=== PATIENT | male | born 1975 | race Caucasian/White ===

== ENCOUNTER 2021-12-31 04:54 | Emergency (ER) | payer OTHER ==
[2021-12-31] MEDS ORDERED: LORazepam 2 MG/ML INJ IV STA (05:41)
[2021-12-31] MEDS ORDERED: SODIUM CHLORIDE 0.9% 1,000 ML IV ONE (05:41)
[2021-12-31] MEDS ORDERED: LORazepam 2 MG/ML INJ IV PRN ×3 (06:09)
[2021-12-31] MEDS ORDERED: THIAMINE 100 MG/ML 2 ML VIAL IM STA (06:09)
--- NOTE | 2021-12-31 06:18 | ED ---
Alcohol HPI - General Chief Complaint: Alcohol Stated Complaint: ETOH Time Seen by Provider: 12/31/21 05:59 Source: patient, EMS, RN notes reviewed Mode of arrival: EMS Limitations: altered mental status (alcohol intoxication) - History of Present Illness Initial Comments: This is a 46-year-old male who presents to the emergency department for alcohol intoxication. Patient is clearly intoxicated on initial examination and difficult to obtain history from. States that his last drink was just prior to arrival. He had 10 24 oz beers tonight. States that he was released from shelter in June, and prior to his release he had been sober for 6 years. Despite being released in June, he did not have any alcohol until last night. States that he was around other people who were drinking alcohol and decided he would have some too, and ended up getting carried away. Currently states that he feels shaky and overall very ill. MD Complaint: alcohol intoxication Last Drink: just [employer] Recent Trauma: No Chronic Alcohol Use: Yes - Related Data Home Medications Medication Instructions Recorded Confirmed Dilantin 11/01/15 11/01/15 Phenobarbital 11/01/15 11/01/15 Previous Rx's Medication Instructions Recorded Ondansetron Odt [Zofran Odt] 4 mg PO Q8HR PRN #20 tab 12/31/21 Allergies Allergy/AdvReac Type Severity Reaction Status Date / Time No Known Allergies Allergy Verified 12/31/21 04:59 Review of Systems ROS Statement: Those systems with pertinent positive or pertinent negative responses have been documented in the HPI. ROS Other: All systems not noted in ROS Statement are negative. Respiratory: Denies: cough, dyspnea Cardiovascular: Denies: chest pain Gastrointestinal: Reports: nausea. Denies: vomiting Skin: Denies: rash Neurological: Reports: headache Psychiatric: Denies: anxiety, depression Past Medical History Past Medical History: Seizure Disorder History of Any Multi-Drug Resistant Organisms: None Reported Additional Past Surgical History / Comment(s): MOUTH SURGERY Past Psychological History: Anxiety, Depression Past Alcohol Use History: Heavy Past Drug Use History: None Reported General Exam Limitations: altered mental status (alcohol intoxication) General appearance: alert, appears intoxicated Head exam: Present: atraumatic, normocephalic, normal inspection Respiratory exam: Present: normal lung sounds bilaterally. Absent: respiratory distress, wheezes, rales, rhonchi, stridor Cardiovascular Exam: Present: normal rhythm, tachycardia, normal heart sounds. Absent: systolic murmur, diastolic murmur, rubs, gallop, clicks Neurological exam: Present: alert Skin exam: Present: warm, dry, intact, normal color. Absent: rash Course Vital Signs 12/31/21 12/31/21 12/31/21 04:56 06:36 08:33 Temperature 98.3 F Pulse Rate 111 H 92 85 Respiratory 19 18 16 Rate Blood Pressure 153/94 114/78 113/77 O2 Sat by Pulse 95 93 L 98 Oximetry 12/31/21 12/31/21 12/31/21 09:20 11:05 12:05 Temperature 98 F 98.1 F 98 F Pulse Rate 88 90 60 Respiratory 16 16 16 Rate Blood Pressure 111/78 115/84 117/80 O2 Sat by Pulse 97 96 98 Oximetry 12/31/21 12/31/21 13:44 15:00 Temperature 98.8 F 98.6 F Pulse Rate 90 92 Respiratory 16 16 Rate Blood Pressure 140/86 140/60 O2 Sat by Pulse 96 96 Oximetry Medical Decision Making - Medical Decision Making This is a 46-year-old male who presents to the emergency department for alcohol intoxication. He was started on IV fluids and given a dose of Ativan and thiamine. Lab work obtained and CIWA protocol initiated. Lab work reveals hypocalcemia. Patient given 1 g of calcium gluconate. His alcohol level was 181, which does not meet criteria for admission. The patient will be sober in 6 hours (at 13:00). After a few hours, the patient states that he continues to feel shaky and ill. He was subsequently given a banana bag. Patient reevaluated and found to be doing much better. He denies any suicidal or homicidal ideations or the need to speak with a mental health provider. Patient states that he simply relapsed after 6 years, which she knows was a mistake, and he plans to avoid doing this again in the future, or to at least significantly reduce his alcohol intake. Prescription for Zofran provided in the event he continues to experience any nausea or vomiting. Instructed him to remain well hydrated. Return precautions reviewed in depth, the patient is instructed to return to the emergency department with any new, worsening, or concerning symptoms. Patient verbalized understanding. This case was discussed in detail with the attending ED physician. Presentation, findings, and treatment plan discussed in detail as well. - Lab Data Result diagrams: 12/31/21 08:00 12/31/21 06:40 Lab Results 12/31/21 12/31/21 Range/Units 06:40 08:00 WBC 4.5 (3.8-10.6) k/uL RBC 4.87 (4.30-5.90) m/uL Hgb 13.5 (13.0-17.5) gm/dL Hct 41.3 (39.0-53.0) % MCV 84.8 (80.0-100.0) fL MCH 27.7 (25.0-35.0) pg MCHC 32.7 (31.0-37.0) g/dL RDW 14.3 (11.5-15.5) % Plt Count 127 L (150-450) k/uL MPV 7.0 Neutrophils % 70 % Lymphocytes % 18 % Monocytes % 8 % Eosinophils % 3 % Basophils % 0 % Neutrophils # 3.1 (1.3-7.7) k/uL Lymphocytes # 0.8 L (1.0-4.8) k/uL Monocytes # 0.4 (0-1.0) k/uL Eosinophils # 0.1 (0-0.7) k/uL Basophils # 0.0 (0-0.2) k/uL Sodium 142 (137-145) mmol/L Potassium 4.2 (3.5-5.1) mmol/L Chloride 107 (98-107) mmol/L Carbon Dioxide 21 L (22-30) mmol/L Anion Gap 14 mmol/L BUN 12 (9-20) mg/dL Creatinine 0.85 (0.66-1.25) mg/dL Est GFR (CKD-EPI)AfAm >90 (>60 ml/min/1.73 sqM) Est GFR (CKD-EPI)NonAf >90 (>60 ml/min/1.73 sqM) Glucose 110 H (74-99) mg/dL Calcium 7.3 L (8.4-10.2) mg/dL Magnesium 1.9 (1.6-2.3) mg/dL Total Bilirubin 0.6 (0.2-1.3) mg/dL AST 71 H (17-59) U/L ALT 43 (4-49) U/L Alkaline Phosphatase 98 (38-126) U/L Total Protein 7.2 (6.3-8.2) g/dL Albumin 4.0 (3.5-5.0) g/dL Amylase 47 (30-110) U/L Lipase 132 (23-300) U/L Serum Alcohol 181 mg/dL Disposition Clinical Impression: Alcoholic intoxication Disposition: HOME SELF-CARE Instructions (If sedation given, give patient instructions): Alcohol Intoxication (ED) Additional Instructions: Return to the emergency department with any new, worsening, or concerning sym ptoms. Try to decrease your alcohol intake. Make sure that you remain well- hydrated. Take the Zofran up to every 8 hours as needed for nausea and vomiting. Prescriptions: Ondansetron Odt [Zofran Odt] 4 mg PO Q8HR PRN #20 tab PRN Reason: Nausea And Vomiting Is patient prescribed a controlled substance at d/c from ED?: No Referrals: None,Stated [Primary Care Provider] - 1-2 days
[2021-12-31 07:09] LABS: ALT 43 U/L (4-49); AST 71 U/L (17-59); African American GFR (CKD) >90 (>60 ml/min/1.73 sqM); Alkaline Phosphatase 98 U/L (38-126); Amylase 47 U/L (30-110); Anion Gap 14 mmol/L; Blood Urea Nitrogen 12 mg/dL (9-20); Calcium 7.3 mg/dL (8.4-10.2); Carbon Dioxide 21 mmol/L (22-30); Chloride 107 mmol/L (98-107); Glucose 110 mg/dL (74-99); Lipase 132 U/L (23-300); Magnesium 1.9 mg/dL (1.6-2.3); Non-African American GFR(CKD) >90 (>60 ml/min/1.73 sqM); Potassium 4.2 mmol/L (3.5-5.1); Sodium 142 mmol/L (137-145); Total Bilirubin 0.6 mg/dL (0.2-1.3); Total Protein 7.2 g/dL (6.3-8.2)
[2021-12-31 07:13] LABS: Alcohol 181 mg/dL
[2021-12-31 08:28] LABS: Basophils % (A) 0 %; Eosinophils # (A) 0.1 k/uL (0-0.7); Eosinophils % (A) 3 %; HCT 41.3 % (39.0-53.0); HGB 13.5 gm/dL (13.0-17.5); Lymphocytes # (A) 0.8 k/uL (1.0-4.8); Lymphocytes % (A) 18 %; MCH 27.7 pg (25.0-35.0); MCHC 32.7 g/dL (31.0-37.0); MCV 84.8 fL (80.0-100.0); Monocytes # (A) 0.4 k/uL (0-1.0); Monocytes % (A) 8 %; Neutrophils # (A) 3.1 k/uL (1.3-7.7); Neutrophils % (A) 70 %; Platelet Count 127 k/uL (150-450); RBC 4.87 m/uL (4.30-5.90); RDW 14.3 % (11.5-15.5); WBC 4.5 k/uL (3.8-10.6)
[2021-12-31 08:34] VITALS: RESP 16
[2021-12-31] MEDS ORDERED: CALCIUM GLUCONATE IN NACL 1 GM in SALINE 1 100ML.BAG IVPB ONE (09:15)
[2021-12-31] MEDS ORDERED: SODIUM CHLORIDE 0.9% 1,000 ML with MVI, ADULT NO.4 WITH VIT K 10 ML, THIAMINE 100 MG, F... IV ONE ×4 (11:45)
[2021-12-31 15:02] VITALS: BP 140/60; PULSE 92; TEMP 98.6
[2021-12-31] MEDS ORDERED: THIAMINE 100 MG TAB PO SCH (17:30)
== END 2021-12-31 16:13 | disposition home or self-care (01) ==
LOC: EC 04:54
DX: F10.129 Alcohol abuse with intoxication, unspecified (principal); Y90.6 Blood alcohol level of 120-199 mg/100 ml; Z86.69 Personal history of other diseases of the nervous system and sense organs
CPT/HCPCS: 36415; 80053; 82150; 83690; 83735; 85025; 99284; 96365; 96366; 96367; 96375; 96361; 96372; G0480; J2060; J3411; J0610; 80320

== ENCOUNTER 2022-01-05 19:52 | Emergency (ER) | payer OTHER ==
[2022-01-05 20:13] VITALS: RESP 18; TEMP 98.3
[2022-01-06] MEDS ORDERED: SODIUM CHLORIDE 0.9% 1,000 ML IV STA (01:21)
[2022-01-06] MEDS ORDERED: LACOSAMIDE IV 200 MG in SODIUM CHLORIDE 0.9% 50 ML IVPB ONE (02:00)
[2022-01-06] MEDS ORDERED: levETIRAcetam IV 1,000 MG in SALINE 1 100ML.BAG IVPB ONE (02:00)
[2022-01-06 03:15] LABS: Basophils % (A) 0 %; Eosinophils # (A) 0.3 k/uL (0-0.7); Eosinophils % (A) 4 %; HCT 44.4 % (39.0-53.0); HGB 14.4 gm/dL (13.0-17.5); Lymphocytes # (A) 1.6 k/uL (1.0-4.8); Lymphocytes % (A) 23 %; MCH 28.5 pg (25.0-35.0); MCHC 32.4 g/dL (31.0-37.0); Mean Platelet Volume 7.8; Monocytes # (A) 0.3 k/uL (0-1.0); Monocytes % (A) 4 %; Neutrophils # (A) 4.7 k/uL (1.3-7.7); Neutrophils % (A) 67 %; Platelet Count 103 k/uL (150-450); RBC 5.04 m/uL (4.30-5.90); RDW 14.9 % (11.5-15.5)
[2022-01-06 03:42] LABS: ALT 60 U/L (4-49); AST 42 U/L (17-59); African American GFR (CKD) >90 (>60 ml/min/1.73 sqM); Alkaline Phosphatase 92 U/L (38-126); Anion Gap 12 mmol/L; Blood Urea Nitrogen 13 mg/dL (9-20); Calcium 8.7 mg/dL (8.4-10.2); Carbon Dioxide 22 mmol/L (22-30); Chloride 106 mmol/L (98-107); Glucose 93 mg/dL (74-99); Magnesium 2.1 mg/dL (1.6-2.3); Non-African American GFR(CKD) >90 (>60 ml/min/1.73 sqM); Potassium 3.8 mmol/L (3.5-5.1); Sodium 140 mmol/L (137-145); Total Bilirubin 0.4 mg/dL (0.2-1.3); Total Protein 7.1 g/dL (6.3-8.2)
[2022-01-06] MEDS ORDERED: LACOSAMIDE 50 MG TABLET PO STA (03:50)
--- NOTE | 2022-01-06 03:57 | ED ---
General Adult HPI - General Chief complaint: Seizure Stated complaint: Chest Pain Time Seen by Provider: 01/06/22 01:21 Source: patient, RN notes reviewed, old records reviewed Mode of arrival: EMS - History of Present Illness Initial comments: Patient is a 46-year-old male with past medical history remarkable for seizure disorder who presents emergency Department complaining of pretty seizures. Has had multiple breakthrough seizures this week. Is because he has been noncom pliant with medications due to running out of his prescription and having insurance issues filling his Vimpat. Had a seizure earlier today. He is seeking a dose of Vimpat. States his increased anxiety regarding the seizures. Denies any chest pain, shortness of breath, headache, fevers, chills, cough. Denies any abdominal pain, nausea, vomiting. No other acute complaint at this time. Presents for further evaluation. Triage note states chest pain, however he denies any chest pain to me. - Related Data Home Medications Medication Instructions Recorded Confirmed Dilantin 11/01/15 11/01/15 Phenobarbital 11/01/15 11/01/15 Previous Rx's Medication Instructions Recorded Ondansetron Odt [Zofran Odt] 4 mg PO Q8HR PRN #20 tab 12/31/21 Allergies Allergy/AdvReac Type Severity Reaction Status Date / Time No Known Allergies Allergy Verified 01/05/22 20:13 Review of Systems ROS Statement: Those systems with pertinent positive or pertinent negative responses have been documented in the HPI. Review of Systems: CONST: Denies fever EYES: Denies blurry vision ENT: Denies nasal congestion C/V: Denies Chest pain RESP: Denies shortness of breath GI: Denies abdominal pain : Denies dysuria SKIN: Denies rash. MSK: Denies joint pain. NEURO: Denies headache ROS Other: All systems not noted in ROS Statement are negative. Past Medical History Past Medical History: Seizure Disorder History of Any Multi-Drug Resistant Organisms: None Reported Additional Past Surgical History / Comment(s): MOUTH SURGERY Past Psychological History: Anxiety, Depression Past Alcohol Use History: Heavy Past Drug Use History: None Reported General Exam - General Exam Comments Initial Comments: General: Appears in no acute distress. HEAD: Normal with no signs of head trauma. EYES: PERRLA, EOMI, conjunctiva normal, no discharge. Pupils 3 mm equal bilaterally. ENT: Hearing grossly intact, normal oropharynx. RESPIRATORY: Clear breath sounds bilaterally. No wheezes, rales, or rhonchi. C/V: Regular rate and rhythm. S1 and S2 auscultated, no edema, peripheral pulses 2+ and intact throughout ABD: Abd is soft, nontender, nondistended EXT: Normal range of motion, no obvious deformity SKIN: No rashes or lesions observed on exposed skin. NEURO: Alert and oriented x 4. Cranial nerves II-XII intact. No focal sensory or strength deficits. She is a 15. NIH of 0. Course Vital Signs 01/05/22 20:09 Temperature 98.3 F Pulse Rate 103 H Respiratory 18 Rate Blood Pressure 133/92 O2 Sat by Pulse 100 Oximetry Medical Decision Making - Medical Decision Making Based on the patient's presentation and physical exam, he presents over concern for being out of his seizure medication, having multiple breakthrough seizures this week. Vital signs are within normal limits. No seizures while he is here. I evaluated the patient after multiple hours in the waiting room when he was finally placed in a room. I did discuss with him I can provide him with a dose of the pad as well as his Keppra for this evening and he was in agreement this plan. His medication issue seems to the insurance related, as he has a prescription waiting for him. I did recommend he rechecked his neurologist to see if they can help. He was also in agreement this plan. We will obtain basic labs, and then he will likely be discharged home. He was in agreement this plan. EKG shows no signs of acute ischemia. Laboratory studies were within normal limits. I discussed results with him. I believe is safe for discharge. He was in agreement this plan.Discuss with him that he cannot operate a motor vehicle as he had recent seizures 6 months. Needs to follow up with neurology. I instructed the patient to follow up with their PCP in the next 1-3 days. I explained that the patient should return to the emergency department if they experience any worsening symptoms. Strict return precautions were discussed with the patient. The patient expressed understanding of these instructions. I answered all questions that the patient had. The patient was discharged home in good condition with their prescriptions and follow up information. - Lab Data Result diagrams: 01/06/22 02:01 01/06/22 02:01 Lab Results 01/06/22 01/06/22 Range/Units 02:01 02:01 WBC 7.0 (3.8-10.6) k/uL RBC 5.04 (4.30-5.90) m/uL Hgb 14.4 (13.0-17.5) gm/dL Hct 44.4 (39.0-53.0) % MCV 88.0 (80.0-100.0) fL MCH 28.5 (25.0-35.0) pg MCHC 32.4 (31.0-37.0) g/dL RDW 14.9 (11.5-15.5) % Plt Count 103 L (150-450) k/uL MPV 7.8 Neutrophils % 67 % Lymphocytes % 23 % Monocytes % 4 % Eosinophils % 4 % Basophils % 0 % Neutrophils # 4.7 (1.3-7.7) k/uL Lymphocytes # 1.6 (1.0-4.8) k/uL Monocytes # 0.3 (0-1.0) k/uL Eosinophils # 0.3 (0-0.7) k/uL Basophils # 0.0 (0-0.2) k/uL Sodium 140 (137-145) mmol/L Potassium 3.8 (3.5-5.1) mmol/L Chloride 106 (98-107) mmol/L Carbon Dioxide 22 (22-30) mmol/L Anion Gap 12 mmol/L BUN 13 (9-20) mg/dL Creatinine 0.95 (0.66-1.25) mg/dL Est GFR (CKD-EPI)AfAm >90 (>60 ml/min/1.73 sqM) Est GFR (CKD-EPI)NonAf >90 (>60 ml/min/1.73 sqM) Glucose 93 (74-99) mg/dL Calcium 8.7 (8.4-10.2) mg/dL Magnesium 2.1 (1.6-2.3) mg/dL Total Bilirubin 0.4 (0.2-1.3) mg/dL AST 42 (17-59) U/L ALT 60 H (4-49) U/L Alkaline Phosphatase 92 (38-126) U/L Total Protein 7.1 (6.3-8.2) g/dL Albumin 4.0 (3.5-5.0) g/dL - EKG Data -: EKG Interpreted by Mo EKG Comments: 12-lead Electrocardiogram Interpretation Note EKG was reviewed and interpreted by myself. 12-lead ECG performed at 0246 is interpreted by me as revealing normal sinus rhythm at a rate of 68 beats per minute. Greene is normal. MO interval 150 ms, QRS duration is 102 ms, QTc is 404 ms.. There were no ST or T wave abnormalities to suggest myocardial ischemia or injury. R wave progression across the precordium was satisfactory. By my interpretation this EKG is non-diagnostic for acute ischemia. Disposition Clinical Impression: Breakthrough seizure, Noncompliance with medication regimen Disposition: HOME SELF-CARE Condition: Good Instructions (If sedation given, give patient instructions): Seizure/Epilepsy Discharge Instructions & Follow-Up Is patient prescribed a controlled substance at d/c from ED?: No Referrals: None,Stated [Primary Care Provider] - 1-2 days Time of Disposition: 03:50
[2022-01-06 05:11] VITALS: PULSE 60
[2022-01-06 05:18] VITALS: BP 122/82
== END 2022-01-06 05:26 | disposition home or self-care (01) ==
LOC: EC 19:52
DX: G40.909 Epilepsy, unspecified, not intractable, without status epilepticus (principal); Z91.14 Patient's other noncompliance with medication regimen
CPT/HCPCS: 36415; 93005; 80053; 83735; 85025; 99285; 96365; 96375; 96361; C9254; J1953

== ENCOUNTER → 2022-01-12 | Outpatient (CLI) | payer OTHER ==
--- NOTE | 2022-01-12 21:52 | MR ---
EXAMINATION TYPE: MR brain wo con DATE OF EXAM: 01/12/2022 COMPARISON: CT brain report November 01, 2015 HISTORY: Dizziness TECHNIQUE: Multiplanar, multisequence imaging of the brain and brainstem is performed without IV cont rast. FINDINGS: Diffusion weighted images demonstrate no evidence of a recent infarct or other diffusion abnormality. There is no extraaxial fluid collection or significant white matter signal abnormality. The ventricu lar system and cisternal spaces are normal in size and appearance. The brain volume is age appropria te. T2 coronal weighted images show hippocampal gyri to appear symmetric and felt within normal limit s. Midline structures demonstrate normal morphology. The craniocervical junction appears within normal limits. Normal vascular flow voids are present. The visualized sinuses are clear and the globes are i ntact. No suspicious fluid signal in the bilateral mastoid air cells. IMPRESSION: No suspicious findings seen to account for patient's symptoms of dizziness. Unremarkable study.
== END | disposition home or self-care (01) ==
LOC: RADMRIMAIN 06:42
PROVIDERS: ATTEND Nurse Practitioner Acute Care
DX: R41.3 Other amnesia (principal); R59.9 Enlarged lymph nodes, unspecified; R56.9 Unspecified convulsions
CPT/HCPCS: 70551

== ENCOUNTER 2022-02-02 11:01 | Emergency (ER) | payer OTHER ==
--- NOTE | 2022-02-02 11:19 | XR ---
EXAMINATION TYPE: XR pelvis AP view DATE OF EXAM: 02/02/2022 CLINICAL HISTORY: Pain after significant fall injury. TECHNIQUE: A single AP view of the pelvis is obtained. COMPARISON: None. FINDINGS: There is no acute fracture/dislocation evident in the pelvis. The hip and sacroiliac join ts appear symmetric and unremarkable. Pubic symphysis is intact. The overlying soft tissue appears u nremarkable. IMPRESSION: There is no acute fracture or dislocation in the pelvis.
--- NOTE | 2022-02-02 11:20 | XR ---
EXAMINATION TYPE: XR chest 1V portable DATE OF EXAM: 02/02/2022 COMPARISON: NONE HISTORY: Pain after fall injury. TECHNIQUE: Single portable frontal view of the chest is obtained. FINDINGS: There is left basilar opacity favoring atelectasis. Right lung is clear. No pleural effus ion or pneumothorax seen bilaterally. The cardiac silhouette size is within normal limits. The osse ous structures are intact. Left-sided neck stimulator noted. IMPRESSION: Patchy left basilar atelectasis.
[2022-02-02 11:38] LABS: INR 1.2 (<1.2); Partial Thromboplastin Time 22.3 sec (22.0-30.0); Prothrombin Time 12.8 sec (9.0-12.0)
[2022-02-02 11:41] LABS: Basophils % (A) 1 %; Eosinophils # (A) 0.4 k/uL (0-0.7); Eosinophils % (A) 5 %; HCT 44.8 % (39.0-53.0); HGB 14.9 gm/dL (13.0-17.5); Lymphocytes # (A) 1.4 k/uL (1.0-4.8); Lymphocytes % (A) 18 %; MCH 28.1 pg (25.0-35.0); MCHC 33.3 g/dL (31.0-37.0); MCV 84.3 fL (80.0-100.0); Mean Platelet Volume 7.8; Monocytes # (A) 0.4 k/uL (0-1.0); Monocytes % (A) 5 %; Neutrophils # (A) 5.5 k/uL (1.3-7.7); Neutrophils % (A) 69 %; RBC 5.32 m/uL (4.30-5.90); RDW 14.1 % (11.5-15.5); WBC 7.9 k/uL (3.8-10.6)
[2022-02-02 11:42] LABS: ALT 58 U/L (4-49); AST 111 U/L (17-59); African American GFR (CKD) >90 (>60 ml/min/1.73 sqM); Albumin 4.2 g/dL (3.5-5.0); Alcohol <10 mg/dL; Alkaline Phosphatase 102 U/L (38-126); Anion Gap 10 mmol/L; Blood Urea Nitrogen 15 mg/dL (9-20); Calcium 8.4 mg/dL (8.4-10.2); Carbon Dioxide 24 mmol/L (22-30); Chloride 108 mmol/L (98-107); Glucose 120 mg/dL (74-99); Non-African American GFR(CKD) 79 (>60 ml/min/1.73 sqM); Sodium 142 mmol/L (137-145); Total Bilirubin 0.6 mg/dL (0.2-1.3); Total Protein 7.3 g/dL (6.3-8.2)
[2022-02-02 11:47] LABS: Platelet Count 180 k/uL (150-450)
--- NOTE | 2022-02-02 11:53 | CT ---
EXAMINATION TYPE: CT ChestAbdPelvis w con DATE OF EXAM: 02/02/2022 COMPARISON: None HISTORY: Fall from 20ft with pain. CT DLP: 3554.6 combined mGycm. Automated Exposure Control for Dose Reduction was Utilized. CONTRAST: CT scan of the thorax, abdomen and pelvis is performed with IV Contrast, patient injected with 100ml mL of Isovue 300. FINDINGS: LUNGS: Dependent atelectasis bilaterally. No suspicious focal consolidation. No pleural effusion or p neumothorax seen bilaterally. Low lung volumes noted. MEDIASTINUM: There are no greater than 1 cm hilar or mediastinal lymph nodes. No pericardial effusi on is seen. Heterogeneous enlarged left thyroid with hypodense nodules warrants nonemergent ultrasou nd follow-up to further evaluate and characterize. OTHER: Left anterior superior stimulator device extends into the left neck terminating just caudal to the carotid bulb. Small degree of bilateral subareolar gynecomastia is present. LIVER/GB: No significant abnormality is appreciated. PANCREAS: No significant abnormality is seen. SPLEEN: No significant abnormality is seen. ADRENALS: No significant abnormality is seen. KIDNEYS: There is 2.1 cm simple appearing thin-walled cyst laterally in the right kidney mid to lower pole level axial image 44 delayed images incidentally noted. BOWEL: No significant abnormality is seen. GENITAL ORGANS: No gross abnormality seen. LYMPH NODES: No greater than 1cm abdominal or pelvic lymph nodes are appreciated. OSSEOUS STRUCTURES: Bridging rib lateral left seventh and eighth rib level sagittal image 128 noted. Old healed fracture deformity of the posterior left ninth rib axial image 51. No acute displaced frac ture is seen. OTHER: Tiny fat-containing umbilical hernia. IMPRESSION: No acute posttraumatic finding in particular no acute displaced osseous fracture, abnorma l fluid collection, or evidence of solid organ injury in the thorax, abdomen, or pelvis.
--- NOTE | 2022-02-02 11:58 | CT ---
EXAMINATION TYPE: CT brain cspine wo con DATE OF EXAM: 02/02/2022 COMPARISON: Prior trauma CT November 01, 2015 HISTORY: fall from 20ft with headache and neck pain. CT DLP: 3554.3 combined mGycm. Automated Exposure Control for Dose Reduction was Utilized. TECHNIQUE: CT scan of the head and cervical spine are performed without contrast. FINDINGS: There is no acute intracranial hemorrhage, mass effect, or midline shift identified. The ventricles and sulci are within normal limits in size. Ocampo-white matter differentiation is maintain ed. The globes are intact and the visualized sinuses are clear. Small size right frontal parietal acu te scalp hematoma axial image 42. The calvarium is intact. Cervical spine is visualized in its entirety from C1 through top of T1 level and redemonstrates grade 1 retrolisthesis C4 on C5 without evidence of acute fracture or dislocation. Coronal images show sli ght scoliotic curvature similar to prior. Prevertebral soft tissue remains within normal limits. Th e C1-C2 articulation remains within normal limits on coronal images. Vertebral body heights and disc space heights are maintained. Posterior spur disc complex at C4-C5 level is redemonstrated mildly ef face the anterior thecal sac on sagittal and axial images. Left-sided neck stimulator device is new f rom prior exam IMPRESSION: 1. There is no acute fracture or dislocation evident in the cervical spine. 2. No acute intracranial hemorrhage or midline shift is seen. Small sized right frontoparietal acute scalp hematoma noted.
[2022-02-02] MEDS ORDERED: KETOROLAC 15 MG/ML 1 ML VIAL IVP STA (12:19)
[2022-02-02] MEDS ORDERED: SODIUM CHLORIDE 0.9% 500 ML 500 ML IV ONE (12:19)
--- NOTE | 2022-02-02 12:31 | ED ---
General Adult HPI - General Chief complaint: Trauma Stated complaint: Fall Time Seen by Provider: 02/02/22 11:02 Source: patient, EMS, RN notes reviewed, old records reviewed Mode of arrival: EMS Limitations: no limitations - History of Present Illness Initial comments: 47-year-old male with known seizure disorder, recent vagal nerve stimulator presents with suspected fall from roof. Patient had been attempting to adjust cable television wires and was believed to fall greater than 20 feet. This was the initial history and did result in an activated priority 2 trauma. The patient was later able to recall the events and believes he had a ground-level fall that he was off the ladder and not on the roof at the time of injury. He had complained of right parietal headache and loss of consciousness. Patient himself believes that he had a seizure while on the ground resulting in his fall. - Related Data Home Medications Medication Instructions Recorded Confirmed Dilantin 11/01/15 11/01/15 Phenobarbital 11/01/15 11/01/15 Previous Rx's Medication Instructions Recorded Ondansetron Odt [Zofran Odt] 4 mg PO Q8HR PRN #20 tab 12/31/21 Allergies Allergy/AdvReac Type Severity Reaction Status Date / Time No Known Allergies Allergy Verified 01/05/22 20:13 Review of Systems ROS Statement: Those systems with pertinent positive or pertinent negative responses have been documented in the HPI. ROS Other: All systems not noted in ROS Statement are negative. Past Medical History Past Medical History: Seizure Disorder History of Any Multi-Drug Resistant Organisms: None Reported Additional Past Surgical History / Comment(s): MOUTH SURGERY Past Psychological History: Anxiety, Depression Smoking Status: Current every day smoker Past Alcohol Use History: Heavy Past Drug Use History: None Reported General Exam Limitations: no limitations General appearance: alert, in no apparent distress Head exam: Present: other (Right parietal hematoma with overlying abrasion, no laceration) Eye exam: Present: normal appearance, PERRL ENT exam: Present: normal exam Neck exam: Present: normal inspection, other (No c-collar). Absent: tenderness, meningismus Respiratory exam: Present: normal lung sounds bilaterally. Absent: respiratory distress Cardiovascular Exam: Present: regular rate, normal rhythm GI/Abdominal exam: Present: soft. Absent: distended, tenderness, guarding, rebound Extremities exam: Present: normal inspection, normal capillary refill Back exam: Present: normal inspection, full ROM. Absent: tenderness, vertebral tenderness Neurological exam: Present: alert, oriented X3, CN II-XII intact. Absent: motor sensory deficit Psychiatric exam: Present: normal affect, normal mood Skin exam: Present: warm, dry Course Vital Signs 02/02/22 02/02/22 11:37 12:04 Temperature 98.0 F Pulse Rate 91 92 Respiratory 20 15 Rate Blood Pressure 124/88 137/84 O2 Sat by Pulse 96 98 Oximetry - Reevaluation(s) Reevaluation #1: 02/02/[address] Hurtado in the department to evaluate patient EKG Findings - EKG Comments: EKG Findings:: EKG: Sinus rhythm rate of 87, NM 159, QRS duration 105, QTC [address] segment elevation. Medical Decision Making - Medical Decision Making 47-year-old male with fall either from roof or ground level. That injury pattern is more consistent with a ground-level fall and the patient does not recall being on the roof when he fell he remembers walking down the ladder. Uncertain whether it was from an elevation or ground level. Workup is performed and the patient is evaluated as a priority 2 trauma patient. He has a CT brain and C-spine which shows a right parietal extracranial hematoma. No intracranial hemorrhage. Normal chest x-ray, normal pelvis x-ray, negative chest abdomen pelvis CT. Laboratory testing is essentially unremarkable. Patient is able to tolerate emergency department able to drink fluids. Stable for discharge. - Lab Data Result diagrams: 02/02/22 11:10 02/02/22 11:16 Lab Results 02/02/22 02/02/22 02/02/22 Range/Units 11:05 11:10 11:10 WBC 7.9 (3.8-10.6) k/uL RBC 5.32 (4.30-5.90) m/uL Hgb 14.9 (13.0-17.5) gm/dL Hct 44.8 (39.0-53.0) % MCV 84.3 (80.0-100.0) fL MCH 28.1 (25.0-35.0) pg MCHC 33.3 (31.0-37.0) g/dL RDW 14.1 (11.5-15.5) % Plt Count 180 D (150-450) k/uL MPV 7.8 Neutrophils % 69 % Lymphocytes % 18 % Monocytes % 5 % Eosinophils % 5 % Basophils % 1 % Neutrophils # 5.5 (1.3-7.7) k/uL Lymphocytes # 1.4 (1.0-4.8) k/uL Monocytes # 0.4 (0-1.0) k/uL Eosinophils # 0.4 (0-0.7) k/uL Basophils # 0.0 (0-0.2) k/uL PT 12.8 H (9.0-12.0) sec INR 1.2 H (<1.2) APTT 22.3 (22.0-30.0) sec Sodium (137-145) mmol/L Potassium (3.5-5.1) mmol/L Chloride (98-107) mmol/L Carbon Dioxide (22-30) mmol/L Anion Gap mmol/L BUN (9-20) mg/dL Creatinine (0.66-1.25) mg/dL Est GFR (CKD-EPI)AfAm (>60 ml/min/1.73 sqM) Est GFR (CKD-EPI)NonAf (>60 ml/min/1.73 sqM) Glucose (74-99) mg/dL Calcium (8.4-10.2) mg/dL Total Bilirubin (0.2-1.3) mg/dL AST (17-59) U/L ALT (4-49) U/L Alkaline Phosphatase (38-126) U/L Troponin I (0.000-0.034) ng/mL Total Protein (6.3-8.2) g/dL Albumin (3.5-5.0) g/dL Serum Alcohol mg/dL Blood Type Blood Type Confirm O Negative Blood Type Recheck Bld Type Recheck Status Antibody Screen Spec Expiration Date 02/02/22 02/02/22 02/02/22 Range/Units 11:10 11:16 11:16 WBC (3.8-10.6) k/uL RBC (4.30-5.90) m/uL Hgb (13.0-17.5) gm/dL Hct (39.0-53.0) % MCV (80.0-100.0) fL MCH (25.0-35.0) pg MCHC (31.0-37.0) g/dL RDW (11.5-15.5) % Plt Count (150-450) k/uL MPV Neutrophils % % Lymphocytes % % Monocytes % % Eosinophils % % Basophils % % Neutrophils # (1.3-7.7) k/uL Lymphocytes # (1.0-4.8) k/uL Monocytes # (0-1.0) k/uL Eosinophils # (0-0.7) k/uL Basophils # (0-0.2) k/uL PT (9.0-12.0) sec INR (<1.2) APTT (22.0-30.0) sec Sodium 142 (137-145) mmol/L Potassium 4.0 (3.5-5.1) mmol/L Chloride 108 H (98-107) mmol/L Carbon Dioxide 24 (22-30) mmol/L Anion Gap 10 mmol/L BUN 15 (9-20) mg/dL Creatinine 1.12 (0.66-1.25) mg/dL Est GFR (CKD-EPI)AfAm >90 (>60 ml/min/1.73 sqM) Est GFR (CKD-EPI)NonAf 79 (>60 ml/min/1.73 sqM) Glucose 120 H (74-99) mg/dL Calcium 8.4 (8.4-10.2) mg/dL Total Bilirubin 0.6 (0.2-1.3) mg/dL AST 111 H (17-59) U/L ALT 58 H (4-49) U/L Alkaline Phosphatase 102 (38-126) U/L Troponin I <0.012 (0.000-0.034) ng/mL Total Protein 7.3 (6.3-8.2) g/dL Albumin 4.2 (3.5-5.0) g/dL Serum Alcohol <10 mg/dL Blood Type O Negative Blood Type Confirm Blood Type Recheck No Previous Record Bld Type Recheck Status CABO Indicated Antibody Screen NEGATIVE Spec Expiration Date 02/05/20222309 Disposition Clinical Impression: Concussion Disposition: HOME SELF-CARE Condition: Fair Instructions (If sedation given, give patient instructions): Concussion (ED) Is patient prescribed a controlled substance at d/c from ED?: No Referrals: None,Stated [Primary Care Provider] - 1-2 days Santy Narayanan MD [STAFF PHYSICIAN] - 1-2 days Time of Disposition: 13:03
[2022-02-02 13:16] LABS: Appearance,Urine Clear (Clear); Bilirubin,Urine Negative (Negative); Blood,Urine Small (Negative); Color,Urine Yellow; Glucose,Urine (UA) Negative (Negative); Hyaline Casts,Urine 1 /lpf (0-2); Ketones,Urine Negative (Negative); Leukocyte Esterase,Urine Negative (Negative); Mucus,Urine Occasional /hpf; Nitrite,Urine Negative (Negative); PH, Urine 5.5 (5.0-8.0); Protein,Urine 1+ (Negative); RBC,Urine 5 /hpf (0-5); Squamous Epithelial Cell,Urine <1 /hpf (0-4); Urobilinogen,Urine <2.0 mg/dL (<2.0); WBC,Urine 2 /hpf (0-5)
[2022-02-02 13:21] LABS: Specific Gravity,Urine >1.050 (1.001-1.035)
[2022-02-02 13:40] LABS: Amphetamine Screen,Urine Not Detected (NotDetected); Barbiturate Screen,Urine Not Detected (NotDetected); Benzodiazepines Screen,Urine Not Detected (NotDetected); Cocaine Screen,Urine Not Detected (NotDetected); Methadone Screen, Urine Not Detected (NotDetected); Opiate Screen,Urine Not Detected (NotDetected); Oxycodone Screen, Urine Not Detected (NotDetected); Phencyclidine Screen,Urine Not Detected (NotDetected); Tricyclic Antidepressant,Urine Not Detected (NotDetected); Urn Cannabinoid Scrn Not Detected (NotDetected)
[2022-02-02 13:53] VITALS: BP 128/91; PULSE 93; RESP 16; TEMP 98.2
--- NOTE | 2022-02-02 16:52 | P.GSCN ---
History of Present Illness Consult date: 02/02/22 History of present illness: TRAUMA ACTIVATION: Level II status post 20 foot fall from roof HISTORY OF PRESENT ILLNESS: The patient is a 47-year-old gentleman who presents as a level II trauma after falling off of her at least 20 feet. Patient had fallen onto his back. He had loss of consciousness. At the time of assessment, patient is alert. No reports of abdominal pain. He has pre-existing history of seizure disorder. PAST MEDICAL HISTORY: See list PAST SURGICAL HISTORY: See list MEDICATIONS See list ALLERGIES: See list SOCIAL HISTORY: See list FAMILY HISTORY: History of cardiac disease. REVIEW OF ORGAN SYSTEMS: CONSTITUTIONAL: Denies any fever or chills. HEENT: Denies any trouble with vision, hearing or nosebleeds. No difficulty swallowing. LYMPHATIC: The patient denies any lumps and bumps around the neck. ENDOCRINE: Denies any thyroid disorders. Denies any blood sugar glucose intolerance. RESPIRATORY: Has tobacco abuse disorder. CARDIOVASCULAR: No prior cardiac catheterization. GASTROINTESTINAL: H No bright red blood per rectum. GENITOURINARY: Denies any blood in urine or increased urinary frequency. MUSCULOSKELETAL: Has back pain, stiffness, joint arthritis. NEUROLOGIC: Has seizure disorder. PSYCHIATRIC: Has generalized anxiety and depression. HEMATOLOGIC: Denies any abnormal bleeding or bruising. BREASTS: Denies any breast lumps, pain or nipple discharge. PHYSICAL EXAM: VITAL SIGNS: Stable GCS 15. GENERAL: Well-developed male in minimal distress. HEENT: No sclerae icterus. Extraocular movements grossly intact. Moist buccal mucosa. Head is atraumatic. NECK: Cervical spine midline. Cervical collar present. CHEST: No obvious deformity. Nonlabored respirations. CARDIOVASCULAR: Distal pulses 2+. Regular rate ABDOMEN: Nontender. No peritonitis. MUSCULOSKELETAL: No clubbing, cyanosis, or edema. NEURO: No focal or lateralizing signs. Cranial nerves II to XII intact. SKIN: Perfused. Good skin turgor. LABS: Reviewed. Urine drug screen urine alcohol negative. WBC normal. LFTs el evated. STUDIES: Preliminary CT head and C-spine negative for acute cervical fracture or acute intracranial bleed. This is my independent interpretation. Preliminary CT chest abdomen and pelvis without pneumothorax. No solid organ injuries to liver or spleen identified. No free fluid. This is my independent interpretation. ASSESSMENT: 1. Level II trauma activation, status post fall 20 feet 2. Seizure disorder PLAN: 1. Pending completion of final reads of CT. No need for chest tube placement. 2. EKG for crush injury to chest recommended. 3. Patient seen and evaluated presented as level II trauma status post fall 20 feet. Patient awake and alert obtaining computed tomography scan at the time assessment. CT reviewed demonstrating no acute intra-abdominal injuries. CT head unremarkable for acute bleed. Pending clinical course, possible discharge from the ER. CRITICAL CARE TIME: 33 minutes Past Medical History Past Medical History: Seizure Disorder History of Any Multi-Drug Resistant Organisms: None Reported Additional Past Surgical History / Comment(s): MOUTH SURGERY Past Psychological History: Anxiety, Depression Smoking Status: Current every day smoker Past Alcohol Use History: Heavy Past Drug Use History: None Reported Medications and Allergies Home Medications Medication Instructions Recorded Confirmed Type Dilantin 11/01/15 11/01/15 History Phenobarbital 11/01/15 11/01/15 History Ondansetron Odt [Zofran Odt] 4 mg PO Q8HR PRN #20 tab 12/31/21 Rx Allergies Allergy/AdvReac Type Severity Reaction Status Date / Time No Known Allergies Allergy Verified 01/05/22 20:13 Surgical - Exam Vital Signs Temp Pulse Resp BP Pulse Ox 98.0 F 91 20 124/88 96 02/02/22 11:37 02/02/22 11:37 02/02/22 11:37 02/02/22 11:37 02/02/22 11:37 Results - Labs 02/02/22 11:10 02/02/22 11:16 Abnormal Lab Results - Last 24 Hours (Table) 02/02/22 02/02/22 02/02/22 Range/Units 11:10 11:16 12:37 PT 12.8 H (9.0-12.0) sec INR 1.2 H (<1.2) Chloride 108 H (98-107) mmol/L Glucose 120 H (74-99) mg/dL AST 111 H (17-59) U/L ALT 58 H (4-49) U/L Ur Specific Marshall >1.050 H (1.001-1.035) Urine Protein 1+ H (Negative) Urine Blood Small H (Negative) Urine Mucus Occasional H (None) /hpf Diabetes panel 02/02/22 Range/Units 11:16 Sodium 142 (137-145) mmol/L Potassium 4.0 (3.5-5.1) mmol/L Chloride 108 H (98-107) mmol/L Carbon Dioxide 24 (22-30) mmol/L BUN 15 (9-20) mg/dL Creatinine 1.12 (0.66-1.25) mg/dL Glucose 120 H (74-99) mg/dL Calcium 8.4 (8.4-10.2) mg/dL AST 111 H (17-59) U/L ALT 58 H (4-49) U/L Alkaline Phosphatase 102 (38-126) U/L Total Protein 7.3 (6.3-8.2) g/dL Albumin 4.2 (3.5-5.0) g/dL Calcium panel 02/02/22 Range/Units 11:16 Calcium 8.4 (8.4-10.2) mg/dL Albumin 4.2 (3.5-5.0) g/dL Pituitary panel 02/02/22 Range/Units 11:16 Sodium 142 (137-145) mmol/L Potassium 4.0 (3.5-5.1) mmol/L Chloride 108 H (98-107) mmol/L Carbon Dioxide 24 (22-30) mmol/L BUN 15 (9-20) mg/dL Creatinine 1.12 (0.66-1.25) mg/dL Glucose 120 H (74-99) mg/dL Calcium 8.4 (8.4-10.2) mg/dL Adrenal panel 02/02/22 Range/Units 11:16 Sodium 142 (137-145) mmol/L Potassium 4.0 (3.5-5.1) mmol/L Chloride 108 H (98-107) mmol/L Carbon Dioxide 24 (22-30) mmol/L BUN 15 (9-20) mg/dL Creatinine 1.12 (0.66-1.25) mg/dL Glucose 120 H (74-99) mg/dL Calcium 8.4 (8.4-10.2) mg/dL Total Bilirubin 0.6 (0.2-1.3) mg/dL AST 111 H (17-59) U/L ALT 58 H (4-49) U/L Alkaline Phosphatase 102 (38-126) U/L Total Protein 7.3 (6.3-8.2) g/dL Albumin 4.2 (3.5-5.0) g/dL
== END 2022-02-02 13:47 | disposition home or self-care (01) ==
LOC: EC 11:01
DX: S06.0X9A Concussion with loss of consciousness of unspecified duration, initial encounter (principal); F41.9 Anxiety disorder, unspecified; F32.A Depression, unspecified; F17.200 Nicotine dependence, unspecified, uncomplicated; W13.2XXA Fall from, out of or through roof, initial encounter
CPT/HCPCS: 36415; 93005; 86900; 86901; 80053; 84484; 85025; 85610; 85730; 86850; 81001; 80306; 72170; 71045; 72125; 70450; 71260; 74177; 99285; 96374; 96361; G0480; J1885; Q9967; 80320

== ENCOUNTER 2022-10-01 22:18 | Emergency (ER) | payer OTHER ==
[2022-10-01 23:11] VITALS: TEMP 97.5
--- NOTE | 2022-10-02 00:30 | ED ---
General Adult HPI - General Chief complaint: Psychiatric Symptoms Stated complaint: Mental Health Petition Time Seen by Provider: 10/01/22 23:16 Source: patient, police Mode of arrival: ambulatory Limitations: no limitations - History of Present Illness Initial comments: This is a 47-year-old male who was brought in by police for suicidal ideation and intoxication. It was reported the patient had a significant amount of alcohol tonight and was having suicidal thoughts therefore he called police and stated that he would "kill himself unless they picked him up." The patient was petitioned by police on arrival and the patient was intoxicated and stated that he was suicidal after the day and it. The patient did report she was given alcohol today and stated that he has never been suicidal like this before. The patient denied any homicidal ideation as well as any auditory visual hallucinations. The patient was resting in bed without any further acute distress. - Related Data Home Medications Medication Instructions Recorded Confirmed Dilantin 11/01/15 11/01/15 Phenobarbital 11/01/15 11/01/15 Previous Rx's Medication Instructions Recorded Ondansetron Odt [Zofran Odt] 4 mg PO Q8HR PRN #20 tab 12/31/21 Allergies Allergy/AdvReac Type Severity Reaction Status Date / Time No Known Allergies Allergy Verified 10/01/22 23:11 Review of Systems ROS Statement: Those systems with pertinent positive or pertinent negative responses have been documented in the HPI. ROS Other: All systems not noted in ROS Statement are negative. Past Medical History Past Medical History: Seizure Disorder History of Any Multi-Drug Resistant Organisms: None Reported Additional Past Surgical History / Comment(s): MOUTH SURGERY Past Psychological History: Anxiety, Depression Smoking Status: Current every day smoker Past Alcohol Use History: Heavy Past Drug Use History: None Reported General Exam Limitations: no limitations General appearance: alert, appears intoxicated Head exam: Present: atraumatic, normocephalic, normal inspection Eye exam: Present: normal appearance, PERRL Pupils: Present: normal accommodation ENT exam: Present: normal exam, normal oropharynx, mucous membranes moist Neck exam: Present: normal inspection, full ROM Respiratory exam: Present: normal lung sounds bilaterally Cardiovascular Exam: Present: regular rate, normal rhythm, normal heart sounds GI/Abdominal exam: Present: soft, normal bowel sounds Extremities exam: Present: normal inspection, full ROM Back exam: Present: normal inspection, full ROM Neurological exam: Present: alert, oriented X3, CN II-XII intact Psychiatric exam: Present: suicidal ideation Skin exam: Present: warm, dry Course Vital Signs 10/01/22 10/02/22 23:07 06:06 Temperature 97.5 F L Pulse Rate 91 81 Respiratory 20 16 Rate Blood Pressure 108/68 127/94 O2 Sat by Pulse 99 Oximetry Medical Decision Making - Medical Decision Making Was pt. sent in by a medical professional or institution (, [facility], RECREATIONAL VEHICLE REPAIRER, urgent care, hospital, or [place] [facility] facility...) When possible be specific @ -No Did you speak to anyone other than the patient for history (EMS, parent, family, police, friend...)? What history was obtained from this source @ -Yes, police who confirmed that the patient was suicidal and intoxicated. Did you review nursing and triage notes (agree or disagree)? Why? @ -I reviewed and agree with nursing and triage notes Were old charts reviewed (outside hosp., previous admission, EMS record, old EKG, old radiological studies, urgent care reports/EKG's, [place] [facility] facility records)? Report findings @ -No old charts were reviewed Differential Diagnosis (chest pain, altered mental status, abdominal pain women, abdominal pain men, vaginal bleeding, weakness, fever, dyspnea, syncope, headache, dizziness, GI bleed, back pain, seizure, CVA, palpatations, mental health)? @ -Acute alcohol intoxication, suicidal ideation, depression EKG interpreted by me (3pts min.). @ -None X-rays interpreted by me (1pt min.). @ -None done CT interpreted by me (1pt min.). @ -None done U/S interpreted by me (1pt. min.). @ -None done What testing was considered but not performed or refused? (CT, X-rays, U/S, labs)? Why? @ -None What meds were considered but not given or refused? Why? @ -None Did you discuss the management of the patient with other professionals (professionals i.e. [facility] Nicholson, RECREATIONAL VEHICLE REPAIRER, lab, RT, psych nurse, clinical social worker, firer locomotive crane, teacher, contract officer, disability case manager)? Give summary @ -No Was smoking cessation discussed for >3mins.? @ -Yes Was critical care preformed (if so, how long)? @ -No Were there social determinants of health that impacted care today? How? (Homelessness, low income, unemployed, alcoholism, drug addiction, transportation, low edu. Level, literacy, decrease access to med. care, snf, rehab)? @ -No Was there de-escalation of care discussed even if they declined (Discuss DNR or withdrawal of care, Hospice)? DNR status @ -No What co-morbidities impacted this encounter? (DM, HTN, Smoking, COPD, CAD, Cancer, CVA, ARF, Chemo, Hep., AIDS, mental health diagnosis, sleep apnea, morbid obesity)? @ -Chronic alcoholism Was patient admitted / discharged? Hospital course, mention meds given and route, prescriptions, significant lab abnormalities, going to OR and other pertinent info. @ -The patient was seen and evaluated in the emergency department. On physical exam, the patient was intoxicated however had normal vital signs. The patient was petitioned by police secondary to the patient's suicidal ideation without a plan. The patient's BAT was 163 and therefore did require sobriety for EPS evaluation. The patient was monitored observed in the emergency department and was clinically sober. The patient was sober and was evaluated by EPS in the emergency department after approximate 6 hours observation. The patient a longer stated that he was suicidal and EPS cleared the patient with a safety plan established. The patient was agreeable to this safety plan and all his questions were answered reportedly. The patient was not clean any further acute distress and was discharged home in stable condition. Undiagnosed new problem with uncertain prognosis? @ -No Drug Therapy requiring intensive monitoring for toxicity (Heparin, Nitro, Insulin, Cardizem)? @ -No Were any procedures done? @ -No Diagnosis/symptom? @ -Alcohol intoxication, suicidal ideation Acute, or Chronic, or Acute on Chronic? @ -Acute Uncomplicated (without systemic symptoms) or Complicated (systemic symptoms)? @ -Complicated Side effects of treatment? @ -No Exacerbation, Progression, or Severe Exacerbation? @ -No Poses a threat to life or bodily function? How? (Chest pain, [place], [place], pneumonia, PE, COPD, DKA, ARF, appy, cholecystitis, CVA, Diverticulitis, Homicidal, Suicidal, threat to staff... and all critical care pts) @ -Yes, suicidal ideation can lead to suicide attempt and possible . Disposition Clinical Impression: Suicidal ideation, Alcohol intoxication Disposition: HOME SELF-CARE Condition: Stable Instructions (If sedation given, give patient instructions): Abuse of Alcohol (DC), Suicide Prevention (ED) Is patient prescribed a controlled substance at d/c from ED?: No Referrals: None,Stated [Primary Care Provider] - 1-2 days Time of Disposition: 06:00
[2022-10-02 06:06] VITALS: BP 127/94; PULSE 81; RESP 16
== END 2022-10-02 06:20 | disposition home or self-care (01) ==
LOC: EC 22:18
DX: F10.129 Alcohol abuse with intoxication, unspecified (principal); R45.851 Suicidal ideations; G40.909 Epilepsy, unspecified, not intractable, without status epilepticus; F17.200 Nicotine dependence, unspecified, uncomplicated; Z79.899 Other long term (current) drug therapy
CPT/HCPCS: 82075; 99284

== ENCOUNTER 2022-10-25 11:34 | Emergency (ER) | payer OTHER, MEDICARE ==
[2022-10-25 11:39] VITALS: BP 147/92; PULSE 64; RESP 18; TEMP 98
[2022-10-25] MEDS ORDERED: SODIUM CHLORIDE 0.9% 2,000 ML IV STA (11:59)
[2022-10-25] MEDS ORDERED: PANTOPRAZOLE 40 MG/10 ML VIAL IVP STA (11:59)
--- NOTE | 2022-10-25 12:06 | ED ---
Abdominal Pain HPI - General Chief Complaint: Abdominal Pain Stated Complaint: Stomach Pain Time Seen by Provider: 10/25/22 11:42 Source: patient, RN notes reviewed Mode of arrival: ambulatory Limitations: no limitations - History of Present Illness Initial Comments: Patient is a 47-year-old male presented to the ER today with a chief complaint is abdominal pain. Patient states the pain started this morning stating his stomach feels bloated. He admits to drinking 12 beers for the past week. His last drink was about 2 hours ago. He endorses associated constipation and diarrhea with 1 episode of bright red blood. Patient admits to taking pantopraz ole but has not taken it in awhile. Admits to esophageal surgery with removal of part of his esophagus. Denies any nausea, vomiting, chest pain, shortness of breath, peripheral edema. Patient states he does not want any help with his alcohol consumption at this time. No other complaints. - Related Data Home Medications Medication Instructions Recorded Confirmed Dilantin 11/01/15 11/01/15 Phenobarbital 11/01/15 11/01/15 Previous Rx's Medication Instructions Recorded Ondansetron Odt [Zofran Odt] 4 mg PO Q8HR PRN #20 tab 12/31/21 Allergies Allergy/AdvReac Type Severity Reaction Status Date / Time No Known Allergies Allergy Verified 10/25/22 11:39 Review of Systems ROS Statement: Those systems with pertinent positive or pertinent negative responses have been documented in the HPI. ROS Other: All systems not noted in ROS Statement are negative. Past Medical History Past Medical History: Seizure Disorder History of Any Multi-Drug Resistant Organisms: None Reported Additional Past Surgical History / Comment(s): MOUTH SURGERY Past Psychological History: Anxiety, Depression Smoking Status: Current every day smoker Past Alcohol Use History: Heavy Past Drug Use History: None Reported General Exam Limitations: no limitations General appearance: alert, in no apparent distress Head exam: Present: atraumatic, normocephalic, normal inspection Eye exam: Present: normal appearance, PERRL, EOMI. Absent: scleral icterus, conjunctival injection, periorbital swelling ENT exam: Present: normal exam, normal oropharynx, mucous membranes moist Neck exam: Present: normal inspection. Absent: tenderness, meningismus, lymphadenopathy Respiratory exam: Present: normal lung sounds bilaterally. Absent: respiratory distress, wheezes, rales, rhonchi, stridor Cardiovascular Exam: Present: regular rate, normal rhythm, normal heart sounds. Absent: systolic murmur, diastolic murmur, rubs, gallop, clicks GI/Abdominal exam: Present: soft, tenderness (generalized tenderness to palpi tation), normal bowel sounds. Absent: distended, guarding, rebound, rigid Extremities exam: Present: normal inspection, full ROM, normal capillary refill. Absent: tenderness, pedal edema, joint swelling, calf tenderness Back exam: Absent: CVA tenderness (R), CVA tenderness (L) Skin exam: Present: warm, dry, intact, normal color. Absent: rash Course Vital Signs 10/25/22 11:35 Temperature 98 F Pulse Rate 64 Respiratory 18 Rate Blood Pressure 147/92 O2 Sat by Pulse 100 Oximetry Medical Decision Making - Medical Decision Making Was pt. sent in by a medical professional or institution (, PA, FINE ARTS INSTRUCTOR, urgent care, hospital, or [facility]...) When possible be specific @ -No Did you speak to anyone other than the patient for history (EMS, parent, family, police, friend...)? What history was obtained from this source @ -No Did you review nursing and triage notes (agree or disagree)? Why? @ -I reviewed and agree with nursing and triage notes Were old charts reviewed (outside hosp., previous admission, EMS record, old EKG, old radiological studies, urgent care reports/EKG's, [facility] records)? Report findings @ -No old charts were reviewed Differential Diagnosis (chest pain, altered mental status, abdominal pain women, abdominal pain men, vaginal bleeding, weakness, fever, dyspnea, syncope, headache, dizziness, GI bleed, back pain, seizure, CVA, palpatations, mental health, musculoskeletal)? @ -Differential Abdominal Pain Men: Appendicitis, cholecystitis, diverticulosis, ischemic bowel, pancreatitis, h epatitis, UTI, gastroenteritis, AAA, incarcerated hernia, bowel obstruction, constipation, inflammatory bowel, hepatitis, peptic ulcer disease, splenic infarction, perforated viscus, testicular torsion, this is not meant to be an all-inclusive list EKG interpreted by me (3pts min.). @ -None X-rays interpreted by me (1pt min.). @ -None done CT interpreted by me (1pt min.). @ -None done U/S interpreted by me (1pt. min.). @ -None done What testing was considered but not performed or refused? (CT, X-rays, U/S, labs)? Why? @ -None What meds were considered but not given or refused? Why? @ -None Did you discuss the management of the patient with other professionals (professionals i.e. , PA, FINE ARTS INSTRUCTOR, lab, RT, psych nurse, manager social work, wire weaving loom setter, teacher, protocol officer, foster care case manager)? Give summary @ -No Was smoking cessation discussed for >3mins.? @ -No Was critical care preformed (if so, how long)? @ -No Were there social determinants of health that impacted care today? How? (Homelessness, low income, unemployed, alcoholism, drug addiction, transportation, low edu. Level, literacy, decrease access to med. care, snf, rehab)? @ -No Was there de-escalation of care discussed even if they declined (Discuss DNR or withdrawal of care, Hospice)? DNR status @ -No What co-morbidities impacted this encounter? (DM, HTN, Smoking, COPD, CAD, Cancer, CVA, ARF, Chemo, Hep., AIDS, mental health diagnosis, sleep apnea, morbid obesity)? @ -Alcohol abuse, esophageal surgery Was patient admitted / discharged? Hospital course, mention meds given and route, prescriptions, significant lab abnormalities, going to OR and other perti nent info. @ -Discharge patient states he feels improved after Protonix and IV fluids. Laboratory studies revealed no significant findings. Patient may have GERD type symptoms as she's been increasing his alcohol use. Patient will be discharged in stable condition with close follow-up. Undiagnosed new problem with uncertain prognosis? @ -No Drug Therapy requiring intensive monitoring for toxicity (Heparin, Nitro, Ins ulin, Cardizem)? @ -No Were any procedures done? @ -No Diagnosis/symptom? @ -Abdominal pain Acute, or Chronic, or Acute on Chronic? @ -Acute Uncomplicated (without systemic symptoms) or Complicated (systemic symptoms)? @ -Uncomplicated Side effects of treatment? @ -No Exacerbation, Progression, or Severe Exacerbation? @ -No Poses a threat to life or bodily function? How? (Chest pain, [place], [place], pneumonia, PE, COPD, DKA, ARF, appy, cholecystitis, CVA, Diverticulitis, Homicidal, Suicidal, threat to staff... and all critical care pts) @ -No - Lab Data Result diagrams: 10/25/22 12:39 10/25/22 12:39 Lab Results 10/25/22 10/25/22 Range/Units 12:39 12:39 WBC 6.1 (3.8-10.6) k/uL RBC 5.29 (4.30-5.90) m/uL Hgb 16.0 (13.0-17.5) gm/dL Hct 47.5 (39.0-53.0) % MCV 89.8 (80.0-100.0) fL MCH 30.2 (25.0-35.0) pg MCHC 33.6 (31.0-37.0) g/dL RDW 14.3 (11.5-15.5) % Plt Count 132 L (150-450) k/uL MPV 7.3 Neutrophils % 77 % Lymphocytes % 14 % Monocytes % 5 % Eosinophils % 3 % Basophils % 0 % Neutrophils # 4.7 (1.3-7.7) k/uL Lymphocytes # 0.9 L (1.0-4.8) k/uL Monocytes # 0.3 (0-1.0) k/uL Eosinophils # 0.2 (0-0.7) k/uL Basophils # 0.0 (0-0.2) k/uL Sodium 140 (137-145) mmol/L Potassium 4.7 (3.5-5.1) mmol/L Chloride 106 (98-107) mmol/L Carbon Dioxide 24 (22-30) mmol/L Anion Gap 10 mmol/L BUN 9 (9-20) mg/dL Creatinine 0.80 (0.66-1.25) mg/dL Est GFR (CKD-EPI)AfAm >90 (>60 ml/min/1.73 sqM) Est GFR (CKD-EPI)NonAf >90 (>60 ml/min/1.73 sqM) Glucose 125 H (74-99) mg/dL Calcium 8.6 (8.4-10.2) mg/dL Total Bilirubin 0.9 (0.2-1.3) mg/dL AST 65 H (17-59) U/L ALT 70 H (4-49) U/L Alkaline Phosphatase 83 (38-126) U/L Total Protein 8.0 (6.3-8.2) g/dL Albumin 4.4 (3.5-5.0) g/dL Amylase 55 (30-110) U/L Lipase 82 (23-300) U/L Serum Alcohol 18 mg/dL Disposition Clinical Impression: Abdominal pain, Alcohol use Disposition: HOME SELF-CARE Condition: Stable Instructions (If sedation given, give patient instructions): Abdominal Pain (ED) Additional Instructions: Please return to the Emergency Department if symptoms worsen or any other concerns. Is patient prescribed a controlled substance at d/c from ED?: No Referrals: None,Stated [REFERRING] - 1-2 days Time of Disposition: 14:06
[2022-10-25 12:51] LABS: Basophils % (A) 0 %; Eosinophils # (A) 0.2 k/uL (0-0.7); Eosinophils % (A) 3 %; HCT 47.5 % (39.0-53.0); Lymphocytes # (A) 0.9 k/uL (1.0-4.8); Lymphocytes % (A) 14 %; MCH 30.2 pg (25.0-35.0); MCHC 33.6 g/dL (31.0-37.0); MCV 89.8 fL (80.0-100.0); Mean Platelet Volume 7.3; Monocytes # (A) 0.3 k/uL (0-1.0); Monocytes % (A) 5 %; Neutrophils # (A) 4.7 k/uL (1.3-7.7); Neutrophils % (A) 77 %; Platelet Count 132 k/uL (150-450); RBC 5.29 m/uL (4.30-5.90); RDW 14.3 % (11.5-15.5); WBC 6.1 k/uL (3.8-10.6)
[2022-10-25 13:32] LABS: ALT 70 U/L (4-49); AST 65 U/L (17-59); African American GFR (CKD) >90 (>60 ml/min/1.73 sqM); Albumin 4.4 g/dL (3.5-5.0); Alcohol 18 mg/dL; Alkaline Phosphatase 83 U/L (38-126); Amylase 55 U/L (30-110); Anion Gap 10 mmol/L; Blood Urea Nitrogen 9 mg/dL (9-20); Calcium 8.6 mg/dL (8.4-10.2); Carbon Dioxide 24 mmol/L (22-30); Chloride 106 mmol/L (98-107); Glucose 125 mg/dL (74-99); Lipase 82 U/L (23-300); Non-African American GFR(CKD) >90 (>60 ml/min/1.73 sqM); Potassium 4.7 mmol/L (3.5-5.1); Sodium 140 mmol/L (137-145); Total Bilirubin 0.9 mg/dL (0.2-1.3)
== END 2022-10-25 14:49 | disposition home or self-care (01) ==
LOC: EC 11:34
DX: R10.9 Unspecified abdominal pain (principal); F10.10 Alcohol abuse, uncomplicated; F17.200 Nicotine dependence, unspecified, uncomplicated; Z86.59 Personal history of other mental and behavioral disorders
CPT/HCPCS: 36415; 80053; 82150; 83690; 85025; 80320; 99284; 96374; 96361 ×2; C9113

== ENCOUNTER 2022-11-12 09:47 | Emergency (ER) | payer MEDICARE ==
[2022-11-12 09:57] VITALS: RESP 18
[2022-11-12] MEDS ORDERED: KETOROLAC 15 MG/ML 1 ML VIAL IM STA (10:45)
--- NOTE | 2022-11-12 11:03 | ED ---
General Adult HPI - General Chief complaint: Extremity Injury, Lower Stated complaint: rt ankle injury Time Seen by Provider: 11/12/22 10:06 Source: patient Mode of arrival: ambulatory Limitations: no limitations - History of Present Illness Initial comments: 47-year-old male presenting to the ED with a chief complaint of right ankle pain. Patient states 2 days ago was walking around and accidentally twisted his right ankle. Patient states that he inverted his right ankle. Since then pain and swelling of the right ankle. Patient states that he has been able to ambulate however limited secondary to pain. No other complaints. - Related Data Home Medications Medication Instructions Recorded Confirmed Dilantin 11/01/15 11/01/15 Phenobarbital 11/01/15 11/01/15 Previous Rx's Medication Instructions Recorded Ondansetron Odt [Zofran Odt] 4 mg PO Q8HR PRN #20 tab 12/31/21 Allergies Allergy/AdvReac Type Severity Reaction Status Date / Time No Known Allergies Allergy Verified 11/12/22 09:56 Review of Systems ROS Statement: Those systems with pertinent positive or pertinent negative responses have been documented in the HPI. ROS Other: All systems not noted in ROS Statement are negative. Past Medical History Past Medical History: Seizure Disorder History of Any Multi-Drug Resistant Organisms: None Reported Additional Past Surgical History / Comment(s): MOUTH SURGERY Past Psychological History: Anxiety, Depression Smoking Status: Current every day smoker Past Alcohol Use History: Heavy Past Drug Use History: None Reported General Exam Limitations: no limitations General appearance: alert, in no apparent distress Neck exam: Present: normal inspection Respiratory exam: Present: normal lung sounds bilaterally Cardiovascular Exam: Present: regular rate, normal rhythm Extremities exam: Present: other (Strength and sensation of the right lower extremity intact however range of motion of the right ankle limited secondary to pain. No bony tenderness to palpation of the lateral or medial malleolus. No bony tenderness to palpation at the navicular or base of the fifth metatarsal.) Neurological exam: Present: alert, oriented X3 Psychiatric exam: Present: normal affect, normal mood Skin exam: Present: warm, dry Course Vital Signs 11/12/22 09:54 Temperature 98 F Pulse Rate 98 Respiratory 18 Rate Blood Pressure 133/95 O2 Sat by Pulse 99 Oximetry Procedures - Orthopedic Splinting/Casting Injury #1 Side: right Lower Extremity Injury Location: ankle Lower Extremity Immobilizer: posterior splint Other Orthopedic Equipment: crutches Additional Comments: Neurovascularly intact after application of splint with good strength and sensation Medical Decision Making - Medical Decision Making Was pt. sent in by a medical professional or institution (MISTY Nicholson, REJOINER, urgent care, hospital, or snf...) When possible be specific @ -No Did you speak to anyone other than the patient for history (EMS, parent, family, police, friend...)? What history was obtained from this source @ -No Did you review nursing and triage notes (agree or disagree)? Why? @ -I reviewed and agree with nursing and triage notes Were old charts reviewed (outside hosp., previous admission, EMS record, old EKG, old radiological studies, urgent care reports/EKG's, snf records)? Report findings @ -No old charts were reviewed Differential Diagnosis (chest pain, altered mental status, abdominal pain women, abdominal pain men, vaginal bleeding, weakness, fever, dyspnea, syncope, headache, dizziness, GI bleed, back pain, seizure, CVA, palpatations, mental health, musculoskeletal)? @ -Acute fracture, acute ligamentous injury. This is not meant to be an all- inclusive list EKG interpreted by me (3pts min.). @ -None X-rays interpreted by me (1pt min.). @ -CT shows no evidence of acute fracture however questionable fracture of the distal tibia appears old CT interpreted by me (1pt min.). @ -None done U/S interpreted by me (1pt. min.). @ -None done What testing was considered but not performed or refused? (CT, X-rays, U/S, labs)? Why? @ -None What meds were considered but not given or refused? Why? @ -None Did you discuss the management of the patient with other professionals (professionals i.e. MISTY Nicholson, REJOINER, lab, RT, psych nurse, social worker aide, air conditioner installer helper, teacher, legal officer, dependency case manager)? Give summary @ -No Was smoking cessation discussed for >3mins.? @ -No Was critical care preformed (if so, how long)? @ -No Were there social determinants of health that impacted care today? How? (Homelessness, low income, unemployed, alcoholism, drug addiction, transportation, low edu. Level, literacy, decrease access to med. care, halfway, rehab)? @ -No Was there de-escalation of care discussed even if they declined (Discuss DNR or withdrawal of care, Hospice)? DNR status @ -No What co-morbidities impacted this encounter? (DM, HTN, Smoking, COPD, CAD, Cancer, CVA, ARF, Chemo, Hep., AIDS, mental health diagnosis, sleep apnea, morbid obesity)? @ -None Was patient admitted / discharged? Hospital course, mention meds given and route, prescriptions, significant lab abnormalities, going to OR and other pertinent info. @ -Discharged. X-ray as above. Patient did not have significant pain on palpation of the lateral malleolus. Patient reports most pain at the foot and mid ankle. Posterior splint applied. Patient will follow-up with orthopedics. Discharged in stable condition. Discussed return precautions patient verbalized urine. Undiagnosed new problem with uncertain prognosis? @ -No Drug Therapy requiring intensive monitoring for toxicity (Heparin, Nitro, Insulin, Cardizem)? @ -No Were any procedures done? @ -Yes, splint application - half posterior splint Diagnosis/symptom? @ -Right ankle sprain Acute, or Chronic, or Acute on Chronic? @ -Acute Uncomplicated (without systemic symptoms) or Complicated (systemic symptoms)? @ -Uncomplicated Side effects of treatment? @ -No Exacerbation, Progression, or Severe Exacerbation? @ -No Poses a threat to life or bodily function? How? (Chest pain, [place], [place], pneumonia, PE, COPD, DKA, ARF, appy, cholecystitis, CVA, Diverticulitis, Homicidal, Suicidal, threat to staff... and all critical care pts) @ -No Disposition Clinical Impression: Right ankle sprain Disposition: HOME SELF-CARE Condition: Good Instructions (If sedation given, give patient instructions): Ankle Sprain (ED) Is patient prescribed a controlled substance at d/c from ED?: No Referrals: Meagan Alejo MD [Primary Care Provider] - 1-2 days Myron Wheeler DO [Doctor of Osteopathic Medicine] - 1-2 days Time of Disposition: 12:28
--- NOTE | 2022-11-12 11:26 | XR ---
EXAMINATION TYPE: XR ankle complete RT DATE OF EXAM: 11/12/2022 COMPARISON: NONE HISTORY: Pain FINDINGS: Three views of the ankle demonstrate the ankle mortise to be intact and symmetric. The joint spaces are preserved. The osseous structures are intact. Soft tissue edema laterally with 2 well-corticate d densities adjacent to the lateral malleolus. IMPRESSION: 1. No definite acute fracture or dislocation, if symptoms persist follow-up study in 7 to 10 days wou ld be suggested. Soft tissue swelling laterally.
[2022-11-12] MEDS ORDERED: ACETAMINOPHEN TAB 500 MG TAB PO STA (11:47)
[2022-11-12 12:54] VITALS: BP 137/98; PULSE 84; TEMP 5
== END 2022-11-12 12:53 | disposition home or self-care (01) ==
LOC: EC 09:47
DX: S93.401A Sprain of unspecified ligament of right ankle, initial encounter (principal); F41.9 Anxiety disorder, unspecified; F32.A Depression, unspecified; F17.200 Nicotine dependence, unspecified, uncomplicated; Z79.899 Other long term (current) drug therapy; X50.1XXA Overexertion from prolonged static or awkward postures, initial encounter; Y93.01 Activity, walking, marching and hiking
CPT/HCPCS: 73610; 99284; 96372; 29515; J1885

== ENCOUNTER 2022-11-17 08:43 | Emergency (ER) | payer MEDICARE ==
[2022-11-17 08:49] VITALS: RESP 18
[2022-11-17] MEDS ORDERED: SODIUM CHLORIDE 0.9% 1,000 ML IV STA (09:00)
--- NOTE | 2022-11-17 09:03 | ED ---
General Adult HPI - General Chief complaint: Urogenital Stated complaint: Withdrawal Time Seen by Provider: 11/17/22 08:54 Source: EMS Mode of arrival: EMS Limitations: no limitations - History of Present Illness Initial comments: Dictation was produced using [employer] dictation software. please excuse any grammatical, word or spelling errors. Chief Complaint: 47-year-old male presents emergency Department with urinary retention History of Present Illness: Patient's 47-year-old male presents emergency Department with urinary retention. Patient states he urinated approximately an hour and a half ago. Patient states that he hasn't been able to urinate since then. States that he has the urge but is unable to go. He thinks it's mental. His reports pain in his penis. Denies any chance of sexually transmitted disease. Denies any testicular pain. Denies any history of prostate issues. The ROS documented in this emergency department record has been reviewed and confirmed by me. Those systems with pertinent positive or negative responses have been documented in the HPI. All other systems are other negative and/or noncontributory. - Related Data Home Medications Medication Instructions Recorded Confirmed Dilantin 11/01/15 11/01/15 Phenobarbital 11/01/15 11/01/15 Previous Rx's Medication Instructions Recorded Ondansetron Odt [Zofran Odt] 4 mg PO Q8HR PRN #20 tab 12/31/21 Allergies Allergy/AdvReac Type Severity Reaction Status Date / Time No Known Allergies Allergy Verified 11/12/22 09:56 Review of Systems ROS Statement: Those systems with pertinent positive or pertinent negative responses have been documented in the HPI. ROS Other: All systems not noted in ROS Statement are negative. Past Medical History Past Medical History: Seizure Disorder History of Any Multi-Drug Resistant Organisms: None Reported Additional Past Surgical History / Comment(s): MOUTH SURGERY Past Psychological History: Anxiety, Depression Smoking Status: Current every day smoker Past Alcohol Use History: Heavy Past Drug Use History: None Reported General Exam - General Exam Comments Initial Comments: PHYSICAL EXAM: General Impression: Alert and oriented x3, not in acute distress HEENT: Normocephalic atraumatic, extra-ocular movements intact, pupils equal and reactive to light bilaterally, mucous membranes moist. Cardiovascular: Heart regular rate and rhythm Chest: Able to complete full sentences, no retractions, no tachypnea Abdomen: abdomen soft, non-tender, non-distended, no organomegaly Musculoskeletal: Pulses present and equal in all extremities, no peripheral edema Motor: no focal deficits noted Neurological: CN II-XII grossly intact, no focal motor or sensory deficits noted Skin: Intact with no visualized rashes Psych: Normal affect and mood : No testicular tenderness, no penile abnormalities Limitations: no limitations Course Vital Signs 11/17/22 08:47 Temperature 98.9 F Pulse Rate 118 H Respiratory 18 Rate Blood Pressure 155/101 O2 Sat by Pulse 95 Oximetry Medical Decision Making - Medical Decision Making Was pt. sent in by a medical professional or institution (, MISTY, GENERATOR MECHANIC, urgent care, hospital, or care home...) When possible be specific @ -No Did you speak to anyone other than the patient for history (EMS, parent, family, police, friend...)? What history was obtained from this source @ -No Did you review nursing and triage notes (agree or disagree)? Why? @ -I reviewed and agree with nursing and triage notes Were old charts reviewed (outside hosp., previous admission, EMS record, old EKG, old radiological studies, urgent care reports/EKG's, care home records)? Report findings @ -No old charts were reviewed Differential Diagnosis (chest pain, altered mental status, abdominal pain women, abdominal pain men, vaginal bleeding, musculoskeletal, weakness, fever, dyspnea, syncope, headache, dizziness, GI bleed, back pain, seizure, CVA, palpatations, mental health)? @ -not applicable EKG interpreted by me (3pts min.). @ -None done X-rays interpreted by me (1pt min.). @ -None done CT interpreted by me (1pt min.). @ -None done U/S interpreted by me (1pt. min.). @ -None done What testing was considered but not performed or refused? (CT, X-rays, U/S, labs)? Why? @ -None What meds were considered but not given or refused? Why? @ -None Did you discuss the management of the patient with other professionals (professionals i.e. MISTY Nicholson, GENERATOR MECHANIC, lab, RT, psych nurse, sr. social media & mobile manager, technical assoc, teacher, agricultural technical officer, case management social worker)? Give summary @ -No Was smoking cessation discussed for >3mins.? @ -No Was critical care preformed (if so, how long)? @ -No Were there social determinants of health that impacted care today? How? (Homelessness, low income, unemployed, alcoholism, drug addiction, transportation, low edu. Level, literacy, decrease access to med. care, custodial, rehab)? @ -No Was there de-escalation of care discussed even if they declined (Discuss DNR or withdrawal of care, Hospice)? DNR status @ -No What co-morbidities impacted this encounter? (DM, HTN, Smoking, COPD, CAD, Cancer, CVA, ARF, Chemo, Hep., AIDS, mental health diagnosis, sleep apnea, morbid obesity)? @ -None Was patient admitted / discharged? Hospital course, mention meds given and route, prescriptions, significant lab abnormalities, going to OR and other pertinent info. @ -47-year-old male presents to emergency department with urinary retention. Laboratory evaluation obtained. No signs of renal failure. Urinalysis is unremarkable. Patient given IV fluids. His postvoid residual is greater than 150. Manuel catheter placed patient given outpatient follow-up to urology. Undiagnosed new problem with uncertain prognosis? @ -No Drug Therapy requiring intensive monitoring for toxicity (Heparin, Nitro, Insulin, Cardizem)? @ -No Were any procedures done? @ -No Diagnosis/symptom? Acute, or Chronic, or Acute on Chronic? Uncomplicated (without systemic symptoms) or Complicated (systemic symptoms)? @ -1. Urinary retention Side effects of treatment? @ -No Exacerbation, Progression, or Severe Exacerbation? @ -No Poses a threat to life or bodily function? How? (Chest pain, [place], [place], pneumonia, PE, COPD, DKA, ARF, appy, cholecystitis, CVA, Diverticulitis, Homicidal, Suicidal, threat to staff... and all critical care pts) @ -yes - Lab Data Result diagrams: 11/17/22 09:10 Lab Results 11/17/22 11/17/22 Range/Units 09:10 09:10 Sodium 141 (137-145) mmol/L Potassium 4.5 (3.5-5.1) mmol/L Chloride 106 (98-107) mmol/L Carbon Dioxide 21 L (22-30) mmol/L Anion Gap 14 mmol/L BUN 11 (9-20) mg/dL Creatinine 1.00 (0.66-1.25) mg/dL Est GFR (CKD-EPI)AfAm >90 (>60 ml/min/1.73 sqM) Est GFR (CKD-EPI)NonAf 90 (>60 ml/min/1.73 sqM) Glucose 105 H (74-99) mg/dL Calcium 8.0 L (8.4-10.2) mg/dL Urine Color Yellow Urine Appearance Clear (Clear) Urine pH 5.5 (5.0-8.0) Ur Specific [place] 1.015 (1.001-1.035) Urine Protein Trace H (Negative) Urine Glucose (UA) Negative (Negative) Urine Ketones 1+ H (Negative) Urine Blood Trace H (Negative) Urine Nitrite Negative (Negative) Urine Bilirubin Negative (Negative) Urine Urobilinogen <2.0 (<2.0) mg/dL Ur Leukocyte Esterase Negative (Negative) Urine RBC <1 (0-5) /hpf Urine WBC 1 (0-5) /hpf Ur Squamous Epith Cells <1 (0-4) /hpf Urine Mucus Rare H (None) /hpf Disposition Clinical Impression: Urinary retention Disposition: HOME SELF-CARE Condition: Good Instructions (If sedation given, give patient instructions): Urinary Retention in Men (ED) Is patient prescribed a controlled substance at d/c from ED?: No Referrals: Desmond Santana MD [STAFF PHYSICIAN] - 1-2 days Time of Disposition: 11:51
[2022-11-17 09:42] LABS: African American GFR (CKD) >90 (>60 ml/min/1.73 sqM); Anion Gap 14 mmol/L; Blood Urea Nitrogen 11 mg/dL (9-20); Carbon Dioxide 21 mmol/L (22-30); Chloride 106 mmol/L (98-107); Glucose 105 mg/dL (74-99); Non-African American GFR(CKD) 90 (>60 ml/min/1.73 sqM); Potassium 4.5 mmol/L (3.5-5.1); Sodium 141 mmol/L (137-145)
[2022-11-17 10:58] LABS: Appearance,Urine Clear (Clear); Bilirubin,Urine Negative (Negative); Blood,Urine Trace (Negative); Color,Urine Yellow; Glucose,Urine (UA) Negative (Negative); Ketones,Urine 1+ (Negative); Leukocyte Esterase,Urine Negative (Negative); Mucus,Urine Rare /hpf; Nitrite,Urine Negative (Negative); PH, Urine 5.5 (5.0-8.0); Protein,Urine Trace (Negative); RBC,Urine <1 /hpf (0-5); Specific Gravity,Urine 1.015 (1.001-1.035); Squamous Epithelial Cell,Urine <1 /hpf (0-4); Urobilinogen,Urine <2.0 mg/dL (<2.0); WBC,Urine 1 /hpf (0-5)
[2022-11-17 12:25] VITALS: BP 120/68; PULSE 72; TEMP 98.1
== END 2022-11-17 12:41 | disposition home or self-care (01) ==
LOC: EC 08:43
DX: R33.9 Retention of urine, unspecified (principal); F17.200 Nicotine dependence, unspecified, uncomplicated; Z86.59 Personal history of other mental and behavioral disorders
CPT/HCPCS: 36415; 51702; 51798; 80048; 81001; 96360; 96361; 99284

== ENCOUNTER 2022-11-17 16:58 | Emergency (ER) | payer MEDICARE ==
--- NOTE | 2022-11-17 20:15 | ED ---
Male Urogenital HPI - General Chief complaint: Urogenital Stated complaint: Came Back, still cant pee Time Seen by Provider: 11/17/22 18:21 Source: patient Mode of arrival: ambulatory Limitations: no limitations - History of Present Illness Initial comments: 47-year-old male presenting with chief complaint of Manuel catheter discomfort. Patient was seen here this morning for urinary retention, his post void residual was 150 mL and indwelling catheter was placed. Patient is complaining of burning at the insertion site. He states that he is still unable to urinate, however there is clear yellow urine in the bag. No fevers or chills. No nausea or vomiting. No abdominal pain. - Related Data Home Medications Medication Instructions Recorded Confirmed Dilantin 11/01/15 11/01/15 Phenobarbital 11/01/15 11/01/15 Previous Rx's Medication Instructions Recorded Ondansetron Odt [Zofran Odt] 4 mg PO Q8HR PRN #20 tab 12/31/21 Allergies Allergy/AdvReac Type Severity Reaction Status Date / Time No Known Allergies Allergy Verified 11/17/22 17:45 Review of Systems ROS Statement: Those systems with pertinent positive or pertinent negative responses have been documented in the HPI. ROS Other: All systems not noted in ROS Statement are negative. Past Medical History Past Medical History: Seizure Disorder History of Any Multi-Drug Resistant Organisms: None Reported Additional Past Surgical History / Comment(s): MOUTH SURGERY Past Psychological History: Anxiety, Depression Smoking Status: Current every day smoker Past Alcohol Use History: Heavy Past Drug Use History: None Reported General Exam Limitations: no limitations General appearance: alert, in no apparent distress Head exam: Present: atraumatic, normocephalic, normal inspection Eye exam: Present: normal appearance Neck exam: Present: normal inspection, full ROM Neurological exam: Present: alert, oriented X3, CN II-XII intact Psychiatric exam: Present: normal affect, normal mood Skin exam: Present: warm, dry, intact, normal color. Absent: rash Course Vital Signs 11/17/22 11/17/22 11/17/22 17:42 19:27 20:45 Temperature 98.1 F 98.3 F Pulse Rate 108 H 88 99 Respiratory 20 18 20 Rate Blood Pressure 149/87 135/78 151/81 O2 Sat by Pulse 99 99 99 Oximetry Medical Decision Making - Medical Decision Making Was pt. sent in by a medical professional or institution ([facility]STY Nicholson, [employer] [employer], urgent care, hospital, or fci...) When possible be specific @ -No Did you speak to anyone other than the patient for history (EMS, parent, family, police, friend...)? What history was obtained from this source @ -No Did you review nursing and triage notes (agree or disagree)? Why? @ -I reviewed and agree with nursing and triage notes Were old charts reviewed (outside hosp., previous admission, EMS record, old EKG, old radiological studies, urgent care reports/EKG's, fci records)? Report findings @ -Report from this morning's visit was reviewed Differential Diagnosis (chest pain, altered mental status, abdominal pain women, abdominal pain men, vaginal bleeding, weakness, fever, dyspnea, syncope, headache, dizziness, GI bleed, back pain, seizure, CVA, palpatations, mental health, musculoskeletal)? @ -not applicable EKG interpreted by me (3pts min.). @ -As above X-rays interpreted by me (1pt min.). @ -None done CT interpreted by me (1pt min.). @ -None done U/S interpreted by me (1pt. min.). @ -None done What testing was considered but not performed or refused? (CT, X-rays, U/S, labs)? Why? @ -None What meds were considered but not given or refused? Why? @ -None Did you discuss the management of the patient with other professionals (professionals i.e. MISTY Nicholson, [employer], lab, RT, psych nurse, forensic social worker, beef killer, teacher, tourist information officer, leather case finisher)? Give summary @ -No Was smoking cessation discussed for >3mins.? @ -No Was critical care preformed (if so, how long)? @ -No Were there social determinants of health that impacted care today? How? (Homelessness, low income, unemployed, alcoholism, drug addiction, transportation, low edu. Level, literacy, decrease access to med. care, long-term, rehab)? @ -No Was there de-escalation of care discussed even if they declined (Discuss DNR or withdrawal of care, Hospice)? DNR status @ -No What co-morbidities impacted this encounter? (DM, HTN, Smoking, COPD, CAD, Cancer, CVA, ARF, Chemo, Hep., AIDS, mental health diagnosis, sleep apnea, morbid obesity)? @ -None Was patient admitted / discharged? Hospital course, mention meds given and route, prescriptions, significant lab abnormalities, going to OR and other pertinent info. @ -47-year-old male presenting with chief complaint of burning sensation at the insertion site of his Manuel catheter which was inserted at this morning due to urinary retention. Patient is requesting that the catheter be removed. Catheter is removed, post void residual is 23 mL. urine was sent this morning. Patient is discharged home and instructed to follow-up with his PCP. Follow-up with PCP. Report back to ER with any new or worsening symptoms. Discussed return parameters and answered all questions. Patient conveyed verbal understanding and agreed to the plan. I discussed this case in detail with my attending Dr. Lopez Undiagnosed new problem with uncertain prognosis? @ -No Drug Therapy requiring intensive monitoring for toxicity (Heparin, Nitro, Insulin, Cardizem)? @ -No Were any procedures done? @ -No Diagnosis/symptom? @ -Manuel catheter removal Acute, or Chronic, or Acute on Chronic? @ -Acute Uncomplicated (without systemic symptoms) or Complicated (systemic symptoms)? @ -Uncomplicated Side effects of treatment? @ -No Exacerbation, Progression, or Severe Exacerbation? @ -No Poses a threat to life or bodily function? How? (Chest pain, [place], [place], pneumonia, PE, COPD, DKA, ARF, appy, cholecystitis, CVA, Diverticulitis, Homicidal, Suicidal, threat to staff... and all critical care pts) @ -No Disposition Clinical Impression: Encounter for Manuel catheter removal Disposition: HOME SELF-CARE Condition: Good Instructions (If sedation given, give patient instructions): Manuel Catheter Removal (DC) Additional Instructions: Follow-up with your PCP. Report back to ER with any new or worsening symptoms. Is patient prescribed a controlled substance at d/c from ED?: No Referrals: Meagan Alejo MD [Primary Care Provider] - 1-2 days Time of Disposition: 20:15
[2022-11-17 20:58] VITALS: BP 151/81; PULSE 99; RESP 20; TEMP 98.3
== END 2022-11-17 20:45 | disposition home or self-care (01) ==
LOC: EC 16:58
DX: Z46.6 Encounter for fitting and adjustment of urinary device (principal); G40.909 Epilepsy, unspecified, not intractable, without status epilepticus; F17.200 Nicotine dependence, unspecified, uncomplicated; Z79.899 Other long term (current) drug therapy
CPT/HCPCS: 99284

== ENCOUNTER 2022-12-05 08:47 | Observation (INO) | payer MEDICARE ==
[2022-12-05 08:51] VITALS: RESP 18
[2022-12-05] MEDS ORDERED: LORazepam 2 MG/ML INJ IV STA (09:23)
--- NOTE | 2022-12-05 09:28 | ED ---
General Adult HPI - General Chief complaint: Extremity Injury, Upper Stated complaint: ,fall Time Seen by Provider: 12/05/22 09:00 Source: patient, RN notes reviewed Mode of arrival: ambulatory Limitations: no limitations - History of Present Illness Initial comments: Patient is a pleasant 47 room male presenting to the emergency department with concerns for bilateral arm pain. Patient states he did have a seizure yesterday. Patient does have frequent seizures and believes he takes Keppra and Vimpat. Patient states it was not abnormal for him to have a seizure. Patient states this occurred yesterday. Patient unclear how long it lasted. Patient denies being in a fight. Patient states last tetanus immunization was less than 5 years. Patient complains of bilateral arm pain. Patient states discomfort is especially with light touch and feels like a burning sensation. Patient denies any weakness. No neck pain. - Related Data Home Medications Medication Instructions Recorded Confirmed Lacosamide [Vimpat] 200 mg PO BID 12/05/22 12/05/22 Pantoprazole [Protonix] 40 mg PO DAILY 12/05/22 12/05/22 levETIRAcetam [Keppra] 1,500 mg PO BID 12/05/22 12/05/22 Allergies Allergy/AdvReac Type Severity Reaction Status Date / Time No Known Allergies Allergy Verified 12/05/22 11:29 Review of Systems ROS Statement: Those systems with pertinent positive or pertinent negative responses have been documented in the HPI. ROS Other: All systems not noted in ROS Statement are negative. Constitutional: Denies: fever Eyes: Denies: eye pain ENT: Denies: ear pain Respiratory: Denies: cough Cardiovascular: Denies: chest pain Endocrine: Denies: fatigue Gastrointestinal: Denies: abdominal pain Genitourinary: Denies: dysuria Musculoskeletal: Reports: as per HPI Neurological: Reports: as per HPI. Denies: weakness Past Medical History Past Medical History: Seizure Disorder History of Any Multi-Drug Resistant Organisms: None Reported Additional Past Surgical History / Comment(s): MOUTH SURGERY Past Psychological History: Anxiety, Depression Smoking Status: Current every day smoker Past Alcohol Use History: Heavy Past Drug Use History: None Reported General Exam Limitations: no limitations General appearance: alert, in no apparent distress Head exam: Present: atraumatic Eye exam: Present: normal appearance, PERRL, EOMI ENT exam: Present: normal oropharynx, other (Nasal abrasions. Ecchymosis right eyelid) Neck exam: Present: normal inspection. Absent: tenderness Respiratory exam: Present: normal lung sounds bilaterally Cardiovascular Exam: Present: regular rate, normal rhythm GI/Abdominal exam: Present: soft. Absent: tenderness Extremities exam: Present: full ROM, tenderness (Tenderness to light touch bilateral entire arms) Back exam: Present: normal inspection. Absent: tenderness Neurological exam: Present: alert, oriented X3, CN II-XII intact. Absent: motor sensory deficit Expanded Neurological exam: Present: protecting the airway Speech: Present: fluid speech Motor strength exam: RUE: 5, LUE: 5, RLE: 5, LLE: 5 Eye Response: (4) open spontaneously Motor Response: (6) obeys commands Verbal Response: (5) oriented Psychiatric exam: Present: normal affect, normal mood Skin exam: Present: normal color Course Vital Signs 12/05/22 12/05/22 08:49 14:30 Temperature 98.0 F 97.6 F Pulse Rate 94 91 Respiratory 18 18 Rate Blood Pressure 145/93 140/100 O2 Sat by Pulse 97 97 Oximetry EKG Findings - EKG Results: EKG: interpreted by ERMD, sinus rhythm, normal axis, normal QRS, normal ST/T Medical Decision Making - Medical Decision Making Was pt. sent in by a medical professional or institution (MISTY Nicholson, [employer], urgent care, hospital, or fci...) When possible be specific @ -No Did you speak to anyone other than the patient for history (EMS, parent, family, police, friend...)? What history was obtained from this source @ -No Did you review nursing and triage notes (agree or disagree)? Why? @ -I reviewed and agree with nursing and triage notes Were old charts reviewed (outside hosp., previous admission, EMS record, old EKG, old radiological studies, urgent care reports/EKG's, fci records)? Report findings @ -No old charts were reviewed Differential Diagnosis (chest pain, altered mental status, abdominal pain women, abdominal pain men, vaginal bleeding, weakness, fever, dyspnea, syncope, headache, dizziness, GI bleed, back pain, seizure, CVA, palpatations, mental health, musculoskeletal)? @ -Differential Seizure: Recurrent seizure disorder, febrile seizure, alcohol withdrawal, stimulants, meningitis, encephalitis, intercranial hemorrhage, intracranial tumor, stroke, eclampsia, thyrotoxicosis, hypocalcemia, hyponatremia, hypernatremia, hypomagnesemia, psychogenic, this is not meant to be an all-inclusive list. EKG interpreted by me (3pts min.). @ -As above X-rays interpreted by me (1pt min.). @ -Chest x-ray does not reveal acute process. CT interpreted by me (1pt min.). @ -CT scan of the brain does not reveal large hemorrhage or mass U/S interpreted by me (1pt. min.). @ -None done What testing was considered but not performed or refused? (CT, X-rays, U/S, labs)? Why? @ -None What meds were considered but not given or refused? Why? @ -None Did you discuss the management of the patient with other professionals (professionals i.e. , PA, [employer], lab, RT, psych nurse, social worker delinquency prevention, professional organizer, teacher, truant officer, caseworker)? Give summary @ -Case was discussed with Dr. Monroy who does recommend CTA and observation. Case also discussed with [facility] hospitalist, who will admit. Was smoking cessation discussed for >3mins.? @ -No Was critical care preformed (if so, how long)? @ -No Were there social determinants of health that impacted care today? How? (Homelessness, low income, unemployed, alcoholism, drug addiction, t ransportation, low edu. Level, literacy, decrease access to med. care, long-term, rehab)? @ -No Was there de-escalation of care discussed even if they declined (Discuss DNR or withdrawal of care, Hospice)? DNR status @ -No What co-morbidities impacted this encounter? (DM, HTN, Smoking, COPD, CAD, Cancer, CVA, ARF, Chemo, Hep., AIDS, mental health diagnosis, sleep apnea, morbid obesity)? @ -None Was patient admitted / discharged? Hospital course, mention meds given and route, prescriptions, significant lab abnormalities, going to OR and other pertinent info. @ -Patient reevaluated. Patient symptoms have returned after medications. Patient will be admitted for neurology evaluation and observation Undiagnosed new problem with uncertain prognosis? @ -No Drug Therapy requiring intensive monitoring for toxicity (Heparin, Nitro, Insulin, Cardizem)? @ -No Were any procedures done? @ -No Diagnosis/symptom? @ -Seizure, extremity pain Acute, or Chronic, or Acute on Chronic? @ -Acute, acute Uncomplicated (without systemic symptoms) or Complicated (systemic symptoms)? @ -default Side effects of treatment? @ -No Exacerbation, Progression, or Severe Exacerbation? @ -No Poses a threat to life or bodily function? How? (Chest pain, [place], [place], pneumonia, PE, COPD, DKA, ARF, appy, cholecystitis, CVA, Diverticulitis, Homicidal, Suicidal, threat to staff... and all critical care pts) @ -No - Lab Data Result diagrams: 12/05/22 09:40 12/05/22 09:40 Lab Results 12/05/22 12/05/22 12/05/22 Range/Units 09:40 09:40 09:40 WBC 5.9 (3.8-10.6) k/uL RBC 5.27 (4.30-5.90) m/uL Hgb 16.0 (13.0-17.5) gm/dL Hct 48.5 (39.0-53.0) % MCV 92.0 (80.0-100.0) fL MCH 30.3 (25.0-35.0) pg MCHC 33.0 (31.0-37.0) g/dL RDW 14.4 (11.5-15.5) % Plt Count 129 L (150-450) k/uL MPV 7.7 Neutrophils % 71 % Lymphocytes % 17 % Monocytes % 7 % Eosinophils % 4 % Basophils % 0 % Neutrophils # 4.1 (1.3-7.7) k/uL Lymphocytes # 1.0 (1.0-4.8) k/uL Monocytes # 0.4 (0-1.0) k/uL Eosinophils # 0.2 (0-0.7) k/uL Basophils # 0.0 (0-0.2) k/uL Sodium 142 (137-145) mmol/L Potassium 4.8 (3.5-5.1) mmol/L Chloride 113 H (98-107) mmol/L Carbon Dioxide 18 L (22-30) mmol/L Anion Gap 11 mmol/L BUN 7 L (9-20) mg/dL Creatinine 0.87 (0.66-1.25) mg/dL Est GFR (CKD-EPI)AfAm >90 (>60 ml/min/1.73 sqM) Est GFR (CKD-EPI)NonAf >90 (>60 ml/min/1.73 sqM) Glucose 130 H (74-99) mg/dL Calcium 8.5 (8.4-10.2) mg/dL Magnesium 1.9 (1.6-2.3) mg/dL Total Bilirubin 0.8 (0.2-1.3) mg/dL AST 56 (17-59) U/L ALT 59 H (4-49) U/L Alkaline Phosphatase 126 (38-126) U/L Creatine Kinase 93 (55-170) U/L Total Protein 8.1 (6.3-8.2) g/dL Albumin 4.2 (3.5-5.0) g/dL Urine Color Yellow Urine Appearance Clear (Clear) Urine pH 5.0 (5.0-8.0) Ur Specific [place] 1.024 (1.001-1.035) Urine Protein Negative (Negative) Urine Glucose (UA) Negative (Negative) Urine Ketones Negative (Negative) Urine Blood Negative (Negative) Urine Nitrite Negative (Negative) Urine Bilirubin Negative (Negative) Urine Urobilinogen <2.0 (<2.0) mg/dL Ur Leukocyte Esterase Negative (Negative) Urine Opiates Screen Not Detected (NotDetected) Ur Oxycodone Screen Not Detected (NotDetected) Urine Methadone Screen Not Detected (NotDetected) Ur Propoxyphene Screen Not Detected (NotDetected) Ur Barbiturates Screen Not Detected (NotDetected) U Tricyclic Antidepress Not Detected (NotDetected) Ur Phencyclidine Scrn Not Detected (NotDetected) Ur Amphetamines Screen Not Detected (NotDetected) U Methamphetamines Scrn Not Detected (NotDetected) U Benzodiazepines Scrn Not Detected (NotDetected) Urine Cocaine Screen Detected H (NotDetected) U Marijuana (THC) Screen Not Detected (NotDetected) Serum Alcohol 25 mg/dL Disposition Clinical Impression: Seizure, Extremity pain Disposition: ADMITTED IP TO THIS HOSP Is patient prescribed a controlled substance at d/c from ED?: No Referrals: Meagan Alejo MD [Primary Care Provider] - 1-2 days Time of Disposition: 15:11
[2022-12-05 10:05] LABS: Basophils % (A) 0 %; Eosinophils # (A) 0.2 k/uL (0-0.7); Eosinophils % (A) 4 %; HCT 48.5 % (39.0-53.0); Lymphocytes % (A) 17 %; MCH 30.3 pg (25.0-35.0); Mean Platelet Volume 7.7; Monocytes # (A) 0.4 k/uL (0-1.0); Monocytes % (A) 7 %; Neutrophils # (A) 4.1 k/uL (1.3-7.7); Neutrophils % (A) 71 %; Platelet Count 129 k/uL (150-450); RBC 5.27 m/uL (4.30-5.90); RDW 14.4 % (11.5-15.5); WBC 5.9 k/uL (3.8-10.6)
--- NOTE | 2022-12-05 10:05 | XR ---
EXAMINATION TYPE: XR chest 2V DATE OF EXAM: 12/05/2022 10:01 AM COMPARISON: Chest radiographs from 02/02/2022 TECHNIQUE: XR chest 2V Frontal and lateral views of the chest. CLINICAL INDICATION:Male, 47 years old with history of seizure; FINDINGS: Lungs/Pleura: There is no evidence of pleural effusion, focal consolidation, or pneumothorax. Pulmonary vascularity: Unremarkable. Heart/mediastinum: Cardiomediastinal silhouette is unremarkable. Musculoskeletal: No acute osseous pathology. Other findings: Left-sided neck stimulator again noted. IMPRESSION: No acute cardiopulmonary disease/process.
[2022-12-05 10:19] LABS: ALT 59 U/L (4-49); African American GFR (CKD) >90 (>60 ml/min/1.73 sqM); Alcohol 25 mg/dL; Anion Gap 11 mmol/L; Blood Urea Nitrogen 7 mg/dL (9-20); Calcium 8.5 mg/dL (8.4-10.2); Carbon Dioxide 18 mmol/L (22-30); Chloride 113 mmol/L (98-107); Creatine Kinase 93 U/L (55-170); Glucose 130 mg/dL (74-99); Non-African American GFR(CKD) >90 (>60 ml/min/1.73 sqM); Sodium 142 mmol/L (137-145); Total Bilirubin 0.8 mg/dL (0.2-1.3)
[2022-12-05 10:22] LABS: AST 56 U/L (17-59); Albumin 4.2 g/dL (3.5-5.0); Alkaline Phosphatase 126 U/L (38-126); Magnesium 1.9 mg/dL (1.6-2.3); Potassium 4.8 mmol/L (3.5-5.1); Total Protein 8.1 g/dL (6.3-8.2)
--- NOTE | 2022-12-05 11:08 | CT ---
EXAMINATION TYPE: CT brain cspine wo con DATE OF EXAM: 12/05/2022 COMPARISON: 02/02/2022 HISTORY: Fall, seizure, upper extremity burning CT DLP: 1487.4 mGycm, Automated exposure control for dose reduction was used. CONTRAST: None CT of the brain is performed utilizing 3 mm thick sections through the posterior fossa and 3 mm thick sections through the remaining calvarium. Study is performed within 24 hours of arrival to the hospital. No abnormal hyperdensity is present to suggest an acute intracranial hemorrhage. No mass lesion is evident. No acute infarcts are evident. Ventricles and sulci are appropriate for the patient age. Paranasal sinuses and mastoid air cells within the [id number] are clear. IMPRESSIONS: 1. No acute intracranial process. Follow-up MRI can be performed as clinically indicated. CT cervical spine. COMPARISON: 02/02/2022 CT of the cervical spine is performed in the axial plane at 2 mm thick sections. Reconstructed image s in the coronal, and sagittal plane are reviewed on the computer. No acute fractures are evident. Minimal retrolisthesis of C4 posterior and C5 may be present. This is stable from comparison. Posteri or superior endplate spurring is noted at C5. Some mild anterior thecal sac compression may be presen t at this level No spinal canal stenosis is present. Posterior right C5-6 ligament calcification may be present. Disc heights are preserved. Vertebral body heights are preserved. No spinal canal stenosis is evident. No neural foraminal stenosis is evident. IMPRESSIONS: 1. No acute osseous abnormality cervical spine. 2. Minimal degenerative change C4-5.
[2022-12-05 11:16] LABS: Appearance,Urine Clear (Clear); Bilirubin,Urine Negative (Negative); Blood,Urine Negative (Negative); Color,Urine Yellow; Glucose,Urine (UA) Negative (Negative); Ketones,Urine Negative (Negative); Leukocyte Esterase,Urine Negative (Negative); Nitrite,Urine Negative (Negative); Protein,Urine Negative (Negative); Specific Gravity,Urine 1.024 (1.001-1.035); Urobilinogen,Urine <2.0 mg/dL (<2.0)
[2022-12-05 11:25] LABS: Amphetamine Screen,Urine Not Detected (NotDetected); Barbiturate Screen,Urine Not Detected (NotDetected); Benzodiazepines Screen,Urine Not Detected (NotDetected); Cocaine Screen,Urine Detected (NotDetected); Methadone Screen, Urine Not Detected (NotDetected); Opiate Screen,Urine Not Detected (NotDetected); Oxycodone Screen, Urine Not Detected (NotDetected); Phencyclidine Screen,Urine Not Detected (NotDetected); Tricyclic Antidepressant,Urine Not Detected (NotDetected); Urn Cannabinoid Scrn Not Detected (NotDetected)
[2022-12-05] MEDS ORDERED: HYDROmorphone 1 MG/ML 1 ML SYRINGE IVP STA (12:09)
[2022-12-05] MEDS ORDERED: FAMOTIDINE 20 MG/2 ML VIAL IV STA (14:28)
[2022-12-05] MEDS ORDERED: KETOROLAC 15 MG/ML 1 ML VIAL IVP PRN ×2 (14:28→14:55)
[2022-12-05 14:32] VITALS: TEMP 97.6
--- NOTE | 2022-12-05 14:53 | CT ---
EXAMINATION TYPE: CT angio head neck DATE OF EXAM: 12/05/2022 HISTORY: COMPARISON: None CT DLP: 647.3 mGycm. Automated Exposure Control for Dose Reduction was Utilized. TECHNIQUE: CTA scan of the neck is performed with IV Contrast, axial images are obtained, coronal an d sagittal reformatted images are reviewed. Three-D reconstructed images are created on an [employer] workstation and reviewed. Source images are reviewed. FINDINGS: Carotid/Vascular Structures: There is a two-vessel arch with common origin of the left common carotid artery right subclavian artery. Vertebral arteries are codominant. The common carotid arteries bifur cee normally into internal and external carotid arteries. Internal carotid arteries are patent to th e skull base. Vertebral arteries are patent to the skull base. Cervical of [place]: Vertebral basilar system appears normal. Posterior cerebral vasculature is unrema rkable. Internal carotid arteries bifurcate normally into A1 and M1 segments. A2 segments are normal. The anterior communicating artery is patent. Left Posterior communicating artery is not well visuali zed. Right posterior communicating artery is patent. Other: There is fullness and heterogeneity of the left thyroid lobe. Additional follow-up with ultras ound is recommended. IMPRESSION: 1. No flow-limiting stenosis bilateral carotid bifurcations. 2. Normal [place] of [place] NASCET criteria was used in interpretation of this exam?
--- NOTE | 2022-12-05 15:02 | P.HPIM ---
History of Present Illness 47-year-old male with history of epilepsy has 1 or 2 seizures every single month came in with the every 2 seizure lost consciousness for 15 minutes witnessed by coronary residents at the other facility is living at patient is on Keppra 1500 twice a day and Vimpat 200 twice a day. Patient's anion gap is 11 lactic acid is not available at this time patient has hyperchloremic metabolic acidosis. Patient has a fall injuring his nose and the injury to the bridge of the nose. Patient says he has tongue biting, unknown whether patient is postictal confusion denied any bowel or bowel or bladder incontinence. Patient denied any other weakness any other neurological symptoms at this time. REVIEW OF SYSTEMS: CONSTITUTIONAL: No fever, no malaise, no fatigue. HEENT: No recent visual problems or hearing problems. Denied any sore throat. CARDIOVASCULAR: No chest pain, orthopnea, PND, no palpitations, no syncope. PULMONARY: No shortness of breath, no cough, no hemoptysis. GASTROINTESTINAL: No diarrhea, no nausea, no vomiting, no abdominal pain. NEUROLOGICAL: No headaches, no weakness, no numbness. HEMATOLOGICAL: Denies any bleeding or petechiae. GENITOURINARY: Denies any burning micturition, frequency, or urgency. MUSCULOSKELETAL/RHEUMATOLOGICAL: Denies any joint pain, swelling, or any muscle pain. ENDOCRINE: Denies any polyuria or polydipsia. The rest of the 14-point review of systems is negative. PHYSICAL EXAMINATION: GENERAL: The patient is alert and oriented x3, not in any acute distress. Well d eveloped, well nourished. HEENT: Pupils are round and equally reacting to light. EOMI. No scleral icterus. No conjunctival pallor. Normocephalic, injury and laceration to the bridge of the nose. No pharyngeal erythema. No thyromegaly. CARDIOVASCULAR: S1 and S2 present. No murmurs, rubs, or gallops. PULMONARY: Chest is clear to auscultation, no wheezing or crackles. ABDOMEN: Soft, nontender, nondistended, normoactive bowel sounds. No palpable organomegaly. MUSCULOSKELETAL: No joint swelling or deformity. EXTREMITIES: No cyanosis, clubbing, or pedal edema. NEUROLOGICAL: Gross neurological examination did not reveal any focal deficits. SKIN: No rashes. Assessment and plan -Breakthrough seizures: Neurology will be consulted patient will be resumed on Vimpat and Keppra patient will be monitored overnight, further management as per recommendations from neurology -Non-anion gap metabolic acidosis secondary to hyperchloremia IV fluids were discontinued GI prophylaxis Pepcid we're using Toradol for pain for his injuries and pain in bilateral shoulders secondary to seizures Past Medical History Past Medical History: Seizure Disorder History of Any Multi-Drug Resistant Organisms: None Reported Additional Past Surgical History / Comment(s): MOUTH SURGERY Past Psychological History: Anxiety, Depression Smoking Status: Current every day smoker Past Alcohol Use History: Heavy Past Drug Use History: None Reported Medications and Allergies Home Medications Medication Instructions Recorded Confirmed Type Lacosamide [Vimpat] 200 mg PO BID 12/05/22 12/05/22 History Pantoprazole [Protonix] 40 mg PO DAILY 12/05/22 12/05/22 History levETIRAcetam [Keppra] 1,500 mg PO BID 12/05/22 12/05/22 History Allergies Allergy/AdvReac Type Severity Reaction Status Date / Time No Known Allergies Allergy Verified 12/05/22 11:29 Physical Exam Vitals: Vital Signs Temp Pulse Resp BP Pulse Ox 12/05/22 14:30 97.6 F 91 18 140/100 97 12/05/22 08:49 98.0 F 94 18 145/93 97 Intake and Output 12/05/22 12/05/22 12/05/22 06:59 14:59 22:59 Other: Weight 90.718 kg Results CBC & Chem 7: 12/05/22 09:40 12/05/22 09:40 Labs: Abnormal Lab Results - Last 24 Hours (Table) 12/05/22 12/05/22 12/05/22 Range/Units 09:40 09:40 09:40 Plt Count 129 L (150-450) k/uL Chloride 113 H (98-107) mmol/L Carbon Dioxide 18 L (22-30) mmol/L BUN 7 L (9-20) mg/dL Glucose 130 H (74-99) mg/dL ALT 59 H (4-49) U/L Urine Cocaine Screen Detected H (NotDetected)
[2022-12-05] MEDS ORDERED: NALOXONE 0.4 MG/ML 1 ML VIAL IV PRN (15:11)
[2022-12-05] MEDS ORDERED: ACETAMINOPHEN TAB 325 MG TAB PO PRN (15:11)
[2022-12-05 16:10] VITALS: BP 154/97; PULSE 67
[2022-12-05] MEDS ORDERED: LACOSAMIDE 50 MG TABLET PO SCH (21:00)
[2022-12-05] MEDS ORDERED: FAMOTIDINE 20 MG TAB PO SCH (21:00)
[2022-12-06] MEDS ORDERED: PANTOPRAZOLE 40 MG TABLET PO SCH (07:30)
--- NOTE | 2022-12-06 15:40 | P.DS ---
Providers Date of admission: 12/05/22 15:12 Expected date of discharge: 12/05/22 Attending physician: Daniel Rainey Consults: 12/05/22 13:18 Consult Physician Routine Consulting Provider: Job Goodman Consult Reason/Comments: pain, seizure Do you want consulting provider notified?: Yes [facility] Course: Final diagnosis -Breakthrough seizures: Possibly Secondary to noncompliance with medications -Non-anion gap metabolic acidosis secondary to hyperchloremia -GI prophylaxis -DVT prophylaxis -Full code Discharge disposition Patient left AGAINST MEDICAL ADVICE. Risks versus benefits were explained and patient signed AMA paperwork. Patient was encouraged to follow-up with primary care provider on discharge. Total time taken is greater than 35 minutes. Hospital course This is a 47-year-old male who was recently admitted with past medical history of epilepsy and came in having breakthrough seizures that were witnessed. Patient undergoing neurological evaluation and per nursing staff reported he had to go and requesting to leave. Workup was not complete and patient was persistent on leaving and left AGAINST MEDICAL ADVICE. Risks versus benefits were explained and patient signed the AMA paperwork. PHYSICAL EXAMINATION: GENERAL: The patient is alert and oriented x3, not in any acute distress. Well developed, well nourished. HEENT: Pupils are round and equally reacting to light. EOMI. No scleral icterus. No conjunctival pallor. Normocephalic, injury and laceration to the bridge of the nose. No pharyngeal erythema. No thyromegaly. CARDIOVASCULAR: S1 and S2 present. No murmurs, rubs, or gallops. PULMONARY: Chest is clear to auscultation, no wheezing or crackles. ABDOMEN: Soft, nontender, nondistended, normoactive bowel sounds. No palpable organomegaly. MUSCULOSKELETAL: No joint swelling or deformity. EXTREMITIES: No cyanosis, clubbing, or pedal edema. NEUROLOGICAL: Gross neurological examination did not reveal any focal deficits. SKIN: No rashes. Please refer to medication reconciliation sheet for a list of medications. The impression and plan of care has been dictated by Marzena Zuñiga, Nurse Practitioner as directed. Dr. Redd MD I have performed a history and examination and MDM of this patient, discussed the same with the dictator, and agree with the dictator's assessment and plan as written ,documented as a scribe. Based on total visit time, I have performed more than 50% of the visit. Patient Condition at Discharge: Undetermined Plan - Discharge Summary New Discharge Prescriptions: No Action Pantoprazole [Protonix] 40 mg PO DAILY levETIRAcetam [Keppra] 1,500 mg PO BID Lacosamide [Vimpat] 200 mg PO BID Discharge Medication List Lacosamide [Vimpat] 200 mg PO BID 12/05/22 [History] Pantoprazole [Protonix] 40 mg PO DAILY 12/05/22 [History] levETIRAcetam [Keppra] 1,500 mg PO BID 12/05/22 [History] Follow up Appointment(s)/Referral(s): Meagan Alejo MD [Primary Care Provider] - 1-2 days Discharge Disposition: LEFT AGAINST MEDICAL ADVICE
== END 2022-12-05 16:26 | disposition left against medical advice (07) ==
LOC: EC 08:47 → 6NMEDSUR 15:12
PROVIDERS: ADMIT Internal Medicine; ATTEND Internal Medicine
DX: G40.909 Epilepsy, unspecified, not intractable, without status epilepticus (principal); F32.A Depression, unspecified; F41.9 Anxiety disorder, unspecified; E87.20 Acidosis, unspecified; E87.8 Other disorders of electrolyte and fluid balance, not elsewhere classified; F17.200 Nicotine dependence, unspecified, uncomplicated; Z53.29 Procedure and treatment not carried out because of patient's decision for other reasons; Z79.899 Other long term (current) drug therapy
CPT/HCPCS: 96374; 96375; 99285; 36415; 93005; 80053; 80177; 82550; 83735; 85025; 81003; 80306; 71046; 72125; 70496; 70450; 70498; G0378; G0480; J2060; J1170; J1885; Q9967; 80320

== ENCOUNTER 2022-12-10 06:42 | Emergency (ER) | payer MEDICARE ==
[2022-12-10 06:57] VITALS: RESP 18; TEMP 98.4
--- NOTE | 2022-12-10 07:59 | ED ---
General Adult HPI - General Chief complaint: Extremity Problem,Nontraumatic Stated complaint: Pain all over Time Seen by Provider: 12/10/22 07:07 Source: patient Mode of arrival: ambulatory Limitations: no limitations - History of Present Illness Initial comments: Dictation was produced using [employer] dictation software. please excuse any grammatical, word or spelling errors. Chief Complaint: 47-year-old male with past medical history of seizures presents to the ER for extremity pain History of Present Illness: Patient is a 47-year-old male presents to the emergency department for bilateral upper extremity pain and numbness. Patient was seen here in emergency department 5 days ago for similar issue. States at that time his issue resolved. Since yesterday is symptoms have returned. States that he has pain and numbness to the skin over the bilateral hands and bilateral proximal forearms. Denies any trauma. She denies any recent seizure. No fever or constitutional symptoms. Patient does not have any other neurologic complaints to the legs. He reports having pain when trying to make a fist both hands The ROS documented in this emergency department record has been reviewed and confirmed by me. Those systems with pertinent positive or negative responses have been documented in the HPI. All other systems are other negative and/or noncontributory. - Related Data Home Medications Medication Instructions Recorded Confirmed Lacosamide [Vimpat] 200 mg PO BID 12/05/22 12/05/22 Pantoprazole [Protonix] 40 mg PO DAILY 12/05/22 12/05/22 levETIRAcetam [Keppra] 1,500 mg PO BID 12/05/22 12/05/22 Allergies Allergy/AdvReac Type Severity Reaction Status Date / Time No Known Allergies Allergy Verified 12/05/22 11:29 Review of Systems ROS Statement: Those systems with pertinent positive or pertinent negative responses have been documented in the HPI. ROS Other: All systems not noted in ROS Statement are negative. Past Medical History Past Medical History: Seizure Disorder History of Any Multi-Drug Resistant Organisms: None Reported Additional Past Surgical History / Comment(s): MOUTH SURGERY Past Psychological History: Anxiety, Depression Smoking Status: Current every day smoker Past Alcohol Use History: Heavy Past Drug Use History: None Reported General Exam - General Exam Comments Initial Comments: PHYSICAL EXAM: General Impression: Alert and oriented x3, not in acute distress HEENT: Normocephalic atraumatic, extra-ocular movements intact, pupils equal and reactive to light bilaterally, mucous membranes moist. Cardiovascular: Heart regular rate and rhythm Chest: Able to complete full sentences, no retractions, no tachypnea Abdomen: abdomen soft, non-tender, non-distended, no organomegaly Musculoskeletal: Pulses present and equal in all extremities, no peripheral facundo ma Motor: no focal deficits noted Neurological: CN II-XII grossly intact, no focal motor or sensory deficits noted Skin: Intact with no visualized rashes Psych: Normal affect and mood Limitations: no limitations Course Vital Signs 12/10/22 06:54 Temperature 98.4 F Pulse Rate 76 Respiratory 18 Rate Blood Pressure 160/112 O2 Sat by Pulse 100 Oximetry EKG Findings - EKG Comments: EKG Findings:: My EKG interpretation: Ventricular rate 75, sinus rhythm,. Interval 132, QRS 102, QTc 412. No MI prolongation, no QTC prolongation, no ST or T-wave changes noted. Overall, this EKG is unremarkable Medical Decision Making - Medical Decision Making Was pt. sent in by a medical professional or institution (, PA, FLAP MAKER, urgent care, hospital, or custodial...) When possible be specific @ -No Did you speak to anyone other than the patient for history (EMS, parent, family, police, friend...)? What history was obtained from this source @ -No Did you review nursing and triage notes (agree or disagree)? Why? @ -I reviewed and agree with nursing and triage notes Were old charts reviewed (outside hosp., previous admission, EMS record, old EKG, old radiological studies, urgent care reports/EKG's, custodial records)? Report findings @ -No old charts were reviewed Differential Diagnosis (chest pain, altered mental status, abdominal pain women, abdominal pain men, vaginal bleeding, musculoskeletal, weakness, fever, dyspnea, syncope, headache, dizziness, GI bleed, back pain, seizure, CVA, palpatations, mental health)? @ -not applicable EKG interpreted by me (3pts min.). @ -None done X-rays interpreted by me (1pt min.). @ -None done CT interpreted by me (1pt min.). @ -None done U/S interpreted by me (1pt. min.). @ -None done What testing was considered but not performed or refused? (CT, X-rays, U/S, labs)? Why? @ -None What meds were considered but not given or refused? Why? @ -None Did you discuss the management of the patient with other professionals (professionals i.e. , PA, FLAP MAKER, lab, RT, psych nurse, director of social work, actuarial manager, te acher, mounted police officer, binder caser)? Give summary @ -No Was smoking cessation discussed for >3mins.? @ -No Was critical care preformed (if so, how long)? @ -No Were there social determinants of health that impacted care today? How? (Homelessness, low income, unemployed, alcoholism, drug addiction, transportation, low edu. Level, literacy, decrease access to med. care, alf, rehab)? @ -No Was there de-escalation of care discussed even if they declined (Discuss DNR or withdrawal of care, Hospice)? DNR status @ -No What co-morbidities impacted this encounter? (DM, HTN, Smoking, COPD, CAD, Cancer, CVA, ARF, Chemo, Hep., AIDS, mental health diagnosis, sleep apnea, morbid obesity)? @ -None Was patient admitted / discharged? Hospital course, mention meds given and rou te, prescriptions, significant lab abnormalities, going to OR and other pertinent info. @ -47-year-old male presents emergency Department with episode of vague bilateral upper extremity symptoms. States that he has pain and paresthesias to the bilateral forearms. Patient denies any recent trauma prior to the onset of symptoms. Imaging from previous visit was reviewed. Labs obtained. CBC metabolic panel is unremarkable. Disposition options were discussed. Agree with discharge. He is told to follow-up with his neurologist. He is told that his symptoms are likely secondary to neuropathy. He would benefit from evaluation by neurologist. Told that he may or may not benefit from an MRI. Patient agreeable with plan. Patient discharged. Undiagnosed new problem with uncertain prognosis? @ -No Drug Therapy requiring intensive monitoring for toxicity (Heparin, Nitro, Insulin, Cardizem)? @ -No Were any procedures done? @ -No Diagnosis/symptom? Acute, or Chronic, or Acute on Chronic? Uncomplicated (without systemic symptoms) or Complicated (systemic symptoms)? @ -1. Neuropathy Side effects of treatment? @ -No Exacerbation, Progression, or Severe Exacerbation? @ -No Poses a threat to life or bodily function? How? (Chest pain, [place], [place], pneumonia, PE, COPD, DKA, ARF, appy, cholecystitis, CVA, Diverticulitis, Homicidal, Suicidal, threat to staff... and all critical care pts) @ -No - Lab Data Result diagrams: 12/10/22 08:25 12/10/22 08:25 Lab Results 12/10/22 12/10/22 Range/Units 08:25 08:25 WBC 5.9 (3.8-10.6) k/uL RBC 5.21 (4.30-5.90) m/uL Hgb 15.5 (13.0-17.5) gm/dL Hct 46.9 (39.0-53.0) % MCV 90.0 (80.0-100.0) fL MCH 29.8 (25.0-35.0) pg MCHC 33.1 (31.0-37.0) g/dL RDW 14.2 (11.5-15.5) % Plt Count 117 L (150-450) k/uL MPV 7.4 Neutrophils % 70 % Lymphocytes % 18 % Monocytes % 6 % Eosinophils % 4 % Basophils % 1 % Neutrophils # 4.1 (1.3-7.7) k/uL Lymphocytes # 1.0 (1.0-4.8) k/uL Monocytes # 0.4 (0-1.0) k/uL Eosinophils # 0.2 (0-0.7) k/uL Basophils # 0.0 (0-0.2) k/uL Sodium 137 (137-145) mmol/L Potassium 3.9 (3.5-5.1) mmol/L Chloride 105 (98-107) mmol/L Carbon Dioxide 26 (22-30) mmol/L Anion Gap 6 mmol/L BUN 10 (9-20) mg/dL Creatinine 0.78 (0.66-1.25) mg/dL Est GFR (CKD-EPI)AfAm >90 (>60 ml/min/1.73 sqM) Est GFR (CKD-EPI)NonAf >90 (>60 ml/min/1.73 sqM) Glucose 102 H (74-99) mg/dL Calcium 8.6 (8.4-10.2) mg/dL Magnesium 2.1 (1.6-2.3) mg/dL Total Bilirubin 0.9 (0.2-1.3) mg/dL AST 44 (17-59) U/L ALT 56 H (4-49) U/L Alkaline Phosphatase 90 (38-126) U/L Total Protein 7.3 (6.3-8.2) g/dL Albumin 3.9 (3.5-5.0) g/dL Disposition Clinical Impression: Neuropathy Disposition: HOME SELF-CARE Condition: Good Instructions (If sedation given, give patient instructions): Peripheral Neuropathy (ED) Is patient prescribed a controlled substance at d/c from ED?: No Referrals: Meagan Alejo MD [Primary Care Provider] - 1-2 days Time of Disposition: 08:57
[2022-12-10 08:31] LABS: Basophils % (A) 1 %; Eosinophils # (A) 0.2 k/uL (0-0.7); Eosinophils % (A) 4 %; HCT 46.9 % (39.0-53.0); HGB 15.5 gm/dL (13.0-17.5); Lymphocytes % (A) 18 %; MCH 29.8 pg (25.0-35.0); MCHC 33.1 g/dL (31.0-37.0); Mean Platelet Volume 7.4; Monocytes # (A) 0.4 k/uL (0-1.0); Monocytes % (A) 6 %; Neutrophils # (A) 4.1 k/uL (1.3-7.7); Neutrophils % (A) 70 %; Platelet Count 117 k/uL (150-450); RBC 5.21 m/uL (4.30-5.90); RDW 14.2 % (11.5-15.5); WBC 5.9 k/uL (3.8-10.6)
[2022-12-10 08:41] LABS: ALT 56 U/L (4-49); AST 44 U/L (17-59); African American GFR (CKD) >90 (>60 ml/min/1.73 sqM); Albumin 3.9 g/dL (3.5-5.0); Alkaline Phosphatase 90 U/L (38-126); Anion Gap 6 mmol/L; Blood Urea Nitrogen 10 mg/dL (9-20); Calcium 8.6 mg/dL (8.4-10.2); Carbon Dioxide 26 mmol/L (22-30); Chloride 105 mmol/L (98-107); Glucose 102 mg/dL (74-99); Magnesium 2.1 mg/dL (1.6-2.3); Non-African American GFR(CKD) >90 (>60 ml/min/1.73 sqM); Potassium 3.9 mmol/L (3.5-5.1); Sodium 137 mmol/L (137-145); Total Bilirubin 0.9 mg/dL (0.2-1.3); Total Protein 7.3 g/dL (6.3-8.2)
[2022-12-10] MEDS ORDERED: MORPHINE SULFATE 4 MG/ML SYRINGE IM STA (08:56)
[2022-12-10 09:16] VITALS: BP 160/94; PULSE 60
== END 2022-12-10 09:17 | disposition home or self-care (01) ==
LOC: EC 06:42
DX: G62.9 Polyneuropathy, unspecified (principal); G40.909 Epilepsy, unspecified, not intractable, without status epilepticus; F17.200 Nicotine dependence, unspecified, uncomplicated; Z79.899 Other long term (current) drug therapy
CPT/HCPCS: 36415; 93005; 80053; 83735; 85025; 99283; 96372; J2270

== ENCOUNTER 2023-01-06 02:25 | Emergency (ER) | payer MEDICARE ==
[2023-01-06 02:34] VITALS: TEMP 97.9
[2023-01-06] MEDS ORDERED: Acetaminophen-Codeine 300-30mg TAB PO STA (02:54)
[2023-01-06] MEDS ORDERED: IBUPROFEN 800 MG TAB PO STA (02:54)
--- NOTE | 2023-01-06 03:15 | ED ---
Extremity Problem HPI - General Chief complaint: Fall Stated complaint: Left leg and ankle swelling Time Seen by Provider: 01/06/23 02:27 Source: EMS, RN notes reviewed, old records reviewed Mode of arrival: EMS Limitations: no limitations, altered mental status (Intoxication) - History of Present Illness Initial comments: This is a 47-year-old male to the emergency department for evaluation today. Patient presents today for evaluation of severe left ankle pain. Patient is having persistent ankle pain here in the ER. Patient states that he does have history of somatic injury and no significant known traumatic injury currently to that left ankle. No travel history no sick contacts no other complaints. MD Complaint: extremity pain, extremity swelling, joint swelling, joint pain, other (Left ankle pain and swelling significant) -: days(s) Location: left, lower extremity -: Yes myalgia, Yes arthralgia Radiation: proximal Severity scale (1-10): 10 Quality: aching Consistency: constant Improves with: nothing Worsens with: nothing Associated Symptoms: denies other symptoms, myalgias, arthralgias - Related Data Home Medications Medication Instructions Recorded Confirmed Lacosamide [Vimpat] 200 mg PO BID 12/05/22 12/10/22 Pantoprazole [Protonix] 40 mg PO DAILY 12/05/22 12/10/22 levETIRAcetam [Keppra] 1,500 mg PO BID 12/05/22 12/10/22 Allergies Allergy/AdvReac Type Severity Reaction Status Date / Time No Known Allergies Allergy Verified 12/10/22 09:03 Review of Systems ROS Statement: Those systems with pertinent positive or pertinent negative responses have been documented in the HPI. ROS Other: All systems not noted in ROS Statement are negative. Past Medical History Past Medical History: Seizure Disorder History of Any Multi-Drug Resistant Organisms: None Reported Additional Past Surgical History / Comment(s): MOUTH SURGERY Past Psychological History: Anxiety, Depression Smoking Status: Current every day smoker Past Alcohol Use History: Heavy Past Drug Use History: None Reported General Exam Limitations: no limitations General appearance: alert, in no apparent distress Head exam: Present: atraumatic, normocephalic, normal inspection Eye exam: Present: normal appearance, PERRL, EOMI. Absent: scleral icterus, conjunctival injection, periorbital swelling ENT exam: Present: normal exam, mucous membranes moist Neck exam: Present: normal inspection. Absent: tenderness, meningismus, lymphadenopathy Respiratory exam: Present: normal lung sounds bilaterally. Absent: respiratory distress, wheezes, rales, rhonchi, stridor Cardiovascular Exam: Present: regular rate, normal rhythm, normal heart sounds. Absent: systolic murmur, diastolic murmur, rubs, gallop, clicks GI/Abdominal exam: Present: soft, normal bowel sounds. Absent: distended, tenderness, guarding, rebound, rigid Extremities exam: Present: normal inspection, tenderness, normal capillary refill, pedal edema, calf tenderness. Absent: full ROM, joint swelling Back exam: Present: normal inspection Neurological exam: Present: alert, oriented X3, CN II-XII intact Psychiatric exam: Present: normal affect, normal mood Skin exam: Present: warm, dry, intact, normal color. Absent: rash Course Vital Signs 01/06/23 01/06/23 02:27 05:49 Temperature 97.9 F Pulse Rate 82 74 Respiratory 18 16 Rate Blood Pressure 111/75 101/61 O2 Sat by Pulse 98 96 Oximetry - Reevaluation(s) Reevaluation #1: 01/06/23 03:25 Record is reviewed Reevaluation #2: 01/06/23 04:27 Patient symptoms are improved here in the area is able to ambulate Reevaluation #3: 01/06/23 04:27 Patient informed results questions answered Reevaluation #4: 01/06/23 03:25 Was pt. sent in by a medical professional or institution (, PA, PRODUCTION MAINTENANCE TECHNICIAN, urgent care, hospital, or longterm...) When possible be specific @ -no Did you speak to anyone other than the patient for history (EMS, parent, family, police, friend...)? What history was obtained from this source @ -no Did you review nursing and triage notes (agree or disagree)? Why? @ -agree Are old charts reviewed (outside hosp., previous admission, EMS record, old EKG, old radiological studies, urgent care reports/EKG's, longterm records)? Report findings @ -yes Differential Diagnosis (chest pain, altered mental status, abdominal pain women, abdominal pain men, vaginal bleeding, weakness, fever, dyspnea, syncope, headache, dizziness, GI bleed, back pain, seizure, CVA, palpatations, mental health, musculoskeletal)? @ -prior EKG interpreted by me (3pts min.). @ -no X-rays interpreted by me (1pt min.). @ -yes CT interpreted by me (1pt min.). @ -no U/S interpreted by me (1pt. min.). @ -no What testing was considered but not performed or refused? (CT, X-rays, U/S, labs)? Why? @ -none What meds were considered but not given or refused? Why? @ -none Did you discuss the management of the patient with other professionals (professionals i.e. DrMarco Antonio, PA, PRODUCTION MAINTENANCE TECHNICIAN, lab, RT, psych nurse, social services, accounting bookkeeper, teacher, chief resource officer, field case manager)? Give summary @ -no Was smoking cessation discussed for >3mins.? @ -no Was critical care preformed (if so, how long)? @ -no Were there social determinants of health that impacted care today? How? (Homelessness, low income, unemployed, alcoholism, drug addiction, transportation, low edu. Level, literacy, decrease access to med. care, prison, rehab)? @ -none Was there de-escalation of care discussed even if they declined (Discuss DNR or withdrawal of care, Hospice)? DNR status @ -no What co-morbidities impacted this encounter? (DM, HTN, Smoking, COPD, CAD, Cancer, CVA, ARF, Chemo, Hep., AIDS, mental health diagnosis, sleep apnea, morbid obesity)? @ -none Was patient admitted / discharged? Hospital course, mention meds given and route, prescriptions, significant lab abnormalities, going to OR and other pertinent info. @ - 47 male presents today for evaluation of left lower extremity pain. Significant lower extremity pain and swelling, pain is well-controlled currently patient can be discharged home he is able to ambulate and bear weight on the left leg to the emergency department Discharged Undiagnosed new problem with uncertain prognosis? @ -no Drug Therapy requiring intensive monitoring for toxicity (Heparin, Nitro, Insulin, Cardizem)? @ -no Were any procedures done? @ -no Diagnosis/symptom? @ -Left ankle sprain, fall Acute, or Chronic, or Acute on Chronic? @ -Acute Uncomplicated (without systemic symptoms) or Complicated (systemic symptoms)? @ -Complicated Side effects of treatment? @ -no Exacerbation, Progression, or Severe Exacerbation? @ -exacerbation Poses a threat to life or bodily function? How? (Chest pain, [place], [place], pneumonia, PE, COPD, DKA, ARF, appy, cholecystitis, CVA, Diverticulitis, Homicidal, Suicidal, threat to staff... and all critical care pts) @ -no Medical Decision Making - Medical Decision Making 47 male presents today for evaluation of left lower extremity pain. Significant lower extremity pain and swelling, pain is well-controlled currently patient can be discharged home he is able to ambulate and bear weight on the left leg to the emergency department - Radiology Data Radiology results: report reviewed (X-ray left lower extremity left ankle negative for traumatic injury interpreted by me), image reviewed Disposition Clinical Impression: Fall, Left ankle pain, Left ankle sprain Disposition: HOME SELF-CARE Condition: Good Instructions (If sedation given, give patient instructions): Ankle Sprain (ED) Is patient prescribed a controlled substance at d/c from ED?: No Referrals: Meagan Alejo MD [Primary Care Provider] - 1-2 days Time of Disposition: 04:20
[2023-01-06 05:50] VITALS: BP 101/61; PULSE 74; RESP 16
--- NOTE | 2023-01-06 06:54 | XR ---
EXAMINATION TYPE: XR ankle complete LT DATE OF EXAM: 01/06/2023 COMPARISON: NONE HISTORY: Pain TECHNIQUE: 3 views of the left ankle are submitted for evaluation. FINDINGS: No acute fracture or dislocation. No callus formation. Soft tissue swelling of the ankle. N o osseous erosions. No radiopaque foreign body. IMPRESSION: 1. No evidence for acute fracture. 2. Soft tissue swelling of the ankle.
== END 2023-01-06 05:50 | disposition home or self-care (01) ==
LOC: EC 02:25
DX: S93.402A Sprain of unspecified ligament of left ankle, initial encounter (principal); F41.9 Anxiety disorder, unspecified; F32.A Depression, unspecified; F17.200 Nicotine dependence, unspecified, uncomplicated; Z79.899 Other long term (current) drug therapy; W19.XXXA Unspecified fall, initial encounter
CPT/HCPCS: 99284

== ENCOUNTER 2023-02-19 07:48 | Emergency (ER) | payer MEDICARE ==
[2023-02-19 08:02] VITALS: TEMP 98.1
--- NOTE | 2023-02-19 08:25 | ED ---
General Adult HPI - General Chief complaint: Extremity Problem,Nontraumatic Stated complaint: left leg pain Time Seen by Provider: 02/19/23 07:53 Source: patient, RN notes reviewed, old records reviewed Mode of arrival: ambulatory Limitations: no limitations - History of Present Illness Initial comments: 48-year-old male with left ankle pain. Patient had no chest pain approximately 3 weeks ago. He was placed in a boot by orthopedics. He states that about 3 days ago he was able to remove the boot and he was feeling quite well. He states that his pain has returned and is moderate to severe. He does report swelling in the ankle. He is concerned about DVT. He denies any new injury. Denies fever. - Related Data Home Medications Medication Instructions Recorded Confirmed Lacosamide [Vimpat] 200 mg PO BID 12/05/22 12/10/22 Pantoprazole [Protonix] 40 mg PO DAILY 12/05/22 12/10/22 levETIRAcetam [Keppra] 1,500 mg PO BID 12/05/22 12/10/22 Previous Rx's Medication Instructions Recorded Ibuprofen [Motrin] 600 mg PO Q8HR PRN #24 tab 02/19/23 Allergies Allergy/AdvReac Type Severity Reaction Status Date / Time No Known Allergies Allergy Verified 02/19/23 07:53 Review of Systems ROS Statement: Those systems with pertinent positive or pertinent negative responses have been documented in the HPI. ROS Other: All systems not noted in ROS Statement are negative. Past Medical History Past Medical History: Seizure Disorder History of Any Multi-Drug Resistant Organisms: None Reported Additional Past Surgical History / Comment(s): MOUTH SURGERY Past Psychological History: Anxiety, Depression Smoking Status: Current every day smoker Past Alcohol Use History: Heavy Past Drug Use History: None Reported General Exam Limitations: no limitations General appearance: alert, in no apparent distress Head exam: Present: atraumatic, normocephalic Eye exam: Present: normal appearance, PERRL ENT exam: Present: normal exam Neck exam: Present: normal inspection. Absent: tenderness, meningismus Respiratory exam: Present: normal lung sounds bilaterally. Absent: respiratory distress, wheezes Cardiovascular Exam: Present: normal rhythm, tachycardia GI/Abdominal exam: Present: soft. Absent: distended, tenderness, guarding Extremities exam: Present: normal capillary refill, joint swelling (Mild soft tissue swelling at the left ankle, distal pulses are intact) Neurological exam: Present: alert, oriented X3 Psychiatric exam: Present: normal affect, normal mood Skin exam: Present: warm, dry, intact Course Vital Signs 02/19/23 07:51 Temperature 98.1 F Pulse Rate 109 H Respiratory 20 Rate Blood Pressure 128/93 O2 Sat by Pulse 97 Oximetry Medical Decision Making - Medical Decision Making Was pt. sent in by a medical professional or institution (MISTY Nicholson, AUDIOLOGY DIRECTOR, urgent care, hospital, or fpc...) When possible be specific @ -No Did you speak to anyone other than the patient for history (EMS, parent, family, police, friend...)? What history was obtained from this source @ -No Did you review nursing and triage notes (agree or disagree)? Why? @ -I reviewed and agree with nursing and triage notes Were old charts reviewed (outside hosp., previous admission, EMS record, old E KG, old radiological studies, urgent care reports/EKG's, fpc records)? Report findings @ -No old charts were reviewed Differential Diagnosis (chest pain, altered mental status, abdominal pain women, abdominal pain men, vaginal bleeding, weakness, fever, dyspnea, syncope, headache, dizziness, GI bleed, back pain, seizure, CVA, palpatations, mental hea lth, musculoskeletal)? @ Continues pain status post ankle sprain, DVT EKG interpreted by me (3pts min.). @ -As above X-rays interpreted by me (1pt min.). @ -None done CT interpreted by me (1pt min.). @ -None done U/S interpreted by me (1pt. min.). @ Ultrasound negative for DVT What testing was considered but not performed or refused? (CT, X-rays, U/S, labs)? Why? @ -None What meds were considered but not given or refused? Why? @ -None Did you discuss the management of the patient with other professionals (professionals i.e. MISTY Nicholson, AUDIOLOGY DIRECTOR, lab, RT, psych nurse, social media assistant, outcomes manager, teacher, surveillance sensor officer, correctional casework specialist)? Give summary @ -No Was smoking cessation discussed for >3mins.? @ -No Was critical care preformed (if so, how long)? @ -No Were there social determinants of health that impacted care today? How? (Homelessness, low income, unemployed, alcoholism, drug addiction, transportation, low edu. Level, literacy, decrease access to med. care, [facility], rehab)? @ -No Was there de-escalation of care discussed even if they declined (Discuss DNR or withdrawal of care, Hospice)? DNR status @ -No What co-morbidities impacted this encounter? (DM, HTN, Smoking, COPD, CAD, Cancer, CVA, ARF, Chemo, Hep., AIDS, mental health diagnosis, sleep apnea, morbid obesity)? @ -None Was patient admitted / discharged? Hospital course, mention meds given and route, prescriptions, significant lab abnormalities, going to OR and other pertinent info. @ -[48-year-old male with pain and swelling to left ankle. His been an ongoing issue but seemed to worsen over the past several days. No new injury. Patient was concerned of DVT. DVT study in the emergency Department is negative. P atient will put his orthopedic boot back on and follow closely with orthopedics. Undiagnosed new problem with uncertain prognosis? @ -No Drug Therapy requiring intensive monitoring for toxicity (Heparin, Nitro, Insulin, Cardizem)? @ -No Were any procedures done? @ -No Diagnosis/symptom? @ -Ankle pain Acute, or Chronic, or Acute on Chronic? @ -Acute on chronic Uncomplicated (without systemic symptoms) or Complicated (systemic symptoms)? @ -Complicated Side effects of treatment? @ -No Exacerbation, Progression, or Severe Exacerbation? @ -No Poses a threat to life or bodily function? How? (Chest pain, USA, AR, pneumonia, PE, COPD, DKA, ARF, appy, cholecystitis, CVA, Diverticulitis, Homicidal, Suicidal, threat to staff... and all critical care pts) @ -[Low risk at this time Disposition Clinical Impression: Ankle pain, left Disposition: HOME SELF-CARE Condition: Good Instructions (If sedation given, give patient instructions): Ankle Sprain (ED) Additional Instructions: Please follow up with your orthopedic surgeon. Prescriptions: Ibuprofen [Motrin] 600 mg PO Q8HR PRN #24 tab PRN Reason: Pain Is patient prescribed a controlled substance at d/c from ED?: No Referrals: Meagan Alejo MD [Primary Care Provider] - 1-2 days Time of Disposition: 09:23
[2023-02-19] MEDS ORDERED: KETOROLAC 15 MG/ML 1 ML VIAL IM STA (08:47)
--- NOTE | 2023-02-19 08:54 | US ---
EXAMINATION TYPE: US venous doppler duplex LE LT DATE OF EXAM: 02/19/2023 8:41 AM COMPARISON: NONE CLINICAL INDICATION: Male, 48 years old with history of pain and swelling; Left lower leg pain, swell ing and redness, fever and chills SIDE PERFORMED: Left TECHNIQUE: The lower extremity deep venous system is examined utilizing real time linear array sonog juanita with graded compression, doppler sonography and color-flow sonography. VESSELS IMAGED: Common Femoral Vein Deep Femoral Vein Greater Saphenous Vein * Femoral Vein Popliteal Vein Small Saphenous Vein * Proximal Calf Veins (* superficial vessels) Grayscale, color doppler, spectral doppler imaging performed of the deep veins of the left lower extr emity. There is normal flow, compressibility, vascular waveforms. Left Leg: Appears negative for DVT IMPRESSION: No deep venous thrombosis of the left lower extremity.
[2023-02-19 10:00] VITALS: BP 132/79; PULSE 97; RESP 18
== END 2023-02-19 09:48 | disposition home or self-care (01) ==
LOC: EC 07:48
DX: M25.572 Pain in left ankle and joints of left foot (principal); F41.9 Anxiety disorder, unspecified; F32.A Depression, unspecified; F17.200 Nicotine dependence, unspecified, uncomplicated; Z79.899 Other long term (current) drug therapy
CPT/HCPCS: 93971; 99284; 96372; J1885

== ENCOUNTER 2023-08-17 09:12 | Emergency (ER) | payer MEDICARE, OTHER ==
--- NOTE | 2023-08-17 09:18 | ED ---
General Adult HPI - General Stated complaint: urinary retention Time Seen by Provider: 08/17/23 09:12 Source: patient, RN notes reviewed, old records reviewed - History of Present Illness Initial comments: This is a 48-year-old male who presents to the emergency department complaining that he is having difficulty urinating. Patient states he just has the ability to go a little and then it stops. Patient states it hurts in his lower abdomen and in his penile shaft. Patient Nuys any fever or chills. Patient states this has happened in the past but does not member why. Patient has no back pain patient denies any other complaints at this time. Patient states the symptoms started yesterday evening - Related Data Home Medications Medication Instructions Recorded Confirmed Lacosamide [Vimpat] 200 mg PO BID 12/05/22 12/10/22 Pantoprazole [Protonix] 40 mg PO DAILY 12/05/22 12/10/22 levETIRAcetam [Keppra] 1,500 mg PO BID 12/05/22 12/10/22 Previous Rx's Medication Instructions Recorded Ibuprofen [Motrin] 600 mg PO Q8HR PRN #24 tab 02/19/23 Allergies Allergy/AdvReac Type Severity Reaction Status Date / Time No Known Allergies Allergy Verified 02/19/23 07:53 Review of Systems ROS Statement: Those systems with pertinent positive or pertinent negative responses have been documented in the HPI. ROS Other: All systems not noted in ROS Statement are negative. Past Medical History Past Medical History: Seizure Disorder History of Any Multi-Drug Resistant Organisms: None Reported Additional Past Surgical History / Comment(s): MOUTH SURGERY Past Psychological History: Anxiety, Depression Smoking Status: Current every day smoker Past Alcohol Use History: Heavy Past Drug Use History: None Reported General Exam - General Exam Comments Initial Comments: GENERAL: Patient is well-developed and well-nourished. Patient is nontoxic and well- hydrated and is in mild distress. ENT: Neck is soft and supple. No significant lymphadenopathy is noted. Oropharynx is clear. Moist mucous membranes. Neck has full range of motion without eliciting any pain. EYES: The sclera were anicteric and conjunctiva were pink and moist. Extraocular movements were intact and pupils were equal round and reactive to light. Eyelids were unremarkable. PULMONARY: Unlabored respirations. Good breath sounds bilaterally. No audible rales rhonchi or wheezing was noted. CARDIOVASCULAR: There is a regular rate and rhythm without any murmurs gallops or rubs. ABDOMEN: Soft and nontender with normal bowel sounds. No area of distention. SKIN: Skin is clear with no lesions or rashes and otherwise unremarkable. NEUROLOGIC: Patient is alert and oriented x3. Cranial nerves II through XII are grossly intact. Motor and sensory are also intact. Normal speech, volume and content. Symmetrical smile. MUSCULOSKELETAL: Normal extremities with adequate strength and full range of motion. LYMPHATICS: No significant lymphadenopathy is noted PSYCHIATRIC: Normal psychiatric evaluation. Course Vital Signs 08/17/23 08/17/23 08/17/23 09:15 09:18 10:09 Temperature 97.8 F Pulse Rate 100 88 92 Respiratory 20 20 18 Rate Blood Pressure 183/119 150/116 161/86 O2 Sat by Pulse 93 L 98 94 L Oximetry Medical Decision Making - Medical Decision Making Was pt. sent in by a medical professional or institution (, PA, CREATIVE DIRECTOR, urgent care, hospital, or snf...) When possible be specific @ -No Did you speak to anyone other than the patient for history (EMS, parent, family, police, friend...)? What history was obtained from this source @ -No Did you review nursing and triage notes (agree or disagree)? Why? @ -I reviewed and agree with nursing and triage notes Were old charts reviewed (outside hosp., previous admission, EMS record, old EKG, old radiological studies, urgent care reports/EKG's, snf records)? Report findings @ -No old charts were reviewed Differential Diagnosis (chest pain, altered mental status, abdominal pain women, abdominal pain men, vaginal bleeding, weakness, fever, dyspnea, syncope, headache, dizziness, GI bleed, back pain, seizure, CVA, palpatations, mental health, musculoskeletal)? @ -Urinary retention, urinary tract infection, kidney stone, this is not an all- inclusive list EKG interpreted by me (3pts min.). @ -As above X-rays interpreted by me (1pt min.). @ -None done CT interpreted by me (1pt min.). @ -None done U/S interpreted by me (1pt. min.). @ -None done What testing was considered but not performed or refused? (CT, X-rays, U/S, labs)? Why? @ -None What meds were considered but not given or refused? Why? @ -None Did you discuss the management of the patient with other professionals (professionals i.e. , PA, CREATIVE DIRECTOR, lab, RT, psych nurse, professor of social work, farm advisor, teacher, surveillance dual rate officer, wrapper caser)? Give summary @ -No Was smoking cessation discussed for >3mins.? @ -No Was critical care preformed (if so, how long)? @ -No Were there social determinants of health that impacted care today? How? (Homelessness, low income, unemployed, alcoholism, drug addiction, transportation, low edu. Level, literacy, decrease access to med. care, snf, rehab)? @ -No Was there de-escalation of care discussed even if they declined (Discuss DNR or withdrawal of care, Hospice)? DNR status @ -No What co-morbidities impacted this encounter? (DM, HTN, Smoking, COPD, CAD, Cancer, CVA, ARF, Chemo, Hep., AIDS, mental health diagnosis, sleep apnea, morbid obesity)? @ -None Was patient admitted / discharged? Hospital course, mention meds given and route, prescriptions, significant lab abnormalities, going to OR and other pertinent info. @ -Patient had a Manuel catheter placed and after that I went back and reevalua kathleen the patient he said he felt much better in fact he was sleeping when I came into the room. I instructed the patient to follow-up with urology he states he will give that a try Undiagnosed new problem with uncertain prognosis? @ -No Drug Therapy requiring intensive monitoring for toxicity (Heparin, Nitro, Insulin, Cardizem)? @ -No Were any procedures done? @ -No Diagnosis/symptom? @ -Urinary Acute, or Chronic, or Acute on Chronic? @ -Acute Uncomplicated (without systemic symptoms) or Complicated (systemic symptoms)? @ -Uncomplicated Side effects of treatment? @ -No Exacerbation, Progression, or Severe Exacerbation? @ -No Poses a threat to life or bodily function? How? (Chest pain, USA, MS, pneumonia, PE, COPD, DKA, ARF, appy, cholecystitis, CVA, Diverticulitis, Homicidal, Suicidal, threat to staff... and all critical care pts) @ -No - Lab Data Lab Results 08/17/23 Range/Units 09:15 Urine Color Colorless Urine Appearance Clear (Clear) Urine pH 6.0 (5.0-8.0) Ur Specific [place] 1.010 (1.001-1.035) Urine Protein Negative (Negative) Urine Glucose (UA) Negative (Negative) Urine Ketones Negative (Negative) Urine Blood Trace H (Negative) Urine Nitrite Negative (Negative) Urine Bilirubin Negative (Negative) Urine Urobilinogen <2.0 (<2.0) mg/dL Ur Leukocyte Esterase Negative (Negative) Urine RBC 1 (0-5) /hpf Urine WBC <1 (0-5) /hpf Urine Mucus Rare H (None) /hpf Disposition Clinical Impression: Urinary retention Disposition: HOME SELF-CARE Condition: Good Instructions (If sedation given, give patient instructions): Urinary Retention in Men (ED) Is patient prescribed a controlled substance at d/c from ED?: No Referrals: Meagan Alejo MD [Primary Care Provider] - 1-2 days Desmond Santana MD [STAFF PHYSICIAN] - 1-2 days Time of Disposition: 10:39
[2023-08-17 09:26] VITALS: TEMP 97.8
[2023-08-17 09:57] LABS: Appearance,Urine Clear (Clear); Bilirubin,Urine Negative (Negative); Blood,Urine Trace (Negative); Color,Urine Colorless; Glucose,Urine (UA) Negative (Negative); Ketones,Urine Negative (Negative); Leukocyte Esterase,Urine Negative (Negative); Mucus,Urine Rare /hpf; Nitrite,Urine Negative (Negative); Protein,Urine Negative (Negative); RBC,Urine 1 /hpf (0-5); Urobilinogen,Urine <2.0 mg/dL (<2.0); WBC,Urine <1 /hpf (0-5)
[2023-08-17 10:43] VITALS: BP 161/86; PULSE 92; RESP 18
== END 2023-08-17 10:53 | disposition home or self-care (01) ==
LOC: EC 09:12
DX: R33.9 Retention of urine, unspecified (principal); F17.200 Nicotine dependence, unspecified, uncomplicated
CPT/HCPCS: 51702; 51798; 81001; 99284

== ENCOUNTER 2023-08-24 12:10 | Emergency (ER) | payer MEDICARE, OTHER ==
[2023-08-24 12:28] VITALS: BP 143/97; PULSE 71; RESP 18; TEMP 97.7
[2023-08-24 12:59] LABS: Appearance,Urine Clear (Clear); Bilirubin,Urine Negative (Negative); Blood,Urine Negative (Negative); Color,Urine Colorless; Glucose,Urine (UA) Trace (Negative); Ketones,Urine Negative (Negative); Leukocyte Esterase,Urine Negative (Negative); Nitrite,Urine Negative (Negative); Protein,Urine Negative (Negative); Specific Gravity,Urine 1.002 (1.001-1.035); Urobilinogen,Urine <2.0 mg/dL (<2.0)
--- NOTE | 2023-08-24 13:02 | ED ---
General Adult HPI - General Chief complaint: Urogenital Stated complaint: Urogenital Time Seen by Provider: 08/24/23 12:17 Source: patient, EMS Mode of arrival: EMS Limitations: no limitations - History of Present Illness Initial comments: 48-year-old male who presents to the emergency department reporting urinary retention. Patient states that he was heavily drinking last night and because of this he has been unable to urinate. States that this happens to him frequently. He was seen previously in our emergency department for the same complaint last week. He was straight cathed and this alleviated his symptoms. He admits that his penis is starting to hurt. Symptoms started last night. Prior to calling EMS he was able to urinate. He denies any hematuria. No other alleviating, precipitating or modifying factors - Related Data Home Medications Medication Instructions Recorded Confirmed Lacosamide [Vimpat] 200 mg PO BID 12/05/22 12/10/22 Pantoprazole [Protonix] 40 mg PO DAILY 12/05/22 12/10/22 levETIRAcetam [Keppra] 1,500 mg PO BID 12/05/22 12/10/22 Previous Rx's Medication Instructions Recorded Ibuprofen [Motrin] 600 mg PO Q8HR PRN #24 tab 02/19/23 Allergies Allergy/AdvReac Type Severity Reaction Status Date / Time No Known Allergies Allergy Verified 08/24/23 12:19 Review of Systems ROS Statement: Those systems with pertinent positive or pertinent negative responses have been documented in the HPI. ROS Other: All systems not noted in ROS Statement are negative. Past Medical History Past Medical History: Seizure Disorder History of Any Multi-Drug Resistant Organisms: None Reported Additional Past Surgical History / Comment(s): MOUTH SURGERY Past Psychological History: Anxiety, Depression Smoking Status: Current every day smoker Past Alcohol Use History: Heavy Past Drug Use History: None Reported General Exam Limitations: no limitations General appearance: alert, in no apparent distress Head exam: Present: atraumatic, normocephalic, normal inspection Eye exam: Present: normal appearance, PERRL, EOMI. Absent: scleral icterus, co njunctival injection, periorbital swelling ENT exam: Present: normal exam, mucous membranes moist Neck exam: Present: normal inspection. Absent: tenderness, meningismus, lymphadenopathy Respiratory exam: Present: normal lung sounds bilaterally. Absent: respiratory distress, wheezes, rales, rhonchi, stridor Cardiovascular Exam: Present: regular rate, normal rhythm, normal heart sounds. Absent: systolic murmur, diastolic murmur, rubs, gallop, clicks GI/Abdominal exam: Present: soft, normal bowel sounds. Absent: distended, tenderness, guarding, rebound, rigid Extremities exam: Present: normal inspection, full ROM, normal capillary refill. Absent: tenderness, pedal edema, joint swelling, calf tenderness Back exam: Present: normal inspection Neurological exam: Present: alert, oriented X3, CN II-XII intact Psychiatric exam: Present: normal affect, normal mood Skin exam: Present: warm, dry, intact, normal color. Absent: rash Course Vital Signs 08/24/23 12:14 Temperature 97.7 F Pulse Rate 71 Respiratory 18 Rate Blood Pressure 143/97 O2 Sat by Pulse 97 Oximetry Medical Decision Making - Medical Decision Making Was pt. sent in by a medical professional or institution (, PA, COMPETITIVE INTELLIGENCE ANALYST, urgent care, hospital, or half-way...) When possible be specific @ -No Did you speak to anyone other than the patient for history (EMS, parent, family, police, friend...)? What history was obtained from this source @ -Spoke with EMS for history Did you review nursing and triage notes (agree or disagree)? Why? @ -I reviewed and agree with nursing and triage notes Were old charts reviewed (outside hosp., previous admission, EMS record, old EKG, old radiological studies, urgent care reports/EKG's, half-way records)? Report findings @ -I reviewed ED visit from last week where patient was straight cathed for urinary retention Differential Diagnosis (chest pain, altered mental status, abdominal pain women, abdominal pain men, vaginal bleeding, weakness, fever, dyspnea, syncope, headache, dizziness, GI bleed, back pain, seizure, CVA, palpatations, mental health, musculoskeletal)? @ -UTI, hematuria, BPH EKG interpreted by me (3pts min.). @ -Not done X-rays interpreted by me (1pt min.). @ -None done CT interpreted by me (1pt min.). @ -None done U/S interpreted by me (1pt. min.). @ -None done What testing was considered but not performed or refused? (CT, X-rays, U/S, labs)? Why? @ -None What meds were considered but not given or refused? Why? @ -None Did you discuss the management of the patient with other professionals (professionals i.e. , PA, COMPETITIVE INTELLIGENCE ANALYST, lab, RT, psych nurse, social sciences professor, quality assurance supervisor final, teacher, corporate compliance officer, case advocate)? Give summary @ -No Was smoking cessation discussed for >3mins.? @ -No Was critical care preformed (if so, how long)? @ -No Were there social determinants of health that impacted care today? How? (Homelessness, low income, unemployed, alcoholism, drug addiction, transportation, low edu. Level, literacy, decrease access to med. care, [facility]p, rehab)? @ -No Was there de-escalation of care discussed even if they declined (Discuss DNR or withdrawal of care, Hospice)? DNR status @ -No What co-morbidities impacted this encounter? (DM, HTN, Smoking, COPD, CAD, Cancer, CVA, ARF, Chemo, Hep., AIDS, mental health diagnosis, sleep apnea, morbid obesity)? @ -Alcohol abuse Was patient admitted / discharged? Hospital course, mention meds given and route, prescriptions, significant lab abnormalities, going to OR and other pertinent info. @ -Upon arrival patient was seen and evaluated in room 2. Thorough history and physical exam was performed. Bladder ultrasound does demonstrate 237 cc in the patient's bladder. I did offer straight cath however patient wants to attempt to urinate on his own. Patient is able to urinate and therefore refuses straight catheter or Manuel. Urine is sent for analysis and demonstrates no signs of infection. These results were discussed with the patient. We did consider Flomax however patient reports that his problem is drinking and that he needs to quit. Patient will be discharged home and I recommend that he follow- up with his primary care doctor. Return for any new or worsening symptoms. Patient agreeable to plan he was discharged in stable condition Undiagnosed new problem with uncertain prognosis? @ -No Drug Therapy requiring intensive monitoring for toxicity (Heparin, Nitro, Insulin, Cardizem)? @ -No Were any procedures done? @ -No Diagnosis/symptom? @ -Acute urinary retention, EtOH abuse Acute, or Chronic, or Acute on Chronic? @ -Acute, recurrent Uncomplicated (without systemic symptoms) or Complicated (systemic symptoms)? @ -Complicated Side effects of treatment? @ -No Exacerbation, Progression, or Severe Exacerbation? @ -No Poses a threat to life or bodily function? How? (Chest pain, USA, MD, pneumonia, PE, COPD, DKA, ARF, appy, cholecystitis, CVA, Diverticulitis, Homicidal, Suicidal, threat to staff... and all critical care pts) @ -No - Lab Data Lab Results 08/24/23 Range/Units 12:00 Urine Color Colorless Urine Appearance Clear (Clear) Urine pH 5.0 (5.0-8.0) Ur Specific [place] 1.002 (1.001-1.035) Urine Protein Negative (Negative) Urine Glucose (UA) Trace H (Negative) Urine Ketones Negative (Negative) Urine Blood Negative (Negative) Urine Nitrite Negative (Negative) Urine Bilirubin Negative (Negative) Urine Urobilinogen <2.0 (<2.0) mg/dL Ur Leukocyte Esterase Negative (Negative) Disposition Clinical Impression: Urinary retention Disposition: HOME SELF-CARE Condition: Stable Instructions (If sedation given, give patient instructions): Urinary Retention in Men (ED) Additional Instructions: Please follow-up with your primary care doctor. If this becomes a recurrent issue, you may need to start Flomax. Return for any new or worsening symptoms Is patient prescribed a controlled substance at d/c from ED?: No Referrals: Meagan Alejo MD [Primary Care Provider] - 1-2 days Time of Disposition: 13:10
== END 2023-08-24 13:24 | disposition home or self-care (01) ==
LOC: EC 12:10
DX: R33.9 Retention of urine, unspecified (principal); F10.10 Alcohol abuse, uncomplicated; F17.200 Nicotine dependence, unspecified, uncomplicated
CPT/HCPCS: 51798; 81003; 99284

== ENCOUNTER 2023-09-30 08:16 | Emergency (ER) | payer MEDICARE, OTHER ==
[2023-09-30 08:43] VITALS: BP 130/91; PULSE 88; RESP 18; TEMP 98.2
--- NOTE | 2023-09-30 08:43 | ED ---
General Adult HPI - General Chief complaint: Urogenital Stated complaint: Trouble urinating Time Seen by Provider: 09/30/23 08:20 Source: patient, EMS, RN notes reviewed, old records reviewed Mode of arrival: EMS Limitations: no limitations - History of Present Illness Initial comments: 48-year-old male presenting for evaluation of inability to urinate. Patient has had several episodes over the past few months where he has had difficulty urinating. He states that he is required catheterization multiple times. He denies any preceding dysuria or hematuria. He states that it has been several hours since he has been able to urinate. He reports lower abdominal discomfort. No fever. No vomiting - Related Data Home Medications Medication Instructions Recorded Confirmed Lacosamide [Vimpat] 200 mg PO BID 12/05/22 12/10/22 Pantoprazole [Protonix] 40 mg PO DAILY 12/05/22 12/10/22 levETIRAcetam [Keppra] 1,500 mg PO BID 12/05/22 12/10/22 Previous Rx's Medication Instructions Recorded Ibuprofen [Motrin] 600 mg PO Q8HR PRN #24 tab 02/19/23 Allergies Allergy/AdvReac Type Severity Reaction Status Date / Time No Known Allergies Allergy Verified 09/30/23 08:22 Review of Systems ROS Statement: Those systems with pertinent positive or pertinent negative responses have been documented in the HPI. ROS Other: All systems not noted in ROS Statement are negative. Past Medical History Past Medical History: Seizure Disorder History of Any Multi-Drug Resistant Organisms: None Reported Additional Past Surgical History / Comment(s): MOUTH SURGERY Past Psychological History: Anxiety, Depression Smoking Status: Current every day smoker Past Alcohol Use History: Heavy Past Drug Use History: None Reported General Exam Limitations: no limitations General appearance: alert, in no apparent distress Head exam: Present: atraumatic, normocephalic Eye exam: Present: normal appearance, PERRL, EOMI Neck exam: Present: normal inspection. Absent: tenderness Respiratory exam: Present: normal lung sounds bilaterally. Absent: respiratory distress, wheezes Cardiovascular Exam: Present: regular rate, normal rhythm GI/Abdominal exam: Present: soft, distended, tenderness (Suprapubic) Extremities exam: Present: normal inspection, normal capillary refill. Absent: pedal edema Neurological exam: Present: alert, oriented X3, CN II-XII intact. Absent: motor sensory deficit Psychiatric exam: Present: anxious Skin exam: Present: warm, dry, intact. Absent: cyanosis, diaphoretic Course Vital Signs 09/30/23 08:17 Temperature 98.2 F Pulse Rate 88 Respiratory 18 Rate Blood Pressure 130/91 O2 Sat by Pulse 96 Oximetry Medical Decision Making - Medical Decision Making Was pt. sent in by a medical professional or institution (, [facility], ACCOUNT ADJUSTER, urgent care, hospital, or assisted...) When possible be specific @ -No Did you speak to anyone other than the patient for history (EMS, parent, family, police, friend...)? What history was obtained from this source @ -No Did you review nursing and triage notes (agree or disagree)? Why? @ -I reviewed and agree with nursing and triage notes Were old charts reviewed (outside hosp., previous admission, EMS record, old EKG, old radiological studies, urgent care reports/EKG's, assisted records)? Report findings @ -No old charts were reviewed Differential Diagnosis acute urinary retention, BPH, UTI EKG interpreted by me (3pts min.). @ -As above X-rays interpreted by me (1pt min.). @ -None done CT interpreted by me (1pt min.). @ -None done U/S interpreted by me (1pt. min.). @ -None done What testing was considered but not performed or refused? (CT, X-rays, U/S, labs)? Why? @ -None What meds were considered but not given or refused? Why? @ -None Did you discuss the management of the patient with other professionals (professionals i.e. , MISTY, ACCOUNT ADJUSTER, lab, RT, psych nurse, social insurance adviser, tube former operator, teacher, operations officer trust department, shoe parts caser)? Give summary @ -No Was smoking cessation discussed for >3mins.? @ -No Was critical care preformed (if so, how long)? @ -No Were there social determinants of health that impacted care today? How? (Homelessness, low income, unemployed, alcoholism, drug addiction, transportation, low edu. Level, literacy, decrease access to med. care, senior living, rehab)? @ -No Was there de-escalation of care discussed even if they declined (Discuss DNR or withdrawal of care, Hospice)? DNR status @ -No What co-morbidities impacted this encounter? (DM, HTN, Smoking, COPD, CAD, Cancer, CVA, ARF, Chemo, Hep., AIDS, mental health diagnosis, sleep apnea, morbid obesity)? @ -None Was patient admitted / discharged? Hospital course, mention meds given and route, prescriptions, significant lab abnormalities, going to OR and other pertinent info. @ -[8-year-old male with urinary retention. Manuel catheter placed. Urinalysis unremarkable. Patient will follow with urology. Undiagnosed new problem with uncertain prognosis? @ -No Drug Therapy requiring intensive monitoring for toxicity (Heparin, Nitro, Insulin, Cardizem)? @ -No Were any procedures done? @ -No Diagnosis/symptom? @ -[Urinary retention Acute, or Chronic, or Acute on Chronic? @ -Acute on chronic Uncomplicated (without systemic symptoms) or Complicated (systemic symptoms)? @ -Default Side effects of treatment? @ -No Exacerbation, Progression, or Severe Exacerbation? @ -No Poses a threat to life or bodily function? How? (Chest pain, USA, ID, pneumonia, PE, COPD, DKA, ARF, appy, cholecystitis, CVA, Diverticulitis, Homicidal, Suicidal, threat to staff... and all critical care pts) @ -No - Lab Data Lab Results 09/30/23 Range/Units 08:53 Urine Color Colorless Urine Appearance Clear (Clear) Urine pH 5.0 (5.0-8.0) Ur Specific [place] 1.009 (1.001-1.035) Urine Protein Negative (Negative) Urine Glucose (UA) Negative (Negative) Urine Ketones Negative (Negative) Urine Blood Trace H (Negative) Urine Nitrite Negative (Negative) Urine Bilirubin Negative (Negative) Urine Urobilinogen <2.0 (<2.0) mg/dL Ur Leukocyte Esterase Negative (Negative) Urine RBC 1 (0-5) /hpf Urine WBC <1 (0-5) /hpf Hyaline Casts 1 (0-2) /lpf Urine Mucus Rare H (None) /hpf Disposition Clinical Impression: Urinary retention Disposition: HOME SELF-CARE Condition: Fair Instructions (If sedation given, give patient instructions): Urinary Retention in Men (ED) Is patient prescribed a controlled substance at d/c from ED?: No Referrals: Meagan Alejo MD [Primary Care Provider] - 1-2 days Desmond Santana MD [STAFF PHYSICIAN] - 1-2 days Time of Disposition: 09:10
[2023-09-30 09:10] LABS: Appearance,Urine Clear (Clear); Bilirubin,Urine Negative (Negative); Blood,Urine Trace (Negative); Color,Urine Colorless; Glucose,Urine (UA) Negative (Negative); Hyaline Casts,Urine 1 /lpf (0-2); Ketones,Urine Negative (Negative); Leukocyte Esterase,Urine Negative (Negative); Mucus,Urine Rare /hpf; Nitrite,Urine Negative (Negative); Protein,Urine Negative (Negative); RBC,Urine 1 /hpf (0-5); Specific Gravity,Urine 1.009 (1.001-1.035); Urobilinogen,Urine <2.0 mg/dL (<2.0); WBC,Urine <1 /hpf (0-5)
== END 2023-09-30 09:25 | disposition home or self-care (01) ==
LOC: EC 08:16
DX: R33.9 Retention of urine, unspecified (principal); F17.200 Nicotine dependence, unspecified, uncomplicated
CPT/HCPCS: 51702; 81001; 99284

== ENCOUNTER 2023-09-30 11:08 | Emergency (ER) | payer MEDICARE ==
--- NOTE | 2023-09-30 11:30 | ED ---
Male Urogenital HPI - General Chief complaint: Urogenital Stated complaint: Cath Issues Time Seen by Provider: 09/30/23 11:20 Source: patient, RN notes reviewed Mode of arrival: EMS Limitations: no limitations - History of Present Illness Initial comments: This is a 48-year-old male presents emergency department via EMS chief complaint of a urinary catheter issue. Patient was seen in the emergency department this morning and over 900 due to urinary retention. A Manuel catheter was placed and patient was discharged home with a urology referral. Patient states when he got home he was having discomfort due to the catheter and is requesting that it be removed. Reported to the emergency department via EMS due to not having transportation at this time. No other acute complaints noted. - Related Data Home Medications Medication Instructions Recorded Confirmed Lacosamide [Vimpat] 200 mg PO BID 12/05/22 12/10/22 Pantoprazole [Protonix] 40 mg PO DAILY 12/05/22 12/10/22 levETIRAcetam [Keppra] 1,500 mg PO BID 12/05/22 12/10/22 Previous Rx's Medication Instructions Recorded Ibuprofen [Motrin] 600 mg PO Q8HR PRN #24 tab 02/19/23 Allergies Allergy/AdvReac Type Severity Reaction Status Date / Time No Known Allergies Allergy Verified 09/30/23 11:20 Review of Systems ROS Statement: Those systems with pertinent positive or pertinent negative responses have been documented in the HPI. ROS Other: All systems not noted in ROS Statement are negative. Past Medical History Past Medical History: Seizure Disorder History of Any Multi-Drug Resistant Organisms: None Reported Additional Past Surgical History / Comment(s): MOUTH SURGERY Past Psychological History: Anxiety, Depression Smoking Status: Current every day smoker Past Alcohol Use History: Heavy Past Drug Use History: None Reported General Exam Limitations: no limitations General appearance: alert, in no apparent distress Head exam: Present: atraumatic, normocephalic, normal inspection Eye exam: Present: normal appearance, PERRL, EOMI. Absent: scleral icterus, conjunctival injection, periorbital swelling ENT exam: Present: normal exam, mucous membranes moist Neck exam: Present: normal inspection. Absent: tenderness, meningismus, lymphadenopathy Respiratory exam: Present: normal lung sounds bilaterally. Absent: respiratory distress, wheezes, rales, rhonchi, stridor Cardiovascular Exam: Present: regular rate, normal rhythm, normal heart sounds. Absent: systolic murmur, diastolic murmur, rubs, gallop, clicks GI/Abdominal exam: Present: soft, normal bowel sounds. Absent: distended, tenderness, guarding, rebound, rigid Extremities exam: Present: normal inspection, full ROM, normal capillary refill. Absent: tenderness, pedal edema, joint swelling, calf tenderness Back exam: Present: normal inspection Neurological exam: Present: alert, oriented X3, CN II-XII intact Psychiatric exam: Present: normal affect, normal mood Skin exam: Present: warm, dry, intact, normal color. Absent: rash Course Vital Signs 09/30/23 11:16 Temperature 98.4 F Pulse Rate 108 H Respiratory 16 Rate Blood Pressure 124/79 O2 Sat by Pulse 97 Oximetry Medical Decision Making - Medical Decision Making Was pt. sent in by a medical professional or institution ([facility] Nicholson, CHILLER HAND, urgent care, hospital, or skilled nursing...) When possible be specific @ -No Did you speak to anyone other than the patient for history (EMS, parent, family, police, friend...)? What history was obtained from this source @ -No Did you review nursing and triage notes (agree or disagree)? Why? @ -I reviewed and agree with nursing and triage notes Were old charts reviewed (outside hosp., previous admission, EMS record, old EKG, old radiological studies, urgent care reports/EKG's, skilled nursing records)? Report findings @ -Reviewed the patient's previous emergency department visit from 09/29 at 09 100 where a urinary catheter was placed. Additionally urinalysis at this time nonconcerning for signs of infection, trace blood. Patient was recommended follow-up outpatient with urology. Differential Diagnosis (chest pain, altered mental status, abdominal pain women, abdominal pain men, vaginal bleeding, weakness, fever, dyspnea, syncope, headache, dizziness, GI bleed, back pain, seizure, CVA, palpatations, mental health, musculoskeletal)? @ -Urinary catheterization occasion, urinary retention, prostatic hyperplasia, urinary tract infection, this list not all inclusive. EKG interpreted by me (3pts min.). @ -None X-rays interpreted by me (1pt min.). @ -None done CT interpreted by me (1pt min.). @ -None done U/S interpreted by me (1pt. min.). @ -None done What testing was considered but not performed or refused? (CT, X-rays, U/S, labs)? Why? @ -Urinalysis was considered but deferred due to patient having a unremarkable UA completed during the same day. What meds were considered but not given or refused? Why? @ -None Did you discuss the management of the patient with other professionals (professionals i.e. , PA, CHILLER HAND, lab, RT, psych nurse, director social welfare, western philosophy professor, teacher, environmental technical officer, mental health case manager)? Give summary @ -No Was smoking cessation discussed for >3mins.? @ -No Was critical care preformed (if so, how long)? @ -No Were there social determinants of health that impacted care today? How? (Homelessness, low income, unemployed, alcoholism, drug addiction, transportation, low edu. Level, literacy, decrease access to med. care, detention, rehab)? @ -No Was there de-escalation of care discussed even if they declined (Discuss DNR or withdrawal of care, Hospice)? DNR status @ -No What co-morbidities impacted this encounter? (DM, HTN, Smoking, COPD, CAD, Cancer, CVA, ARF, Chemo, Hep., AIDS, mental health diagnosis, sleep apnea, morbid obesity)? @ -None Was patient admitted / discharged? Hospital course, mention meds given and route, prescriptions, significant lab abnormalities, going to OR and other pertinent info. @ -48-year-old male with urinary catheterization complications. On examination patient noted to have discomfort and penile and suprapubic area. Patient requested nursing staff to remove catheter. Patient was able to void after removal, states that there was a tinge of blood to his urine. Discussion with patient at bedside recommend replacing catheterization due to symptoms of urinary retention this morning. Patient declines and states that he will follow-up with urology outpatient oral department back to the emergency department if he is unable to void again. Patient expresses understanding of potential complications and is still requesting to not be recatheterized. There are no acute findings on physical examination. All questions answered at bedside. Return parameters discussed with the patient. Stable for discharge. Case discussed with Dr. Guillen Undiagnosed new problem with uncertain prognosis? @ -No Drug Therapy requiring intensive monitoring for toxicity (Heparin, Nitro, Insulin, Cardizem)? @ -No Were any procedures done? @ -No Diagnosis/symptom? @ -Urinary catheter complication Acute, or Chronic, or Acute on Chronic? @ -Acute Uncomplicated (without systemic symptoms) or Complicated (systemic symptoms)? @ -uncomplicated Side effects of treatment? @ -No Exacerbation, Progression, or Severe Exacerbation? @ -No Poses a threat to life or bodily function? How? (Chest pain, USA, MS, pneumonia, PE, COPD, DKA, ARF, appy, cholecystitis, CVA, Diverticulitis, Homicidal, Suicidal, threat to staff... and all critical care pts) @ -No Disposition Clinical Impression: Urinary catheter complication Narrative: Return to the emergency department if your symptoms worsen or not improve. Recommend follow-up with urology soon as possible next week for further evaluation. Disposition: HOME SELF-CARE Condition: Good Instructions (If sedation given, give patient instructions): Manuel Catheter Removal (DC) Is patient prescribed a controlled substance at d/c from ED?: No Referrals: None,Stated [Primary Care Provider] - 1-2 days Time of Disposition: 11:30
[2023-09-30 11:58] VITALS: BP 124/79; PULSE 108; RESP 16; TEMP 98.4
== END 2023-09-30 11:35 | disposition home or self-care (01) ==
LOC: EC 11:08
DX: T83.091A Other mechanical complication of indwelling urethral catheter, initial encounter (principal); F17.200 Nicotine dependence, unspecified, uncomplicated
CPT/HCPCS: 99283; 99284

== ENCOUNTER 2023-10-22 14:34 | Observation (INO) | payer MEDICARE ==
[2023-10-22] MEDS ORDERED: LORazepam 1 MG TAB PO PRN ×2 (15:11)
[2023-10-22] MEDS ORDERED: LORazepam 0.5 MG TAB PO PRN (15:11)
[2023-10-22] MEDS ORDERED: LORazepam 2 MG/ML INJ IV PRN ×3 (15:11)
[2023-10-22] MEDS: SODIUM CHLORIDE 0.9% 1,000 ML IV STA (15:17)
[2023-10-22 15:31] LABS: ALT 59 U/L (4-49); AST 68 U/L (17-59); African American GFR (CKD) >90 (>60 ml/min/1.73 sqM); Albumin 4.3 g/dL (3.5-5.0); Alcohol <10 mg/dL; Alkaline Phosphatase 100 U/L (38-126); Anion Gap 11 mmol/L; Blood Urea Nitrogen 7 mg/dL (9-20); Calcium 8.3 mg/dL (8.4-10.2); Carbon Dioxide 21 mmol/L (22-30); Chloride 107 mmol/L (98-107); Glucose 126 mg/dL (74-99); Magnesium 1.7 mg/dL (1.6-2.3); Non-African American GFR(CKD) >90 (>60 ml/min/1.73 sqM); Potassium 3.8 mmol/L (3.5-5.1); Sodium 139 mmol/L (137-145)
--- NOTE | 2023-10-22 15:32 | ED ---
Seizure HPI - General Chief Complaint: Seizure Stated Complaint: Seizure Time Seen by Provider: 10/22/23 15:10 Source: patient, EMS, RN notes reviewed, old records reviewed Mode of arrival: EMS Limitations: no limitations - History of Present Illness Initial Comments: This is a 48-year-old male to the ER for evaluation today. Patient presents today for evaluation of seizure, seizure activity prior to arrival. Patient seizure has relented here in the emergency room but he is significant diaphoretic and tachycardic. He does feel anxious his last drink was 1 day ago about 24 hours ago. Patient has had seizures due to alcohol withdrawal in the past and does take Keppra for history of seizures, he states when he drinks alcohol it helps him not have a seizure MD Complaint: seizure, possible seizure, shaking -: days(s) Description of Episode: loss of consciousness, tonic-clonic movement -: minutes(s) Witnessed: yes - by bystander Trauma: Yes Seizure History: known seizure disorder, history of withdrawal seizures, history of non-compliance with treatment Place: home Possible Precipitating Event: none Associated Symptoms: denies other symptoms - Related Data Home Medications Medication Instructions Recorded Confirmed Lacosamide [Vimpat] 200 mg PO BID 12/05/22 10/22/23 Pantoprazole [Protonix] 40 mg PO DAILY 12/05/22 10/22/23 levETIRAcetam [Keppra] 1,500 mg PO BID 12/05/22 10/22/23 Tamsulosin [Flomax] 0.4 mg PO HS 10/22/23 10/22/23 lamoTRIgine [LaMICtal] 100 mg PO BID 10/22/23 10/22/23 Allergies Allergy/AdvReac Type Severity Reaction Status Date / Time No Known Allergies Allergy Verified 10/22/23 14:53 Review of Systems ROS Statement: Those systems with pertinent positive or pertinent negative responses have been documented in the HPI. ROS Other: All systems not noted in ROS Statement are negative. Past Medical History Past Medical History: Seizure Disorder History of Any Multi-Drug Resistant Organisms: None Reported Additional Past Surgical History / Comment(s): MOUTH SURGERY Past Psychological History: Anxiety, Depression Smoking Status: Current every day smoker Past Alcohol Use History: Daily, Heavy Past Drug Use History: None Reported General Exam Limitations: no limitations General appearance: alert, in no apparent distress Head exam: Present: atraumatic, normocephalic, normal inspection Eye exam: Present: normal appearance, PERRL, EOMI. Absent: scleral icterus, conjunctival injection, periorbital swelling ENT exam: Present: normal exam, mucous membranes moist Neck exam: Present: normal inspection. Absent: tenderness, meningismus, lymphadenopathy Respiratory exam: Present: normal lung sounds bilaterally. Absent: respiratory distress, wheezes, rales, rhonchi, stridor Cardiovascular Exam: Present: regular rate, normal rhythm, normal heart sounds. Absent: systolic murmur, diastolic murmur, rubs, gallop, clicks GI/Abdominal exam: Present: soft, normal bowel sounds. Absent: distended, tenderness, guarding, rebound, rigid Extremities exam: Present: normal inspection, full ROM, normal capillary refill. Absent: tenderness, pedal edema, joint swelling, calf tenderness Back exam: Present: normal inspection Neurological exam: Present: alert, oriented X3, CN II-XII intact Psychiatric exam: Present: normal affect, normal mood Skin exam: Present: warm, dry, intact, normal color. Absent: rash Course Vital Signs 10/22/23 10/22/23 10/22/23 14:37 16:29 17:50 Temperature 97.8 F Pulse Rate 107 H 93 87 Respiratory 18 18 18 Rate Blood Pressure 136/107 155/105 158/108 O2 Sat by Pulse 95 100 98 Oximetry - Reevaluation(s) Reevaluation #1: 10/22/23 15:50 Medical records reviewed Reevaluation #2: 10/22/23 18:32 Did have seizure activity here in the ER but allegedly during the seizure activity patient may have made an attempt to grab the police officers gun, this is difficult to attest to whether this seizure was pseudo seizure in nature Reevaluation #3: 10/22/23 18:33 Patient and police department is informed of results here in the emergency department, he is on sure if they do alcohol withdrawal at encounter and incarceration so patient will be obstinate here in the hospital Reevaluation #4: Was pt. sent in by a medical professional or institution (, PA, [employer] INSPECTOR, urgent care, hospital, or penitentiary...) When possible be specific @ -no Did you speak to anyone other than the patient for history (EMS, parent, family, police, friend...)? What history was obtained from this source @ -no Did you review nursing and triage notes (agree or disagree)? Why? @ -agree Are old charts reviewed (outside hosp., previous admission, EMS record, old EKG, old radiological studies, urgent care reports/EKG's, penitentiary records)? Report findings @ -yes Differential Diagnosis (chest pain, altered mental status, abdominal pain women, abdominal pain men, vaginal bleeding, weakness, fever, dyspnea, syncope, headache, dizziness, GI bleed, back pain, seizure, CVA, palpatations, mental health, musculoskeletal)? @ -prior EKG interpreted by me (3pts min.). @ -yes X-rays interpreted by me (1pt min.). @ -yes negative for acute disease CT interpreted by me (1pt min.). @ -no U/S interpreted by me (1pt. min.). @ -no What testing was considered but not performed or refused? (CT, X-rays, U/S, labs)? Why? @ -none What meds were considered but not given or refused? Why? @ -none Did you discuss the management of the patient with other professionals (professionals i.e. , PA, [employer] INSPECTOR, lab, RT, psych nurse, delinquency prevention social worker, digital director, teacher, customs officer, correctional case manager)? Give summary @ -no Was smoking cessation discussed for >3mins.? @ -no Was critical care preformed (if so, how long)? @ -no Were there social determinants of health that impacted care today? How? (Homelessness, low income, unemployed, alcoholism, drug addiction, transportation, low edu. Level, literacy, decrease access to med. care, care home, rehab)? @ -none Was there de-escalation of care discussed even if they declined (Discuss DNR or withdrawal of care, Hospice)? DNR status @ -no What co-morbidities impacted this encounter? (DM, HTN, Smoking, COPD, CAD, Cancer, CVA, ARF, Chemo, Hep., AIDS, mental health diagnosis, sleep apnea, morbid obesity)? @ -none Was patient admitted / discharged? Hospital course, mention meds given and route, prescriptions, significant lab abnormalities, going to OR and other pertinent info. @ - Undiagnosed new problem with uncertain prognosis? @ -no Drug Therapy requiring intensive monitoring for toxicity (Heparin, Nitro, Insulin, Cardizem)? @ -no Were any procedures done? @ -no Diagnosis/symptom? @ - Acute, or Chronic, or Acute on Chronic? @ -Acute Uncomplicated (without systemic symptoms) or Complicated (systemic symptoms)? @ -Complicated Side effects of treatment? @ -no Exacerbation, Progression, or Severe Exacerbation? @ -exacerbation Poses a threat to life or bodily function? How? (Chest pain, USA, PA, pneumonia, PE, COPD, DKA, ARF, appy, cholecystitis, CVA, Diverticulitis, Homicidal, Suicidal, threat to staff... and all critical care pts) @ -yes Reevaluation #5: Differential Seizure: Recurrent seizure disorder, febrile seizure, alcohol withdrawal, stimulants, meningitis, encephalitis, intercranial hemorrhage, intracranial tumor, stroke, eclampsia, thyrotoxicosis, hypocalcemia, hyponatremia, hypernatremia, hypomagnesemia, psychogenic, this is not meant to be an all-inclusive list. - Consultations Consultation #1: Spoke with [facility] who agreed to admit this patient Medical Decision Making - Medical Decision Making 48 male to ER for evaluation of seizure. Patient has seizure during in carceration today and may have had second seizure activity here in the ER. Patient will be admitted for monitoring of seizures and Keppra - Lab Data Result diagrams: 10/22/23 15:05 10/22/23 15:05 Lab Results 10/22/23 10/22/23 10/22/23 Range/Units 15:05 15:05 15:05 WBC 4.8 (3.8-10.6) k/uL RBC 5.04 (4.30-5.90) m/uL Hgb 15.5 (13.0-17.5) gm/dL Hct 47.3 (39.0-53.0) % MCV 93.8 (80.0-100.0) fL MCH 30.7 (25.0-35.0) pg MCHC 32.7 (31.0-37.0) g/dL RDW 13.8 (11.5-15.5) % Plt Count 68 L (150-450) k/uL MPV 7.4 Neutrophils % 81 % Lymphocytes % 10 % Monocytes % 5 % Eosinophils % 1 % Basophils % 1 % Neutrophils # 3.9 (1.3-7.7) k/uL Lymphocytes # 0.5 L (1.0-4.8) k/uL Monocytes # 0.3 (0-1.0) k/uL Eosinophils # 0.1 (0-0.7) k/uL Basophils # 0.0 (0-0.2) k/uL Manual Slide Review Performed Sodium 139 (137-145) mmol/L Potassium 3.8 (3.5-5.1) mmol/L Chloride 107 (98-107) mmol/L Carbon Dioxide 21 L (22-30) mmol/L Anion Gap 11 mmol/L BUN 7 L (9-20) mg/dL Creatinine 0.68 (0.66-1.25) mg/dL Est GFR (CKD-EPI)AfAm >90 (>60 ml/min/1.73 sqM) Est GFR (CKD-EPI)NonAf >90 (>60 ml/min/1.73 sqM) Glucose 126 H (74-99) mg/dL Calcium 8.3 L (8.4-10.2) mg/dL Phosphorus 3.5 (2.5-4.5) mg/dL Magnesium 1.7 (1.6-2.3) mg/dL Total Bilirubin 1.0 (0.2-1.3) mg/dL AST 68 H (17-59) U/L ALT 59 H (4-49) U/L Alkaline Phosphatase 100 (38-126) U/L Total Protein 7.0 (6.3-8.2) g/dL Albumin 4.3 (3.5-5.0) g/dL Lipase 155 (23-300) U/L Urine Color Urine Appearance (Clear) Urine pH (5.0-8.0) Ur Specific [place] (1.001-1.035) Urine Protein (Negative) Urine Glucose (UA) (Negative) Urine Ketones (Negative) Urine Blood (Negative) Urine Nitrite (Negative) Urine Bilirubin (Negative) Urine Urobilinogen (<2.0) mg/dL Ur Leukocyte Esterase (Negative) Urine Opiates Screen (NotDetected) Ur Oxycodone Screen (NotDetected) Urine Methadone Screen (NotDetected) Ur Barbiturates Screen (NotDetected) U Tricyclic Antidepress (NotDetected) Ur Phencyclidine Scrn (NotDetected) Ur Amphetamines Screen (NotDetected) U Methamphetamines Scrn (NotDetected) U Benzodiazepines Scrn (NotDetected) Urine Cocaine Screen (NotDetected) U Marijuana (THC) Screen (NotDetected) Serum Alcohol <10 mg/dL 10/22/23 Range/Units 16:10 WBC (3.8-10.6) k/uL RBC (4.30-5.90) m/uL Hgb (13.0-17.5) gm/dL Hct (39.0-53.0) % MCV (80.0-100.0) fL MCH (25.0-35.0) pg MCHC (31.0-37.0) g/dL RDW (11.5-15.5) % Plt Count (150-450) k/uL MPV Neutrophils % % Lymphocytes % % Monocytes % % Eosinophils % % Basophils % % Neutrophils # (1.3-7.7) k/uL Lymphocytes # (1.0-4.8) k/uL Monocytes # (0-1.0) k/uL Eosinophils # (0-0.7) k/uL Basophils # (0-0.2) k/uL Manual Slide Review Sodium (137-145) mmol/L Potassium (3.5-5.1) mmol/L Chloride (98-107) mmol/L Carbon Dioxide (22-30) mmol/L Anion Gap mmol/L BUN (9-20) mg/dL Creatinine (0.66-1.25) mg/dL Est GFR (CKD-EPI)AfAm (>60 ml/min/1.73 sqM) Est GFR (CKD-EPI)NonAf (>60 ml/min/1.73 sqM) Glucose (74-99) mg/dL Calcium (8.4-10.2) mg/dL Phosphorus (2.5-4.5) mg/dL Magnesium (1.6-2.3) mg/dL Total Bilirubin (0.2-1.3) mg/dL AST (17-59) U/L ALT (4-49) U/L Alkaline Phosphatase (38-126) U/L Total Protein (6.3-8.2) g/dL Albumin (3.5-5.0) g/dL Lipase (23-300) U/L Urine Color Light Yellow Urine Appearance Clear (Clear) Urine pH 7.0 (5.0-8.0) Ur Specific [place] 1.013 (1.001-1.035) Urine Protein Negative (Negative) Urine Glucose (UA) Negative (Negative) Urine Ketones Negative (Negative) Urine Blood Negative (Negative) Urine Nitrite Negative (Negative) Urine Bilirubin Negative (Negative) Urine Urobilinogen <2.0 (<2.0) mg/dL Ur Leukocyte Esterase Negative (Negative) Urine Opiates Screen Not Detected (NotDetected) Ur Oxycodone Screen Not Detected (NotDetected) Urine Methadone Screen Not Detected (NotDetected) Ur Barbiturates Screen Not Detected (NotDetected) U Tricyclic Antidepress Not Detected (NotDetected) Ur Phencyclidine Scrn Not Detected (NotDetected) Ur Amphetamines Screen Not Detected (NotDetected) U Methamphetamines Scrn Not Detected (NotDetected) U Benzodiazepines Scrn Not Detected (NotDetected) Urine Cocaine Screen Not Detected (NotDetected) U Marijuana (THC) Screen Not Detected (NotDetected) Serum Alcohol mg/dL - EKG Data -: EKG Interpreted by Me (EKG is sinus 96 KS 135 QRS 98 QTc 395) Disposition Clinical Impression: New onset seizure, Seizure, Epileptic seizure, generalized Disposition: HOME SELF-CARE Condition: Fair Instructions (If sedation given, give patient instructions): Seizure/Epilepsy Discharge Instructions & Follow-Up Is patient prescribed a controlled substance at d/c from ED?: No Referrals: None,Stated [REFERRING] - 1-2 days Time of Disposition: 18:30
[2023-10-22 16:05] LABS: Basophils % (A) 1 %; Eosinophils # (A) 0.1 k/uL (0-0.7); Eosinophils % (A) 1 %; HCT 47.3 % (39.0-53.0); HGB 15.5 gm/dL (13.0-17.5); Lymphocytes # (A) 0.5 k/uL (1.0-4.8); Lymphocytes % (A) 10 %; MCH 30.7 pg (25.0-35.0); MCHC 32.7 g/dL (31.0-37.0); MCV 93.8 fL (80.0-100.0); Mean Platelet Volume 7.4; Monocytes # (A) 0.3 k/uL (0-1.0); Monocytes % (A) 5 %; Neutrophils # (A) 3.9 k/uL (1.3-7.7); Neutrophils % (A) 81 %; RBC 5.04 m/uL (4.30-5.90); RDW 13.8 % (11.5-15.5); WBC 4.8 k/uL (3.8-10.6)
[2023-10-22] MEDS: LORazepam 2 MG/ML INJ IV ONE (16:15)
[2023-10-22] MEDS: levETIRAcetam IV 500 MG/5 ML VIAL IVP STA (16:21)
[2023-10-22 16:35] LABS: Appearance,Urine Clear (Clear); Bilirubin,Urine Negative (Negative); Blood,Urine Negative (Negative); Color,Urine Light Yellow; Glucose,Urine (UA) Negative (Negative); Ketones,Urine Negative (Negative); Leukocyte Esterase,Urine Negative (Negative); Nitrite,Urine Negative (Negative); Protein,Urine Negative (Negative); Specific Gravity,Urine 1.013 (1.001-1.035); Urobilinogen,Urine <2.0 mg/dL (<2.0)
[2023-10-22 16:49] LABS: Amphetamine Screen,Urine Not Detected (NotDetected); Barbiturate Screen,Urine Not Detected (NotDetected); Benzodiazepines Screen,Urine Not Detected (NotDetected); Cocaine Screen,Urine Not Detected (NotDetected); Methadone Screen, Urine Not Detected (NotDetected); Opiate Screen,Urine Not Detected (NotDetected); Oxycodone Screen, Urine Not Detected (NotDetected); Phencyclidine Screen,Urine Not Detected (NotDetected); Tricyclic Antidepressant,Urine Not Detected (NotDetected); Urn Cannabinoid Scrn Not Detected (NotDetected)
[2023-10-22 16:53] LABS: Platelet Count 68 k/uL (150-450)
[2023-10-22 17:04] LABS: Phosphorus 3.5 mg/dL (2.5-4.5)
[2023-10-22] MEDS ORDERED: NALOXONE 0.4 MG/ML 1 ML VIAL IV PRN (18:31)
[2023-10-22] MEDS: ACETAMINOPHEN TAB 325 MG TAB PO STA (18:56)
[2023-10-22] MEDS: SODIUM CHLORIDE 0.9% 1,000 ML IV SCH (18:57)
[2023-10-22] MEDS: LORazepam 1 MG TAB PO PRN (21:02)
[2023-10-22] MEDS: TAMSULOSIN 0.4 MG CAP.ER.24H PO SCH (23:45)
[2023-10-22] MEDS: lamoTRIgine 100 MG TAB PO SCH (23:45)
[2023-10-22] MEDS: LACOSAMIDE 50 MG TABLET PO SCH (23:46)
[2023-10-23 07:53] VITALS: BP 150/88; PULSE 75; RESP 18; TEMP 97.9
[2023-10-23] MEDS: PANTOPRAZOLE 40 MG TABLET PO SCH (08:12)
[2023-10-23] MEDS ORDERED: PANTOPRAZOLE 40 MG/10 ML VIAL IV SCH (09:00)
[2023-10-23 10:28] LABS: ALT 46 U/L (10-49); AST 42 U/L (14-35); Albumin 4.1 g/dL (3.8-4.9); Albumin/Globulin Ratio 1.52 Ratio (1.60-3.17); Alkaline Phosphatase 86 U/L (41-126); Blood Urea Nitrogen 6.9 mg/dL (9.0-27.0); Calcium 8.5 mg/dL (8.7-10.3); Carbon Dioxide 22.5 mmol/L (21.6-31.8); Chloride 106 mmol/L (96-109); Globulin 2.7 g/dL (1.6-3.3); Glucose 94 mg/dL (70-110); Potassium 3.9 mmol/L (3.5-5.5); Sodium 141 mmol/L (135-145); Total Protein 6.8 g/dL (6.2-8.2)
[2023-10-23 11:03] LABS: Basophils # (A) 0.01 X 10*3/uL (0.00-0.10); Basophils % (A) 0.2 %; Eosinophils # (A) 0.13 X 10*3/uL (0.04-0.35); Eosinophils % (A) 2.6 %; HCT 45.5 % (39.6-50.0); HGB 15.1 g/dL (13.0-17.0); Immature Platelet Fraction 4.5 % (1.1-6.1); Lymphocytes % (A) 16.2 %; MCH 30.6 pg (27.0-32.0); MCHC 33.2 g/dL (32.0-37.0); MCV 92.3 FL (80.0-97.0); Mean Platelet Volume 9.3 FL (9.5-12.2); Monocytes # (A) 0.43 X 10*3/uL (0.20-1.00); Monocytes % (A) 8.7 %; NRBC Per 100 WBC 0 X 10*3/uL (0.00-0.01); Neutrophils # (A) 3.55 X 10*3/uL (1.80-7.70); Neutrophils % (A) 72.1 %; Platelet Count 71 X 10*3/uL (140-440); RBC 4.93 X 10*6/uL (4.40-5.60); RBC Morphology Normal (Normal); WBC 4.93 X 10*3/uL (4.50-10.00)
--- NOTE | 2023-10-23 13:50 | P.HPIM ---
History of Present Illness H&P Date: 10/23/23 This is a 48-year-old male who presented to the emergency department with police as patient was recently incarcerated with concerns of seizure and possible alcohol withdrawal. Patient follows in the outpatient setting with Dr. Reyes with a history of seizure disorder, anxiety/depression, continued ongoing nicotine dependence, daily heavily drinking at least 6- 24 ounce beers daily. Patient noted to have some seizure-like activity with history of seizure in assisted and patient was brought here for further evaluation. Patient was placed on CIWA protocol and home medications including Keppra have been resumed. Patient is also on Vimpat as well as Lamictal. Patient reports he does follow with a neurologist in the outpatient setting although has not seen her in at least 6 months to a year. Patient reports his seizures are alcohol withdrawal induced. Patient reports to a history of epilepsy as a child. REVIEW OF SYSTEMS: CONSTITUTIONAL: No fever, no malaise, no fatigue. HEENT: No recent visual problems or hearing problems. Denied any sore throat. CARDIOVASCULAR: No chest pain, orthopnea, PND, no palpitations, no syncope. PULMONARY: No shortness of breath, no cough, no hemoptysis. GASTROINTESTINAL: No diarrhea, no nausea, no vomiting, no abdominal pain. NEUROLOGICAL: No headaches, no weakness, no numbness. HEMATOLOGICAL: Denies any bleeding or petechiae. GENITOURINARY: Denies any burning micturition, frequency, or urgency. MUSCULOSKELETAL/RHEUMATOLOGICAL: Denies any joint pain, swelling, or any muscle pain. ENDOCRINE: Denies any polyuria or polydipsia. The rest of the 14-point review of systems is negative. PHYSICAL EXAMINATION: GENERAL: The patient is alert and oriented x3, not in any acute distress. Well developed, well nourished. HEENT: Pupils are round and equally reacting to light. EOMI. No scleral icterus. No conjunctival pallor. Normocephalic, atraumatic. No pharyngeal erythema. No thyromegaly. CARDIOVASCULAR: S1 and S2 present. No murmurs, rubs, or gallops. PULMONARY: Chest is clear to auscultation, no wheezing or crackles. ABDOMEN: Soft, nontender, nondistended, normoactive bowel sounds. No palpable organomegaly. MUSCULOSKELETAL: No joint swelling or deformity. EXTREMITIES: No cyanosis, clubbing, or pedal edema. NEUROLOGICAL: Gross neurological examination did not reveal any focal deficits. SKIN: No rashes. Assessment: Breakthrough seizure or possible pseudoseizure while incarcerated History of seizures maintained on antiseizure medication follows with neurology outpatient Continued ongoing nicotine dependence Heavy daily alcohol use Mild transaminitis secondary to alcohol use, trending down Chronic thrombocytopenia likely secondary to alcohol use Concerns for possible acute alcohol withdrawal and early delirium tremens Noncompliance with medications and follow-up outpatient GI prophylaxis DVT prophylaxis Full code Plan: Patient was placed on CIWA protocol and admitted under observation with concerns of possible seizure or breakthrough seizure Patient is accompanied by a precinct police sergeant as patient is currently incarcerated at [facility] Patient has had no further seizure-like activity and reports to being compliant with medications. Medications refilled and patient will continue on Lamictal, Keppra, Vimpat. Patient has been instructed to follow-up with his neurologist in the outpatient setting as well as primary care provider Patient has not required any Ativan for withdrawals and does not appear to be withdrawing at this time. Patient is medically stable for transfer back to [facility]. The impression and plan of care has been dictated by Marzena Zuñiga, Nurse Practitioner as directed. Dr. Redd MD I have performed a history and examination and MDM of this patient, discussed the same with the dictator, and agree with the dictator's assessment and plan as written ,documented as a scribe. Based on total visit time, I have performed more than 50% of the visit. Past Medical History Past Medical History: Seizure Disorder History of Any Multi-Drug Resistant Organisms: None Reported Additional Past Surgical History / Comment(s): MOUTH SURGERY Past Psychological History: Anxiety, Depression Smoking Status: Current every day smoker Past Alcohol Use History: Daily, Heavy Past Drug Use History: None Reported Medications and Allergies Home Medications Medication Instructions Recorded Confirmed Type Lacosamide [Vimpat] 200 mg PO BID 12/05/22 10/22/23 History Pantoprazole [Protonix] 40 mg PO DAILY 12/05/22 10/22/23 History levETIRAcetam [Keppra] 1,500 mg PO BID 12/05/22 10/22/23 History Tamsulosin [Flomax] 0.4 mg PO HS 10/22/23 10/22/23 History lamoTRIgine [LaMICtal] 100 mg PO BID 10/22/23 10/22/23 History Allergies Allergy/AdvReac Type Severity Reaction Status Date / Time No Known Allergies Allergy Verified 10/22/23 14:53 Physical Exam Vitals: Vital Signs Temp Pulse Pulse Pulse Resp BP BP 10/23/23 07:00 97.9 F 75 18 150/88 10/23/23 01:44 98.3 F 71 16 147/91 10/22/23 20:10 82 18 133/83 10/22/23 20:00 99.2 F 81 16 161/96 10/22/23 19:54 85 148/91 10/22/23 17:50 87 18 158/108 10/22/23 16:29 93 18 155/105 10/22/23 14:37 97.8 F 107 H 18 136/107 Pulse Ox 10/23/23 07:00 97 10/23/23 01:44 97 10/22/23 20:10 99 10/22/23 20:00 97 10/22/23 19:54 10/22/23 17:50 98 10/22/23 16:29 100 10/22/23 14:37 95 Intake and Output 10/22/23 10/23/23 10/23/23 22:59 06:59 14:59 Intake Total 118 Balance 118 Intake: Oral 118 Other: # Voids 1 Weight 92.986 kg Results CBC & Chem 7: 10/23/23 07:12 10/23/23 07:12 Labs: Abnormal Lab Results - Last 24 Hours (Table) 10/22/23 10/22/23 10/23/23 Range/Units 15:05 15:05 07:12 Plt Count 68 L 71 L (150-450) k/uL MPV 9.3 L (9.5-12.2) FL Lymphocytes # 0.5 L 0.80 L (1.0-4.8) k/uL Carbon Dioxide 21 L (22-30) mmol/L Anion Gap (4.00-12.00) mmol/L BUN 7 L (9-20) mg/dL BUN/Creatinine Ratio (12.00-20.00) Ratio Glucose 126 H (74-99) mg/dL Calcium 8.3 L (8.4-10.2) mg/dL AST 68 H (17-59) U/L ALT 59 H (4-49) U/L Albumin/Globulin Ratio (1.60-3.17) Ratio 10/23/23 Range/Units 07:12 Plt Count (150-450) k/uL MPV (9.5-12.2) FL Lymphocytes # (1.0-4.8) k/uL Carbon Dioxide (22-30) mmol/L Anion Gap 12.50 H (4.00-12.00) mmol/L BUN 6.9 L (9-20) mg/dL BUN/Creatinine Ratio 6.90 L (12.00-20.00) Ratio Glucose (74-99) mg/dL Calcium 8.5 L (8.4-10.2) mg/dL AST 42 H (17-59) U/L ALT (4-49) U/L Albumin/Globulin Ratio 1.52 L (1.60-3.17) Ratio Thrombosis Risk Factor Assmnt - DVT/VTE Prophylaxis DVT/VTE Prophylaxis: Mechanical Prophylaxis ordered - Choose All That Apply Each Factor Represents 1 point: Age 41-60 years, Obesity (BMI >25) Thrombosis Risk Factor Assessment Total Risk Factor Score: 2 Thrombosis Risk Factor Assessment Level: Low Risk
--- NOTE | 2023-10-23 14:16 | P.DS ---
Providers Date of admission: 10/22/23 18:32 Expected date of discharge: 10/23/23 Attending physician: Valeri Daly Primary care physician: Meagan Alejo [facility] Course: Final diagnosis Breakthrough seizure or possible pseudoseizure while incarcerated History of seizures maintained on antiseizure medication follows with neurology outpatient Continued ongoing nicotine dependence Heavy daily alcohol use Mild transaminitis secondary to alcohol use, trending down Chronic thrombocytopenia likely secondary to alcohol use Concerns for possible acute alcohol withdrawal and early delirium tremens Noncompliance with medications and follow-up outpatient GI prophylaxis DVT prophylaxis Full code Discharge disposition Patient is being discharged in stable condition with guarded prognosis to [facility]. Patient will follow-up with Dr. Claudy Daly in the outpatient swelling as well as his neurologist on discharge. Continue antiseizure medications. Total time taken is greater than 35 minutes Hospital course This is a 48-year-old male who presented to the emergency department with police as patient was recently incarcerated with concerns of seizure and possible alcohol withdrawal. Patient follows in the outpatient setting with Dr. Alejo with a history of seizure disorder, anxiety/depression, continued ongoing nicotine dependence, daily heavily drinking at least 6- 24 ounce beers daily. Patient noted to have some seizure-like activity with history of seizure in [facility] and patient was brought here for further evaluation. Patient was placed on CIWA protocol and home medications including Keppra have been resumed. Patient is also on Vimpat as well as Lamictal. Patient reports he does follow with a neurologist in the outpatient setting although has not seen her in at least 6 months to a year. Patient reports his seizures are alcohol withdrawal induced. Patient reports to a history of epilepsy as a child. Patient was monitored overnight with no seizure-like activity and not actively withdrawing. Patient did not require Ativan. Patient has been cleared for discharge back to [facility] and has been instructed to follow-up with primary care provider as well as his neurologist on discharge PHYSICAL EXAMINATION: GENERAL: The patient is alert and oriented x3, not in any acute distress. Well developed, well nourished. HEENT: Pupils are round and equally reacting to light. EOMI. No scleral icterus. No conjunctival pallor. Normocephalic, atraumatic. No pharyngeal erythema. No thyromegaly. CARDIOVASCULAR: S1 and S2 present. No murmurs, rubs, or gallops. PULMONARY: Chest is clear to auscultation, no wheezing or crackles. ABDOMEN: Soft, nontender, nondistended, normoactive bowel sounds. No palpable organomegaly. MUSCULOSKELETAL: No joint swelling or deformity. EXTREMITIES: No cyanosis, clubbing, or pedal edema. NEUROLOGICAL: Gross neurological examination did not reveal any focal deficits. SKIN: No rashes. The impression and plan of care has been dictated by Marzena Zuñiga, Nurse Practitioner as directed. Dr. Redd MD I have performed a history and examination and MDM of this patient, discussed the same with the dictator, and agree with the dictator's assessment and plan as written ,documented as a scribe. Based on total visit time, I have performed more than 50% of the visit. Patient Condition at Discharge: Fair Plan - Discharge Summary New Discharge Prescriptions: Continue Pantoprazole [Protonix] 40 mg PO DAILY levETIRAcetam [Keppra] 1,500 mg PO BID Lacosamide [Vimpat] 200 mg PO BID lamoTRIgine [LaMICtal] 100 mg PO BID Tamsulosin [Flomax] 0.4 mg PO HS Discharge Medication List Lacosamide [Vimpat] 200 mg PO BID 12/05/22 [History] Pantoprazole [Protonix] 40 mg PO DAILY 12/05/22 [History] levETIRAcetam [Keppra] 1,500 mg PO BID 12/05/22 [History] Tamsulosin [Flomax] 0.4 mg PO HS 10/22/23 [History] lamoTRIgine [LaMICtal] 100 mg PO BID 10/22/23 [History] Follow up Appointment(s)/Referral(s): Meagan Alejo MD [Primary Care Provider] - 1 Week Patient Instructions/Handouts: Seizure/Epilepsy Discharge Instructions & Follow-Up Activity/Diet/Wound Care/Special Instructions: Activity as tolerated Follow-up with neurologist in the outpatient setting Continue taking medications as prescribed Avoid alcohol use and exposure Discharge Disposition: HOME SELF-CARE
== END 2023-10-23 12:47 | disposition home or self-care (01) ==
LOC: EC 14:34 → 6NMEDSUR 18:32
PROVIDERS: ADMIT Hospitalist; ATTEND Hospitalist
DX: G40.409 Other generalized epilepsy and epileptic syndromes, not intractable, without status epilepticus (principal); D69.59 Other secondary thrombocytopenia; F41.9 Anxiety disorder, unspecified; F32.A Depression, unspecified; F10.90 Alcohol use, unspecified, uncomplicated; Y90.0 Blood alcohol level of less than 20 mg/100 ml; R74.01 Elevation of levels of liver transaminase levels; Z91.148 Patient's other noncompliance with medication regimen for other reason; E66.9 Obesity, unspecified; Z68.29 Body mass index [BMI] 29.0-29.9, adult; F17.200 Nicotine dependence, unspecified, uncomplicated; Z79.899 Other long term (current) drug therapy
CPT/HCPCS: 96361 ×3; 96374; 96375; 99285; 36415; 93005; 80053 ×2; 80177; 83690; 83735 ×2; 84100 ×2; 85025 ×2; 81003; 80306; G0378 ×2; G0480; J2060; J3360; J1953; 80320

== ENCOUNTER 2023-11-08 20:18 | Inpatient (IN) | payer MEDICARE ==
[2023-11-08 21:05] LABS: Basophils # (A) 0.1 k/uL (0-0.2); Basophils % (A) 0 %; Eosinophils # (A) 0.1 k/uL (0-0.7); Eosinophils % (A) 0 %; HGB 17.3 gm/dL (13.0-17.5); Hypochromasia Moderate; Lymphocytes # (A) 1.3 k/uL (1.0-4.8); Lymphocytes % (A) 6 %; MCH 30.9 pg (25.0-35.0); MCHC 30.6 g/dL (31.0-37.0); Macrocytosis Slight; Mean Platelet Volume 7.7; Monocytes # (A) 1.1 k/uL (0-1.0); Monocytes % (A) 5 %; Neutrophils # (A) 20.8 k/uL (1.3-7.7); Neutrophils % (A) 88 %; RDW 13.3 % (11.5-15.5); WBC 23.7 k/uL (3.8-10.6)
[2023-11-08 21:15] LABS: ALT 61 U/L (4-49); AST 66 U/L (17-59); African American GFR (CKD) 70 (>60 ml/min/1.73 sqM); Albumin 5.3 g/dL (3.5-5.0); Alcohol 18 mg/dL; Alkaline Phosphatase 107 U/L (38-126); Blood Urea Nitrogen 9 mg/dL (9-20); Calcium 9.5 mg/dL (8.4-10.2); Chloride 113 mmol/L (98-107); Glucose 178 mg/dL (74-99); Magnesium 2.6 mg/dL (1.6-2.3); Non-African American GFR(CKD) 60 (>60 ml/min/1.73 sqM); Potassium 4.8 mmol/L (3.5-5.1); Sodium 148 mmol/L (137-145); Total Bilirubin 0.6 mg/dL (0.2-1.3); Total Protein 8.5 g/dL (6.3-8.2)
[2023-11-08 21:18] LABS: HCT 56.5 % (39.0-53.0); Platelet Count 363 k/uL (150-450)
[2023-11-08 21:21] LABS: Carbon Dioxide <5 mmol/L (22-30)
[2023-11-08] MEDS: SODIUM CHLORIDE 0.9% 1,000 ML IV ONE (21:30)
[2023-11-08] MEDS: LORazepam 2 MG/ML INJ IV STA (21:31)
[2023-11-08] MEDS ORDERED: LORazepam 2 MG/ML INJ IV PRN ×2 (22:08)
[2023-11-08] MEDS: LORazepam 2 MG/ML INJ IV PRN (22:17)
[2023-11-08] MEDS ORDERED: NALOXONE 0.4 MG/ML 1 ML VIAL IV PRN (23:25)
[2023-11-09] MEDS ORDERED: ONDANSETRON 4 MG/2 ML VIAL IVP PRN ×2 (00:01→09:36)
--- NOTE | 2023-11-09 00:09 | ED ---
Seizure HPI - General Chief Complaint: Seizure Stated Complaint: Seizure Time Seen by Provider: 11/08/23 20:36 Source: patient Mode of arrival: EMS Limitations: altered mental status - History of Present Illness Initial Comments: Patient is 48-year-old man with reported history of seizures. Patient also reported to be frequent drinker. EMS was called due to generalized tonic-clonic seizure. On arrival patient does appear postictal. When questioned about injury patient indicates is right-hand but does not appear to have any tenderness on exam. MD Complaint: seizure -: minutes(s) Description of Episode: loss of consciousness, tonic-clonic movement -: minutes(s) Witnessed: yes - by EMS Seizure History: known seizure disorder, history of withdrawal seizures Possible Precipitating Event: alcohol withdrawal - Related Data Home Medications Medication Instructions Recorded Confirmed Folic Acid 1 mg PO DIRECTED 11/25/23 11/25/23 Lacosamide [Vimpat] 200 mg PO DIRECTED 11/25/23 11/25/23 Multivitamins, Thera [Multivitamin 1 tab PO DIRECTED 11/25/23 11/25/23 (formulary)] lamoTRIgine [LaMICtal] 100 mg PO DIRECTED 11/25/23 11/25/23 Previous Rx's Medication Instructions Recorded Pantoprazole [Protonix] 40 mg PO DAILY #30 tab 11/12/23 Tamsulosin [Flomax] 0.4 mg PO HS #30 cap 11/12/23 levETIRAcetam [Keppra] 1,500 mg PO BID #60 tab 11/12/23 Allergies Allergy/AdvReac Type Severity Reaction Status Date / Time No Known Allergies Allergy Verified 11/25/23 07:59 Review of Systems ROS Statement: Those systems with pertinent positive or pertinent negative responses have been documented in the HPI. ROS Other: All systems not noted in ROS Statement are negative. Limitations: ROS unobtainable due to patients medical condition Cardiovascular: Denies: chest pain Gastrointestinal: Denies: abdominal pain Neurological: Denies: headache Past Medical History Past Medical History: Seizure Disorder History of Any Multi-Drug Resistant Organisms: None Reported Additional Past Surgical History / Comment(s): MOUTH SURGERY Past Psychological History: Anxiety, Depression Smoking Status: Current every day smoker Past Alcohol Use History: Daily, Heavy Past Drug Use History: None Reported - Past Family History Mother Family Medical History: Unable to Obtain Father Family Medical History: Unable to Obtain General Exam Limitations: no limitations General appearance: obtunded Head exam: Present: atraumatic, normocephalic Eye exam: Present: normal appearance. Absent: scleral icterus, conjunctival injection ENT exam: Present: other (Small laceration lateral aspect of tongue) Neck exam: Present: normal inspection, full ROM. Absent: tenderness, meningismus Respiratory exam: Present: rhonchi. Absent: respiratory distress, wheezes, rales, stridor, chest wall tenderness, accessory muscle use Cardiovascular Exam: Present: regular rate, tachycardia, normal heart sounds. Absent: systolic murmur, diastolic murmur, rubs, gallop GI/Abdominal exam: Present: soft. Absent: distended, tenderness, guarding, rebound, rigid, mass Extremities exam: Present: normal inspection, normal capillary refill. Absent: pedal edema, calf tenderness Back exam: Present: normal inspection Neurological exam: Present: altered, CN II-XII intact. Absent: motor sensory deficit Skin exam: Present: warm, dry, intact, normal color. Absent: rash Course Vital Signs 11/08/23 11/08/23 11/08/23 20:23 20:57 21:01 Temperature 97.9 F Pulse Rate 118 H 125 H Respiratory 19 20 Rate Blood Pressure 135/96 157/102 142/81 O2 Sat by Pulse 93 L 93 L Oximetry 11/08/23 11/09/23 11/09/23 22:33 00:45 03:00 Temperature Pulse Rate 112 H 112 H 110 H Respiratory 22 20 20 Rate Blood Pressure 147/101 143/103 125/102 O2 Sat by Pulse 96 97 98 Oximetry 11/09/23 11/09/23 11/09/23 04:00 05:00 05:05 Temperature 97.6 F Pulse Rate 101 H 103 H 109 H Respiratory 21 20 20 Rate Blood Pressure 147/104 140/97 133/85 O2 Sat by Pulse 98 98 99 Oximetry 11/09/23 11/09/23 07:05 08:21 Temperature 97.9 F Pulse Rate 91 94 Respiratory 19 14 Rate Blood Pressure 115/75 129/64 O2 Sat by Pulse 96 95 Oximetry Procedures - [place] Protocol (Time Out) Nurse: Dewayne Guzman Medical Decision Making - Medical Decision Making The patient had CT of the brain that I interpreted as negative for acute bony injury, negative for acute intracranial hemorrhage. Was pt. sent in by a medical professional or institution (MISTY Nicholson, ASSISTANT GOLF COURSE SUPERINTENDENT, urgent care, hospital, or shelter...) When possible be specific @ -[No] Did you speak to anyone other than the patient for history (EMS, parent, family, police, friend...)? What history was obtained from this source @ -[No] Did you review nursing and triage notes (agree or disagree)? Why? @ -[I reviewed and agree with nursing and triage notes] Were old charts reviewed (outside hosp., previous admission, EMS record, old EKG, old radiological studies, urgent care reports/EKG's, shelter records)? Report findings @ -[No old charts were reviewed] Differential Diagnosis (chest pain, altered mental status, abdominal pain women, abdominal pain men, vaginal bleeding, weakness, fever, dyspnea, syncope, headache, dizziness, GI bleed, back pain, seizure, CVA, palpatations, mental health, musculoskeletal)? @ -[Differential Seizure: Recurrent seizure disorder, febrile seizure, alcohol withdrawal, stimulants, meningitis, encephalitis, intercranial hemorrhage, intracranial tumor, stroke, eclampsia, thyrotoxicosis, hypocalcemia, hyponatremia, hypernatremia, hypomagnesemia, psychogenic, this is not meant to be an all-inclusive list. EKG interpreted by me (3pts min.). @ -[As above] X-rays interpreted by me (1pt min.). @ -[None done] CT interpreted by me (1pt min.). @ -[I interpreted as above U/S interpreted by me (1pt. min.). @ -[None done] What testing was considered but not performed or refused? (CT, X-rays, U/S, labs)? Why? @ -[None] What meds were considered but not given or refused? Why? @ -[None] Did you discuss the management of the patient with other professionals (pro fessionals i.e. MISTY Nicholson, ASSISTANT GOLF COURSE SUPERINTENDENT, lab, RT, psych nurse, clinical social work aide, business information consultant, teacher, third officer, case repairer)? Give summary @ -[No] Was smoking cessation discussed for >3mins.? @ -[No] Was critical care preformed (if so, how long)? @ -[No] Were there social determinants of health that impacted care today? How? (Homelessness, low income, unemployed, alcoholism, drug addiction, transportation, low edu. Level, literacy, decrease access to med. care, snf, rehab)? @ -[No] Was there de-escalation of care discussed even if they declined (Discuss DNR or withdrawal of care, Hospice)? DNR status @ -[No] What co-morbidities impacted this encounter? (DM, HTN, Smoking, COPD, CAD, Cancer, CVA, ARF, Chemo, Hep., AIDS, mental health diagnosis, sleep apnea, morbid obesity)? @ -[None] Was patient admitted / discharged? Hospital course, mention meds given and route, prescriptions, significant lab abnormalities, going to OR and other pertinent info. @ -[Patient is 48-year-old man here following generalized tonic-clonic seizure. Suspected due to alcohol withdrawal. On arrival patient not able to state whether he had head injury and therefore CT of the brain was obtained, interpreted as above. Undiagnosed new problem with uncertain prognosis? @ -[No] Drug Therapy requiring intensive monitoring for toxicity (Heparin, Nitro, Insulin, Cardizem)? @ -[No] Were any procedures done? @ -[No] Diagnosis/symptom? @ -[Acute generalized tonic-clonic seizure Leukocytosis, probably due to seizure Metabolic acidosis Alcohol withdrawal Acute, or Chronic, or Acute on Chronic? @ -[Acute uncomplicated Uncomplicated (without systemic symptoms) or Complicated (systemic symptoms)? @ -[default] Side effects of treatment? @ -[No] Exacerbation, Progression, or Severe Exacerbation? @ -[No] Poses a threat to life or bodily function? How? (Chest pain, [place], CO, pneumonia, PE, COPD, DKA, ARF, appy, cholecystitis, CVA, Diverticulitis, Homicidal, Suicidal, threat to staff... and all critical care pts) @ -[No] - Lab Data Result diagrams: 11/09/23 05:14 11/09/23 04:39 Lab Results 11/08/23 11/08/23 Range/Units 20:51 20:51 WBC 23.7 H (3.8-10.6) k/uL RBC 5.60 (4.30-5.90) m/uL Hgb 17.3 (13.0-17.5) gm/dL Hct 56.5 H (39.0-53.0) % MCV 101.0 H D (80.0-100.0) fL MCH 30.9 (25.0-35.0) pg MCHC 30.6 L (31.0-37.0) g/dL RDW 13.3 (11.5-15.5) % Plt Count 363 D (150-450) k/uL MPV 7.7 Neutrophils % 88 % Lymphocytes % 6 % Monocytes % 5 % Eosinophils % 0 % Basophils % 0 % Neutrophils # 20.8 H (1.3-7.7) k/uL Lymphocytes # 1.3 (1.0-4.8) k/uL Monocytes # 1.1 H (0-1.0) k/uL Eosinophils # 0.1 (0-0.7) k/uL Basophils # 0.1 (0-0.2) k/uL Hypochromasia Moderate Macrocytosis Slight Sodium 148 H (137-145) mmol/L Potassium 4.8 (3.5-5.1) mmol/L Chloride 113 H (98-107) mmol/L Carbon Dioxide <5 L* (22-30) mmol/L Anion Gap mmol/L BUN 9 (9-20) mg/dL Creatinine 1.39 H (0.66-1.25) mg/dL Est GFR (CKD-EPI)AfAm 70 (>60 ml/min/1.73 sqM) Est GFR (CKD-EPI)NonAf 60 (>60 ml/min/1.73 sqM) Glucose 178 H (74-99) mg/dL Calcium 9.5 (8.4-10.2) mg/dL Magnesium 2.6 H (1.6-2.3) mg/dL Total Bilirubin 0.6 (0.2-1.3) mg/dL AST 66 H (17-59) U/L ALT 61 H (4-49) U/L Alkaline Phosphatase 107 (38-126) U/L Total Protein 8.5 H (6.3-8.2) g/dL Albumin 5.3 H (3.5-5.0) g/dL Serum Alcohol 18 mg/dL Disposition Clinical Impression: Generalized seizure Disposition: ADMITTED IP TO THIS HOSP Condition: Stable Is patient prescribed a controlled substance at d/c from ED?: No
[2023-11-09] MEDS: levETIRAcetam IV 500 MG/5 ML VIAL IVP ONE (00:34)
[2023-11-09] MEDS: SODIUM CHLORIDE 0.9% 1,000 ML IV SCH (00:41)
[2023-11-09] MEDS: levETIRAcetam IV 1,000 MG in SODIUM CHLORIDE 0.9% 250 ML IVPB ONE (00:55)
--- NOTE | 2023-11-09 01:08 | CT ---
EXAM: CT Head Without Intravenous Contrast CLINICAL HISTORY: altered mental status TECHNIQUE: Axial computed tomography images of the head/brain without intravenous contrast. CTDI is 49.2 mGy and DLP is 1168.4 mGy-cm. This CT exam was performed using one or more of the following dose reduction techniques: automated exposure control, adjustment of the mA and/or kV according to patient size, and/or use of iterative reconstruction technique. COMPARISON: CT head without contrast dated 12/05/2022 FINDINGS: Brain: No intracranial hemorrhage. No significant mass effect. No evidence for cortical infarct. The parenchyma is stable in appearance from the previous examination. No significant white matter disease. Ventricles: Unremarkable. No ventriculomegaly. Bones/joints: No acute skull fracture. Prior surgical repair of the inferior right orbital wall is incidentally noted, stable from the previous exam. Soft tissues: Unremarkable. Sinuses: Unremarkable as visualized. No acute sinusitis. Mastoid air cells: Unremarkable as visualized. No mastoid effusion. IMPRESSION: No acute intracranial process identified.
[2023-11-09] MEDS: LORazepam 2 MG/ML INJ IV PRN (02:52)
[2023-11-09 05:35] LABS: Basophils % (A) 0 %; Eosinophils % (A) 0 %; HCT 50.1 % (39.0-53.0); HGB 16.1 gm/dL (13.0-17.5); Lymphocytes # (A) 0.8 k/uL (1.0-4.8); Lymphocytes % (A) 6 %; MCH 30.7 pg (25.0-35.0); MCHC 32.1 g/dL (31.0-37.0); Mean Platelet Volume 7.3; Monocytes # (A) 0.9 k/uL (0-1.0); Monocytes % (A) 6 %; Neutrophils # (A) 11.6 k/uL (1.3-7.7); Neutrophils % (A) 86 %; Platelet Count 227 k/uL (150-450); RBC 5.24 m/uL (4.30-5.90); RDW 13.2 % (11.5-15.5); WBC 13.5 k/uL (3.8-10.6)
[2023-11-09 05:37] LABS: MCV 95.6 fL (80.0-100.0)
[2023-11-09 05:50] LABS: African American GFR (CKD) >90 (>60 ml/min/1.73 sqM); Albumin 4.3 g/dL (3.5-5.0); Albumin/Globulin Ratio 1.4; Anion Gap 10 mmol/L; Carbon Dioxide 20 mmol/L (22-30); Chloride 113 mmol/L (98-107); Non-African American GFR(CKD) >90 (>60 ml/min/1.73 sqM); Sodium 143 mmol/L (137-145); Total Bilirubin 0.7 mg/dL (0.2-1.3); Total Protein 7.3 g/dL (6.3-8.2)
[2023-11-09 05:52] LABS: ALT 60 U/L (4-49); Calcium 8.7 mg/dL (8.4-10.2); Potassium 4.3 mmol/L (3.5-5.1)
[2023-11-09 06:18] LABS: AST 55 U/L (17-59); Alkaline Phosphatase 113 U/L (38-126); Blood Urea Nitrogen 9 mg/dL (9-20); Glucose 111 mg/dL (74-99)
[2023-11-09] MEDS: FAMOTIDINE 20 MG TAB PO SCH (08:28)
[2023-11-09] MEDS: LACOSAMIDE 150 MG TABLET PO SCH (11:20)
[2023-11-09] MEDS: lamoTRIgine 100 MG TAB PO SCH (11:20)
[2023-11-09] MEDS: LACOSAMIDE 50 MG TABLET PO SCH (11:20)
[2023-11-09] MEDS: lamoTRIgine 25 MG TAB PO SCH (12:16)
--- NOTE | 2023-11-09 13:09 | P.HPIM ---
History of Present Illness H&P Date: 11/09/23 History of present illness; This is a 48-year-old male patient with past medical history of reported seizures, also history of alcohol use disorder who was brought in by EMS for generalized tonic-clonic seizure. Patient was confused likely postictal on arrival to the ED. Patient also reported right hand injury on presentation, no rash, signs or symptoms of infection, or trauma were noted. Patient denied any fever or chills. Patient denied any head injury. Patient's mentation later on improved. Patient was alert and oriented x 4. Patient reported that he was released from the assisted and now was living at home, patient reported drinking more than 3 bottles of 24 ounces beer. Patient reported last drink before coming to the ED. Patient reported history of alcohol withdrawal seizures. P atient denied any sore throat, productive cough, chest pain, palpitations, nausea vomiting diarrhea constipation abdominal pain dysuria urgency frequency weakness or numbness to extremities. Initial lab work done in the ER showed patient initial lab work in the ED showed leukocytosis with WBC count 23.7, hemoglobin 17.3, platelet 363 absolute neutrophils 20.8. CMP on arrival showed sodium 148, chloride 113, CO2 was less than 5 which is currently improved to 20. Creatinine was 1.39 improved to 0.95. Patient had AST 66, ALT 61, normal bilirubin and alkaline phosphatase. Patient was recently admitted for seizures possibly pseudoseizures and discharged on 10/23/2023 on Keppra 1500 mg twice daily, Vimpat 200 mg twice daily, Lamictal 100 mg twice daily was advised to follow-up with outpatient neurology Dr. Claudy Daly. CT head done showed no acute intracranial process. Patient admitted to internal medicine service REVIEW OF SYSTEMS: CONSTITUTIONAL: No fever, no malaise, no fatigue. HEENT: No recent visual problems or hearing problems. Denied any sore throat. CARDIOVASCULAR: No chest pain, orthopnea, PND, no palpitations, no syncope. PULMONARY: No shortness of breath, no cough, no hemoptysis. GASTROINTESTINAL: No diarrhea, no nausea, no vomiting, no abdominal pain. NEUROLOGICAL: No headaches, no weakness, no numbness. HEMATOLOGICAL: Denies any bleeding or petechiae. GENITOURINARY: Denies any burning micturition, frequency, or urgency. MUSCULOSKELETAL/RHEUMATOLOGICAL: Denies any joint pain, swelling, or any muscle pain. ENDOCRINE: Denies any polyuria or polydipsia. The rest of the 14-point review of systems is negative. PHYSICAL EXAMINATION: GENERAL: The patient is alert and oriented x3, not in any acute distress. Well developed, well nourished. HEENT: Pupils are round and equally reacting to light. EOMI. No scleral icterus. No conjunctival pallor. Normocephalic, atraumatic. No pharyngeal erythema. No thyromegaly. CARDIOVASCULAR: S1 and S2 present. No murmurs, rubs, or gallops. PULMONARY: Chest is clear to auscultation, no wheezing or crackles. ABDOMEN: Soft, nontender, nondistended, normoactive bowel sounds. No palpable organomegaly. MUSCULOSKELETAL: No joint swelling or deformity. EXTREMITIES: No cyanosis, clubbing, or pedal edema. NEUROLOGICAL: Gross neurological examination did not reveal any focal deficits. SKIN: No rashes. Assessment and plan Seizure disorder: History of alcohol use disorder: Presented with tonic-clonic seizure. History of seizure disorder Home meds include Keppra, 1500 mg twice daily, Lamictal 100 mg twice daily, Vimpat 200 mg twice daily. Resume home meds. Continue CIWA protocol with as needed Ativan. Seizure precautions. Monitor with neurochecks Neurology consult. Elevated LFTs: Secondary alcohol use Patient is symptomatic PRINCE: Resolved Likely prerenal secondary to dehydration. Renal function improved. Avoid nephrotoxin Monitor renal function Hypernatremia: Resolved Leukocytosis: Improving Likely reactive, no sign or symptom of infection Monitor DVT prophylaxis: SCD Dictation was produced using [employer] dictation software. please excuse any grammatical, word or spelling errors. Past Medical History Past Medical History: Seizure Disorder History of Any Multi-Drug Resistant Organisms: None Reported Additional Past Surgical History / Comment(s): MOUTH SURGERY Past Psychological History: Anxiety, Depression Smoking Status: Current every day smoker Past Alcohol Use History: Daily, Heavy Past Drug Use History: None Reported - Past Family History Mother Family Medical History: Unable to Obtain Father Family Medical History: Unable to Obtain Medications and Allergies Home Medications Medication Instructions Recorded Confirmed Type Lacosamide [Vimpat] 200 mg PO BID 12/05/22 11/09/23 History Pantoprazole [Protonix] 40 mg PO DAILY 12/05/22 11/09/23 History levETIRAcetam [Keppra] 1,500 mg PO BID 12/05/22 11/09/23 History Tamsulosin [Flomax] 0.4 mg PO HS 10/22/23 11/09/23 History lamoTRIgine [LaMICtal] 100 mg PO BID 10/22/23 11/09/23 History Allergies Allergy/AdvReac Type Severity Reaction Status Date / Time No Known Allergies Allergy Verified 11/08/23 20:28 Physical Exam Vitals: Vital Signs Temp Pulse Pulse Resp BP BP Pulse Ox 11/09/23 08:27 98.3 F 99 17 146/98 98 11/09/23 08:21 97.9 F 94 14 129/64 95 11/09/23 07:05 91 19 115/75 96 11/09/23 05:05 109 H 20 133/85 99 11/09/23 05:00 103 H 20 140/97 98 11/09/23 04:00 97.6 F 101 H 21 147/104 98 11/09/23 03:00 110 H 20 125/102 98 11/09/23 00:45 112 H 20 143/103 97 11/08/23 22:33 112 H 22 147/101 96 11/08/23 21:01 142/81 11/08/23 20:57 125 H 20 157/102 93 L 11/08/23 20:23 97.9 F 118 H 19 135/96 93 L Intake and Output 11/08/23 11/09/23 11/09/23 22:59 06:59 14:59 Other: Weight 90.718 kg Results CBC & Chem 7: 11/09/23 05:14 11/09/23 04:39 Labs: Abnormal Lab Results - Last 24 Hours (Table) 11/08/23 11/08/23 11/09/23 Range/Units 20:51 20:51 04:39 WBC 23.7 H (3.8-10.6) k/uL Hct 56.5 H (39.0-53.0) % MCV 101.0 H D (80.0-100.0) fL MCHC 30.6 L (31.0-37.0) g/dL Neutrophils # 20.8 H (1.3-7.7) k/uL Lymphocytes # (1.0-4.8) k/uL Monocytes # 1.1 H (0-1.0) k/uL Sodium 148 H (137-145) mmol/L Chloride 113 H 113 H (98-107) mmol/L Carbon Dioxide <5 L* 20 L (22-30) mmol/L Creatinine 1.39 H (0.66-1.25) mg/dL Glucose 178 H 111 H (74-99) mg/dL Magnesium 2.6 H (1.6-2.3) mg/dL AST 66 H (17-59) U/L ALT 61 H 60 H (4-49) U/L Total Protein 8.5 H (6.3-8.2) g/dL Albumin 5.3 H (3.5-5.0) g/dL 11/09/23 Range/Units 05:14 WBC 13.5 H (3.8-10.6) k/uL Hct (39.0-53.0) % MCV (80.0-100.0) fL MCHC (31.0-37.0) g/dL Neutrophils # 11.6 H (1.3-7.7) k/uL Lymphocytes # 0.8 L (1.0-4.8) k/uL Monocytes # (0-1.0) k/uL Sodium (137-145) mmol/L Chloride (98-107) mmol/L Carbon Dioxide (22-30) mmol/L Creatinine (0.66-1.25) mg/dL Glucose (74-99) mg/dL Magnesium (1.6-2.3) mg/dL AST (17-59) U/L ALT (4-49) U/L Total Protein (6.3-8.2) g/dL Albumin (3.5-5.0) g/dL
--- NOTE | 2023-11-09 13:55 | P.CNNES ---
History of Present Illness Consult date: 11/09/23 Requesting physician: Vargas Alaniz Reason for Consult: seizure History of Present Illness: Is a 48-year-old gentleman with history of seizure, alcohol use who states he presented to the hospital because of seizure-like activity. Patient appears to be a great historian. He states he has history of seizure and he stated yesterday he had seizure-like activity and could not tell me what transpired. He states that he does drink alcohol daily or every other day and he is trying to cut down on alcohol. The ED note EMS was called and the patient had generalized tonic-clonic seizure and on arrival he was postictal. It seems that the patient is on 3 seizure medication and he is on Keppra 1500 mg twice daily, Lamictal 100 mg twice daily, Vimpat 200 mg twice daily. Upon asking the patient if he is compliant taking the medication he stated yes upon asking him if he is missing some of the medication at times she stated yes but he does not feel like he has missed it in the last couple weeks. Some of the workup during this hospital visit consisted of: Patient is afebrile White blood cell is 23.7 thousand and repeat is 13.5. Initially he is neutrophilic and is trending down Initial sodium is 1 four 8 repeat is normalized Carbon dioxide less than 5 repeat is 20 Creatinine is 1.39 repeat it is normal Serum glucose is 170 8 repeat is 111 Calcium are within normal limits AST ALT are 66 and 61 respectively Alcohol level is 18 and then negative is considered less than 18. CT head: No acute intracranial process identified Review of Systems Limited but the positive and negative as per HPI. Past Medical History Past Medical History: Seizure Disorder History of Any Multi-Drug Resistant Organisms: None Reported Additional Past Surgical History / Comment(s): MOUTH SURGERY Past Anesthesia/Blood Transfusion Reactions: No Reported Reaction Past Psychological History: Anxiety, Depression Smoking Status: Current every day smoker Past Alcohol Use History: Daily, Heavy Past Drug Use History: None Reported - Past Family History Mother Family Medical History: Unable to Obtain Father Family Medical History: Unable to Obtain Medications and Allergies Home Medications Medication Instructions Recorded Confirmed Type Lacosamide [Vimpat] 200 mg PO BID 12/05/22 11/09/23 History Pantoprazole [Protonix] 40 mg PO DAILY 12/05/22 11/09/23 History levETIRAcetam [Keppra] 1,500 mg PO BID 12/05/22 11/09/23 History Tamsulosin [Flomax] 0.4 mg PO HS 10/22/23 11/09/23 History lamoTRIgine [LaMICtal] 100 mg PO BID 10/22/23 11/09/23 History Allergies Allergy/AdvReac Type Severity Reaction Status Date / Time No Known Allergies Allergy Verified 11/08/23 20:28 Physical Examination - Vital Signs Vital Signs: Vital Signs Temp Pulse Pulse Resp BP BP Pulse Ox 11/09/23 08:40 99 17 11/09/23 08:27 98.3 F 99 17 146/98 98 11/09/23 08:21 97.9 F 94 14 129/64 95 11/09/23 07:05 91 19 115/75 96 11/09/23 05:05 109 H 20 133/85 99 11/09/23 05:00 103 H 20 140/97 98 11/09/23 04:00 97.6 F 101 H 21 147/104 98 11/09/23 03:00 110 H 20 125/102 98 11/09/23 00:45 112 H 20 143/103 97 11/08/23 22:33 112 H 22 147/101 96 11/08/23 21:01 142/81 11/08/23 20:57 125 H 20 157/102 93 L 11/08/23 20:23 97.9 F 118 H 19 135/96 93 L Intake and Output 11/08/23 11/09/23 11/09/23 22:59 06:59 14:59 Other: Voiding Method Incontinent Weight 90.718 kg 90.718 kg General: Lying in bed and not in acute distress. Neuro: Limited because of cooperation. It is mildly drowsy but is awake both voice. He is oriented to self, place and time. He is following simple commands. No aphasia no neglect. The pupils are round equal reactive to light. Visual ozuna are full. No facial weakness. No dysarthria. Motor is lifted all extremities above gravity equally. Sensation is normal to touch Cerebellar normal [id number] Results - Laboratory Findings CBC and BMP: 11/09/23 05:14 11/09/23 04:39 Abnormal Lab Findings: Abnormal Labs 11/08/23 11/08/23 11/09/23 20:51 20:51 04:39 WBC 23.7 H Hct 56.5 H MCV 101.0 H D MCHC 30.6 L Neutrophils # 20.8 H Lymphocytes # Monocytes # 1.1 H Sodium 148 H Chloride 113 H 113 H Carbon Dioxide <5 L* 20 L Creatinine 1.39 H Glucose 178 H 111 H Magnesium 2.6 H AST 66 H ALT 61 H 60 H Total Protein 8.5 H Albumin 5.3 H 11/09/23 05:14 WBC 13.5 H Hct MCV MCHC Neutrophils # 11.6 H Lymphocytes # 0.8 L Monocytes # Sodium Chloride Carbon Dioxide Creatinine Glucose Magnesium AST ALT Total Protein Albumin Assessment and Plan Assessment: Is a 48-year-old gentleman with history of seizure, significant alcohol use who presented to emergency department because of seizure-like activity. Has noticed that the patient had tonic-clonic seizure. Patient states he is trying to cut down on his alcohol and his alcohol level is 18 presentation. He does state that he follows up with a neurologist but does not remember who. Patient is on 3 seizure medication. New seizure and possible due to alcohol withdrawal since he is cutting down on the alcohol. And unsure if the patient is compliant with his medication. In addition I cannot rule out true epileptic seizure Leukocytosis, hypernatremia and acute Kidney insufficiency are reactive and improved History of seizure and the patient is on 3 seizure medication Has ongoing heavy alcohol use and is cutting down on alcohol recently. Plan: Patient is on home medication of Keppra 1500 mg twice daily, Vimpat 200 mg twice daily, and Lamictal 100 mg twice daily. I went up on the Lamictal from 100 mg twice daily to 125 mg twice daily. In 1 week recommend going up an additional 25 twice daily to a total of 150 mg twice daily for lamicatal. Seizure precautions seizure pads Per [place] DMV because of the seizure, to avoid driving for 6 months until seizure- free, avoid heights, avoid swimming unassisted or using heavy machinery Patient was given Keppra a gram in the ED and was given Ativan 2 mg. Patient is on Ativan for CIWA protocol Start the patient on thiamine 100 mg daily Ordered a routine EEG Will defer the rest of the medical management to primary and other specialist Plan discussed with the patient, primary attending and his nurse Thank for the consultation Time with Patient: Greater than 30
[2023-11-09 14:35] VITALS: BP 162/102; PULSE 95; RESP 18; TEMP 97.6
--- NOTE | 2023-11-09 15:36 | P.CN ---
Psychiatric Consult - . Consult date: 11/09/23 Consult:: IDENTIFYING DATA: This patient is a 48 year old male with history of seizure disorder and alcohol use disorder. REASON FOR REFERRAL: Psychiatry was consulted for "alcohol withdrawal". HISTORY OF PRESENT ILLNESS: The patient presented to the hospital on 11/09/23 via EMS due to generalized tonic-clonic seizures. Chart reviewed and per medical note patient was confused and postictal on arrival to the hospital, and mentation later improved and was oriented x 4. Head CT completed in the ER shows no acute intracranial process. Patient was seen by the neurology service earlier today and per neurology consult note was communicative and reports drinking alcohol every day or every other day and reports he was trying to cut down. He reports being mostly compliant with his seizure medications, and has been restarted on his seizure medications on the medical floor. His serum alcohol level on presentation to the hospital was 18. His LFTs are elevated due to alcohol abuse and are improving today. Labs shows PRINCE and hyponatremia which have also resolved. Leukocytosis is improving. I attempted to evaluate this patient this afternoon and found patient laying in bed lightly asleep. He awakens to name but upon introducing myself as the consulting psychiatrist, he closes his eyes and appears unwilling/unable to engage in assessment other than mumbling a few one-word responses. He denies SI/HI, intent or plan. No tremors observed. Vitals reviewed and HR was >100 (tachycardic until around 5-7 am) and is now improved to 95 bpm at around 1pm this afternoon. Blood pressure is elevated at 162/102. Overnight his CIWA score was 16 at about midnight. He has required a total of 8 mg IV Ativan between yesterday 9:30 pm last night and 11:30 am this morning. Per chart, he is a smoker. PAST PSYCHIATRIC HISTORY: History of anxiety and depression per chart. Unable to fully assess due to lack of cooperation. PAST MEDICAL HISTORY: Past Medical History: Seizure Disorder History of Any Multi-Drug Resistant Organisms: None Reported Additional Past Surgical History / Comment(s): MOUTH SURGERY Past Psychological History: Anxiety, Depression Smoking Status: Current every day smoker Past Alcohol Use History: Daily, Heavy Past Drug Use History: None Reported ALLERGIES: as per EMR. CHEMICAL DEPENDENCY HISTORY: as per HPI. FAMILY PSYCHIATRIC/SUBSTANCE USE HISTORY: Unable to fully assess due to lack of cooperation. SOCIAL HISTORY: Unable to fully assess due to lack of cooperation. MENTAL STATUS EXAM: General Appearance: Patient appears to be stated age, is calmly laying in bed with eyes closed. Patient appears to have average hygiene and grooming. Poor eye contact, unwilling/unable to engage in assessment. Behavior: Patient is calmly lying in bed without any agitated behavior. Speech: Patient's speech is fluent and non-pressured. Mood/Affect: Unable to fully assess due to lack of cooperation. Suicidality/Homicidality: Patient denies having any suicidal/homicidal ideation intent or plan. Perceptions: Unable to fully assess due to lack of cooperation. Though content/process: Unable to fully assess due to lack of cooperation. Memory and concentration: Oriented to person, Unable to fully assess due to lack of cooperation. Judgment and insight: Poor in regards to alcohol use. Unable to fully assess due to lack of cooperation. IMPRESSIONS: Alcohol use disorder with alcohol withdrawal and seizure Tobacco use disorder Seizure disorder PLAN: -At this time patient DOES meet criteria for inpatient psychiatric admission since he does not appear to be an imminent threat of harm to himself or others. -Delirium precautions recommended with patient including - avoiding use of narcotics and AIRDROP SYSTEMS TECHNICIAN sedatives, limit anticholinergic medications when possible, frequent re-orientation, minimize use of restraints, open window shades during the day and close them at night. -Would recommend the following medication changes/additions: At this time patient appears to be tolerating management of his alcohol withdrawal with Ativan per CIWA protocol. Continue CIWA protocol with PRN Ativan for alcohol withdrawal, and thiamine supplementation. Continue to monitor vital signs. If alcohol withdrawal symptoms worsen and/or are no longer controlled by Ativan per CIWA protocol then please contact psychiatry and we can consider a Valium taper. -Continue to evaluate safety and initiate sitter if safety concerns arise. -machine farmworker to provide patient with outpatient mental health/psychiatry resources for appropriate follow up upon discharge. -machine farmworker to provide patient substance use treatment resources including AA/NA meetings in the community. -machine farmworker to provide patient with access line number to call for inpatient substance rehab. -Communicated plan to patient's nurse. -Psychiatry will sign off at this time. Please contact us with questions or concerns, or if patient is more willing/able to engage in psychiatric assessment. -Please contact with any questions.
[2023-11-09] MEDS: THIAMINE 100 MG TAB PO SCH (17:09)
[2023-11-09] MEDS ORDERED: LACOSAMIDE 50 MG TABLET PO SCH (21:00)
[2023-11-09] MEDS ORDERED: LACOSAMIDE 150 MG TABLET PO SCH (21:00)
--- NOTE | 2023-11-10 16:08 | P.DS ---
Providers Date of admission: 11/08/23 23:25 Attending physician: Blanca Mathias MD Consults: 11/09/23 00:04 Consult Physician Routine Consulting Provider: Job Goodman Consult Reason/Comments: seizures Do you want consulting provider notified?: Yes 11/09/23 10:02 Consult Physician Routine Consulting Provider: Joshua Dang Consult Reason/Comments: Alcohol use disorder Do you want consulting provider notified?: Yes Primary care physician: [facility] Course: Discharge diagnoses; Seizure disorder: History of alcohol use disorder: Presented with tonic-clonic seizure. History of seizure disorder Home meds include Keppra, 1500 mg twice daily, Lamictal 100 mg twice daily, Vimpat 200 mg twice daily. Resume home meds. Continue CIWA protocol with as needed Ativan. Seizure precautions. Monitor with neurochecks No driving for 6 months until seizure-free, avoid heights, avoid swimming unassisted or using heavy machinery advised. Neurology consulted--neurology recommended to continue home meds and recommended increase Lamictal to 125 mg twice daily and increase to 150 mg twice daily in 1 week. Psychiatry consultedappreciate recs Patient left AMA later on. Elevated LFTs: Secondary alcohol use Patient is symptomatic PRINCE: Resolved Likely prerenal secondary to dehydration. Renal function improved. Avoid nephrotoxin Monitor renal function Hypernatremia: Resolved Leukocytosis: Improving Likely reactive, no sign or symptom of infection Monitor Hospital course; This is a 48-year-old male patient with past medical history of reported seizures, also history of alcohol use disorder who was brought in by EMS for generalized tonic-clonic seizure. Patient was confused likely postictal on arrival to the ED. Patient also reported right hand injury on presentation, no rash, signs or symptoms of infection, or trauma were noted. Patient denied any fever or chills. Patient denied any head injury. Patient's mentation later on improved. Patient was alert and oriented x 4. Patient reported that he was released from the long term and now was living at home, patient reported drinking more than 3 bottles of 24 ounces beer. Patient reported last drink before coming to the ED. Patient reported history of alcohol withdrawal seizures. Patient denied any sore throat, productive cough, chest pain, palpitations, nausea vomiting diarrhea constipation abdominal pain dysuria urgency frequency weakness or numbness to extremities. Initial lab work done in the ER showed patient initial lab work in the ED showed leukocytosis with WBC count 23.7, hemoglobin 17.3, platelet 363 absolute neutrophils 20.8. CMP on arrival showed sodium 148, chloride 113, CO2 was less than 5 which is currently improved to 20. Creatinine was 1.39 improved to 0.95. Patient had AST 66, ALT 61, normal bilirubin and alkaline phosphatase. Patient was recently admitted for seizures possibly pseudoseizures and discharged on 10/23/2023 on Keppra 1500 mg twice daily, Vimpat 200 mg twice daily, Lamictal 100 mg twice daily was advised to follow-up with outpatient neurology Dr. Claudy Daly. CT head done showed no acute intracranial process. Patient was admitted to hospital for further evaluation and management of alcohol withdrawal and seizure. Neurology and psychiatry was consulted. Patient later on left AMA overnight. PHYSICAL EXAMINATION: Patient left AMA overnight. Please refer to H&P from same date. Dictation was produced using [employer] dictation software. please excuse any grammatical, word or spelling errors. Patient Condition at Discharge: Stable Plan - Discharge Summary New Discharge Prescriptions: No Action Pantoprazole [Protonix] 40 mg PO DAILY levETIRAcetam [Keppra] 1,500 mg PO BID Lacosamide [Vimpat] 200 mg PO BID lamoTRIgine [LaMICtal] 100 mg PO BID Tamsulosin [Flomax] 0.4 mg PO HS Discharge Medication List Lacosamide [Vimpat] 200 mg PO BID 12/05/22 [History] Pantoprazole [Protonix] 40 mg PO DAILY 12/05/22 [History] levETIRAcetam [Keppra] 1,500 mg PO BID 12/05/22 [History] Tamsulosin [Flomax] 0.4 mg PO HS 10/22/23 [History] lamoTRIgine [LaMICtal] 100 mg PO BID 10/22/23 [History] Follow up Appointment(s)/Referral(s): Meagan Alejo MD [Primary Care Provider] - 1-2 days Discharge Disposition: LEFT AGAINST MEDICAL ADVICE
== END 2023-11-09 20:00 | disposition left against medical advice (07) | DRG 101 ==
LOC: EC 20:18 → 5NMEDONC 23:25
PROVIDERS: ADMIT Internal Medicine; ATTEND Internal Medicine
DX: G40.409 Other generalized epilepsy and epileptic syndromes, not intractable, without status epilepticus (principal); E87.0 Hyperosmolality and hypernatremia; F10.139 Alcohol abuse with withdrawal, unspecified; N17.9 Acute kidney failure, unspecified; D72.829 Elevated white blood cell count, unspecified; R94.5 Abnormal results of liver function studies; E86.0 Dehydration; F17.200 Nicotine dependence, unspecified, uncomplicated; F32.A Depression, unspecified; F41.9 Anxiety disorder, unspecified; Y90.0 Blood alcohol level of less than 20 mg/100 ml; Z53.29 Procedure and treatment not carried out because of patient's decision for other reasons; Z79.899 Other long term (current) drug therapy; Z28.21 Immunization not carried out because of patient refusal; Z65.3 Problems related to other legal circumstances
CPT/HCPCS: 36415; 70450; 80053; 80320; 83735; 85025; 93005; 96361; 96374; 96375; 96376; 99285

== ENCOUNTER 2023-11-11 17:39 | Observation (INO) | payer MEDICARE ==
--- NOTE | 2023-11-11 18:14 | ED ---
General Adult HPI - General Chief complaint: Alcohol Stated complaint: ETOH Time Seen by Provider: 11/11/23 17:40 Source: patient Mode of arrival: EMS Limitations: no limitations - History of Present Illness Initial comments: Dictation was produced using [employer] dictation software. please excuse any grammatical, word or spelling errors. Chief Complaint: 48-year-old male presents to the ER for alcohol intoxication History of Present Illness: Patient is a 48-year-old male he was brought here for alcohol intoxication. Patient admits to drinking large amount of liquor today. States that he drinks liquor daily. Does not know if he is ever had withdrawals. He was found urinating on the building out in public when bystanders called police. Patient denies any pain complaints. The ROS documented in this emergency department record has been reviewed and confirmed by me. Those systems with pertinent positive or negative responses have been documented in the HPI. All other systems are other negative and/or noncontributory. - Related Data Home Medications Medication Instructions Recorded Confirmed Lacosamide [Vimpat] 200 mg PO BID 12/05/22 11/09/23 Pantoprazole [Protonix] 40 mg PO DAILY 12/05/22 11/09/23 levETIRAcetam [Keppra] 1,500 mg PO BID 12/05/22 11/09/23 Tamsulosin [Flomax] 0.4 mg PO HS 10/22/23 11/09/23 lamoTRIgine [LaMICtal] 100 mg PO BID 10/22/23 11/09/23 Allergies Allergy/AdvReac Type Severity Reaction Status Date / Time No Known Allergies Allergy Verified 11/11/23 17:49 Review of Systems ROS Statement: Those systems with pertinent positive or pertinent negative responses have been documented in the HPI. ROS Other: All systems not noted in ROS Statement are negative. Past Medical History Past Medical History: Seizure Disorder History of Any Multi-Drug Resistant Organisms: None Reported Additional Past Surgical History / Comment(s): MOUTH SURGERY Past Anesthesia/Blood Transfusion Reactions: No Reported Reaction Past Psychological History: Anxiety, Depression Smoking Status: Current every day smoker Past Alcohol Use History: Daily, Heavy Past Drug Use History: None Reported - Past Family History Mother Family Medical History: Unable to Obtain Father Family Medical History: Unable to Obtain General Exam - General Exam Comments Initial Comments: PHYSICAL EXAM: General Impression: Alert and oriented x3, not in acute distress HEENT: Normocephalic atraumatic, extra-ocular movements intact, pupils equal and reactive to light bilaterally, mucous membranes moist. Cardiovascular: Heart regular rate and rhythm Chest: Able to complete full sentences, no retractions, no tachypnea Abdomen: abdomen soft, non-tender, non-distended, no organomegaly Musculoskeletal: Pulses present and equal in all extremities, no peripheral edema Motor: no focal deficits noted Neurological: CN II-XII grossly intact, no focal motor or sensory deficits noted Skin: Intact with no visualized rashes Psych: Normal affect and mood Limitations: no limitations Course Vital Signs 11/11/23 11/11/23 17:47 20:26 Temperature 98.1 F Pulse Rate 94 101 H Respiratory 18 18 Rate Blood Pressure 114/70 129/79 O2 Sat by Pulse 92 L 94 L Oximetry Medical Decision Making - Medical Decision Making Was pt. sent in by a medical professional or institution (, PA, ACOUSTICAL TILE CARPENTERS SUPERVISOR, urgent care, hospital, or detention...) When possible be specific @ -No Did you speak to anyone other than the patient for history (EMS, parent, family, police, friend...)? What history was obtained from this source @ -No Did you review nursing and triage notes (agree or disagree)? Why? @ -I reviewed and agree with nursing and triage notes Were old charts reviewed (outside hosp., previous admission, EMS record, old EKG, old radiological studies, urgent care reports/EKG's, detention records)? Report findings @ -No old charts were reviewed Differential Diagnosis (chest pain, altered mental status, abdominal pain women, abdominal pain men, vaginal bleeding, musculoskeletal, weakness, fever, dyspnea, syncope, headache, dizziness, GI bleed, back pain, seizure, CVA, palpatations, mental health)? @ -Differential Altered Mental Status: Hypoglycemia, DKA, hypercapnia, ETOH, overdose, CO poisoning, trauma, myxedema coma, HTN encephalopathy, infection, encephalitis, psychosis, intercranial hemorrhage, hepatic encephalopathy, meningitis, CVA, this is not meant to be an all-inclusive list EKG interpreted by me (3pts min.). @ -None done X-rays interpreted by me (1pt min.). @ -None done CT interpreted by me (1pt min.). @ -None done U/S interpreted by me (1pt. min.). @ -None done What testing was considered but not performed or refused? (CT, X-rays, U/S, labs)? Why? @ -None What meds were considered but not given or refused? Why? @ -None Was smoking cessation discussed for >3mins.? @ -No Were there social determinants of health that impacted care today? How? ( Homelessness, low income, unemployed, alcoholism, drug addiction, transportation, low edu. Level, literacy, decrease access to med. care, fdc, rehab)? @ -No Was there de-escalation of care discussed even if they declined (Discuss DNR or withdrawal of care, Hospice)? DNR status @ -No What co-morbidities impacted this encounter? (DM, HTN, Smoking, COPD, CAD, Cancer, CVA, ARF, Chemo, Hep., AIDS, mental health diagnosis, sleep apnea, morbid obesity)? @ -None Was patient admitted / discharged? Hospital course, mention meds given and route, prescriptions, significant lab abnormalities, going to OR and other pertinent info. @ -48-year-old male presents emergency department for altered mental status and alcohol intoxication. Vital signs stable. Patient well-appearing no acute distress. Physical examination shows intoxicated male. Laboratory evaluation obtained. Alcoholic ketoacidosis with a bicarb of 18 and a gap of 17. Alcohol level is 380. Patient will be admitted for EtOH intoxication Did you discuss the management of the patient with other professionals (professionals i.e. , PA, ACOUSTICAL TILE CARPENTERS SUPERVISOR, lab, RT, psych nurse, social secretary, family medicine physician assistant, teacher, licensed loan officer, case consultant)? Give summary @ -No Was critical care preformed (if so, how long)? @ -No Undiagnosed new problem with uncertain prognosis? @ -No Drug Therapy requiring intensive monitoring for toxicity (Heparin, Nitro, Insulin, Cardizem)? @ -No Were any procedures done? @ -No Diagnosis/symptom? Acute, or Chronic, or Acute on Chronic? Uncomplicated (without systemic symptoms) or Complicated (systemic symptoms)? @ -Alcohol intoxication Side effects of treatment? @ -No Exacerbation, Progression, or Severe Exacerbation? @ -No Poses a threat to life or bodily function? How? (Chest pain, [place], HI, pneumonia, PE, COPD, DKA, ARF, appy, cholecystitis, CVA, Diverticulitis, Homicidal, Suicidal, threat to staff... and all critical care pts) @ -yes - Lab Data Result diagrams: 11/11/23 18:27 11/11/23 18:27 Lab Results 11/11/23 11/11/23 11/11/23 Range/Units 17:58 18:27 18:27 WBC 9.6 (3.8-10.6) k/uL RBC 5.22 (4.30-5.90) m/uL Hgb 16.6 (13.0-17.5) gm/dL Hct 47.6 (39.0-53.0) % MCV 91.1 (80.0-100.0) fL MCH 31.7 (25.0-35.0) pg MCHC 34.8 (31.0-37.0) g/dL RDW 13.4 (11.5-15.5) % Plt Count 188 (150-450) k/uL MPV 7.3 Neutrophils % 73 % Lymphocytes % 18 % Monocytes % 4 % Eosinophils % 1 % Basophils % 1 % Neutrophils # 7.0 (1.3-7.7) k/uL Lymphocytes # 1.8 (1.0-4.8) k/uL Monocytes # 0.4 (0-1.0) k/uL Eosinophils # 0.1 (0-0.7) k/uL Basophils # 0.1 (0-0.2) k/uL Sodium 144 (137-145) mmol/L Potassium 3.9 (3.5-5.1) mmol/L Chloride 109 H (98-107) mmol/L Carbon Dioxide 18 L (22-30) mmol/L Anion Gap 17 mmol/L BUN 5 L (9-20) mg/dL Creatinine 0.86 (0.66-1.25) mg/dL Est GFR (CKD-EPI)AfAm >90 (>60 ml/min/1.73 sqM) Est GFR (CKD-EPI)NonAf >90 (>60 ml/min/1.73 sqM) Glucose 130 H (74-99) mg/dL Calcium 8.6 (8.4-10.2) mg/dL Magnesium 1.9 (1.6-2.3) mg/dL Urine Color Colorless Urine Appearance Clear (Clear) Urine pH 5.0 (5.0-8.0) Ur Specific Home 1.003 (1.001-1.035) Urine Protein Negative (Negative) Urine Glucose (UA) Trace H (Negative) Urine Ketones Negative (Negative) Urine Blood Negative (Negative) Urine Nitrite Negative (Negative) Urine Bilirubin Negative (Negative) Urine Urobilinogen <2.0 (<2.0) mg/dL Ur Leukocyte Esterase Negative (Negative) Urine Opiates Screen Not Detected (NotDetected) Ur Oxycodone Screen Not Detected (NotDetected) Urine Methadone Screen Not Detected (NotDetected) Ur Barbiturates Screen Not Detected (NotDetected) U Tricyclic Antidepress Not Detected (NotDetected) Ur Phencyclidine Scrn Not Detected (NotDetected) Ur Amphetamines Screen Not Detected (NotDetected) U Methamphetamines Scrn Not Detected (NotDetected) U Benzodiazepines Scrn Detected H (NotDetected) Urine Cocaine Screen Detected H (NotDetected) U Marijuana (THC) Screen Not Detected (NotDetected) Serum Alcohol mg/dL Disposition Clinical Impression: Alcoholic intoxication Disposition: ADMITTED IP TO THIS [facility] Condition: Fair Referrals: None,Stated [Primary Care Provider] - 1-2 days Decision Time: 21:15
[2023-11-11 18:46] LABS: Appearance,Urine Clear (Clear); Bilirubin,Urine Negative (Negative); Blood,Urine Negative (Negative); Color,Urine Colorless; Glucose,Urine (UA) Trace (Negative); Ketones,Urine Negative (Negative); Leukocyte Esterase,Urine Negative (Negative); Nitrite,Urine Negative (Negative); Protein,Urine Negative (Negative); Specific Gravity,Urine 1.003 (1.001-1.035); Urobilinogen,Urine <2.0 mg/dL (<2.0)
[2023-11-11 19:00] LABS: Amphetamine Screen,Urine Not Detected (NotDetected); Barbiturate Screen,Urine Not Detected (NotDetected); Benzodiazepines Screen,Urine Detected (NotDetected); Cocaine Screen,Urine Detected (NotDetected); Methadone Screen, Urine Not Detected (NotDetected); Opiate Screen,Urine Not Detected (NotDetected); Oxycodone Screen, Urine Not Detected (NotDetected); Phencyclidine Screen,Urine Not Detected (NotDetected); Tricyclic Antidepressant,Urine Not Detected (NotDetected); Urn Cannabinoid Scrn Not Detected (NotDetected)
[2023-11-11 19:04] LABS: Basophils # (A) 0.1 k/uL (0-0.2); Basophils % (A) 1 %; Eosinophils # (A) 0.1 k/uL (0-0.7); Eosinophils % (A) 1 %; HCT 47.6 % (39.0-53.0); HGB 16.6 gm/dL (13.0-17.5); Lymphocytes # (A) 1.8 k/uL (1.0-4.8); Lymphocytes % (A) 18 %; MCH 31.7 pg (25.0-35.0); MCHC 34.8 g/dL (31.0-37.0); MCV 91.1 fL (80.0-100.0); Mean Platelet Volume 7.3; Monocytes # (A) 0.4 k/uL (0-1.0); Monocytes % (A) 4 %; Neutrophils % (A) 73 %; Platelet Count 188 k/uL (150-450); RBC 5.22 m/uL (4.30-5.90); RDW 13.4 % (11.5-15.5); WBC 9.6 k/uL (3.8-10.6)
[2023-11-11 19:16] LABS: African American GFR (CKD) >90 (>60 ml/min/1.73 sqM); Blood Urea Nitrogen 5 mg/dL (9-20); Glucose 130 mg/dL (74-99); Non-African American GFR(CKD) >90 (>60 ml/min/1.73 sqM); Potassium 3.9 mmol/L (3.5-5.1); Sodium 144 mmol/L (137-145)
[2023-11-11 19:34] LABS: Anion Gap 17 mmol/L; Calcium 8.6 mg/dL (8.4-10.2); Carbon Dioxide 18 mmol/L (22-30); Chloride 109 mmol/L (98-107); Magnesium 1.9 mg/dL (1.6-2.3)
[2023-11-11] MEDS ORDERED: NALOXONE 0.4 MG/ML 1 ML VIAL IV PRN (21:11)
[2023-11-11] MEDS ORDERED: LORazepam 2 MG/ML INJ IV PRN ×3 (21:12)
[2023-11-11] MEDS: SODIUM CHLORIDE 0.9% 1,000 ML IV SCH (21:21)
[2023-11-12 06:41] VITALS: BP 138/89; PULSE 103; RESP 17; TEMP 98.6
--- NOTE | 2023-11-12 14:02 | P.HPIM ---
History of Present Illness Patient is a 48-year-old male admitted for alcohol intoxication. Patient does not have any significant withdrawals at this time but expected to have withdrawals patient does drink alcohol every day he states drinks about 4 24 ounce beers a day. Patient is on antiseizure medications apparently has a primary seizure disorder and is on lacosamide levetiracetam and Lamictal. Patient states he ran out of his medications will need prescription. Patient although admits that he is not willing to quit alcohol at this time. Urine drug screen is positive for cocaine as well. REVIEW OF SYSTEMS: CONSTITUTIONAL: No fever, no malaise, no fatigue. HEENT: No recent visual problems or hearing problems. Denied any sore throat. CARDIOVASCULAR: No chest pain, orthopnea, PND, no palpitations, no syncope. PULMONARY: No shortness of breath, no cough, no hemoptysis. GASTROINTESTINAL: No diarrhea, no nausea, no vomiting, no abdominal pain. NEUROLOGICAL: No headaches, no weakness, no numbness. HEMATOLOGICAL: Denies any bleeding or petechiae. GENITOURINARY: Denies any burning micturition, frequency, or urgency. MUSCULOSKELETAL/RHEUMATOLOGICAL: Denies any joint pain, swelling, or any muscle pain. ENDOCRINE: Denies any polyuria or polydipsia. The rest of the 14-point review of systems is negative. PHYSICAL EXAMINATION: GENERAL: The patient is alert and oriented x3, not in any acute distress. Well developed, well nourished. HEENT: Pupils are round and equally reacting to light. EOMI. No scleral icterus. No conjunctival pallor. Normocephalic, atraumatic. No pharyngeal erythema. No thyromegaly. CARDIOVASCULAR: S1 and S2 present. No murmurs, rubs, or gallops. PULMONARY: Chest is clear to auscultation, no wheezing or crackles. ABDOMEN: Soft, nontender, nondistended, normoactive bowel sounds. No palpable organomegaly. MUSCULOSKELETAL: No joint swelling or deformity. EXTREMITIES: No cyanosis, clubbing, or pedal edema. NEUROLOGICAL: Gross neurological examination did not reveal any focal deficits. SKIN: No rashes. Assessment and plan -Alcohol intoxication patient is clinically sober at this time awake alert, will be discharged today with patient will be given a cab to go home. -Alcohol withdrawal patient is expected to alcohol withdrawals as patient is not willing to quit alcohol, getting over withdrawals is not beneficial and further hospitalization will not be beneficial as he is wanted to go home and drink again patient was made aware of all the resources that are available in the community. -Seizure disorder patient will be given prescriptions for all his antiseizure medications. Patient was asked to follow-up with his neurologist -Gastritis continue Protonix Patient will be discharged today Past Medical History Past Medical History: Seizure Disorder History of Any Multi-Drug Resistant Organisms: None Reported Additional Past Surgical History / Comment(s): MOUTH SURGERY Past Anesthesia/Blood Transfusion Reactions: No Reported Reaction Past Psychological History: Anxiety, Depression Smoking Status: Current every day smoker Past Alcohol Use History: Daily, Heavy Past Drug Use History: None Reported - Past Family History Mother Family Medical History: Unable to Obtain Father Family Medical History: Unable to Obtain Medications and Allergies Home Medications Medication Instructions Recorded Confirmed Type Lacosamide [Vimpat] 200 mg PO BID #60 tab 11/12/23 Rx Pantoprazole [Protonix] 40 mg PO DAILY #30 tab 11/12/23 Rx Tamsulosin [Flomax] 0.4 mg PO HS #30 cap 11/12/23 Rx Thiamine [Vitamin B-1] 100 mg PO DAILY #30 tablet 11/12/23 Rx lamoTRIgine [LaMICtal] 100 mg PO BID #60 tab 11/12/23 Rx levETIRAcetam [Keppra] 1,500 mg PO BID #60 tab 11/12/23 Rx Allergies Allergy/AdvReac Type Severity Reaction Status Date / Time No Known Allergies Allergy Verified 11/12/23 08:10 Physical Exam Vitals: Vital Signs Temp Pulse Resp BP Pulse Ox 11/12/23 06:40 98.6 F 103 H 17 138/89 96 11/12/23 04:04 97.9 F 98 16 131/82 95 11/11/23 23:38 92 19 102/61 95 11/11/23 20:26 101 H 18 129/79 94 L 11/11/23 17:47 98.1 F 94 18 114/70 92 L Intake and Output 11/11/23 11/12/23 11/12/23 22:59 06:59 14:59 Other: Weight 99.79 kg Results CBC & Chem 7: 11/11/23 18:27 11/11/23 18:27 Labs: Abnormal Lab Results - Last 24 Hours (Table) 11/11/23 11/11/23 Range/Units 17:58 18:27 Chloride 109 H (98-107) mmol/L Carbon Dioxide 18 L (22-30) mmol/L BUN 5 L (9-20) mg/dL Glucose 130 H (74-99) mg/dL Urine Glucose (UA) Trace H (Negative) U Benzodiazepines Scrn Detected H (NotDetected) Urine Cocaine Screen Detected H (NotDetected)
--- NOTE | 2023-11-12 14:02 | P.DS ---
Providers Date of admission: 11/11/23 21:12 Attending physician: Valeri Daly Primary care physician: Stated None Hospital Course: Patient is a 48-year-old male admitted for alcohol intoxication. Patient does not have any significant withdrawals at this time but expected to have withdrawals patient does drink alcohol every day he states drinks about 4 24 ounce beers a day. Patient is on antiseizure medications apparently has a primary seizure disorder and is on lacosamide levetiracetam and Lamictal. Patient states he ran out of his medications will need prescription. Patient although admits that he is not willing to quit alcohol at this time. Urine drug screen is positive for cocaine as well. PHYSICAL EXAMINATION: GENERAL: The patient is alert and oriented x3, not in any acute distress. Well developed, well nourished. HEENT: Pupils are round and equally reacting to light. EOMI. No scleral icterus. No conjunctival pallor. Normocephalic, atraumatic. No pharyngeal erythema. No thyromegaly. CARDIOVASCULAR: S1 and S2 present. No murmurs, rubs, or gallops. PULMONARY: Chest is clear to auscultation, no wheezing or crackles. ABDOMEN: Soft, nontender, nondistended, normoactive bowel sounds. No palpable organomegaly. MUSCULOSKELETAL: No joint swelling or deformity. EXTREMITIES: No cyanosis, clubbing, or pedal edema. NEUROLOGICAL: Gross neurological examination did not reveal any focal deficits. SKIN: No rashes. Assessment and plan -Alcohol intoxication patient is clinically sober at this time awake alert, will be discharged today with patient will be given a cab to go home. -Alcohol withdrawal patient is expected to alcohol withdrawals as patient is not willing to quit alcohol, getting over withdrawals is not beneficial and further hospitalization will not be beneficial as he is wanted to go home and drink again patient was made aware of all the resources that are available in the community. -Seizure disorder patient will be given prescriptions for all his antiseizure medications. Patient was asked to follow-up with his neurologist -Gastritis continue Protonix Patient will be discharged today Patient Condition at Discharge: Fair Plan - Discharge Summary New Discharge Prescriptions: New Thiamine [Vitamin B-1] 100 mg PO DAILY #30 tablet Continue Tamsulosin [Flomax] 0.4 mg PO HS #30 cap lamoTRIgine [LaMICtal] 100 mg PO BID #60 tab Pantoprazole [Protonix] 40 mg PO DAILY #30 tab Lacosamide [Vimpat] 200 mg PO BID #60 tab levETIRAcetam [Keppra] 1,500 mg PO BID #60 tab Discharge Medication List Lacosamide [Vimpat] 200 mg PO BID #60 tab 11/12/23 [Rx] Pantoprazole [Protonix] 40 mg PO DAILY #30 tab 11/12/23 [Rx] Tamsulosin [Flomax] 0.4 mg PO HS #30 cap 11/12/23 [Rx] Thiamine [Vitamin B-1] 100 mg PO DAILY #30 tablet 11/12/23 [Rx] lamoTRIgine [LaMICtal] 100 mg PO BID #60 tab 11/12/23 [Rx] levETIRAcetam [Keppra] 1,500 mg PO BID #60 tab 11/12/23 [Rx] Follow up Appointment(s)/Referral(s): Meagan Alejo MD [STAFF PHYSICIAN] - 1 Week Discharge Disposition: HOME SELF-CARE
== END 2023-11-12 14:35 | disposition home or self-care (01) ==
LOC: EC 17:39 → 4SSUR 21:12 → 1SOBS 11-12 06:00
PROVIDERS: ADMIT Hospitalist; ATTEND Hospitalist
DX: F10.239 Alcohol dependence with withdrawal, unspecified (principal); G40.909 Epilepsy, unspecified, not intractable, without status epilepticus; K29.70 Gastritis, unspecified, without bleeding; F41.8 Other specified anxiety disorders; Y90.8 Blood alcohol level of 240 mg/100 ml or more
CPT/HCPCS: 82075; 99285; 36415; 80048; 83735; 85025; 81003; 80306; G0378 ×2; G0480; 80320

== ENCOUNTER 2023-11-13 02:49 | Observation (INO) | payer MEDICARE ==
--- NOTE | 2023-11-13 04:01 | ED ---
General Adult HPI - General Chief complaint: Recheck/Abnormal Lab/Rx Stated complaint: ETOH Time Seen by Provider: 11/13/23 02:55 Source: police Mode of arrival: ambulatory Limitations: no limitations - History of Present Illness Initial comments: 48-year-old male with past medical history of seizure disorder, alcohol abuse, alcohol withdrawal seizures who presents to the emergency department with several reported complaints. He is brought in by police who state that he was knocking on doors with his friend. Patient was found to be significantly intoxicated. He was brought to the emergency department for the intoxication. Patient reports that he needs his seizure medications refilled. I evaluate the patient myself he states that he is coming in because he had multiple seizures that were witnessed by friends. Patient appears significantly intoxicated and therefore cannot provide any other details of the seizure activity. He does admit to drinking. He states that he did take his nighttime seizure medications. No reported injuries. Patient was just admitted to the hospital last night for alcohol intoxication - Related Data Previous Rx's Medication Instructions Recorded Lacosamide [Vimpat] 200 mg PO BID #60 tab 11/12/23 Pantoprazole [Protonix] 40 mg PO DAILY #30 tab 11/12/23 Tamsulosin [Flomax] 0.4 mg PO HS #30 cap 11/12/23 Thiamine [Vitamin B-1] 100 mg PO DAILY #30 tablet 11/12/23 lamoTRIgine [LaMICtal] 100 mg PO BID #60 tab 11/12/23 levETIRAcetam [Keppra] 1,500 mg PO BID #60 tab 11/12/23 Allergies Allergy/AdvReac Type Severity Reaction Status Date / Time No Known Allergies Allergy Verified 11/13/23 06:41 Review of Systems ROS Statement: Those systems with pertinent positive or pertinent negative responses have been documented in the HPI. ROS Other: All systems not noted in ROS Statement are negative. Past Medical History Past Medical History: Seizure Disorder History of Any Multi-Drug Resistant Organisms: None Reported Additional Past Surgical History / Comment(s): MOUTH SURGERY Past Anesthesia/Blood Transfusion Reactions: No Reported Reaction Past Psychological History: Anxiety, Depression Smoking Status: Current every day smoker Past Alcohol Use History: Daily, Heavy Past Drug Use History: None Reported - Past Family History Mother Family Medical History: Unable to Obtain Father Family Medical History: Unable to Obtain General Exam Limitations: no limitations General appearance: alert, appears intoxicated Head exam: Present: atraumatic, normocephalic, normal inspection Eye exam: Present: normal appearance, PERRL, EOMI. Absent: scleral icterus, conjunctival injection, periorbital swelling Neck exam: Present: normal inspection. Absent: tenderness, meningismus, lymphadenopathy Respiratory exam: Present: normal lung sounds bilaterally. Absent: respiratory distress, wheezes, rales, rhonchi, stridor Cardiovascular Exam: Present: regular rate, normal rhythm, normal heart sounds. Absent: systolic murmur, diastolic murmur, rubs, gallop, clicks GI/Abdominal exam: Present: soft, normal bowel sounds. Absent: distended, tenderness, guarding, rebound, rigid Extremities exam: Present: normal inspection, full ROM, normal capillary refill. Absent: tenderness, pedal edema, joint swelling, calf tenderness Course Vital Signs 11/13/23 02:50 Temperature 97.9 F Pulse Rate 105 H Respiratory 18 Rate Blood Pressure 150/103 O2 Sat by Pulse 98 Oximetry Medical Decision Making - Medical Decision Making Was pt. sent in by a medical professional or institution (, PA, FIRMWARE ARCHITECT, urgent care, hospital, or [facility]...) When possible be specific @ -No Did you speak to anyone other than the patient for history (EMS, parent, family, police, friend...)? What history was obtained from this source @ -Spoke with police for history as they brought the patient in Did you review nursing and triage notes (agree or disagree)? Why? @ -I reviewed and agree with nursing and triage notes Were old charts reviewed (outside hosp., previous admission, EMS record, old EKG, old radiological studies, urgent care reports/EKG's, [facility] records)? Report findings @ -I reviewed discharge summary from earlier today Differential Diagnosis (chest pain, altered mental status, abdominal pain women, abdominal pain men, vaginal bleeding, weakness, fever, dyspnea, syncope, headache, dizziness, GI bleed, back pain, seizure, CVA, palpatations, mental health, musculoskeletal)? @ -Differential Altered Mental Status: Hypoglycemia, DKA, hypercapnia, ETOH, overdose, CO poisoning, trauma, myxedema coma, HTN encephalopathy, infection, encephalitis, psychosis, intercranial hemorrhage, hepatic encephalopathy, meningitis, CVA, this is not meant to be an all-inclusive list EKG interpreted by me (3pts min.). @ -not done X-rays interpreted by me (1pt min.). @ -None done CT interpreted by me (1pt min.). @ -None done U/S interpreted by me (1pt. min.). @ -None done What testing was considered but not performed or refused? (CT, X-rays, U/S, labs)? Why? @ -None What meds were considered but not given or refused? Why? @ -None Did you discuss the management of the patient with other professionals (professionals i.e. , PA, FIRMWARE ARCHITECT, lab, RT, psych nurse, social work faculty member, site medical director, teacher, strike operations officer, pillowcase folder)? Give summary @ -Spoke with Santy from [facility] for admission Was smoking cessation discussed for >3mins.? @ -No Was critical care preformed (if so, how long)? @ -No Were there social determinants of health that impacted care today? How? (Homelessness, low income, unemployed, alcoholism, drug addiction, transportation, low edu. Level, literacy, decrease access to med. care, fci, rehab)? @ -No Was there de-escalation of care discussed even if they declined (Discuss DNR or withdrawal of care, Hospice)? DNR status @ -No What co-morbidities impacted this encounter? (DM, HTN, Smoking, COPD, CAD, Cancer, CVA, ARF, Chemo, Hep., AIDS, mental health diagnosis, sleep apnea, morbid obesity)? @ -Seizure disorder, alcohol abuse Was patient admitted / discharged? Hospital course, mention meds given and route, prescriptions, significant lab abnormalities, going to OR and other pertinent info. @ -Upon arrival patient was seen and evaluated in the waiting room. Patient reports to multiple unwitnessed seizures today. States he did take his home sei zure medications. Patient significantly intoxicated. I did establish an IV and conducted laboratory studies. Patient has elevated CK, alcohol and lactic acid. Patient will be admitted to [facility]. Spoke with Santy Undiagnosed new problem with uncertain prognosis? @ -No Drug Therapy requiring intensive monitoring for toxicity (Heparin, Nitro, Insulin, Cardizem)? @ -No Were any procedures done? @ -No Diagnosis/symptom? @ -Subjective breakthrough seizures, alcohol intoxication, history of seizure disorder, elevated CK Acute, or Chronic, or Acute on Chronic? @ -Acute Uncomplicated (without systemic symptoms) or Complicated (systemic symptoms)? @ -Complicated Side effects of treatment? @ -No Exacerbation, Progression, or Severe Exacerbation? @ -No Poses a threat to life or bodily function? How? (Chest pain, [place], [place], pneumonia, PE, COPD, DKA, ARF, appy, cholecystitis, CVA, Diverticulitis, Homicidal, Suicidal, threat to staff... and all critical care pts) @ -No - Lab Data Result diagrams: 11/13/23 04:17 11/13/23 04:17 Lab Results 11/13/23 11/13/23 11/13/23 Range/Units 04:17 04:17 04:17 WBC 10.3 (3.8-10.6) k/uL RBC 5.55 (4.30-5.90) m/uL Hgb 17.1 (13.0-17.5) gm/dL Hct 51.6 (39.0-53.0) % MCV 93.0 (80.0-100.0) fL MCH 30.9 (25.0-35.0) pg MCHC 33.2 (31.0-37.0) g/dL RDW 13.3 (11.5-15.5) % Plt Count 171 (150-450) k/uL MPV 7.2 Neutrophils % 74 % Lymphocytes % 17 % Monocytes % 6 % Eosinophils % 2 % Basophils % 0 % Neutrophils # 7.6 (1.3-7.7) k/uL Lymphocytes # 1.7 (1.0-4.8) k/uL Monocytes # 0.6 (0-1.0) k/uL Eosinophils # 0.2 (0-0.7) k/uL Basophils # 0.0 (0-0.2) k/uL Sodium 140 (137-145) mmol/L Potassium 4.0 (3.5-5.1) mmol/L Chloride 102 (98-107) mmol/L Carbon Dioxide 24 (22-30) mmol/L Anion Gap 14 mmol/L BUN 7 L (9-20) mg/dL Creatinine 1.03 (0.66-1.25) mg/dL Est GFR (CKD-EPI)AfAm >90 (>60 ml/min/1.73 sqM) Est GFR (CKD-EPI)NonAf 87 (>60 ml/min/1.73 sqM) Glucose 119 H (74-99) mg/dL Plasma Lactic Acid Alex 2.7 H* (0.7-2.0) mmol/L Calcium 9.2 (8.4-10.2) mg/dL Magnesium 1.9 (1.6-2.3) mg/dL Total Bilirubin 1.2 (0.2-1.3) mg/dL AST 103 H (17-59) U/L ALT 66 H (4-49) U/L Alkaline Phosphatase 93 (38-126) U/L Creatine Kinase 2882 H* (55-170) U/L Total Protein 8.0 (6.3-8.2) g/dL Albumin 4.7 (3.5-5.0) g/dL Serum Alcohol 313 H* mg/dL Disposition Clinical Impression: Alcoholic intoxication, Elevated creatine kinase Disposition: ADMITTED IP TO THIS [facility] Condition: Stable Is patient prescribed a controlled substance at d/c from ED?: No Time of Disposition: 05:58 Decision to Admit Reason: Admit from EC Decision Date: 11/13/23 Decision Time: 05:58
[2023-11-13 04:33] LABS: Basophils % (A) 0 %; Eosinophils # (A) 0.2 k/uL (0-0.7); Eosinophils % (A) 2 %; HCT 51.6 % (39.0-53.0); HGB 17.1 gm/dL (13.0-17.5); Lymphocytes # (A) 1.7 k/uL (1.0-4.8); Lymphocytes % (A) 17 %; MCH 30.9 pg (25.0-35.0); MCHC 33.2 g/dL (31.0-37.0); Mean Platelet Volume 7.2; Monocytes # (A) 0.6 k/uL (0-1.0); Monocytes % (A) 6 %; Neutrophils # (A) 7.6 k/uL (1.3-7.7); Neutrophils % (A) 74 %; Platelet Count 171 k/uL (150-450); RBC 5.55 m/uL (4.30-5.90); RDW 13.3 % (11.5-15.5); WBC 10.3 k/uL (3.8-10.6)
[2023-11-13 04:58] LABS: ALT 66 U/L (4-49); AST 103 U/L (17-59); African American GFR (CKD) >90 (>60 ml/min/1.73 sqM); Albumin 4.7 g/dL (3.5-5.0); Alkaline Phosphatase 93 U/L (38-126); Anion Gap 14 mmol/L; Blood Urea Nitrogen 7 mg/dL (9-20); Calcium 9.2 mg/dL (8.4-10.2); Carbon Dioxide 24 mmol/L (22-30); Chloride 102 mmol/L (98-107); Glucose 119 mg/dL (74-99); Magnesium 1.9 mg/dL (1.6-2.3); Non-African American GFR(CKD) 87 (>60 ml/min/1.73 sqM); Sodium 140 mmol/L (137-145); Total Bilirubin 1.2 mg/dL (0.2-1.3)
[2023-11-13 05:27] LABS: Creatine Kinase 2882 U/L (55-170)
[2023-11-13 05:28] LABS: Alcohol 313 mg/dL
[2023-11-13] MEDS ORDERED: NALOXONE 0.4 MG/ML 1 ML VIAL IV PRN (06:13)
[2023-11-13] MEDS: SODIUM CHLORIDE 0.9% 1,000 ML IV ONE (06:15)
[2023-11-13] MEDS: SODIUM CHLORIDE 0.9% 1,000 ML IV SCH (06:20)
[2023-11-13 07:37] LABS: Amphetamine Screen,Urine Not Detected (NotDetected); Barbiturate Screen,Urine Not Detected (NotDetected); Benzodiazepines Screen,Urine Not Detected (NotDetected); Cocaine Screen,Urine Not Detected (NotDetected); Methadone Screen, Urine Not Detected (NotDetected); Opiate Screen,Urine Not Detected (NotDetected); Oxycodone Screen, Urine Not Detected (NotDetected); Phencyclidine Screen,Urine Not Detected (NotDetected); Tricyclic Antidepressant,Urine Not Detected (NotDetected); Urn Cannabinoid Scrn Not Detected (NotDetected)
[2023-11-13] MEDS: PANTOPRAZOLE 40 MG TABLET PO SCH (09:12)
[2023-11-13] MEDS: lamoTRIgine 100 MG TAB PO SCH (09:12)
[2023-11-13] MEDS: THIAMINE 100 MG TAB PO SCH (09:26)
[2023-11-13] MEDS: LACOSAMIDE 50 MG TABLET PO SCH (09:26)
--- NOTE | 2023-11-13 15:16 | P.HPIM ---
History of Present Illness 48-year-old male who is a chronic alcoholic drinks lots of beers every day was admitted here yesterday and was let go yesterday as patient is not willing to put alcohol. Patient does have seizure history as well he ran out of medicati ons he was given prescriptions of all the antiseizure medications he was not taking recently. Patient went home started drinking again knocking on the door so was brought in by the police and patient also had seizure seizure as well and the patient has not refill his prescriptions yet apparently patient had multiple episodes of seizures. Upon questioning patient is willing to quit alcohol at this time patient would like to get have. REVIEW OF SYSTEMS: All other systems are negative except those mentioned in the HPI PHYSICAL EXAMINATION: GENERAL: The patient is alert and oriented x3, not in any acute distress. Well developed, well nourished. HEENT: Pupils are round and equally reacting to light. EOMI. No scleral icterus. No conjunctival pallor. Normocephalic, atraumatic. No pharyngeal erythema. No thyromegaly. CARDIOVASCULAR: S1 and S2 present. No murmurs, rubs, or gallops. PULMONARY: Chest is clear to auscultation, no wheezing or crackles. ABDOMEN: Soft, nontender, nondistended, normoactive bowel sounds. No palpable organomegaly. MUSCULOSKELETAL: No joint swelling or deformity. EXTREMITIES: No cyanosis, clubbing, or pedal edema. NEUROLOGICAL: Gross neurological examination did not reveal any focal deficits. SKIN: No rashes. Assessment and plan -Alcohol abuse patient is willing to quit alcohol at this time social work will be consulted, patient will be on thiamine multivitamin supplementation -Alcohol withdrawal patient will be on Ativan CIWA protocol with patient does not have any much of withdrawals can be discharged tomorrow -Seizure disorder patient was resumed on his antiseizure medications -Lactic acidosis secondary to seizure continue with IV fluids repeat lactate tomorrow do not need to repeat every fourth hourly of 6 hourly lactic acidosis not sepsis -Depression Nicotine use: Counseling was provided DVT prophylaxis: Lovenox Past Medical History Past Medical History: Seizure Disorder History of Any Multi-Drug Resistant Organisms: None Reported Additional Past Surgical History / Comment(s): MOUTH SURGERY Past Anesthesia/Blood Transfusion Reactions: No Reported Reaction Past Psychological History: Anxiety, Depression Smoking Status: Current every day smoker Past Alcohol Use History: Daily, Heavy Past Drug Use History: None Reported - Past Family History Mother Family Medical History: Unable to Obtain Father Family Medical History: Unable to Obtain Medications and Allergies Home Medications Medication Instructions Recorded Confirmed Type Lacosamide [Vimpat] 200 mg PO BID #60 tab 11/12/23 11/13/23 Rx Pantoprazole [Protonix] 40 mg PO DAILY #30 tab 11/12/23 11/13/23 Rx Tamsulosin [Flomax] 0.4 mg PO HS #30 cap 11/12/23 11/13/23 Rx Thiamine [Vitamin B-1] 100 mg PO DAILY #30 tablet 11/12/23 11/13/23 Rx lamoTRIgine [LaMICtal] 100 mg PO BID #60 tab 11/12/23 11/13/23 Rx levETIRAcetam [Keppra] 1,500 mg PO BID #60 tab 11/12/23 11/13/23 Rx Allergies Allergy/AdvReac Type Severity Reaction Status Date / Time No Known Allergies Allergy Verified 11/13/23 06:41 Physical Exam Vitals: Vital Signs Temp Pulse Resp BP Pulse Ox 11/13/23 12:00 88 16 120/61 97 11/13/23 07:00 72 16 94/64 95 11/13/23 02:50 97.9 F 105 H 18 150/103 98 Intake and Output 11/13/23 11/13/23 11/13/23 06:59 14:59 22:59 Other: Weight 90.718 kg Results CBC & Chem 7: 11/13/23 04:17 11/13/23 04:17 Labs: Abnormal Lab Results - Last 24 Hours (Table) 11/13/23 11/13/23 11/13/23 Range/Units 04:17 04:17 08:00 BUN 7 L (9-20) mg/dL Glucose 119 H (74-99) mg/dL Plasma Lactic Acid Alex 2.7 H* 3.0 H* (0.7-2.0) mmol/L AST 103 H (17-59) U/L ALT 66 H (4-49) U/L Creatine Kinase 2882 H* (55-170) U/L Serum Alcohol 313 H* mg/dL 11/13/23 11/13/23 Range/Units 11:15 14:50 BUN (9-20) mg/dL Glucose (74-99) mg/dL Plasma Lactic Acid Alex 2.5 H* 2.7 H* (0.7-2.0) mmol/L AST (17-59) U/L ALT (4-49) U/L Creatine Kinase (55-170) U/L Serum Alcohol mg/dL
[2023-11-13] MEDS ORDERED: LORazepam 2 MG/ML INJ IV PRN ×2 (16:03)
[2023-11-13] MEDS: LORazepam 2 MG/ML INJ IV PRN (16:19)
[2023-11-13] MEDS: TAMSULOSIN 0.4 MG CAP.ER.24H PO SCH (21:21)
[2023-11-14 07:36] VITALS: RESP 18
[2023-11-14] MEDS: ENOXAPARIN 40 MG/0.4 ML SYRINGE SQ SCH (08:02)
[2023-11-14] MEDS: MULTIVITAMINS, THERA 1 EACH TAB PO SCH (08:02)
[2023-11-14] MEDS: FOLIC ACID 1 MG TAB PO SCH (08:02)
[2023-11-14 10:58] LABS: Basophils # (A) 0.02 X 10*3/uL (0.00-0.10); Basophils % (A) 0.3 %; Eosinophils # (A) 0.23 X 10*3/uL (0.04-0.35); Eosinophils % (A) 3.8 %; HCT 42.3 % (39.6-50.0); HGB 14.2 g/dL (13.0-17.0); Lymphocytes # (A) 1.08 X 10*3/uL (0.90-5.00); Lymphocytes % (A) 17.8 %; MCH 30.5 pg (27.0-32.0); MCHC 33.6 g/dL (32.0-37.0); Mean Platelet Volume 9.7 FL (9.5-12.2); Monocytes # (A) 0.46 X 10*3/uL (0.20-1.00); Monocytes % (A) 7.6 %; NRBC Per 100 WBC 0 X 10*3/uL (0.00-0.01); Neutrophils # (A) 4.27 X 10*3/uL (1.80-7.70); Neutrophils % (A) 70.2 %; Platelet Count 110 X 10*3/uL (140-440); RBC 4.65 X 10*6/uL (4.40-5.60); RDW 12.8 % (11.5-14.5); WBC 6.08 X 10*3/uL (4.50-10.00)
[2023-11-14 10:59] LABS: BUN/Creat Ratio 6.22 Ratio (12.00-20.00); Blood Urea Nitrogen 5.6 mg/dL (9.0-27.0); Carbon Dioxide 23.8 mmol/L (21.6-31.8); Chloride 109 mmol/L (96-109); Glucose 112 mg/dL (70-110); Sodium 141 mmol/L (135-145)
[2023-11-14] MEDS: ACETAMINOPHEN TAB 325 MG TAB PO PRN (23:10)
[2023-11-15 08:15] VITALS: BP 111/75; PULSE 88; TEMP 98.3
--- NOTE | 2023-11-15 10:31 | P.PN ---
Subjective Progress Note Date: 11/14/23 48-year-old male who is a chronic alcoholic drinks lots of beers every day was admitted here yesterday and was let go yesterday as patient is not willing to put alcohol. Patient does have seizure history as well he ran out of medications he was given prescriptions of all the antiseizure medications he was not taking recently. Patient went home started drinking again knocking on the door so was brought in by the police and patient also had seizure seizure as well and the patient has not refill his prescriptions yet apparently patient had multiple episodes of seizures. Upon questioning patient is willing to quit alcohol at this time patient would like to get have. 11/14/2023 Patient evaluated today in follow up. Does not appear to be actively withdrawing at this time, no visible tremors noted he is awake alert and oriented. Patient hasnt required ativan since 10 pm last night. He wants to get into a rehab for alcohol and states otherwise he is now homeless and has no where to go. There is no seizure like activity noted since being resumed on his home medications Review of Systems Constitutional: Denied any fatigue denied any fever. Cardio vascular: denied any chest pain, palpitations Gastrointestinal: denied any nausea, vomiting, diarrhea Pulmonary: Denied any shortness of breath cough Neurologic denied any new focal deficits All inpatient medications were reviewed and appropriate changes in these medications as dictated in the interval history and assessment and plan. PHYSICAL EXAMINATION: GENERAL: The patient is alert and oriented x3, not in any acute distress. Well developed, well nourished. HEENT: Pupils are round and equally reacting to light. EOMI. No scleral icterus. No conjunctival pallor. Normocephalic, atraumatic. No pharyngeal erythema. No thyromegaly. CARDIOVASCULAR: S1 and S2 present. No murmurs, rubs, or gallops. PULMONARY: Chest is clear to auscultation, no wheezing or crackles. ABDOMEN: Soft, nontender, nondistended, normoactive bowel sounds. No palpable organomegaly. MUSCULOSKELETAL: No joint swelling or deformity. EXTREMITIES: No cyanosis, clubbing, or pedal edema. NEUROLOGICAL: Gross neurological examination did not reveal any focal deficits. SKIN: No rashes. Assessment and plan -Alcohol abuse patient is willing to quit alcohol at this time social work will be consulted, patient will be on thiamine multivitamin supplementation -Alcohol withdrawal patient will be on Ativan [facility] protocol with patient does not have any much of withdrawals, not been requiring Ativan frequently -Seizure disorder patient was resumed on his antiseizure medications -Lactic acidosis secondary to seizure continue with IV fluids repeat lactate tomorrow do not need to repeat every fourth hourly of 6 hourly lactic acidosis not sepsis -Depression Nicotine use: Counseling was provided DVT prophylaxis: Lovenox Patient was discharged however states that he would like to wait for [place] to get back to him to see if he can just go from the hospital to [place] and otherwise states that he is homeless at this time. As this is later on in the afternoon we will just hold the discharge and please have social work follow-up this patient in the morning for discharge planning. Otherwise medically he is stable for discharge. The impression and plan of care has been dictated by Olivia Catalan, Nurse Practitioner as directed. Dr. Redd MD I have performed a history and physical examination and medical decision making of this patient, discussed the same with the dictator, and agree with the dictators assessment and plan as written, documented as a scribe. Based on total visit time, I have performed more than 50% of this visit. Objective - Vital Signs Vital signs: Vital Signs Temp 98.3 F 11/15/23 08:00 Pulse 88 11/15/23 08:00 Resp 18 11/15/23 08:00 BP 111/75 11/15/23 08:00 Pulse Ox 99 11/15/23 08:00 FiO2 Intake & Output 11/14/23 11/15/23 11/15/23 18:59 06:59 18:59 Intake Total 237 Balance 237 Intake: Oral 237 Other: # Voids 4 2 - Labs CBC & Chem 7: 11/14/23 07:22 11/14/23 07:22 Labs: Abnormal Lab Results - Last 24 Hours (Table) 11/14/23 11/14/23 Range/Units 07:22 07:22 Plt Count 110 L (140-440) X 10*3/uL BUN 5.6 L (9.0-27.0) mg/dL BUN/Creatinine Ratio 6.22 L (12.00-20.00) Ratio Glucose 112 H (70-110) mg/dL Calcium 8.0 L (8.7-10.3) mg/dL Assessment and Plan Time with Patient: Less than 30
--- NOTE | 2023-11-18 15:35 | P.DS ---
Providers Date of admission: 11/13/23 06:14 Attending physician: Valeri Daly Primary care physician: Stated None Hospital Course: Final Diagnosis -Alcohol abuse -Alcohol withdrawa -Seizure disorder -Lactic acidosis secondary to seizure -Depression Discharge Disposition Able for discharge from the hospital with overall guarded prognosis secondary to his chronic alcoholism. Patient will be given his his seizure medications and attempt to authorize another refill so he has feels well that he is at the rehab facility. Patient states that he does want to quit alcohol at this time. He will be discharged to an alcohol rehab and they will be coming to pick the patient up. Hospital Course 48-year-old male who is a chronic alcoholic drinks lots of beers every day was admitted here yesterday and was let go yesterday as patient is not willing to put alcohol. Patient does have seizure history as well he ran out of medications he was given prescriptions of all the antiseizure medications he was not taking recently. Patient went home started drinking again knocking on the door so was brought in by the police and patient also had seizure seizure as well. Upon questioning patient is willing to quit alcohol at this time patient would like to get help. She was monitored in the hospital overnight on Ativan CIWA protocol. He is not having any significant alcohol withdrawal symptomatic at this time however patient does state that at this time he is homeless due to a domestic situation he is not allowed back to his current house. Patient also did refill his antiseizure medication however he states that he does not have it at this time he is not sure where he placed it while he was intoxicated. We did discuss this with the pharmacy and they will attempt to authorize an additional refill on his seizure medication however the lacosamide is considered a controlled substance and we will be limited if his insurance will continue to pay for this medication after 2 refills same timeframe. Patient is understanding of this. Patient does want to go to an inpatient alcohol rehab straight from the hospital and he is working on finding a place to go. Was able to get into a rehab facility and they will be coming to pick this patient up and he will be discharged home. He is currently alert and oriented x 3. He is having no acute complaints. Please see medication reconciliation for a list of current medications. Thank you for allowing us to participate in the care of this patient. The impression and plan of care has been dictated by Olivia Catalan, Nurse Practitioner as directed. Dr. Redd MD I have performed a history and physical examination and medical decision making of this patient, discussed the same with the dictator, and agree with the dictators assessment and plan as written, documented as a scribe. Based on total visit time, I have performed more than 50% of this visit. Patient Condition at Discharge: Stable Plan - Discharge Summary Discharge Rx Participant: No New Discharge Prescriptions: New Folic Acid 1 mg PO DAILY #30 tab chlordiazePOXIDE HCl [Librium] 25 mg PO DIRECTED 6 Days #18 capsule Multivitamins, Thera [Multivitamin (formulary)] 1 each PO DAILY #30 tab Continue Tamsulosin [Flomax] 0.4 mg PO HS #30 cap Pantoprazole [Protonix] 40 mg PO DAILY #30 tab lamoTRIgine [LaMICtal] 100 mg PO BID #60 tab Thiamine [Vitamin B-1] 100 mg PO DAILY #30 tablet levETIRAcetam [Keppra] 1,500 mg PO BID #60 tab Lacosamide [Vimpat] 200 mg PO BID #60 tab Discharge Medication List Pantoprazole [Protonix] 40 mg PO DAILY #30 tab 11/12/23 [Rx] Tamsulosin [Flomax] 0.4 mg PO HS #30 cap 11/12/23 [Rx] Thiamine [Vitamin B-1] 100 mg PO DAILY #30 tablet 11/12/23 [Rx] levETIRAcetam [Keppra] 1,500 mg PO BID #60 tab 11/12/23 [Rx] Folic Acid 1 mg PO DAILY #30 tab 11/14/23 [Rx] Multivitamins, Thera [Multivitamin (formulary)] 1 each PO DAILY #30 tab 11/14/23 [Rx] chlordiazePOXIDE HCl [Librium] 25 mg PO DIRECTED 6 Days #18 capsule 11/14/23 [Rx] Lacosamide [Vimpat] 200 mg PO BID #60 tab 11/15/23 [Rx] lamoTRIgine [LaMICtal] 100 mg PO BID #60 tab 11/15/23 [Rx] Follow up Appointment(s)/Referral(s): Meagan Alejo MD [STAFF PHYSICIAN] - 1-2 Days None,Stated [Primary Care Provider] - 1-2 days Patient Instructions/Handouts: Alcohol Intoxication (DC) Activity/Diet/Wound Care/Special Instructions: Recommend to avoid alcohol 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, Who Do I Call?, Community Resources, Outpatient Counseling, Inp Substance Abuse Facilities, Area PCPs Discharge Disposition: HOME SELF-CARE
== END 2023-11-15 14:50 | disposition home or self-care (01) ==
LOC: EC 02:49 → 4SSUR 06:14
PROVIDERS: ADMIT Hospitalist; ATTEND Hospitalist
DX: F10.229 Alcohol dependence with intoxication, unspecified (principal); F10.239 Alcohol dependence with withdrawal, unspecified; G40.909 Epilepsy, unspecified, not intractable, without status epilepticus; Y90.8 Blood alcohol level of 240 mg/100 ml or more; E87.20 Acidosis, unspecified; T42.6X6A Underdosing of other antiepileptic and sedative-hypnotic drugs, initial encounter; Z91.128 Patient's intentional underdosing of medication regimen for other reason; F32.A Depression, unspecified; R74.8 Abnormal levels of other serum enzymes; F17.200 Nicotine dependence, unspecified, uncomplicated; Z79.899 Other long term (current) drug therapy; Z71.6 Tobacco abuse counseling; Z59.00 Homelessness unspecified
CPT/HCPCS: 96361 ×3; 96372 ×2; 96374; 99285; 36415; 80053; 80048; 82550; 83605 ×2; 83735; 85025 ×2; 80306; G0378 ×3; G0480; J2060; J1650 ×2; 80320

== ENCOUNTER 2023-11-19 07:42 | Emergency (ER) | payer MEDICARE, OTHER ==
[2023-11-19 07:50] VITALS: BP 139/91; PULSE 86; RESP 18; TEMP 98.1
[2023-11-19] MEDS: LACOSAMIDE 50 MG TABLET PO STA ×2 (08:17→10:27)
[2023-11-19] MEDS: lamoTRIgine 100 MG TAB PO STA (08:17)
[2023-11-19] MEDS: levETIRAcetam IV 2,000 MG in SODIUM CHLORIDE 0.9% 250 ML IVPB ONE (08:52)
--- NOTE | 2023-11-19 08:55 | ED ---
Seizure HPI - General Chief Complaint: Seizure Stated Complaint: Poss. seizure Time Seen by Provider: 11/19/23 07:48 Source: patient, EMS, RN notes reviewed Mode of arrival: EMS Limitations: no limitations - History of Present Illness Initial Comments: This is a 48-year-old male who presents to the emergency department for a seizure. Patient has a history of chronic alcohol abuse and seizures. He was discharged from this facility on 11/14 for alcohol intoxication and withdrawal seizures. At that time he did admit to losing the Vimpat and another pr escription was written. He has now lost two vimpat prescriptions within this prescription time frame, which he attributes to being intoxicated. As result, his insurance will not approve the refill on this. States that this would cost $26 [id number] which he cannot afford right now. He is taking his other seizure medication as prescribed, Keppra and Lamictal, but is concerned about not having his Vimpat available. Believes that his most recent seizure was yesterday. Otherwise denies any current complaints. He is hoping for help to get into a alf or custodial. MD Complaint: seizure - Related Data Previous Rx's Medication Instructions Recorded Pantoprazole [Protonix] 40 mg PO DAILY #30 tab 11/12/23 Tamsulosin [Flomax] 0.4 mg PO HS #30 cap 11/12/23 Thiamine [Vitamin B-1] 100 mg PO DAILY #30 tablet 11/12/23 levETIRAcetam [Keppra] 1,500 mg PO BID #60 tab 11/12/23 Folic Acid 1 mg PO DAILY #30 tab 11/14/23 Multivitamins, Thera [Multivitamin 1 each PO DAILY #30 tab 11/14/23 (formulary)] chlordiazePOXIDE HCl [Librium] 25 mg PO DIRECTED 6 Days #18 11/14/23 capsule Lacosamide [Vimpat] 200 mg PO BID #60 tab 11/15/23 lamoTRIgine [LaMICtal] 100 mg PO BID #60 tab 11/15/23 Lacosamide [Vimpat] 200 mg PO BID 3 Days #6 tab 11/19/23 Allergies Allergy/AdvReac Type Severity Reaction Status Date / Time No Known Allergies Allergy Verified 11/19/23 07:50 Review of Systems ROS Statement: Those systems with pertinent positive or pertinent negative responses have been documented in the HPI. ROS Other: All systems not noted in ROS Statement are negative. Past Medical History Past Medical History: Seizure Disorder History of Any Multi-Drug Resistant Organisms: None Reported Additional Past Surgical History / Comment(s): MOUTH SURGERY Past Anesthesia/Blood Transfusion Reactions: No Reported Reaction Past Psychological History: Anxiety, Depression Smoking Status: Current every day smoker Past Alcohol Use History: Daily, Heavy Past Drug Use History: None Reported - Past Family History Mother Family Medical History: Unable to Obtain, Cancer Additional Family Medical History / Comment(s): lung cancer Father Family Medical History: No Reported History General Exam Limitations: no limitations General appearance: alert, in no apparent distress Head exam: Present: atraumatic, normocephalic, normal inspection Eye exam: Present: normal appearance, PERRL, EOMI. Absent: scleral icterus, conjunctival injection, periorbital swelling Respiratory exam: Present: normal lung sounds bilaterally. Absent: respiratory distress, wheezes, rales, rhonchi, stridor Cardiovascular Exam: Present: regular rate, normal rhythm, normal heart sounds. Absent: systolic murmur, diastolic murmur, rubs, gallop, clicks Neurological exam: Present: alert, oriented X3, CN II-XII intact Psychiatric exam: Present: normal affect, normal mood Skin exam: Present: warm, dry, intact, normal color. Absent: rash Course Vital Signs 11/19/23 07:44 Temperature 98.1 F Pulse Rate 86 Respiratory 18 Rate Blood Pressure 139/91 O2 Sat by Pulse 99 Oximetry Medical Decision Making - Medical Decision Making This is a 48-year-old male who presents to the emergency department for a seizure. Was pt. sent in by a medical professional or institution? @ -No Did you speak to anyone other than the patient for history? @ -No Did you review nursing and triage notes? @ -Yes, and I agree, it is accurate with regards to the patient's symptoms. Were old charts reviewed? @ -No Differential Diagnosis? @ -Differential Seizure: Recurrent seizure disorder, febrile seizure, alcohol withdrawal, stimulants, meningitis, encephalitis, intercranial hemorrhage, intracranial tumor, stroke, eclampsia, thyrotoxicosis, hypocalcemia, hyponatremia, hypernatremia, hypomagnesemia, psychogenic, this is not meant to be an all-inclusive list. EKG interpreted by me (3pts min.)? @ -Not obtained X-rays interpreted by me (1pt min.)? @ -Not obtained CT interpreted by me (1pt min.)? @ -Not obtained U/S interpreted by me (1pt. min.)? @ -Not obtained What testing was considered but not performed? (CT, X-rays, U/S, labs)? Why? @ -None What meds were considered but not given? Why? @ -None Did you discuss the management of the patient with other professionals? @ -Yes, Bety with case management. She spoke with the other lead case manager and on review of prior documentation, she advised that during each recent admission case management had reviewed local resources with the patient and gave him all of the necessary information. They also tried to set him up with a [facility] intake appointment and he continues to be noncompliant. Did you reconcile home meds? @ -No Was smoking cessation discussed for >3mins.? @ -I discussed smoking cessation for greater than 3 minutes. The risk of smoking were discussed with the patient including but not limited to risks of cancer, stroke, coronary artery disease and COPD. Also discussed with patient were multiple methods of quitting smoking. Lastly we discussed the financial cost of smoking. Was critical care preformed (if so, how long)? @ -No Were there social determinants of health that impacted care today? How? (Homelessness, low income, unemployed, alcoholism, drug addiction, transportation, low edu. Level, literacy, decrease access to med. care, prison, rehab)? @ -Alcoholism, contributing to recurrent visits as well as worsening seizures. Was there de-escalation of care discussed even if they declined? (Discuss DNR or withdrawal of care, Hospice)? @ -No What co-morbidities impacted this encounter? (DM, HTN, Smoking, COPD, CAD, Cancer, CVA, Hep., AIDS, mental health diagnosis, sleep apnea, morbid obesity)? @ -Alcoholism, seizure disorder, smoking Was patient admitted / discharged? @ -Discharged. Patient was given his home dose of Vimpat and Lamictal in the emergency department as well as a loading dose of 2g of Keppra. This visit was related to social issues for the patient and needing his Vimpat prescription. There is already a prescription at the pharmacy, however his insurance would not cover the cost of the refill as he has already lost 2 prescriptions this month. Discussed that sending another prescription over will not change this, as the medication is currently already filled. Advised that he will need to discuss this issue with his insurance or pay the [id number] cost. Patient was concerned about resources for a alf or custodial. I spoke with case management, who advised that during his recent hospitalization case management spoke with him and provided him with multiple resources. They also tried to get him an intake appointment with [facility]. Patient however has been noncompliant and is not following through on any of the resources provided. We again gave him all of these resources and offered to send him home via taxi or to a alf. I also offered to send the patient home with the doses of Vimpat today. However, patient became irate and very angry we were unable to fix his medication issue. I sent in a prescription for 3 days worth of the Vimpat, however I again stressed to the patient that this will not necessarily be filled as this is an insurance issue, not an issue with lack of prescription. A 30- day supply was prescribed on 11/14. Nursing staff gave the patient the Vimpat to go home with, and he proceeded to throw it on the ground out of anger and stormed out. Undiagnosed new problem with uncertain prognosis? @ -None Drug Therapy requiring intensive monitoring for toxicity (Heparin, Nitro, Insulin, Cardizem)? @ -None Were any procedures done? @ -None Diagnosis/symptom? @ -Seizure, noncompliance Acute, or Chronic, or Acute on Chronic? @ -Acute Uncomplicated (without systemic symptoms) or Complicated (systemic symptoms)? @ -Uncomplicated Side effects of treatment? @ -None Exacerbation, Progression, or Severe Exacerbation] @ -Not applicable Poses a threat to life or bodily function? @ -This will depend on if he is compliant with his medication or not and if he continues to consume alcohol in excess. Return precautions reviewed in depth, the patient is instructed to return to the emergency department with any new, worsening, or concerning symptoms. Patient v erbalized understanding. This case was discussed in detail with the attending ED physician, Dr. Guillen. Presentation, findings, and treatment plan discussed in detail as well. Disposition Clinical Impression: Generalized seizure, Noncompliance Disposition: HOME SELF-CARE Instructions (If sedation given, give patient instructions): Seizure/Epilepsy Discharge Instructions & Follow-Up Additional Instructions: Return to the emergency department with any new, worsening, or concerning symptoms. Please review the list of resources provided here and during prior visits to help you find a place to stay. Take your medication as prescribed and try to abstain from alcohol and any other substance abuse. Prescriptions: Lacosamide [Vimpat] 200 mg PO BID 3 Days #6 tab Is patient prescribed a controlled substance at d/c from ED?: No Referrals: [facility]- [facility] [NON-STAFF] - As Soon As Possible (They have a homeless health clinic. Please contact for more information. ) Washington Mathias MD [STAFF PHYSICIAN] - 1-2 days Forms: AA Meetings Dist 22 & 24 - [facility], AA Meetings [place] [facility], Outpatient Counseling, Inp Substance Abuse Facilities, Personal Office Rn Time of Disposition: 10:12
== END 2023-11-19 10:36 | disposition home or self-care (01) ==
LOC: EC 07:42
DX: G40.409 Other generalized epilepsy and epileptic syndromes, not intractable, without status epilepticus (principal); Z91.199 Patient's noncompliance with other medical treatment and regimen due to unspecified reason; F17.200 Nicotine dependence, unspecified, uncomplicated
CPT/HCPCS: 99284; 96365; J1953

== ENCOUNTER 2023-11-22 02:47 | Emergency (ER) | payer MEDICARE ==
[2023-11-22] MEDS: SODIUM CHLORIDE 0.9% 1,000 ML IV ONE (03:09)
[2023-11-22 03:32] LABS: Basophils % (A) 0 %; Eosinophils # (A) 0.2 k/uL (0-0.7); Eosinophils % (A) 3 %; HCT 43.6 % (39.0-53.0); HGB 14.6 gm/dL (13.0-17.5); Lymphocytes # (A) 1.7 k/uL (1.0-4.8); Lymphocytes % (A) 22 %; MCH 31.5 pg (25.0-35.0); MCHC 33.5 g/dL (31.0-37.0); MCV 93.8 fL (80.0-100.0); Mean Platelet Volume 7.6; Monocytes # (A) 0.5 k/uL (0-1.0); Monocytes % (A) 7 %; Neutrophils # (A) 5.1 k/uL (1.3-7.7); Neutrophils % (A) 67 %; Platelet Count 123 k/uL (150-450); RBC 4.64 m/uL (4.30-5.90); WBC 7.6 k/uL (3.8-10.6)
[2023-11-22 03:50] LABS: African American GFR (CKD) >90 (>60 ml/min/1.73 sqM); Anion Gap 10 mmol/L; Blood Urea Nitrogen 9 mg/dL (9-20); Calcium 8.1 mg/dL (8.4-10.2); Carbon Dioxide 21 mmol/L (22-30); Chloride 111 mmol/L (98-107); Glucose 99 mg/dL (74-99); Non-African American GFR(CKD) >90 (>60 ml/min/1.73 sqM); Potassium 4.9 mmol/L (3.5-5.1); Sodium 142 mmol/L (137-145)
[2023-11-22 04:20] LABS: Alcohol 196 mg/dL
--- NOTE | 2023-11-22 06:39 | ED ---
Alcohol HPI - General Chief Complaint: Alcohol Stated Complaint: Detox Time Seen by Provider: 11/22/23 02:55 Source: patient Mode of arrival: ambulatory Limitations: no limitations - History of Present Illness Initial Comments: Patient is a 48-year-old man who presents with complaint that he would like help to stop drinking. He thinks he may need to go to rehabilitation center. He does drink every day. Last drink approximately 2 to 3 hours ago. 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 -: hour(s) Previous Visits for Alcohol Intoxication?: Yes Recent Trauma: No Associated Symptoms: denies other symptoms Chronic Alcohol Use: Yes - Related Data Home Medications Medication Instructions Recorded Confirmed Folic Acid 1 mg PO DAILY 11/25/23 12/05/23 Multivitamins, Thera [Multivitamin 1 tab PO DAILY 11/25/23 12/05/23 (formulary)] Previous Rx's Medication Instructions Recorded Pantoprazole [Protonix] 40 mg PO DAILY #30 tab 11/12/23 Tamsulosin [Flomax] 0.4 mg PO HS #30 cap 11/12/23 Lacosamide [Vimpat] 200 mg PO BID 30 Days #60 tablet 12/02/23 lamoTRIgine [LaMICtal] 100 mg PO BID 30 Days #60 tab 12/02/23 levETIRAcetam [Keppra] 1,500 mg PO BID 30 Days #120 tab 12/02/23 Allergies Allergy/AdvReac Type Severity Reaction Status Date / Time No Known Allergies Allergy Verified 12/05/23 15:40 Review of Systems ROS Statement: Those systems with pertinent positive or pertinent negative responses have been documented in the HPI. ROS Other: All systems not noted in ROS Statement are negative. Constitutional: Denies: fever, chills, weakness Eyes: Denies: vision change Respiratory: Denies: cough, dyspnea Cardiovascular: Denies: chest pain, palpitations, edema Gastrointestinal: Denies: abdominal pain, nausea, vomiting Genitourinary: Denies: dysuria, hematuria Musculoskeletal: Denies: back pain Skin: Denies: rash Neurological: Denies: headache, weakness Past Medical History Past Medical History: Seizure Disorder History of Any Multi-Drug Resistant Organisms: None Reported Additional Past Surgical History / Comment(s): MOUTH SURGERY Past Anesthesia/Blood Transfusion Reactions: No Reported Reaction Past Psychological History: Anxiety, Depression Smoking Status: Current every day smoker Past Alcohol Use History: Daily, Heavy Past Drug Use History: None Reported - Past Family History Mother Family Medical History: Unable to Obtain, Cancer Additional Family Medical History / Comment(s): lung cancer Father Family Medical History: No Reported History General Exam Limitations: no limitations General appearance: alert, in no apparent distress Head exam: Present: atraumatic, normocephalic Eye exam: Present: normal appearance. Absent: scleral icterus, conjunctival injection Neck exam: Present: normal inspection Respiratory exam: Present: normal lung sounds bilaterally. Absent: respiratory distress, wheezes, rales, rhonchi, stridor Cardiovascular Exam: Present: regular rate, normal rhythm, normal heart sounds. Absent: systolic murmur, diastolic murmur, rubs, gallop GI/Abdominal exam: Present: soft. Absent: distended, tenderness, guarding, rebound, rigid, mass Extremities exam: Present: normal inspection, normal capillary refill. Absent: pedal edema, calf tenderness Back exam: Present: normal inspection. Absent: CVA tenderness (R), CVA tenderness (L) Neurological exam: Present: alert Psychiatric exam: Absent: agitated, flat affect, manic, homicidal ideation, suicidal ideation Skin exam: Present: warm, dry, intact, normal color. Absent: rash Course Vital Signs 11/22/23 11/22/23 11/22/23 02:48 04:20 05:34 Temperature 97.8 F Pulse Rate 104 H 83 84 Respiratory 16 19 18 Rate Blood Pressure 116/74 116/81 112/64 O2 Sat by Pulse 96 94 L 93 L Oximetry 11/22/23 11/22/23 06:54 07:27 Temperature 98.7 F Pulse Rate 93 89 Respiratory 19 16 Rate Blood Pressure 111/59 118/85 O2 Sat by Pulse 94 L 95 Oximetry Medical Decision Making - Medical Decision Making Was pt. sent in by a medical professional or institution (, PA, COMMERCIAL LOAN REVIEWER, urgent care, hospital, or group home...) When possible be specific @ -[No] Did you speak to anyone other than the patient for history (EMS, parent, family, police, friend...)? What history was obtained from this source @ -[No] Did you review nursing and triage notes (agree or disagree)? Why? @ -[I reviewed and agree with nursing and triage notes] Were old charts reviewed (outside hosp., previous admission, EMS record, old EKG, old radiological studies, urgent care reports/EKG's, group home records)? Report findings @ -[No old charts were reviewed] Differential Diagnosis (chest pain, altered mental status, abdominal pain women, abdominal pain men, vaginal bleeding, weakness, fever, dyspnea, syncope, headache, dizziness, GI bleed, back pain, seizure, CVA, palpatations, mental health, musculoskeletal)? @ -[Differential Mental Health Depression, anxiety, bipolar, psychosis, schizophrenia, borderline personality, situational depression, adjustment disorder, behavioral disorder, brain tumor, malingering, substance abuse, encephalopathy, medication reaction, dementia, hypothyroidism, degenerative neurologic disorder, lupus.... This is not meant to be all-inclusive list EKG interpreted by me (3pts min.). @ -[As above] X-rays interpreted by me (1pt min.). @ -[None done] CT interpreted by me (1pt min.). @ -[None done] U/S interpreted by me (1pt. min.). @ -[None done] What testing was considered but not performed or refused? (CT, X-rays, U/S, lab s)? Why? @ -[None] What meds were considered but not given or refused? Why? @ -[None] Did you discuss the management of the patient with other professionals (professionals i.e. , PA, COMMERCIAL LOAN REVIEWER, lab, RT, psych nurse, social services director, hotel or motel receptionist, teacher, credit control officer, family independence case manager)? Give summary @ -[No] Was smoking cessation discussed for >3mins.? @ -[No] Was critical care preformed (if so, how long)? @ -[No] Were there social determinants of health that impacted care today? How? (Homelessness, low income, unemployed, alcoholism, drug addiction, transportation, low edu. Level, literacy, decrease access to med. care, group home, rehab)? @ -[No] Was there de-escalation of care discussed even if they declined (Discuss DNR or withdrawal of care, Hospice)? DNR status @ -[No] What co-morbidities impacted this encounter? (DM, HTN, Smoking, COPD, CAD, Cancer, CVA, ARF, Chemo, Hep., AIDS, mental health diagnosis, sleep apnea, morbid obesity)? @ -[None] Was patient admitted / discharged? Hospital course, mention meds given and route, prescriptions, significant lab abnormalities, going to OR and other pertinent info. @ -[Patient is seen and evaluated. At this point does not appear to be developing severe withdrawal, and at this point patient open to trying outpatient management with benzodiazepines. Instructed not to drink with the medications. Discussed return parameters and all questions answered Undiagnosed new problem with uncertain prognosis? @ -[No] Drug Therapy requiring intensive monitoring for toxicity (Heparin, Nitro, Insulin, Cardizem)? @ -[No] Were any procedures done? @ -[No] Diagnosis/symptom? @ -[Alcohol withdrawal Acute, or Chronic, or Acute on Chronic? @ -[Acute Uncomplicated (without systemic symptoms) or Complicated (systemic symptoms)? @ -[default] Side effects of treatment? @ -[No] Exacerbation, Progression, or Severe Exacerbation? @ -[No] Poses a threat to life or bodily function? How? (Chest pain, [place], AL, pneumonia, PE, COPD, DKA, ARF, appy, cholecystitis, CVA, Diverticulitis, Homicidal, Suicidal, threat to staff... and all critical care pts) @ -[No] - Lab Data Result diagrams: 11/22/23 03:07 11/22/23 03:07 Lab Results 11/22/23 11/22/23 Range/Units 03:07 03:07 WBC 7.6 (3.8-10.6) k/uL RBC 4.64 (4.30-5.90) m/uL Hgb 14.6 (13.0-17.5) gm/dL Hct 43.6 (39.0-53.0) % MCV 93.8 (80.0-100.0) fL MCH 31.5 (25.0-35.0) pg MCHC 33.5 (31.0-37.0) g/dL RDW 14.0 (11.5-15.5) % Plt Count 123 L (150-450) k/uL MPV 7.6 Neutrophils % 67 % Lymphocytes % 22 % Monocytes % 7 % Eosinophils % 3 % Basophils % 0 % Neutrophils # 5.1 (1.3-7.7) k/uL Lymphocytes # 1.7 (1.0-4.8) k/uL Monocytes # 0.5 (0-1.0) k/uL Eosinophils # 0.2 (0-0.7) k/uL Basophils # 0.0 (0-0.2) k/uL Sodium 142 (137-145) mmol/L Potassium 4.9 (3.5-5.1) mmol/L Chloride 111 H (98-107) mmol/L Carbon Dioxide 21 L (22-30) mmol/L Anion Gap 10 mmol/L BUN 9 (9-20) mg/dL Creatinine 0.91 (0.66-1.25) mg/dL Est GFR (CKD-EPI)AfAm >90 (>60 ml/min/1.73 sqM) Est GFR (CKD-EPI)NonAf >90 (>60 ml/min/1.73 sqM) Glucose 99 (74-99) mg/dL Calcium 8.1 L (8.4-10.2) mg/dL Magnesium 2.0 (1.6-2.3) mg/dL Serum Alcohol 196 mg/dL Disposition Clinical Impression: Alcohol withdrawal Disposition: HOME SELF-CARE Condition: Good Instructions (If sedation given, give patient instructions): Alcohol Withdrawal (ED) Is patient prescribed a controlled substance at d/c from ED?: No Referrals: Bindu Daniel MD [Primary Care Provider] - 1-2 days
[2023-11-22 07:28] VITALS: BP 118/85; PULSE 89; RESP 16; TEMP 98.7
== END 2023-11-22 07:28 | disposition home or self-care (01) ==
LOC: EC 02:47
DX: F10.239 Alcohol dependence with withdrawal, unspecified (principal); F17.200 Nicotine dependence, unspecified, uncomplicated; Y90.6 Blood alcohol level of 120-199 mg/100 ml
CPT/HCPCS: 36415; 80048; 83735; 85025; 99284; 96360; G0480; 80320

== ENCOUNTER 2023-11-25 04:49 | Inpatient (IN) | payer MEDICARE ==
[2023-11-25] MEDS ORDERED: LORazepam 1 MG TAB PO PRN ×3 (05:07)
[2023-11-25] MEDS ORDERED: LORazepam 0.5 MG TAB PO PRN (05:07)
--- NOTE | 2023-11-25 05:08 | ED ---
Seizure HPI - General Chief Complaint: Recheck/Abnormal Lab/Rx Stated Complaint: Seizures Time Seen by Provider: 11/25/23 05:06 Source: patient, RN notes reviewed, old records reviewed Mode of arrival: ambulatory Limitations: no limitations - History of Present Illness Initial Comments: This is a 48-year-old male to the ER for evaluation today. Patient comes in today for evaluation of seizures and does have recurrent seizure here in the emergency department that makes 2 seizures today may have had some more seizures recently. Patient is currently homeless. Has not been able to take his seizure medications noncompliant MD Complaint: seizure, possible seizure, feel seizure coming on, shaking -: days(s) -: second(s) Witnessed: no Seizure History: known seizure disorder, history of withdrawal seizures, history of non-compliance with treatment Place: home Possible Precipitating Event: none, fever - Related Data Home Medications Medication Instructions Recorded Confirmed Folic Acid 1 mg PO DIRECTED 11/25/23 11/25/23 Lacosamide [Vimpat] 200 mg PO DIRECTED 11/25/23 11/25/23 Multivitamins, Thera [Multivitamin 1 tab PO DIRECTED 11/25/23 11/25/23 (formulary)] lamoTRIgine [LaMICtal] 100 mg PO DIRECTED 11/25/23 11/25/23 Previous Rx's Medication Instructions Recorded Pantoprazole [Protonix] 40 mg PO DAILY #30 tab 11/12/23 Tamsulosin [Flomax] 0.4 mg PO HS #30 cap 11/12/23 levETIRAcetam [Keppra] 1,500 mg PO BID #60 tab 11/12/23 Allergies Allergy/AdvReac Type Severity Reaction Status Date / Time No Known Allergies Allergy Verified 11/25/23 07:59 Review of Systems ROS Statement: Those systems with pertinent positive or pertinent negative responses have been documented in the HPI. ROS Other: All systems not noted in ROS Statement are negative. Past Medical History Past Medical History: Seizure Disorder History of Any Multi-Drug Resistant Organisms: None Reported Additional Past Surgical History / Comment(s): MOUTH SURGERY Past Anesthesia/Blood Transfusion Reactions: No Reported Reaction Past Psychological History: Anxiety, Depression Smoking Status: Current every day smoker Past Alcohol Use History: Daily, Heavy Past Drug Use History: None Reported - Past Family History Mother Family Medical History: Unable to Obtain, Cancer Additional Family Medical History / Comment(s): lung cancer Father Family Medical History: No Reported History General Exam Limitations: no limitations General appearance: alert, anxious, in distress Head exam: Present: atraumatic, normocephalic, normal inspection Eye exam: Present: normal appearance, PERRL, EOMI. Absent: scleral icterus, conjunctival injection, periorbital swelling ENT exam: Present: normal exam, mucous membranes moist Neck exam: Present: normal inspection. Absent: tenderness, meningismus, lymphadenopathy Respiratory exam: Present: normal lung sounds bilaterally. Absent: respiratory distress, wheezes, rales, rhonchi, stridor Cardiovascular Exam: Present: normal rhythm, tachycardia, normal heart sounds. Absent: systolic murmur, diastolic murmur, rubs, gallop, clicks GI/Abdominal exam: Present: soft, normal bowel sounds. Absent: distended, tenderness, guarding, rebound, rigid Extremities exam: Present: normal inspection, full ROM, normal capillary refill. Absent: tenderness, pedal edema, joint swelling, calf tenderness Back exam: Present: normal inspection Neurological exam: Present: alert, oriented X3, CN II-XII intact Psychiatric exam: Present: normal affect, normal mood Skin exam: Present: warm, dry, intact, normal color. Absent: rash Course Vital Signs 11/25/23 11/25/23 11/25/23 04:58 05:49 07:34 Temperature 97.3 F L Pulse Rate 112 H 96 122 H Respiratory 16 19 20 Rate Blood Pressure 141/94 130/84 O2 Sat by Pulse 95 95 96 Oximetry 11/25/23 11/25/23 11/25/23 09:34 11:38 14:05 Temperature 99.1 F Pulse Rate 101 H 104 H 144 H Respiratory 20 18 22 Rate Blood Pressure 139/79 143/109 147/102 O2 Sat by Pulse 96 95 92 L Oximetry 11/25/23 11/25/23 11/25/23 14:44 18:00 18:43 Temperature 97.7 F Pulse Rate 98 100 101 H Respiratory 18 20 Rate Blood Pressure 145/90 147/96 152/109 O2 Sat by Pulse 100 96 97 Oximetry 11/25/23 19:00 Temperature Pulse Rate 104 H Respiratory 18 Rate Blood Pressure 149/91 O2 Sat by Pulse 96 Oximetry - Reevaluation(s) Reevaluation #1: 11/25/23 06:44 Medical records reviewed Reevaluation #2: 11/25/23 06:44 Symptoms improving Reevaluation #3: 11/25/23 06:44 Patient informed of results and questions answered Reevaluation #4: Was pt. sent in by a medical professional or institution (MISTY Nicholson, [employer]CHITECT, urgent care, hospital, or alf...) When possible be specific @ -no Did you speak to anyone other than the patient for history (EMS, parent, family, police, friend...)? What history was obtained from this source @ -no Did you review nursing and triage notes (agree or disagree)? Why? @ -agree Are old charts reviewed (outside hosp., previous admission, EMS record, old EKG, old radiological studies, urgent care reports/EKG's, alf records)? Report findings @ -yes Differential Diagnosis (chest pain, altered mental status, abdominal pain women, abdominal pain men, vaginal bleeding, weakness, fever, dyspnea, syncope, headache, dizziness, GI bleed, back pain, seizure, CVA, palpatations, mental health, musculoskeletal)? @ -prior EKG interpreted by me (3pts min.). @ -yes X-rays interpreted by me (1pt min.). @ -yes negative for acute disease CT interpreted by me (1pt min.). @ -no U/S interpreted by me (1pt. min.). @ -no What testing was considered but not performed or refused? (CT, X-rays, U/S, labs)? Why? @ -none What meds were considered but not given or refused? Why? @ -none Did you discuss the management of the patient with other professionals (p eileenfessionaljana i.e. MISTY Nicholson, [employer] ARCHITECT, lab, RT, psych nurse, social welfare administrator, senior technical manager, teacher, emergency communications officer, manager case)? Give summary @ -no Was smoking cessation discussed for >3mins.? @ -no Was critical care preformed (if so, how long)? @ -no Were there social determinants of health that impacted care today? How? (Homelessness, low income, unemployed, alcoholism, drug addiction, transportation, low edu. Level, literacy, decrease access to med. care, snf, rehab)? @ -none Was there de-escalation of care discussed even if they declined (Discuss DNR or withdrawal of care, Hospice)? DNR status @ -no What co-morbidities impacted this encounter? (DM, HTN, Smoking, COPD, CAD, Cancer, CVA, ARF, Chemo, Hep., AIDS, mental health diagnosis, sleep apnea, morbid obesity)? @ -none Was patient admitted / discharged? Hospital course, mention meds given and route, prescriptions, significant lab abnormalities, going to OR and other pertinent info. @ - 48 male with seizure recurrent seizures possible withdrawal seizures and noncompliance. Patient will be admitted on antiepileptics Admitted Undiagnosed new problem with uncertain prognosis? @ -no Drug Therapy requiring intensive monitoring for toxicity (Heparin, Nitro, Insulin, Cardizem)? @ -no Were any procedures done? @ -no Diagnosis/symptom? @ -Current seizure Acute, or Chronic, or Acute on Chronic? @ -Acute Uncomplicated (without systemic symptoms) or Complicated (systemic symptoms)? @ -Complicated Side effects of treatment? @ -no Exacerbation, Progression, or Severe Exacerbation? @ -exacerbation Poses a threat to life or bodily function? How? (Chest pain, USA, ID, pneumonia, PE, COPD, DKA, ARF, appy, cholecystitis, CVA, Diverticulitis, Homicidal, Suicidal, threat to staff... and all critical care pts) @ -yes recurrent seizures and status Reevaluation #5: Differential Seizure: Recurrent seizure disorder, febrile seizure, alcohol withdrawal, stimulants, meningitis, encephalitis, intercranial hemorrhage, intracranial tumor, stroke, eclampsia, thyrotoxicosis, hypocalcemia, hyponatremia, hypernatremia, hypomagnesemia, psychogenic, this is not meant to be an all-inclusive list. - Consultations Consultation #1: Spoke with [facility] who agreed to admit this patient Medical Decision Making - Medical Decision Making 48 male with seizure recurrent seizures possible withdrawal seizures and noncompliance. Patient will be admitted on antiepileptics - Lab Data Result diagrams: 11/26/23 05:57 11/26/23 05:57 Lab Results 11/25/23 11/25/23 Range/Units 05:25 06:01 WBC 6.7 (3.8-10.6) k/uL RBC 5.01 (4.30-5.90) m/uL Hgb 15.9 (13.0-17.5) gm/dL Hct 48.1 (39.0-53.0) % MCV 96.1 (80.0-100.0) fL MCH 31.6 (25.0-35.0) pg MCHC 32.9 (31.0-37.0) g/dL RDW 14.5 (11.5-15.5) % Plt Count 108 L (150-450) k/uL MPV 6.8 Neutrophils % 79 % Lymphocytes % 11 % Monocytes % 4 % Eosinophils % 4 % Basophils % 0 % Neutrophils # 5.3 (1.3-7.7) k/uL Lymphocytes # 0.8 L (1.0-4.8) k/uL Monocytes # 0.3 (0-1.0) k/uL Eosinophils # 0.3 (0-0.7) k/uL Basophils # 0.0 (0-0.2) k/uL Sodium 142 (137-145) mmol/L Potassium 3.7 (3.5-5.1) mmol/L Chloride 110 H (98-107) mmol/L Carbon Dioxide 22 (22-30) mmol/L Anion Gap 10 mmol/L BUN 7 L (9-20) mg/dL Creatinine 0.76 (0.66-1.25) mg/dL Est GFR (CKD-EPI)AfAm >90 (>60 ml/min/1.73 sqM) Est GFR (CKD-EPI)NonAf >90 (>60 ml/min/1.73 sqM) Glucose 100 H (74-99) mg/dL Calcium 7.9 L (8.4-10.2) mg/dL Phosphorus 3.5 (2.5-4.5) mg/dL Magnesium 1.6 (1.6-2.3) mg/dL Total Bilirubin 0.6 (0.2-1.3) mg/dL AST 43 (17-59) U/L ALT 36 (4-49) U/L Alkaline Phosphatase 108 (38-126) U/L Total Protein 6.2 L (6.3-8.2) g/dL Albumin 3.6 (3.5-5.0) g/dL Lipase 89 (23-300) U/L Salicylates <1.0 mg/dL Acetaminophen <10.0 ug/mL Serum Alcohol 200 mg/dL Disposition Clinical Impression: Alcohol withdrawal seizure, Seizure, Noncompliance Disposition: ADMITTED IP TO THIS HOSP Condition: Stable Is patient prescribed a controlled substance at d/c from ED?: No Time of Disposition: 06:45
[2023-11-25] MEDS: SODIUM CHLORIDE 0.9% 1,000 ML IV STA ×2 (05:29→05:32)
[2023-11-25 05:34] LABS: Basophils % (A) 0 %; Eosinophils # (A) 0.3 k/uL (0-0.7); Eosinophils % (A) 4 %; HCT 48.1 % (39.0-53.0); HGB 15.9 gm/dL (13.0-17.5); Lymphocytes # (A) 0.8 k/uL (1.0-4.8); Lymphocytes % (A) 11 %; MCH 31.6 pg (25.0-35.0); MCHC 32.9 g/dL (31.0-37.0); MCV 96.1 fL (80.0-100.0); Mean Platelet Volume 6.8; Monocytes # (A) 0.3 k/uL (0-1.0); Monocytes % (A) 4 %; Neutrophils # (A) 5.3 k/uL (1.3-7.7); Neutrophils % (A) 79 %; Platelet Count 108 k/uL (150-450); RBC 5.01 m/uL (4.30-5.90); RDW 14.5 % (11.5-15.5); WBC 6.7 k/uL (3.8-10.6)
[2023-11-25] MEDS: SODIUM CHLORIDE 0.9% 500 ML 500 ML IV STA (05:34)
[2023-11-25] MEDS: LORazepam 2 MG/ML INJ IV STA (05:36)
[2023-11-25] MEDS ORDERED: NALOXONE 0.4 MG/ML 1 ML VIAL IV PRN (06:40)
[2023-11-25 06:46] LABS: ALT 36 U/L (4-49); AST 43 U/L (17-59); Acetaminophen <10.0 ug/mL; African American GFR (CKD) >90 (>60 ml/min/1.73 sqM); Albumin 3.6 g/dL (3.5-5.0); Alkaline Phosphatase 108 U/L (38-126); Anion Gap 10 mmol/L; Blood Urea Nitrogen 7 mg/dL (9-20); Calcium 7.9 mg/dL (8.4-10.2); Carbon Dioxide 22 mmol/L (22-30); Chloride 110 mmol/L (98-107); Glucose 100 mg/dL (74-99); Lipase 89 U/L (23-300); Magnesium 1.6 mg/dL (1.6-2.3); Non-African American GFR(CKD) >90 (>60 ml/min/1.73 sqM); Phosphorus 3.5 mg/dL (2.5-4.5); Potassium 3.7 mmol/L (3.5-5.1); Salicylate <1.0 mg/dL; Sodium 142 mmol/L (137-145); Total Bilirubin 0.6 mg/dL (0.2-1.3); Total Protein 6.2 g/dL (6.3-8.2)
[2023-11-25] MEDS: SODIUM CHLORIDE 0.9% 1,000 ML IV SCH (06:46)
[2023-11-25] MEDS: levETIRAcetam IV 500 MG/5 ML VIAL IVP STA (06:54)
[2023-11-25 07:00] LABS: Alcohol 200 mg/dL
[2023-11-25] MEDS: LORazepam 2 MG/ML INJ IV PRN ×3 (09:32→18:09)
--- NOTE | 2023-11-25 12:17 | P.HPIM ---
History of Present Illness Patient with alcohol abuse history of multiple hospitalizations in the past for the same comes in with alcohol intoxication serum alcohol level of 225 patient also had seizures today morning. Patient states he drinks about 4 24 ounce beer every day patient is willing to quit. Patient also has history of seizure disorder appears to be noncompliant is on 3 medications for seizures which includes Lamictal lacosamide and levetiracetam. REVIEW OF SYSTEMS: All other systems are negative except those mentioned in the HPI PHYSICAL EXAMINATION: GENERAL: The patient is alert and oriented x3, not in any acute distress. Well developed, well nourished. Patient does not have any active withdrawals at this time HEENT: Pupils are round and equally reacting to light. EOMI. No scleral icterus. No conjunctival pallor. Normocephalic, atraumatic. No pharyngeal erythema. No thyromegaly. CARDIOVASCULAR: S1 and S2 present. No murmurs, rubs, or gallops. PULMONARY: Chest is clear to auscultation, no wheezing or crackles. ABDOMEN: Soft, nontender, nondistended, normoactive bowel sounds. No palpable organomegaly. MUSCULOSKELETAL: No joint swelling or deformity. EXTREMITIES: No cyanosis, clubbing, or pedal edema. NEUROLOGICAL: Gross neurological examination did not reveal any focal deficits. SKIN: No rashes. Assessment and plan Breakthrough seizure/alcohol withdrawal seizures patient will was given IV Keppra, Keppra levels are being obtained, Lamictal and Vimpat are being ordered neurology was consulted patient is on Ativan CIWA protocol. -Physical and psychological dependence on alcohol -Seizure disorder -Gastroesophageal reflux disease: Protonix- DVT prophylaxis: Lovenox Past Medical History Past Medical History: Seizure Disorder History of Any Multi-Drug Resistant Organisms: None Reported Additional Past Surgical History / Comment(s): MOUTH SURGERY Past Anesthesia/Blood Transfusion Reactions: No Reported Reaction Past Psychological History: Anxiety, Depression Smoking Status: Current every day smoker Past Alcohol Use History: Daily, Heavy Past Drug Use History: None Reported - Past Family History Mother Family Medical History: Unable to Obtain, Cancer Additional Family Medical History / Comment(s): lung cancer Father Family Medical History: No Reported History Medications and Allergies Home Medications Medication Instructions Recorded Confirmed Type Pantoprazole [Protonix] 40 mg PO DAILY #30 tab 11/12/23 11/25/23 Rx Tamsulosin [Flomax] 0.4 mg PO HS #30 cap 11/12/23 11/25/23 Rx levETIRAcetam [Keppra] 1,500 mg PO BID #60 tab 11/12/23 11/25/23 Rx Folic Acid 1 mg PO DIRECTED 11/25/23 11/25/23 History Lacosamide [Vimpat] 200 mg PO DIRECTED 11/25/23 11/25/23 History Multivitamins, Thera [Multivitamin 1 tab PO DIRECTED 11/25/23 11/25/23 History (formulary)] lamoTRIgine [LaMICtal] 100 mg PO DIRECTED 11/25/23 11/25/23 History Allergies Allergy/AdvReac Type Severity Reaction Status Date / Time No Known Allergies Allergy Verified 11/25/23 07:59 Physical Exam Vitals: Vital Signs Temp Pulse Resp BP Pulse Ox 11/25/23 11:38 99.1 F 104 H 18 143/109 95 11/25/23 09:34 101 H 20 139/79 96 11/25/23 07:34 122 H 20 96 11/25/23 05:49 96 19 130/84 95 11/25/23 04:58 97.3 F L 112 H 16 141/94 95 Intake and Output 11/24/23 11/25/23 11/25/23 22:59 06:59 14:59 Other: Weight 90.718 kg Results CBC & Chem 7: 11/25/23 05:25 11/25/23 06:01 Labs: Abnormal Lab Results - Last 24 Hours (Table) 11/25/23 11/25/23 Range/Units 05:25 06:01 Plt Count 108 L (150-450) k/uL Lymphocytes # 0.8 L (1.0-4.8) k/uL Chloride 110 H (98-107) mmol/L BUN 7 L (9-20) mg/dL Glucose 100 H (74-99) mg/dL Calcium 7.9 L (8.4-10.2) mg/dL Total Protein 6.2 L (6.3-8.2) g/dL
[2023-11-25] MEDS: FOLIC ACID 1 MG TAB PO SCH (12:30)
[2023-11-25] MEDS: MULTIVITAMINS, THERA 1 EACH TAB PO SCH (12:30)
[2023-11-25] MEDS: ENOXAPARIN 40 MG/0.4 ML SYRINGE SQ SCH (12:31)
[2023-11-25] MEDS ORDERED: diazePAM 5 MG TAB PO PRN (14:48)
[2023-11-25] MEDS: lamoTRIgine 100 MG TAB PO SCH (15:53)
--- NOTE | 2023-11-25 18:40 | P.CNNES ---
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 Patient had a seizure in the ER as well. In the ER report, it was mentioned that patient is homeless, and he was not taking his medication regularly. This may have resulted in seizure. Patient was also intoxicated. Patient states that he has history of seizure disorder since he was a "baby". His seizures went in remission at age 14 but then reappeared at age 28. He states that he follows up with neurologist Tonia Wolff. He gets seizures once in a while. Patient has longstanding history of alcoholism, since he was age 16. At present he drinks about 4 of 24 ounce beer cans. He does not drink hard liquor. He came because of a seizure. He did bite his tongue but did not lose control of urine although sometimes he does. His seizures are grand mal. Vital signs on arrival blood pressure 141/94, which came down to 130/84, pulse rate of 112, temperature 97.3. Blood test shows normal CBC with MCV 96.1, normal electrolytes, renal functions, hepatic panel. Blood alcohol level is elevated 200. Patient had multiple admissions to the hospital for alcohol intoxication. Most recent 1 was on 11/22/2023. Patient was seen by Dr. Goodman in consultation on 11/09/2023 patient was taking Keppra 1500 mg twice a day, Lamictal 100 mg twice daily and Vimpat 200 mg twice daily. Patient has mentioned that he has been compliant with the medication, and at that time Dr. Goodman increase dose of Lamictal from 100 mg twice daily to 150 mg twice daily. Patient however is still on Lamictal 100 mg twice daily. Patient denies any family history of epilepsy. He has smoked 1 pack/day since age 19. He has history of alcoholism as mentioned above. No use of drugs. He lives by himself has no children. He is on disability because of epilepsy. Review of Systems Constitutional: Reports weight loss, Denies chills, Denies fever Eyes: denies blurred vision, denies pain, denies loss of vision Ears: deny: decreased hearing, ear discharge Ears, nose, mouth and throat: Denies headache, Denies sore throat Cardiovascular: Denies chest pain, Denies shortness of breath Respiratory: Denies cough, Denies excessive sputum Gastrointestinal: Denies abdominal pain, Denies diarrhea, Denies nausea, Denies vomiting Genitourinary: Denies dysuria, Denies incontinence Musculoskeletal: Denies low back pain, Denies myalgias, Denies neck pain Integumentary: Denies pruritus, Denies rash Neurological: Reports as per HPI Psychiatric: Reports anxiety, Reports depression Past Medical History Past Medical History: Seizure Disorder History of Any Multi-Drug Resistant Organisms: None Reported Additional Past Surgical History / Comment(s): MOUTH SURGERY Past Anesthesia/Blood Transfusion Reactions: No Reported Reaction Past Psychological History: Anxiety, Depression Smoking Status: Current every day smoker Past Alcohol Use History: Daily, Heavy Past Drug Use History: None Reported - Past Family History Mother Family Medical History: Unable to Obtain, Cancer Additional Family Medical History / Comment(s): lung cancer Father Family Medical History: No Reported History Medications and Allergies Home Medications Medication Instructions Recorded Confirmed Type Pantoprazole [Protonix] 40 mg PO DAILY #30 tab 11/12/23 11/25/23 Rx Tamsulosin [Flomax] 0.4 mg PO HS #30 cap 11/12/23 11/25/23 Rx levETIRAcetam [Keppra] 1,500 mg PO BID #60 tab 11/12/23 11/25/23 Rx Folic Acid 1 mg PO DIRECTED 11/25/23 11/25/23 History Lacosamide [Vimpat] 200 mg PO DIRECTED 11/25/23 11/25/23 History Multivitamins, Thera [Multivitamin 1 tab PO DIRECTED 11/25/23 11/25/23 History (formulary)] lamoTRIgine [LaMICtal] 100 mg PO DIRECTED 11/25/23 11/25/23 History Allergies Allergy/AdvReac Type Severity Reaction Status Date / Time No Known Allergies Allergy Verified 11/25/23 07:59 Physical Examination - Vital Signs Vital Signs: Vital Signs Temp Pulse Resp BP Pulse Ox 11/25/23 11:38 99.1 F 104 H 18 143/109 95 11/25/23 09:34 101 H 20 139/79 96 11/25/23 07:34 122 H 20 96 11/25/23 05:49 96 19 130/84 95 11/25/23 04:58 97.3 F L 112 H 16 141/94 95 Intake and Output 11/24/23 11/25/23 11/25/23 22:59 06:59 14:59 Other: Weight 90.718 kg Patient is a middle aged male, in no acute distress. Patient is quite groggy, and somnolent, partly from alcohol intoxication and partly from receiving Ativan. Speech and language functions are normal. Patient can name and repeat very well. No aphasia or dysarthria. Attention, concentration is decreased because of somnolence and fund of knowledge is adequate. On cranial nerve examination, pupils are equal, round and reacting to light, visual ozuna are full on confrontation, with no neglect on double simultaneous stimulation. Extraocular muscles are intact with no nystagmus. Face is symm etric, tongue protrudes to the midline. Palatal elevation and sensation normal, hearing and shoulder shrug normal, facial sensation normal. On muscle strength testing, there is no pronator drift and the strength is normal in arms and legs distally and proximally. There is mild shakiness of the outstretched hands. Deep tendon reflexes are symmetric to all over in the arms and legs and plantars downgoing. Sensory to touch is equal with no neglect on double simultaneous stimulation. Cerebellar function showed no ataxia for [id number] testing. No dysdiadochokinesia. Mild ataxia for [id number] testing on either side. Tone and bulk of muscles normal. Gait deferred.. On general examination, there is no carotid bruit or murmur, S1-S2 audible. Chest is clear on consultation. Abdomen is soft nontender. No organomegaly, bowel sounds present. Peripheral pulses are present. No peripheral edema. Results - Laboratory Findings CBC and BMP: 11/25/23 05:25 11/25/23 06:01 Abnormal Lab Findings: Abnormal Labs 11/25/23 11/25/23 05:25 06:01 Plt Count 108 L Lymphocytes # 0.8 L Chloride 110 H BUN 7 L Glucose 100 H Calcium 7.9 L Total Protein 6.2 L Assessment and Plan Assessment: * Breakthrough seizure, likely due to acute alcohol intoxication. * History of epilepsy since childhood. * Chronic alcoholism * Chronic tobacco use Plan: * Patient's seizure was likely related to alcohol intoxication with blood alcohol level of 200. * It is uncertain if patient is compliant with the medication. ED report mentions that patient is homeless and is not taking medication regularly. * We will check Keppra level and Lamictal level. * Watch for delirium tremens. * Thiamine, folate, multivitamins. * Patient informed of [place] state law of no driving unless seizure-free for 6 months, climbing ladders, operating dangerous machinery or unsupervised swimming. * Neurology will follow.
[2023-11-25] MEDS ORDERED: levETIRAcetam IV 500 MG/5 ML VIAL IVP SCH (21:00)
[2023-11-25] MEDS: LACOSAMIDE 50 MG TABLET PO SCH (21:39)
[2023-11-25] MEDS: TAMSULOSIN 0.4 MG CAP.ER.24H PO SCH (21:40)
[2023-11-25] MEDS: levETIRAcetam IV 500 MG/5 ML VIAL IVP SCH (22:05)
[2023-11-26] MEDS: PANTOPRAZOLE 40 MG TABLET PO SCH (06:10)
[2023-11-26 06:19] LABS: Basophils % (A) 0 %; Eosinophils # (A) 0.1 k/uL (0-0.7); Eosinophils % (A) 3 %; HCT 46.1 % (39.0-53.0); HGB 15.6 gm/dL (13.0-17.5); Lymphocytes # (A) 0.5 k/uL (1.0-4.8); Lymphocytes % (A) 10 %; MCH 31.5 pg (25.0-35.0); MCHC 33.9 g/dL (31.0-37.0); MCV 92.9 fL (80.0-100.0); Mean Platelet Volume 6.7; Monocytes # (A) 0.3 k/uL (0-1.0); Monocytes % (A) 5 %; Neutrophils # (A) 4.3 k/uL (1.3-7.7); Neutrophils % (A) 80 %; Platelet Count 106 k/uL (150-450); RBC 4.96 m/uL (4.30-5.90); RDW 13.9 % (11.5-15.5); WBC 5.4 k/uL (3.8-10.6)
[2023-11-26 06:39] LABS: ALT 35 U/L (4-49); AST 39 U/L (17-59); African American GFR (CKD) >90 (>60 ml/min/1.73 sqM); Albumin 3.7 g/dL (3.5-5.0); Alkaline Phosphatase 92 U/L (38-126); Anion Gap 5 mmol/L; Blood Urea Nitrogen 5 mg/dL (9-20); Calcium 8.6 mg/dL (8.4-10.2); Carbon Dioxide 26 mmol/L (22-30); Chloride 108 mmol/L (98-107); Glucose 98 mg/dL (74-99); Magnesium 1.7 mg/dL (1.6-2.3); Non-African American GFR(CKD) >90 (>60 ml/min/1.73 sqM); Phosphorus 2.2 mg/dL (2.5-4.5); Potassium 3.6 mmol/L (3.5-5.1); Sodium 139 mmol/L (137-145); Total Protein 6.7 g/dL (6.3-8.2)
[2023-11-26] MEDS: LORazepam 1 MG TAB PO PRN (08:45)
[2023-11-26 10:45] VITALS: BP 134/95; PULSE 94; RESP 16; TEMP 97.9
[2023-11-27 07:10] LABS: Levetiracetam (Keppra) 6.6 ug/mL (3.0-60.0)
[2023-11-27 10:55] LABS: Lamotrigine (Lamictal) 1.5 ug/mL (2.0-15.0)
--- NOTE | 2023-11-28 06:43 | P.DS ---
Providers Date of admission: 11/25/23 06:42 Expected date of discharge: 11/26/23 Attending physician: Valeri Daly Consults: 11/25/23 06:40 Consult Physician Routine Consulting Provider: Job Goodman Consult Reason/Comments: sanjuana,[email or web address] Do you want consulting provider notified?: Yes Primary care physician: Meagan Alejo [facility] Course: Final diagnosis -Breakthrough seizure/alcohol withdrawal seizures -Noncompliance to medications and follow-up -Physical and psychological dependence on alcohol with continued daily use -Seizure disorder -Gastroesophageal reflux disease -GI prophylaxis -DVT prophylaxis -Full code Discharge disposition Patient has left AGAINST MEDICAL ADVICE. Risks versus benefits were explained including and patient proceeded to leave . Patient will follow-up with Dr. Claudy Daly in the outpatient setting upon discharge. Patient is to continue with [facility] follow-up outpatient as scheduled. Total time taken is greater than 35 minutes. Hospital course This is a 48-year-old male who was recently admitted with breakthrough seizure with alcohol withdrawal seizures being closely monitored. Patient undergoing neurological workup although has proceeded to request to leave AGAINST MEDICAL ADVICE. Risk versus benefits were explained patient verbalized understanding. Patient is alert and oriented x 3 steady gait. Patient instructed to follow-up with primary care provider as well as alcohol inpatient rehab. Patient is not expressing a desire to quit alcohol time. Consultation notes for further HPI. Currently no reports of chest pain, shortness of breath, or palpitations. Patient is afebrile. No reports of nausea or vomiting and patient is tolerating diet. Patient is leaving AGAINST MEDICAL ADVICE while undergoing neurological workup for seizure. Physical exam: Gen: This is a 48-year-old male who is awake, alert and oriented x 3, well- developed, well-nourished HEENT: Head is atraumatic, normocephalic. Pupils equal, round. Sclerae is anicteric. NECK: Supple. No JVD. No lymphadenopathy. No thyromegaly. LUNGS: Clear to auscultation. No wheezes or rhonchi. No intercostal retractions. HEART: Regular rate and rhythm. No murmur. ABDOMEN: Soft. Bowel sounds are present. No masses. No tenderness. EXTREMITIES: No pedal edema. No calf tenderness. NEUROLOGICAL: Patient is awake, alert and oriented x3. Cranial nerves 2 through 12 are grossly intact. Please refer to medication reconciliation sheet for a list of medications. The impression and plan of care has been dictated by Nurse Robb Hatfield as directed. Dr. Redd MD I have performed a history and examination and MDM of this patient, discussed the same with the dictator, and agree with the dictator's assessment and plan a s written ,documented as a scribe. Based on total visit time, I have performed more than 50% of the visit. Patient Condition at Discharge: Stable Plan - Discharge Summary Discharge Rx Participant: No New Discharge Prescriptions: No Action Tamsulosin [Flomax] 0.4 mg PO HS #30 cap Pantoprazole [Protonix] 40 mg PO DAILY #30 tab Folic Acid 1 mg PO DIRECTED lamoTRIgine [LaMICtal] 100 mg PO DIRECTED Lacosamide [Vimpat] 200 mg PO DIRECTED Multivitamins, Thera [Multivitamin (formulary)] 1 tab PO DIRECTED levETIRAcetam [Keppra] 1,500 mg PO BID #60 tab Discharge Medication List Pantoprazole [Protonix] 40 mg PO DAILY #30 tab 11/12/23 [Rx] Tamsulosin [Flomax] 0.4 mg PO HS #30 cap 11/12/23 [Rx] levETIRAcetam [Keppra] 1,500 mg PO BID #60 tab 11/12/23 [Rx] Folic Acid 1 mg PO DIRECTED 11/25/23 [History] Lacosamide [Vimpat] 200 mg PO DIRECTED 11/25/23 [History] Multivitamins, Thera [Multivitamin (formulary)] 1 tab PO DIRECTED 11/25/23 [History] lamoTRIgine [LaMICtal] 100 mg PO DIRECTED 11/25/23 [History] Follow up Appointment(s)/Referral(s): Kristy Wolff FNPBC [REFERRING] - 1-2 days Discharge Disposition: LEFT AGAINST MEDICAL ADVICE
== END 2023-11-26 09:53 | disposition left against medical advice (07) | DRG 101 ==
LOC: EC 04:49 → 5NMEDONC 06:42 → 3SCARD 15:24
PROVIDERS: ADMIT Hospitalist; ATTEND Hospitalist
DX: G40.509 Epileptic seizures related to external causes, not intractable, without status epilepticus (principal); F10.239 Alcohol dependence with withdrawal, unspecified; Z59.00 Homelessness unspecified; F10.229 Alcohol dependence with intoxication, unspecified; G40.909 Epilepsy, unspecified, not intractable, without status epilepticus; Y90.7 Blood alcohol level of 200-239 mg/100 ml; Z91.148 Patient's other noncompliance with medication regimen for other reason; T42.6X6A Underdosing of other antiepileptic and sedative-hypnotic drugs, initial encounter; K21.9 Gastro-esophageal reflux disease without esophagitis; F41.9 Anxiety disorder, unspecified; F32.A Depression, unspecified; F17.200 Nicotine dependence, unspecified, uncomplicated; Z79.899 Other long term (current) drug therapy
CPT/HCPCS: 36415; 80053; 80143; 80175; 80177; 80179; 80320; 83690; 83735; 84100; 85025; 96372; 96374; 96375; 96376; 99285

== ENCOUNTER 2023-12-02 08:48 | Emergency (ER) | payer MEDICARE ==
[2023-12-02 08:54] VITALS: TEMP 98
[2023-12-02] MEDS ORDERED: LORazepam 2 MG/ML INJ IV PRN ×3 (08:55)
[2023-12-02] MEDS: SODIUM CHLORIDE 0.9% 1,000 ML IV STA (08:58)
[2023-12-02] MEDS: LORazepam 2 MG/ML INJ IV STA (09:00)
[2023-12-02] MEDS: THIAMINE 100 MG/ML 2 ML VIAL IM STA (09:01)
[2023-12-02] MEDS: levETIRAcetam IV 500 MG/5 ML VIAL IVP STA (09:02)
--- NOTE | 2023-12-02 09:05 | ED ---
General Adult HPI - General Chief complaint: Seizure Stated complaint: Seizure Time Seen by Provider: 12/02/23 08:48 Source: patient, EMS, RN notes reviewed, old records reviewed Mode of arrival: EMS - History of Present Illness Initial comments: Patient is a 48-year-old male who presents emergency department complaining of seizure. Patient has a known history of seizures as well as alcohol abuse. States he has not been compliant with his medications since he was discharged from the hospital approximately 1 week ago. This is due to him being unable to fill his prescriptions for some issue. States he felt like he was about to have a seizure when he sat down and then next thing he knew he was in the ambulance. When the ambulance arrived, patient was unresponsive but breathing and slowly he came around and seemed postictal and confused. Currently is ANO x 4. States he believes he had a seizure as he feels like he did. This would fit as he has not been taking his medications. Denies any pain however patient does have a laceration to the left eyebrow. Is not on blood thinners. No other acute complaints at this time. Presents for further evaluation. States he does have a history of alcohol withdrawals. - Related Data Home Medications Medication Instructions Recorded Confirmed Folic Acid 1 mg PO DIRECTED 11/25/23 12/02/23 Lacosamide [Vimpat] 200 mg PO DIRECTED 11/25/23 12/02/23 Multivitamins, Thera [Multivitamin 1 tab PO DIRECTED 11/25/23 12/02/23 (formulary)] lamoTRIgine [LaMICtal] 100 mg PO DIRECTED 11/25/23 12/02/23 Previous Rx's Medication Instructions Recorded Pantoprazole [Protonix] 40 mg PO DAILY #30 tab 11/12/23 Tamsulosin [Flomax] 0.4 mg PO HS #30 cap 11/12/23 levETIRAcetam [Keppra] 1,500 mg PO BID #60 tab 11/12/23 Lacosamide [Vimpat] 200 mg PO BID 30 Days #60 tablet 12/02/23 lamoTRIgine [LaMICtal] 100 mg PO BID 30 Days #60 tab 12/02/23 levETIRAcetam [Keppra] 1,500 mg PO BID 30 Days #120 tab 12/02/23 Allergies Allergy/AdvReac Type Severity Reaction Status Date / Time No Known Allergies Allergy Verified 12/02/23 09:30 Review of Systems ROS Statement: Those systems with pertinent positive or pertinent negative responses have been documented in the HPI. Review of Systems: CONST: Denies fever EYES: Denies blurry vision ENT: Denies nasal congestion C/V: Denies Chest pain RESP: Denies shortness of breath GI: Denies abdominal pain : Denies dysuria SKIN: Denies rash. MSK: Denies joint pain. NEURO: Denies headache ROS Other: All systems not noted in ROS Statement are negative. Past Medical History Past Medical History: Seizure Disorder History of Any Multi-Drug Resistant Organisms: None Reported Additional Past Surgical History / Comment(s): MOUTH SURGERY Past Anesthesia/Blood Transfusion Reactions: No Reported Reaction Past Psychological History: Anxiety, Depression Smoking Status: Current every day smoker Past Alcohol Use History: Daily, Heavy Past Drug Use History: None Reported - Past Family History Mother Family Medical History: Unable to Obtain, Cancer Additional Family Medical History / Comment(s): lung cancer Father Family Medical History: No Reported History General Exam - General Exam Comments Initial Comments: General: Appears in no acute distress. Does appear mildly intoxicated as well as possibly mild alcohol withdrawals with extremity tremors and tongue fasciculations. HEAD: Normal with no signs of head trauma. EYES: PERRLA, EOMI, conjunctiva normal, no discharge. Pupils are 3 mm and equal bilaterally. ENT: Hearing grossly intact, normal oropharynx. RESPIRATORY: Clear breath sounds bilaterally. No wheezes, rales, or rhonchi. C/V: Regular rate and rhythm. S1 and S2 auscultated, no edema, peripheral pulses 2+ and intact throughout ABD: Abd is soft, nontender, nondistended EXT: Normal range of motion, no obvious deformity. No midline spinal tenderness to palpation. SKIN: Left eyebrow abrasion. NEURO: Alert and oriented x 4. GCS of 15. No focal deficits. Course Vital Signs 12/02/23 12/02/23 12/02/23 08:51 12:03 12:49 Temperature 98 F Pulse Rate 112 H 86 91 Respiratory 20 18 18 Rate Blood Pressure 143/97 114/89 150/107 O2 Sat by Pulse 97 99 98 Oximetry Medical Decision Making - Medical Decision Making Was pt. sent in by a medical professional or institution (MISTY Nicholson, CAR DUMPER OPERATOR HELPER, urgent care, hospital, or care home...) When possible be specific @ -No Did you speak to anyone other than the patient for history (EMS, parent, family, police, friend...)? What history was obtained from this source @ -I spoke with EMS who provided transport history for the patient as well as what they found when they arrived to pick him up. Did you review nursing and triage notes (agree or disagree)? Why? @ -I reviewed and agree with nursing and triage notes Were old charts reviewed (outside hosp., previous admission, EMS record, old EKG, old radiological studies, urgent care reports/EKG's, care home records)? Report findings @ -Reviewed recent admission charts from November 25, 2023. Was discharged home on Vimpat, Keppra, Lamictal however patient has been noncompliant with all 3 medications. Was admitted at that time for seizure as well as alcohol withdrawal. Differential Diagnosis (chest pain, altered mental status, abdominal pain women, abdominal pain men, vaginal bleeding, weakness, fever, dyspnea, syncope, headache, dizziness, GI bleed, back pain, seizure, CVA, palpatations, mental health, musculoskeletal)? @ -Differential Seizure: Recurrent seizure disorder, febrile seizure, alcohol withdrawal, stimulants, meningitis, encephalitis, intercranial hemorrhage, intracranial tumor, stroke, eclampsia, thyrotoxicosis, hypocalcemia, hyponatremia, hypernatremia, hyp omagnesemia, psychogenic, this is not meant to be an all-inclusive list. EKG interpreted by me (3pts min.). @ -As above X-rays interpreted by me (1pt min.). @ -Chest x-ray negative for any obvious traumatic injury. No evidence of acute cardiopulmonary process. CT interpreted by me (1pt min.). @ -CT brain, C-spine negative for any obvious traumatic injury. U/S interpreted by me (1pt. min.). @ -None done What testing was considered but not performed or refused? (CT, X-rays, U/S, labs)? Why? @ -None What meds were considered but not given or refused? Why? @ -None Did you discuss the management of the patient with other professionals (professionals i.e. MISTY Nicholson, CAR DUMPER OPERATOR HELPER, lab, RT, psych nurse, geriatric social worker, manager bank, teacher, medical corps officer, case planner)? Give summary @ -No Was smoking cessation discussed for >3mins.? @ -No Was critical care preformed (if so, how long)? @ -No Were there social determinants of health that impacted care today? How? (Homelessness, low income, unemployed, alcoholism, drug addiction, transportation, low edu. Level, literacy, decrease access to med. care, care home, rehab)? @ -No Was there de-escalation of care discussed even if they declined (Discuss DNR or withdrawal of care, Hospice)? DNR status @ -No What co-morbidities impacted this encounter? (DM, HTN, Smoking, COPD, CAD, Cancer, CVA, ARF, Chemo, Hep., AIDS, mental health diagnosis, sleep apnea, morbid obesity)? @ -Epilepsy, alcohol abuse, medication noncompliance Was patient admitted / discharged? Hospital course, mention meds given and route, prescriptions, significant lab abnormalities, going to OR and other pertinent info. @ -Patient presents with what appears to be a seizure versus syncopal episode. Has a history of seizures and has been noncompliant with all 3 of his antiepileptic medications. Had 1 seizure he thinks. Currently is back to his baseline mental status. Patient has been drinking alcohol and has a daily history of this. Was recently admitted for similar complaints. Presents for further evaluation at this time. I did recommend CT imaging of the brain and C- spine due to the abrasion and minor head injury despite the patient being back to normal baseline mental status. He was in agreement this plan. Will also obtain seizure workup including drug levels, alcohol level, EKG. Seizure precautions and pads placed. Patient will be treated with IV fluids, empiric dose of IV Ativan for mild alcohol withdrawals, as well as doses of his normal antiepileptic medications. Patient was in agreement with this plan. Vital signs are within acceptable limits at this time. Patient's imaging unremarkable. Laboratory studies remarkable for mild hypokalemia 3.4 which was replenished. Slightly acidotic likely secondary to acute alcohol intoxication of 114. Viral swabs negative. , I did offer admission at this time however patient would like to go home with possible. I think this is reasonable. We will observe pending sobriety he will be discharged with new prescriptions for his antiepileptics. I stressed the importance of taking these medications otherwise he will be seen again here in this department or other ER. He understands he cannot drive for 6 months. Patient was in agreement this plan. Following over 2 and half hours of observation, patient is clinically sober at this time. He will be discharged home. Discharged home with his prescriptions. I will provide the patient with a prescription for Lamictal, Keppra, Vimpat. I instructed the patient to follow up with their PCP in the next 1-3 days.. I explained that the patient should return to the emergency department if they experience any worsening symptoms. Strict return precautions were discussed with the patient. The patient expressed understanding of these instructions. I answered all questions that the patient had. The patient was discharged home in fair condition with their prescriptions and follow up information. Undiagnosed new problem with uncertain prognosis? @ -No Drug Therapy requiring intensive monitoring for toxicity (Heparin, Nitro, Insulin, Cardizem)? @ -No Were any procedures done? @ -No Diagnosis/symptom? @ -Breakthrough seizure secondary to medication noncompliance, alcohol intoxication, abrasion Acute, or Chronic, or Acute on Chronic? @ -Acute Uncomplicated (without systemic symptoms) or Complicated (systemic symptoms)? @ -Complicated Side effects of treatment? @ -None Exacerbation, Progression, or Severe Exacerbation] @ -No Poses a threat to life or bodily function? @ -Unlikely at this time - Lab Data Result diagrams: 12/02/23 09:06 12/02/23 09:09 Lab Results 12/02/23 12/02/23 12/02/23 Range/Units 09:06 09:09 09:28 WBC 4.5 (3.8-10.6) k/uL RBC 4.61 (4.30-5.90) m/uL Hgb 14.7 (13.0-17.5) gm/dL Hct 44.2 (39.0-53.0) % MCV 95.8 (80.0-100.0) fL MCH 31.9 (25.0-35.0) pg MCHC 33.3 (31.0-37.0) g/dL RDW 14.5 (11.5-15.5) % Plt Count 100 L (150-450) k/uL MPV 6.9 Neutrophils % 69 % Lymphocytes % 17 % Monocytes % 8 % Eosinophils % 3 % Basophils % 0 % Neutrophils # 3.1 (1.3-7.7) k/uL Lymphocytes # 0.8 L (1.0-4.8) k/uL Monocytes # 0.3 (0-1.0) k/uL Eosinophils # 0.1 (0-0.7) k/uL Basophils # 0.0 (0-0.2) k/uL Sodium 140 (137-145) mmol/L Potassium 3.4 L (3.5-5.1) mmol/L Chloride 111 H (98-107) mmol/L Carbon Dioxide 14 L (22-30) mmol/L Anion Gap 15 mmol/L BUN 8 L (9-20) mg/dL Creatinine 0.78 (0.66-1.25) mg/dL Est GFR (CKD-EPI)AfAm >90 (>60 ml/min/1.73 sqM) Est GFR (CKD-EPI)NonAf >90 (>60 ml/min/1.73 sqM) Glucose 101 H (74-99) mg/dL Calcium 8.4 (8.4-10.2) mg/dL Magnesium 1.6 (1.6-2.3) mg/dL Total Bilirubin 0.9 (0.2-1.3) mg/dL AST 81 H (17-59) U/L ALT 65 H (4-49) U/L Alkaline Phosphatase 106 (38-126) U/L Total Protein 6.6 (6.3-8.2) g/dL Albumin 3.8 (3.5-5.0) g/dL Serum Alcohol 114 mg/dL Influenza Type A (PCR) Not Detected (Not Detectd) Influenza Type B (PCR) Not Detected (Not Detectd) RSV (PCR) Not Detected (Not Detectd) SARS-CoV-2 (PCR) Not Detected (Not Detectd) - EKG Data -: EKG Interpreted by Me EKG Comments: 12-lead Electrocardiogram Interpretation Note EKG was reviewed and interpreted by myself. 12-lead ECG performed at 0919 is interpreted by me as revealing normal sinus rhythm at a rate of 99 beats per minute. [place] is normal. CA interval is 149 ms, QRS duration is 101 ms, QTc is 403 ms.. There were no ST or T wave abnormalities to suggest myocardial ischemia or injury. R wave progression across the precordium was satisfactory. By my interpretation this EKG is non-diagnostic for acute ischemia. Disposition Clinical Impression: Seizure, Nonadherence to medication, Alcohol intoxication, Abrasion Disposition: HOME SELF-CARE Condition: Fair Instructions (If sedation given, give patient instructions): Recurrent Seizures in Adults (ED) Prescriptions: levETIRAcetam [Keppra] 1,500 mg PO BID 30 Days #120 tab lamoTRIgine [LaMICtal] 100 mg PO BID 30 Days #60 tab Lacosamide [Vimpat] 200 mg PO BID 30 Days #60 tablet Is patient prescribed a controlled substance at d/c from ED?: No Referrals: Meagan Alejo MD [STAFF PHYSICIAN] - 1-2 days Time of Disposition: 12:57
[2023-12-02] MEDS: LACOSAMIDE 50 MG TABLET PO STA (09:16)
[2023-12-02] MEDS: lamoTRIgine 100 MG TAB PO STA (09:16)
[2023-12-02 09:25] LABS: Basophils % (A) 0 %; Eosinophils # (A) 0.1 k/uL (0-0.7); Eosinophils % (A) 3 %; HCT 44.2 % (39.0-53.0); HGB 14.7 gm/dL (13.0-17.5); Lymphocytes # (A) 0.8 k/uL (1.0-4.8); Lymphocytes % (A) 17 %; MCH 31.9 pg (25.0-35.0); MCHC 33.3 g/dL (31.0-37.0); MCV 95.8 fL (80.0-100.0); Mean Platelet Volume 6.9; Monocytes # (A) 0.3 k/uL (0-1.0); Monocytes % (A) 8 %; Neutrophils # (A) 3.1 k/uL (1.3-7.7); Neutrophils % (A) 69 %; Platelet Count 100 k/uL (150-450); RBC 4.61 m/uL (4.30-5.90); RDW 14.5 % (11.5-15.5); WBC 4.5 k/uL (3.8-10.6)
[2023-12-02 09:39] LABS: ALT 65 U/L (4-49); AST 81 U/L (17-59); African American GFR (CKD) >90 (>60 ml/min/1.73 sqM); Albumin 3.8 g/dL (3.5-5.0); Alkaline Phosphatase 106 U/L (38-126); Anion Gap 15 mmol/L; Blood Urea Nitrogen 8 mg/dL (9-20); Calcium 8.4 mg/dL (8.4-10.2); Carbon Dioxide 14 mmol/L (22-30); Chloride 111 mmol/L (98-107); Glucose 101 mg/dL (74-99); Magnesium 1.6 mg/dL (1.6-2.3); Non-African American GFR(CKD) >90 (>60 ml/min/1.73 sqM); Potassium 3.4 mmol/L (3.5-5.1); Sodium 140 mmol/L (137-145); Total Bilirubin 0.9 mg/dL (0.2-1.3); Total Protein 6.6 g/dL (6.3-8.2)
--- NOTE | 2023-12-02 09:54 | CT ---
EXAMINATION TYPE: CT brain sung [facility] DATE OF EXAM: 12/02/2023 COMPARISON: 11/08/2023 HISTORY: seizure activity CT DLP: 1267.[address] Brain: Unenhanced CT of the brain was performed. The ventricles, basal cisterns and sulci overlying the cerebral convexities demonstrate a normal appe arance. There is no evidence for intracranial hemorrhage or sulcal effacement. No mass effects are seen. If symptoms persist consider MRI. Osseous calvarium is intact. IMPRESSION: No acute intracranial process CT Cervical Spine: Unenhanced CT of the cervical spine was performed with bone and soft tissue window settings submitted . Coronal and sagittal reconstruction is obtained. There is normal alignment and prevertebral soft tissues. I do not see evidence for acute fracture or subluxation. Generative changes moderate in degree at C4-5 with retrolisthesis of C4 on C5 of 5 mm which appears chronic in nature. No significant degenerative changes are present. The lung apices ar e clear. IMPRESSION: No evidence for acute fracture or subluxation of the cervical spine.
[2023-12-02 09:57] LABS: Alcohol 114 mg/dL
[2023-12-02] MEDS: POTASSIUM CHLORIDE ER 20 MEQ TAB.ER PO STA (10:11)
--- NOTE | 2023-12-02 10:15 | XR ---
EXAMINATION TYPE: XR chest 2V DATE OF EXAM: 12/02/2023 COMPARISON: 12/05/2022 HISTORY: 48-year-old male with cough, altered mental status, possible seizure TECHNIQUE: AP and lateral views FINDINGS: Generator device projecting at the left mid chest. Lead extending to the left base of the neck. Heart upper limits of normal in size. Hazy densities likely relate to portable technique and patient body habitus. No obed consolidation or pleural effusion. IMPRESSION: Limitations due to portable technique and body habitus. No definite acute process.
[2023-12-02 12:04] VITALS: RESP 18
[2023-12-02 12:50] VITALS: BP 150/107; PULSE 91
[2023-12-03 04:24] LABS: Lamotrigine (Lamictal) 0.6 ug/mL (2.0-15.0)
[2023-12-03 05:38] LABS: Levetiracetam (Keppra) 72.1 ug/mL (3.0-60.0)
[2023-12-03] MEDS ORDERED: THIAMINE 100 MG TAB PO SCH (09:00)
== END 2023-12-02 13:20 | disposition home or self-care (01) ==
LOC: SUPCPDRO 08:48 → EC 08:48
DX: S00.212A Abrasion of left eyelid and periocular area, initial encounter (principal); G40.909 Epilepsy, unspecified, not intractable, without status epilepticus; E87.6 Hypokalemia; F10.129 Alcohol abuse with intoxication, unspecified; F17.200 Nicotine dependence, unspecified, uncomplicated; Y90.5 Blood alcohol level of 100-119 mg/100 ml; Z11.52 Encounter for screening for COVID-19; Z91.148 Patient's other noncompliance with medication regimen for other reason; Z79.899 Other long term (current) drug therapy; X58.XXXA Exposure to other specified factors, initial encounter
CPT/HCPCS: 36415; 93005; 80053; 80175; 80177; 83735; 85025; 80235; 87636; 71046; 72125; 70450; 99285; 96374; 96375; 96361; 96372; G0480; J2060; J3411; J1953; 80320

== ENCOUNTER 2023-12-04 01:07 | Emergency (ER) | payer MEDICARE ==
[2023-12-04 01:14] VITALS: TEMP 98.4
[2023-12-04 02:59] VITALS: RESP 16
--- NOTE | 2023-12-04 03:06 | ED ---
Alcohol HPI - General Chief Complaint: Alcohol Stated Complaint: ETOH Time Seen by Provider: 12/04/23 01:41 Source: EMS Mode of arrival: EMS Limitations: no limitations - History of Present Illness Initial Comments: 48-year-old male brought in after being found sleeping on someone's yard. Patient is currently intoxicated. States that he drinks beer daily. His last drink was around midnight. Patient is also homeless. He has no complaints and is resting comfortably. - Related Data Home Medications Medication Instructions Recorded Confirmed Folic Acid 1 mg PO DIRECTED 11/25/23 12/02/23 Lacosamide [Vimpat] 200 mg PO DIRECTED 11/25/23 12/02/23 Multivitamins, Thera [Multivitamin 1 tab PO DIRECTED 11/25/23 12/02/23 (formulary)] lamoTRIgine [LaMICtal] 100 mg PO DIRECTED 11/25/23 12/02/23 Previous Rx's Medication Instructions Recorded Pantoprazole [Protonix] 40 mg PO DAILY #30 tab 11/12/23 Tamsulosin [Flomax] 0.4 mg PO HS #30 cap 11/12/23 levETIRAcetam [Keppra] 1,500 mg PO BID #60 tab 11/12/23 Lacosamide [Vimpat] 200 mg PO BID 30 Days #60 tablet 12/02/23 lamoTRIgine [LaMICtal] 100 mg PO BID 30 Days #60 tab 12/02/23 levETIRAcetam [Keppra] 1,500 mg PO BID 30 Days #120 tab 12/02/23 Allergies Allergy/AdvReac Type Severity Reaction Status Date / Time No Known Allergies Allergy Verified 12/04/23 01:14 Review of Systems ROS Statement: Those systems with pertinent positive or pertinent negative responses have been documented in the HPI. ROS Other: All systems not noted in ROS Statement are negative. Past Medical History Past Medical History: Seizure Disorder History of Any Multi-Drug Resistant Organisms: None Reported Additional Past Surgical History / Comment(s): MOUTH SURGERY Past Anesthesia/Blood Transfusion Reactions: No Reported Reaction Past Psychological History: Anxiety, Depression Smoking Status: Current every day smoker Past Alcohol Use History: Daily, Heavy Past Drug Use History: None Reported - Past Family History Mother Family Medical History: Unable to Obtain, Cancer Additional Family Medical History / Comment(s): lung cancer Father Family Medical History: No Reported History General Exam Limitations: no limitations General appearance: alert, in no apparent distress Head exam: Present: atraumatic, normocephalic Eye exam: Present: normal appearance Neck exam: Present: normal inspection Respiratory exam: Absent: respiratory distress Cardiovascular Exam: Present: regular rate Neurological exam: Present: alert (Intoxicated) Skin exam: Present: normal color Course Vital Signs 12/04/23 12/04/23 12/04/23 01:12 01:24 02:58 Temperature 98.4 F Pulse Rate 80 71 76 Respiratory 16 17 16 Rate Blood Pressure 116/78 99/65 102/63 O2 Sat by Pulse 98 96 Oximetry Medical Decision Making - Medical Decision Making Was pt. sent in by a medical professional or institution (MISTY Nicholson, CONTRACT OFFICER, urgent care, hospital, or [facility]...) When possible be specific @ -No Did you speak to anyone other than the patient for history (EMS, parent, family, police, friend...)? What history was obtained from this source @ -No Did you review nursing and triage notes (agree or disagree)? Why? @ -I reviewed and agree with nursing and triage notes Were old charts reviewed (outside hosp., previous admission, EMS record, old EKG, old radiological studies, urgent care reports/EKG's, [facility] records)? Report findings @ -No old charts were reviewed Differential Diagnosis (chest pain, altered mental status, abdominal pain women, abdominal pain men, vaginal bleeding, weakness, fever, dyspnea, syncope, headache, dizziness, GI bleed, back pain, seizure, CVA, palpatations, mental health, musculoskeletal)? @ -Not applicable EKG interpreted by me (3pts min.). @ -As above X-rays interpreted by me (1pt min.). @ -None done CT interpreted by me (1pt min.). @ -None done U/S interpreted by me (1pt. min.). @ -None done What testing was considered but not performed or refused? (CT, X-rays, U/S, labs)? Why? @ -None What meds were considered but not given or refused? Why? @ -None Did you discuss the management of the patient with other professionals (professionals i.e. MISTY Nciholson, CONTRACT OFFICER, lab, RT, psych nurse, aids social worker, manager of financial, teacher, senior credit officer, case specialist)? Give summary @ -No Was smoking cessation discussed for >3mins.? @ -No Was critical care preformed (if so, how long)? @ -No Were there social determinants of health that impacted care today? How? (Homelessness, low income, unemployed, alcoholism, drug addiction, transportation, low edu. Level, literacy, decrease access to med. care, longterm, rehab)? @ -Homelessness, alcohol use disorder Was there de-escalation of care discussed even if they declined (Discuss DNR or withdrawal of care, Hospice)? DNR status @ -No What co-morbidities impacted this encounter? (DM, HTN, Smoking, COPD, CAD, Cancer, CVA, ARF, Chemo, Hep., AIDS, mental health diagnosis, sleep apnea, morbid obesity)? @ -None Was patient admitted / discharged? Hospital course, mention meds given and route, prescriptions, significant lab abnormalities, going to OR and other pertinent info. @ -48-year-old male brought in after being found sleeping outside. Patient is homeless and currently intoxicated. He is resting comfortably and has no complaints. No signs of distress. He is observed until clinically sober and then discharged. Report back to ER with any new or worsening symptoms. I discussed this case with my attending Dr. Alaniz Undiagnosed new problem with uncertain prognosis? @ -No Drug Therapy requiring intensive monitoring for toxicity (Heparin, Nitro, Insulin, Cardizem)? @ -No Were any procedures done? @ -No Diagnosis/symptom? @ -Alcohol intoxication Acute, or Chronic, or Acute on Chronic? @ -Acute Uncomplicated (without systemic symptoms) or Complicated (systemic symptoms)? @ -Uncomplicated Side effects of treatment? @ -No Exacerbation, Progression, or Severe Exacerbation? @ -No Poses a threat to life or bodily function? How? (Chest pain, [place], [place], pneumonia, PE, COPD, DKA, ARF, appy, cholecystitis, CVA, Diverticulitis, Homicidal, S uicidal, threat to staff... and all critical care pts) @ -No immediate threat, long-term alcohol use disorder does pose threat Disposition Clinical Impression: Alcoholic intoxication Disposition: HOME SELF-CARE Condition: Fair Instructions (If sedation given, give patient instructions): Alcohol Intoxication (ED) Is patient prescribed a controlled substance at d/c from ED?: No Referrals: None,Stated [Primary Care Provider] - 1-2 days
[2023-12-04 07:14] VITALS: BP 115/74; PULSE 90
== END 2023-12-04 07:14 | disposition home or self-care (01) ==
LOC: EC 01:07
DX: F10.129 Alcohol abuse with intoxication, unspecified (principal); F17.200 Nicotine dependence, unspecified, uncomplicated
CPT/HCPCS: 99284

== ENCOUNTER 2023-12-05 15:02 | Observation (INO) | payer MEDICARE ==
[2023-12-05 15:57] VITALS: TEMP 98.2
--- NOTE | 2023-12-05 16:20 | ED ---
General Adult HPI - General Chief complaint: Alcohol Stated complaint: ETOH Time Seen by Provider: 12/05/23 15:22 Source: patient, EMS, RN notes reviewed Mode of arrival: EMS Limitations: altered mental status, physical limitation - History of Present Illness Initial comments: Patient is a 48-year-old male present to the emergency department after being found in somebody's yard. EMS was concerned of alcohol intoxication. Patient is sleeping and drowsy and provides limited history. Patient does admit to drinking alcohol. - Related Data Home Medications Medication Instructions Recorded Confirmed Folic Acid 1 mg PO DIRECTED 11/25/23 12/02/23 Lacosamide [Vimpat] 200 mg PO DIRECTED 11/25/23 12/02/23 Multivitamins, Thera [Multivitamin 1 tab PO DIRECTED 11/25/23 12/02/23 (formulary)] lamoTRIgine [LaMICtal] 100 mg PO DIRECTED 11/25/23 12/02/23 Previous Rx's Medication Instructions Recorded Pantoprazole [Protonix] 40 mg PO DAILY #30 tab 11/12/23 Tamsulosin [Flomax] 0.4 mg PO HS #30 cap 11/12/23 levETIRAcetam [Keppra] 1,500 mg PO BID #60 tab 11/12/23 Lacosamide [Vimpat] 200 mg PO BID 30 Days #60 tablet 12/02/23 lamoTRIgine [LaMICtal] 100 mg PO BID 30 Days #60 tab 12/02/23 levETIRAcetam [Keppra] 1,500 mg PO BID 30 Days #120 tab 12/02/23 Allergies Allergy/AdvReac Type Severity Reaction Status Date / Time No Known Allergies Allergy Verified 12/05/23 15:40 Review of Systems ROS Statement: Those systems with pertinent positive or pertinent negative responses have been documented in the HPI. ROS Other: All systems not noted in ROS Statement are negative. Limitations: ROS unobtainable due to patients medical condition Past Medical History Past Medical History: Seizure Disorder History of Any Multi-Drug Resistant Organisms: None Reported Additional Past Surgical History / Comment(s): MOUTH SURGERY Past Anesthesia/Blood Transfusion Reactions: No Reported Reaction Past Psychological History: Anxiety, Depression Smoking Status: Current every day smoker Past Alcohol Use History: Daily, Heavy Past Drug Use History: None Reported - Past Family History Mother Family Medical History: Unable to Obtain, Cancer Additional Family Medical History / Comment(s): lung cancer Father Family Medical History: No Reported History General Exam Limitations: no limitations General appearance: other (Drowsy, arousable to touch) Head exam: Present: other (Old forehead abrasion) Eye exam: Present: normal appearance, PERRL Neck exam: Present: normal inspection. Absent: tenderness Respiratory exam: Present: normal lung sounds bilaterally Cardiovascular Exam: Present: regular rate, normal rhythm GI/Abdominal exam: Present: soft. Absent: tenderness Extremities exam: Present: normal inspection Neurological exam: Present: other (Nausea, limited exam.) Expanded Eye Response: (2) open to pain Motor Response: (4) withdraws to pain Verbal Response: (3) inappropriate words Psychiatric exam: Present: flat affect Skin exam: Present: other (Forehead abrasions, mostly healed) Course Vital Signs 12/05/23 12/05/23 15:33 19:25 Temperature 98.2 F Pulse Rate 97 101 H Respiratory 18 20 Rate Blood Pressure 114/72 110/53 O2 Sat by Pulse 94 L 98 Oximetry EKG Findings - EKG Results: EKG: interpreted by ERMD (Left axis), sinus rhythm, normal QRS, normal ST/T Medical Decision Making - Medical Decision Making Was pt. sent in by a medical professional or institution (MISTY Nicholson, CULTURAL ANTHROPOLOGY PROFESSOR, urgent care, hospital, or shelter...) When possible be specific @ -No Did you speak to anyone other than the patient for history (EMS, parent, family, police, friend...)? What history was obtained from this source @ -Mass provides history as patient is intoxicated Did you review nursing and triage notes (agree or disagree)? Why? @ -I reviewed and agree with nursing and triage notes Were old charts reviewed (outside hosp., previous admission, EMS record, old EKG, old radiological studies, urgent care reports/EKG's, shelter records)? Report findings @ -No old charts were reviewed Differential Diagnosis (chest pain, altered mental status, abdominal pain women, abdominal pain men, vaginal bleeding, weakness, fever, dyspnea, syncope, headache, dizziness, GI bleed, back pain, seizure, CVA, palpatations, mental h ealth, musculoskeletal)? @ -Differential Altered Mental Status: Hypoglycemia, DKA, hypercapnia, ETOH, overdose, CO poisoning, trauma, myxedema coma, HTN encephalopathy, infection, encephalitis, psychosis, intercranial hemorrhage, hepatic encephalopathy, meningitis, CVA, this is not meant to be an all-inclusive list EKG interpreted by me (3pts min.). @ -As above X-rays interpreted by me (1pt min.). @ -None done CT interpreted by me (1pt min.). @ -CT scan brain and cervical spine without acute abnormality U/S interpreted by me (1pt. min.). @ -None done What testing was considered but not performed or refused? (CT, X-rays, U/S, labs)? Why? @ -None What meds were considered but not given or refused? Why? @ -None Did you discuss the management of the patient with other professionals (mikael sage i.e. , PA, CULTURAL ANTHROPOLOGY PROFESSOR, lab, RT, psych nurse, medical social worker, plater supervisor, teacher, parachute officer, egg caser)? Give summary @ -Inocencio who will admit covering hospital call Was smoking cessation discussed for >3mins.? @ -No Was critical care preformed (if so, how long)? @ -No Were there social determinants of health that impacted care today? How? (Homelessness, low income, unemployed, alcoholism, drug addiction, transportation, low edu. Level, literacy, decrease access to med. care, detention, r ehab)? @ -No Was there de-escalation of care discussed even if they declined (Discuss DNR or withdrawal of care, Hospice)? DNR status @ -No What co-morbidities impacted this encounter? (DM, HTN, Smoking, COPD, CAD, Cancer, CVA, ARF, Chemo, Hep., AIDS, mental health diagnosis, sleep apnea, morbid obesity)? @ -None Was patient admitted / discharged? Hospital course, mention meds given and route, prescriptions, significant lab abnormalities, going to OR and other pertinent info. @ -Patient reevaluated and more alert. Patient will be admitted secondary to extreme alcohol intoxication. Admission orders written. Undiagnosed new problem with uncertain prognosis? @ -No Drug Therapy requiring intensive monitoring for toxicity (Heparin, Nitro, Insulin, Cardizem)? @ -No Were any procedures done? @ -No Diagnosis/symptom? @ -Alcohol intoxicated Acute, or Chronic, or Acute on Chronic? @ -Acute Uncomplicated (without systemic symptoms) or Complicated (systemic symptoms)? @ -Default Side effects of treatment? @ -No Exacerbation, Progression, or Severe Exacerbation? @ -No Poses a threat to life or bodily function? How? (Chest pain, [place], [place], pneumonia, PE, COPD, DKA, ARF, appy, cholecystitis, CVA, Diverticulitis, Homicidal, Suicidal, threat to staff... and all critical care pts) @ -No - Lab Data Result diagrams: 12/05/23 16:47 12/05/23 16:47 Lab Results 12/05/23 12/05/23 12/05/23 Range/Units 16:47 16:47 16:47 WBC 4.0 (3.8-10.6) k/uL RBC 4.98 (4.30-5.90) m/uL Hgb 15.5 (13.0-17.5) gm/dL Hct 47.2 (39.0-53.0) % MCV 94.7 (80.0-100.0) fL MCH 31.2 (25.0-35.0) pg MCHC 32.9 (31.0-37.0) g/dL RDW 14.4 (11.5-15.5) % Plt Count 98 L (150-450) k/uL MPV 6.6 Neutrophils % 63 % Lymphocytes % 26 % Monocytes % 6 % Eosinophils % 3 % Basophils % 1 % Neutrophils # 2.5 (1.3-7.7) k/uL Lymphocytes # 1.0 (1.0-4.8) k/uL Monocytes # 0.2 (0-1.0) k/uL Eosinophils # 0.1 (0-0.7) k/uL Basophils # 0.0 (0-0.2) k/uL Manual Slide Review Performed PT 14.1 H (10.0-12.5) sec INR 1.4 H (<1.2) APTT 26.7 (22.0-30.0) sec Sodium 143 (137-145) mmol/L Potassium 4.7 (3.5-5.1) mmol/L Chloride 110 H (98-107) mmol/L Carbon Dioxide 21 L (22-30) mmol/L Anion Gap 12 mmol/L BUN 5 L (9-20) mg/dL Creatinine 0.75 (0.66-1.25) mg/dL Est GFR (CKD-EPI)AfAm >90 (>60 ml/min/1.73 sqM) Est GFR (CKD-EPI)NonAf >90 (>60 ml/min/1.73 sqM) Glucose 93 (74-99) mg/dL Calcium 8.0 L (8.4-10.2) mg/dL Total Bilirubin 1.0 (0.2-1.3) mg/dL AST 105 H (17-59) U/L ALT 72 H (4-49) U/L Alkaline Phosphatase 82 (38-126) U/L Total Protein 7.1 (6.3-8.2) g/dL Albumin 4.1 (3.5-5.0) g/dL Serum Alcohol 401 H* mg/dL Disposition Clinical Impression: Alcoholic intoxication Disposition: ADMITTED IP TO THIS HOSP Is patient prescribed a controlled substance at d/c from ED?: No Referrals: None,Stated [Primary Care Provider] - 1-2 days Forms: Community Resources, In Substance Abuse Facilities, Personal Rate Quoting Operator Time of Disposition: 19:32
[2023-12-05 17:57] LABS: Basophils % (A) 1 %; Eosinophils # (A) 0.1 k/uL (0-0.7); Eosinophils % (A) 3 %; HCT 47.2 % (39.0-53.0); HGB 15.5 gm/dL (13.0-17.5); Lymphocytes % (A) 26 %; MCH 31.2 pg (25.0-35.0); MCHC 32.9 g/dL (31.0-37.0); MCV 94.7 fL (80.0-100.0); Mean Platelet Volume 6.6; Monocytes # (A) 0.2 k/uL (0-1.0); Monocytes % (A) 6 %; Neutrophils # (A) 2.5 k/uL (1.3-7.7); Neutrophils % (A) 63 %; RBC 4.98 m/uL (4.30-5.90); RDW 14.4 % (11.5-15.5)
[2023-12-05 18:15] LABS: ALT 72 U/L (4-49); AST 105 U/L (17-59); African American GFR (CKD) >90 (>60 ml/min/1.73 sqM); Albumin 4.1 g/dL (3.5-5.0); Alkaline Phosphatase 82 U/L (38-126); Anion Gap 12 mmol/L; Blood Urea Nitrogen 5 mg/dL (9-20); Carbon Dioxide 21 mmol/L (22-30); Chloride 110 mmol/L (98-107); Glucose 93 mg/dL (74-99); Non-African American GFR(CKD) >90 (>60 ml/min/1.73 sqM); Potassium 4.7 mmol/L (3.5-5.1); Sodium 143 mmol/L (137-145); Total Protein 7.1 g/dL (6.3-8.2)
[2023-12-05 18:27] LABS: INR 1.4 (<1.2); Partial Thromboplastin Time 26.7 sec (22.0-30.0); Prothrombin Time 14.1 sec (10.0-12.5)
[2023-12-05 18:58] LABS: Alcohol 401 mg/dL
[2023-12-05 19:02] LABS: Platelet Count 98 k/uL (150-450)
--- NOTE | 2023-12-05 19:03 | CT ---
EXAMINATION TYPE: CT brain cspine wo con CT DLP: 1473.1 mGycm, Automated exposure control for dose reduction was used. DATE OF EXAM: 12/05/2023 6:32 PM COMPARISON: None. CLINICAL INDICATION:Male, 48 years old with history of fall; Fall TECHNIQUE: Brain: Multiple axial CT images of the brain were obtained without IV contrast. Cspine: Axial CT images from the skull base to the inferior aspect of T2 we obtained without intraven ous contrast. Coronal and sagittal reformatted images were also reviewed. FINDINGS: Brain: Extra-axial spaces: No abnormal extra-axial fluid collections. Ventricular system: Within normal limits Cerebral parenchyma: No acute intraparenchymal hemorrhage or mass effect. The marin-white junction is well differentiated. Cerebellum: Unremarkable. Mass effect: No evidence of midline shift. Intracranial vasculature: unremarkable Soft tissues: Normal. Calvarium/osseous structures: No depressed skull fracture. Paranasal sinuses and mastoid air cells: Moderate chronic sinus disease, pansinusitis. Visualized orbits: Orbital contents are intact. Cervical spine: Fracture: None. Osseous structures: Unremarkable Vertebral alignment: Within normal limits. Spinal canal/Neural Foramina: No evidence of significant spinal canal narrowing. No evidence for sign ificant neural foraminal stenosis. Neck soft tissues: Prevertebral soft tissues are within normal limits. Other: The airway is patent. The lung apices are clear. IMPRESSION: No acute intracranial process. No evidence of cervical spine fracture. Mild multilevel degenerative disc disease.
[2023-12-05] MEDS ORDERED: LORazepam 0.5 MG TAB PO PRN (19:32)
[2023-12-05] MEDS ORDERED: LORazepam 1 MG TAB PO PRN ×2 (19:32)
[2023-12-05] MEDS ORDERED: NALOXONE 0.4 MG/ML 1 ML VIAL IV PRN (19:33)
[2023-12-05 19:57] LABS: Amphetamine Screen,Urine Not Detected (NotDetected); Barbiturate Screen,Urine Not Detected (NotDetected); Benzodiazepines Screen,Urine Not Detected (NotDetected); Cocaine Screen,Urine Not Detected (NotDetected); Methadone Screen, Urine Not Detected (NotDetected); Opiate Screen,Urine Not Detected (NotDetected); Oxycodone Screen, Urine Not Detected (NotDetected); Phencyclidine Screen,Urine Not Detected (NotDetected); Tricyclic Antidepressant,Urine Not Detected (NotDetected); Urn Cannabinoid Scrn Not Detected (NotDetected)
--- NOTE | 2023-12-05 19:58 | XR ---
EXAMINATION TYPE: XR chest 2V DATE OF EXAM: 12/05/2023 7:45 PM CLINICAL INDICATION:Male, 48 years old with history of altered mental status; [facility] COMPARISON: Chest radiographs from 12/02/2023. TECHNIQUE: Chest radiograph frontal and lateral view. FINDINGS: Poor penetration on exam limits evaluation. Stable left chest generator device projecting into the ba se of the left-sided neck similar to prior study. Cardiac silhouette is stable. No obvious consolidat ions or pneumothorax. IMPRESSION: Stable exam with no acute cardiopulmonary disease/process.
[2023-12-05 20:13] LABS: Glucose,Whole Blood 96 mg/dL (70-110)
[2023-12-05] MEDS: THIAMINE 100 MG/ML 2 ML VIAL IM STA (20:20)
[2023-12-05] MEDS: FAMOTIDINE 20 MG TAB PO SCH (20:20)
[2023-12-05] MEDS: SODIUM CHLORIDE 0.9% 1,000 ML IV SCH (20:21)
[2023-12-06] MEDS: LORazepam 1 MG TAB PO PRN (05:12)
[2023-12-06] MEDS: LORazepam 2 MG/ML INJ IV PRN (08:17)
[2023-12-06] MEDS: THIAMINE 100 MG TAB PO SCH (10:22)
[2023-12-06] MEDS: LACOSAMIDE 50 MG TABLET PO SCH (10:22)
[2023-12-06] MEDS: MULTIVITAMINS, THERA 1 EACH TAB PO SCH ×2 (10:22→10:25)
[2023-12-06] MEDS: lamoTRIgine 100 MG TAB PO SCH (10:23)
[2023-12-06] MEDS: PANTOPRAZOLE 40 MG TABLET PO SCH (10:24)
[2023-12-06] MEDS: FOLIC ACID 1 MG TAB PO SCH (10:24)
[2023-12-06 10:32] VITALS: BP 139/102; PULSE 100; RESP 18
--- NOTE | 2023-12-06 11:06 | P.HPIM ---
History of Present Illness 48-year-old male came in for alcohol intoxication patient with multiple hospitalizations for alcohol intoxication seizures. Patient is noncompliant with his antiseizure medications presented with alcohol patient was admitted and treated for alcohol withdrawal multiple occasions. Patient is vomiting at this time possibly due to alcoholic gastritis. Patient on 3 antiseizure medications which she does not take. Patient was given prescriptions multiple occasions. Patient had an episode of seizure here nicotine use REVIEW OF SYSTEMS: All other systems are negative except those mentioned in the HPI PHYSICAL EXAMINATION: GENERAL: The patient is alert and oriented x3, Well developed, well nourished. patient is in distress because of nausea vomiting HEENT: Pupils are round and equally reacting to light. EOMI. No scleral icterus. No conjunctival pallor. Normocephalic, atraumatic. No pharyngeal erythema. No thyromegaly. CARDIOVASCULAR: S1 and S2 present. No murmurs, rubs, or gallops. PULMONARY: Chest is clear to auscultation, no wheezing or crackles. ABDOMEN: Soft, nontender, nondistended, normoactive bowel sounds. No palpable organomegaly. MUSCULOSKELETAL: No joint swelling or deformity. EXTREMITIES: No cyanosis, clubbing, or pedal edema. NEUROLOGICAL: Gross neurological examination did not reveal any focal deficits. SKIN: No rashes. Assessment and plan -Nausea vomiting secondary to severe acute gastritis from chronic alcoholism patient will be on Protonix IV along with Zofran if this improves patient will be discharged today nothing much else can be offered. -Alcohol intoxication patient is more sober now -Alcohol withdrawal patient was admitted on multiple occasions noncompliant nothing much else can be offered from medical perspective patient will continue antiseizure medications will be discharged if nausea vomiting improves Seizure disorder noncompliant with medications -Benign prostatic atrophy -depression Nicotine use Patient will be discharged if he can tolerate oral diet and oral antiseizure medications nothing much else can be offered patient can understand but highly noncompliant with medications and alcohol cessation. Patient will follow-up with PCP Past Medical History Past Medical History: Seizure Disorder History of Any Multi-Drug Resistant Organisms: None Reported Additional Past Surgical History / Comment(s): MOUTH SURGERY Past Anesthesia/Blood Transfusion Reactions: No Reported Reaction Past Psychological History: Anxiety, Depression Smoking Status: Current every day smoker Past Alcohol Use History: Daily, Heavy Past Drug Use History: None Reported - Past Family History Mother Family Medical History: Unable to Obtain, Cancer Additional Family Medical History / Comment(s): lung cancer Father Family Medical History: No Reported History Medications and Allergies Home Medications Medication Instructions Recorded Confirmed Type Pantoprazole [Protonix] 40 mg PO DAILY #30 tab 11/12/23 12/05/23 Rx Tamsulosin [Flomax] 0.4 mg PO HS #30 cap 11/12/23 12/05/23 Rx Folic Acid 1 mg PO DAILY 11/25/23 12/05/23 History Multivitamins, Thera [Multivitamin 1 tab PO DAILY 11/25/23 12/05/23 History (formulary)] Lacosamide [Vimpat] 200 mg PO BID 30 Days #60 tablet 12/02/23 12/05/23 Rx lamoTRIgine [LaMICtal] 100 mg PO BID 30 Days #60 tab 12/02/23 12/05/23 Rx levETIRAcetam [Keppra] 1,500 mg PO BID 30 Days #120 tab 12/02/23 12/05/23 Rx Allergies Allergy/AdvReac Type Severity Reaction Status Date / Time No Known Allergies Allergy Verified 12/05/23 15:40 Physical Exam Vitals: Vital Signs Temp Pulse Resp BP Pulse Ox 12/06/23 10:00 100 18 139/102 95 12/06/23 04:50 98 20 122/78 98 12/05/23 20:08 96 18 121/77 96 12/05/23 19:25 101 H 20 110/53 98 12/05/23 15:33 98.2 F 97 18 114/72 94 L Intake and Output 12/05/23 12/06/23 12/06/23 22:59 06:59 14:59 Other: Weight 90.718 kg Results CBC & Chem 7: 12/05/23 16:47 12/05/23 16:47 Labs: Abnormal Lab Results - Last 24 Hours (Table) 12/05/23 12/05/23 12/05/23 Range/Units 16:47 16:47 16:47 Plt Count 98 L (150-450) k/uL PT 14.1 H (10.0-12.5) sec INR 1.4 H (<1.2) Chloride 110 H (98-107) mmol/L Carbon Dioxide 21 L (22-30) mmol/L BUN 5 L (9-20) mg/dL Calcium 8.0 L (8.4-10.2) mg/dL AST 105 H (17-59) U/L ALT 72 H (4-49) U/L Serum Alcohol 401 H* mg/dL
--- NOTE | 2023-12-06 11:07 | P.DS ---
Providers Date of admission: 12/05/23 19:34 Attending physician: Chaz Adkins Primary care physician: Stated None Hospital Course: 48-year-old male came in for alcohol intoxication patient with multiple hospitalizations for alcohol intoxication seizures. Patient is noncompliant with his antiseizure medications presented with alcohol patient was admitted and treated for alcohol withdrawal multiple occasions. Patient is vomiting at this time possibly due to alcoholic gastritis. Patient on 3 antiseizure medications which she does not take. Patient was given prescriptions multiple occasions. Patient had an episode of seizure here nicotine use REVIEW OF SYSTEMS: All other systems are negative except those mentioned in the HPI PHYSICAL EXAMINATION: GENERAL: The patient is alert and oriented x3, Well developed, well nourished. patient is in distress because of nausea vomiting HEENT: Pupils are round and equally reacting to light. EOMI. No scleral icterus. No conjunctival pallor. Normocephalic, atraumatic. No pharyngeal erythema. No thyromegaly. CARDIOVASCULAR: S1 and S2 present. No murmurs, rubs, or gallops. PULMONARY: Chest is clear to auscultation, no wheezing or crackles. ABDOMEN: Soft, nontender, nondistended, normoactive bowel sounds. No palpable organomegaly. MUSCULOSKELETAL: No joint swelling or deformity. EXTREMITIES: No cyanosis, clubbing, or pedal edema. NEUROLOGICAL: Gross neurological examination did not reveal any focal deficits. SKIN: No rashes. Assessment and plan -Nausea vomiting secondary to severe acute gastritis from chronic alcoholism patient will be on Protonix IV along with Zofran if this improves patient will be discharged today nothing much else can be offered. -Alcohol intoxication patient is more sober now -Alcohol withdrawal patient was admitted on multiple occasions noncompliant nothing much else can be offered from medical perspective patient will continue antiseizure medications will be discharged if nausea vomiting improves Seizure disorder noncompliant with medications -Benign prostatic atrophy -depression Nicotine use Patient will be discharged if he can tolerate oral diet and oral antiseizure medications nothing much else can be offered patient can understand but highly noncompliant with medications and alcohol cessation. Patient will follow-up with PCP Plan - Discharge Summary New Discharge Prescriptions: No Action Tamsulosin [Flomax] 0.4 mg PO HS #30 cap Pantoprazole [Protonix] 40 mg PO DAILY #30 tab Folic Acid 1 mg PO DAILY Multivitamins, Thera [Multivitamin (formulary)] 1 tab PO DAILY levETIRAcetam [Keppra] 1,500 mg PO BID 30 Days #120 tab lamoTRIgine [LaMICtal] 100 mg PO BID 30 Days #60 tab Lacosamide [Vimpat] 200 mg PO BID 30 Days #60 tablet Discharge Medication List Pantoprazole [Protonix] 40 mg PO DAILY #30 tab 11/12/23 [Rx] Tamsulosin [Flomax] 0.4 mg PO HS #30 cap 11/12/23 [Rx] Folic Acid 1 mg PO DAILY 11/25/23 [History] Multivitamins, Thera [Multivitamin (formulary)] 1 tab PO DAILY 11/25/23 [History] Lacosamide [Vimpat] 200 mg PO BID 30 Days #60 tablet 12/02/23 [Rx] lamoTRIgine [LaMICtal] 100 mg PO BID 30 Days #60 tab 12/02/23 [Rx] levETIRAcetam [Keppra] 1,500 mg PO BID 30 Days #120 tab 12/02/23 [Rx] Follow up Appointment(s)/Referral(s): None,Stated [Primary Care Provider] - 1-2 days Discharge/Stand Alone Forms: Community Resources, Inp Substance Abuse Facilities, Personal Metal P[employer] Operator
[2023-12-06] MEDS: ONDANSETRON 4 MG/2 ML VIAL IVP PRN (11:33)
[2023-12-06] MEDS: PANTOPRAZOLE 40 MG/10 ML VIAL IVP SCH (11:34)
[2023-12-06] MEDS ORDERED: TAMSULOSIN 0.4 MG CAP.ER.24H PO SCH (21:00)
[2023-12-07 14:25] LABS: Lamotrigine (Lamictal) 0.5 ug/mL (2.0-15.0)
[2023-12-09 06:50] LABS: Levetiracetam (Keppra) <1.0 ug/mL (3.0-60.0)
== END 2023-12-06 14:00 | disposition left against medical advice (07) ==
LOC: EC 15:02 → 4SSUR 19:34
PROVIDERS: ADMIT Internal Medicine; ATTEND Internal Medicine
DX: F10.229 Alcohol dependence with intoxication, unspecified (principal); F10.239 Alcohol dependence with withdrawal, unspecified; K29.20 Alcoholic gastritis without bleeding; T42.6X6A Underdosing of other antiepileptic and sedative-hypnotic drugs, initial encounter; Z91.128 Patient's intentional underdosing of medication regimen for other reason; Y90.8 Blood alcohol level of 240 mg/100 ml or more; G40.909 Epilepsy, unspecified, not intractable, without status epilepticus; N40.0 Benign prostatic hyperplasia without lower urinary tract symptoms; F32.A Depression, unspecified; F17.200 Nicotine dependence, unspecified, uncomplicated; Z79.899 Other long term (current) drug therapy
CPT/HCPCS: 36415; 93005; 80053; 80175; 80177; 85025; 85610; 85730; 80306; 71046; 72125; 70450; G0378 ×2; G0480; J2060; J3411; J2405; J2470; 80320; 96361; 96372; 96374; 96375; 99285

== ENCOUNTER 2024-04-22 22:42 | Emergency (ER) | payer MEDICARE, OTHER ==
[2024-04-22 22:47] VITALS: RESP 16; TEMP 98.3
[2024-04-22 23:24] LABS: Appearance,Urine Clear (Clear); Bilirubin,Urine Negative (Negative); Blood,Urine Negative (Negative); Color,Urine Light Yellow; Glucose,Urine (UA) Negative (Negative); Ketones,Urine Negative (Negative); Leukocyte Esterase,Urine Negative (Negative); Nitrite,Urine Negative (Negative); Protein,Urine Negative (Negative); Specific Gravity,Urine 1.019 (1.001-1.035); Urobilinogen,Urine <2.0 mg/dL (<2.0)
[2024-04-22 23:29] LABS: Basophils % (A) 0 %; Eosinophils # (A) 0.1 k/uL (0-0.7); Eosinophils % (A) 1 %; Lymphocytes # (A) 1.1 k/uL (1.0-4.8); Lymphocytes % (A) 13 %; MCH 31.7 pg (25.0-35.0); MCHC 34.1 g/dL (31.0-37.0); MCV 92.8 fL (80.0-100.0); Mean Platelet Volume 7.1; Monocytes # (A) 0.5 k/uL (0-1.0); Monocytes % (A) 6 %; Neutrophils # (A) 6.6 k/uL (1.3-7.7); Neutrophils % (A) 78 %; Platelet Count 139 k/uL (150-450); RBC 5.06 m/uL (4.30-5.90); RDW 14.6 % (11.5-15.5); WBC 8.5 k/uL (3.8-10.6)
[2024-04-22] MEDS: levETIRAcetam IV 500 MG/5 ML VIAL IVP STA (23:31)
[2024-04-22] MEDS: SODIUM CHLORIDE 0.9% 1,000 ML IV ONE (23:32)
[2024-04-22 23:35] LABS: INR 1.3 (<1.2); Partial Thromboplastin Time 23.6 sec (22.0-30.0); Prothrombin Time 13.8 sec (10.0-12.5)
[2024-04-22 23:40] LABS: Amphetamine Screen,Urine Not Detected (NotDetected); Barbiturate Screen,Urine Not Detected (NotDetected); Benzodiazepines Screen,Urine Not Detected (NotDetected); Cocaine Screen,Urine Not Detected (NotDetected); Methadone Screen, Urine Not Detected (NotDetected); Opiate Screen,Urine Not Detected (NotDetected); Oxycodone Screen, Urine Not Detected (NotDetected); Phencyclidine Screen,Urine Not Detected (NotDetected); Tricyclic Antidepressant,Urine Not Detected (NotDetected); Urn Cannabinoid Scrn Not Detected (NotDetected)
--- NOTE | 2024-04-22 23:41 | ED ---
General Adult HPI - General Chief complaint: Altered Mental Status Stated complaint: Head injury, seizure Time Seen by Provider: 04/22/24 22:45 Source: patient, EMS, RN notes reviewed, old records reviewed Mode of arrival: EMS - History of Present Illness Initial comments: Patient is a 49-year-old male who presents emergency department for confusion following an epileptic seizure. Had a seizure approximately 3 hours prior to arrival. Since that time has been acting "off" per EMS. Patient apparently was walking around naked and attempted to smoke a cigarette inside. Currently patient is alert and oriented x 4, has no acute complaints or deficits. Is acting appropriately. Understands he had a seizure. He is cooperative and willing to obtain further workup. Denies any acute complaints, injuries. May have struck his head but is not on blood thinners. Presents for further evaluation at this time. States that he has been compliant with his seizure med ications. States he is on Vimpat, Lamictal, Keppra. - Related Data Home Medications Medication Instructions Recorded Confirmed Folic Acid 1 mg PO DAILY 11/25/23 12/05/23 Multivitamins, Thera [Multivitamin 1 tab PO DAILY 11/25/23 12/05/23 (formulary)] Previous Rx's Medication Instructions Recorded Pantoprazole [Protonix] 40 mg PO DAILY #30 tab 11/12/23 Tamsulosin [Flomax] 0.4 mg PO HS #30 cap 11/12/23 Lacosamide [Vimpat] 200 mg PO BID 30 Days #60 tablet 12/02/23 lamoTRIgine [LaMICtal] 100 mg PO BID 30 Days #60 tab 12/02/23 levETIRAcetam [Keppra] 1,500 mg PO BID 30 Days #120 tab 12/02/23 Lacosamide [Vimpat] 200 mg PO BID 30 Days #60 tab 04/23/24 lamoTRIgine [LaMICtal] 100 mg PO BID 30 Days #60 tab 04/23/24 levETIRAcetam [Keppra] 1,500 mg PO Q12HR 30 Days #120 tab 04/23/24 Allergies Allergy/AdvReac Type Severity Reaction Status Date / Time No Known Allergies Allergy Verified 12/05/23 15:40 Review of Systems ROS Statement: Those systems with pertinent positive or pertinent negative responses have been documented in the HPI. Review of Systems: CONST: Denies fever EYES: Denies blurry vision ENT: Denies nasal congestion C/V: Denies Chest pain RESP: Denies shortness of breath GI: Denies abdominal pain : Denies dysuria SKIN: Denies rash. MSK: Denies joint pain. NEURO: Denies headache ROS Other: All systems not noted in ROS Statement are negative. Past Medical History Past Medical History: Seizure Disorder History of Any Multi-Drug Resistant Organisms: None Reported Additional Past Surgical History / Comment(s): MOUTH SURGERY Past Anesthesia/Blood Transfusion Reactions: No Reported Reaction Past Psychological History: Anxiety, Depression Smoking Status: Current every day smoker Past Alcohol Use History: Daily, Heavy Past Drug Use History: None Reported - Past Family History Mother Family Medical History: Unable to Obtain, Cancer Additional Family Medical History / Comment(s): lung cancer Father Family Medical History: No Reported History General Exam - General Exam Comments Initial Comments: General: Appears in no acute distress. HEAD: Normal with no signs of head trauma. Negative Mcdonald sign. Negative raccoon eyes. EYES: PERRLA, EOMI, conjunctiva normal, no discharge. Pupils are 3 mm and equal bilaterally. ENT: Hearing grossly intact, normal oropharynx. RESPIRATORY: Clear breath sounds bilaterally. No wheezes, rales, or rhonchi. C/V: Regular rate and rhythm. S1 and S2 auscultated, no edema, peripheral pulses 2+ and intact throughout ABD: Abd is soft, nontender, nondistended EXT: Normal range of motion, no obvious deformity SKIN: No rashes or lesions observed on exposed skin. NEURO: Alert and oriented x 4. Cranial nerves II-XII intact. No focal sensory or strength deficits. Course Vital Signs 04/22/24 04/23/24 22:44 02:38 Temperature 98.3 F Pulse Rate 80 84 Respiratory 16 16 Rate Blood Pressure 128/88 101/66 O2 Sat by Pulse 96 97 Oximetry Medical Decision Making - Medical Decision Making Was pt. sent in by a medical professional or institution (, PA, [employer]RIMP PEELING MACHINE TENDER, urgent care, hospital, or fci...) When possible be specific @ -No Did you speak to anyone other than the patient for history (EMS, parent, family, police, friend...)? What history was obtained from this source @ -No Did you review nursing and triage notes (agree or disagree)? Why? @ -I reviewed and agree with nursing and triage notes Were old charts reviewed (outside hosp., previous admission, EMS record, old EKG, old radiological studies, urgent care reports/EKG's, fci records)? Report findings @ -Old charts reviewed, confirming patient's medications of Lamictal, Vimpat, Keppra. Differential Diagnosis (chest pain, altered mental status, abdominal pain women, abdominal pain men, vaginal bleeding, weakness, fever, dyspnea, syncope, headache, dizziness, GI bleed, back pain, seizure, CVA, palpatations, mental health, musculoskeletal)? @ -Differential Seizure: Recurrent seizure disorder, febrile seizure, alcohol withdrawal, stimulants, meningitis, encephalitis, intercranial hemorrhage, intracranial tumor, stroke, eclampsia, thyrotoxicosis, hypocalcemia, hyponatremia, hypernatremia, hypomagnesemia, psychogenic, this is not meant to be an all-inclusive list. EKG interpreted by me (3pts min.). @ -As above X-rays interpreted by me (1pt min.). @ -Chest x-ray reveals no obvious acute cardiopulmonary process. CT interpreted by me (1pt min.). @ -CT brain reveals no evidence of acute intracranial process or injury. U/S interpreted by me (1pt. min.). @ -None done What testing was considered but not performed or refused? (CT, X-rays, U/S, labs)? Why? @ -None What meds were considered but not given or refused? Why? @ -None Did you discuss the management of the patient with other professionals (professionals i.e. , PA, [employer]RIMP PEELING MACHINE TENDER, lab, RT, psych nurse, psychosocial rehabilitation counselor, criminal lawyer, teacher, affirmative action officer, caseworker protective services)? Give summary @ -No Was smoking cessation discussed for >3mins.? @ -No Was critical care preformed (if so, how long)? @ -No Were there social determinants of health that impacted care today? How? (Homelessness, low income, unemployed, alcoholism, drug addiction, transportation, low edu. Level, literacy, decrease access to med. care, senior living, rehab)? @ -No Was there de-escalation of care discussed even if they declined (Discuss DNR or withdrawal of care, Hospice)? DNR status @ -No What co-morbidities impacted this encounter? (DM, HTN, Smoking, COPD, CAD, Cancer, CVA, ARF, Chemo, Hep., AIDS, mental health diagnosis, sleep apnea, morbid obesity)? @ -Epilepsy Was patient admitted / discharged? Hospital course, mention meds given and route, prescriptions, significant lab abnormalities, going to OR and other pertinent info. @ -Based on patient's presentation and physical exam, presents emergency department for some confusion following a seizure at home. Currently is alert and oriented x 4 with GCS 15. Is cooperative. States he has been compliant with medications. We will obtain seizure workup and due to the concern for him hitting his head at home we will obtain CT brain as well as basic labs. He will be given a dose of his IV Keppra as well as IV fluids. Patient was in agreement this plan. Vital signs currently within acceptable limits and is in no acute distress. EKG shows no signs of acute ischemia.Imaging negative for any obvious acute process. Laboratory studies are within acceptable limits. On reevaluation, I discussed the results with the patient. He has been observed for multiple hours here in the department with no further seizure activity. Remains AandO x 4 and acting appropriately. Discussed workup with him. He will be discharged home at this time. Given refills for all of his seizure medicati ons. He was in agreement this plan. Strict return precautions discussed. I instructed the patient to follow up with their PCP in the next 1-3 days. I explained that the patient should return to the emergency department if they experience any worsening symptoms. Strict return precautions were discussed with the patient. The patient expressed understanding of these instructions. I answered all questions that the patient had. The patient was discharged home in good condition with their prescriptions and follow up information. Undiagnosed new problem with uncertain prognosis? @ -No Drug Therapy requiring intensive monitoring for toxicity (Heparin, Nitro, Insulin, Cardizem)? @ -No Were any procedures done? @ -No Diagnosis/symptom? @ -Breakthrough seizure Acute, or Chronic, or Acute on Chronic? @ -Acute Uncomplicated (without systemic symptoms) or Complicated (systemic symptoms)? @ -Complicated Side effects of treatment? @ -None Exacerbation, Progression, or Severe Exacerbation] @ -No Poses a threat to life or bodily function? @ -Unlikely - Lab Data Result diagrams: 04/22/24 22:58 04/22/24 22:58 Lab Results 04/22/24 04/22/24 04/22/24 Range/Units 22:58 22:58 22:58 WBC 8.5 (3.8-10.6) k/uL RBC 5.06 (4.30-5.90) m/uL Hgb 16.0 (13.0-17.5) gm/dL Hct 47.0 (39.0-53.0) % MCV 92.8 (80.0-100.0) fL MCH 31.7 (25.0-35.0) pg MCHC 34.1 (31.0-37.0) g/dL RDW 14.6 (11.5-15.5) % Plt Count 139 L (150-450) k/uL MPV 7.1 Neutrophils % 78 % Lymphocytes % 13 % Monocytes % 6 % Eosinophils % 1 % Basophils % 0 % Neutrophils # 6.6 (1.3-7.7) k/uL Lymphocytes # 1.1 (1.0-4.8) k/uL Monocytes # 0.5 (0-1.0) k/uL Eosinophils # 0.1 (0-0.7) k/uL Basophils # 0.0 (0-0.2) k/uL PT 13.8 H (10.0-12.5) sec INR 1.3 H (<1.2) APTT 23.6 (22.0-30.0) sec Sodium 138 (137-145) mmol/L Potassium 4.4 (3.5-5.1) mmol/L Chloride 106 (98-107) mmol/L Carbon Dioxide 24 (22-30) mmol/L Anion Gap 8 mmol/L BUN 16 (9-20) mg/dL Creatinine 1.06 (0.66-1.25) mg/dL Est GFR (CKD-EPI)AfAm >90 (>60 ml/min/1.73 sqM) Est GFR (CKD-EPI)NonAf 83 (>60 ml/min/1.73 sqM) Glucose 118 H (74-99) mg/dL Plasma Lactic Acid Alex (0.7-2.0) mmol/L Calcium 8.9 (8.4-10.2) mg/dL Total Bilirubin 0.7 (0.2-1.3) mg/dL AST 29 (17-59) U/L ALT 23 (4-49) U/L Alkaline Phosphatase 94 (38-126) U/L Total Protein 7.4 (6.3-8.2) g/dL Albumin 4.4 (3.5-5.0) g/dL Urine Color Urine Appearance (Clear) Urine pH (5.0-8.0) Ur Specific [place] (1.001-1.035) Urine Protein (Negative) Urine Glucose (UA) (Negative) Urine Ketones (Negative) Urine Blood (Negative) Urine Nitrite (Negative) Urine Bilirubin (Negative) Urine Urobilinogen (<2.0) mg/dL Ur Leukocyte Esterase (Negative) Urine Opiates Screen (NotDetected) Ur Oxycodone Screen (NotDetected) Urine Methadone Screen (NotDetected) Ur Barbiturates Screen (NotDetected) U Tricyclic Antidepress (NotDetected) Ur Phencyclidine Scrn (NotDetected) Ur Amphetamines Screen (NotDetected) U Methamphetamines Scrn (NotDetected) U Benzodiazepines Scrn (NotDetected) Urine Cocaine Screen (NotDetected) U Marijuana (THC) Screen (NotDetected) Serum Alcohol <10 mg/dL 04/22/24 04/22/24 04/22/24 Range/Units 22:58 23:11 23:11 WBC (3.8-10.6) k/uL RBC (4.30-5.90) m/uL Hgb (13.0-17.5) gm/dL Hct (39.0-53.0) % MCV (80.0-100.0) fL MCH (25.0-35.0) pg MCHC (31.0-37.0) g/dL RDW (11.5-15.5) % Plt Count (150-450) k/uL MPV Neutrophils % % Lymphocytes % % Monocytes % % Eosinophils % % Basophils % % Neutrophils # (1.3-7.7) k/uL Lymphocytes # (1.0-4.8) k/uL Monocytes # (0-1.0) k/uL Eosinophils # (0-0.7) k/uL Basophils # (0-0.2) k/uL PT (10.0-12.5) sec INR (<1.2) APTT (22.0-30.0) sec Sodium (137-145) mmol/L Potassium (3.5-5.1) mmol/L Chloride (98-107) mmol/L Carbon Dioxide (22-30) mmol/L Anion Gap mmol/L BUN (9-20) mg/dL Creatinine (0.66-1.25) mg/dL Est GFR (CKD-EPI)AfAm (>60 ml/min/1.73 sqM) Est GFR (CKD-EPI)NonAf (>60 ml/min/1.73 sqM) Glucose (74-99) mg/dL Plasma Lactic Acid Alex 0.9 (0.7-2.0) mmol/L Calcium (8.4-10.2) mg/dL Total Bilirubin (0.2-1.3) mg/dL AST (17-59) U/L ALT (4-49) U/L Alkaline Phosphatase (38-126) U/L Total Protein (6.3-8.2) g/dL Albumin (3.5-5.0) g/dL Urine Color Light Yellow Urine Appearance Clear (Clear) Urine pH 7.0 (5.0-8.0) Ur Specific [place] 1.019 (1.001-1.035) Urine Protein Negative (Negative) Urine Glucose (UA) Negative (Negative) Urine Ketones Negative (Negative) Urine Blood Negative (Negative) Urine Nitrite Negative (Negative) Urine Bilirubin Negative (Negative) Urine Urobilinogen <2.0 (<2.0) mg/dL Ur Leukocyte Esterase Negative (Negative) Urine Opiates Screen Not Detected (NotDetected) Ur Oxycodone Screen Not Detected (NotDetected) Urine Methadone Screen Not Detected (NotDetected) Ur Barbiturates Screen Not Detected (NotDetected) U Tricyclic Antidepress Not Detected (NotDetected) Ur Phencyclidine Scrn Not Detected (NotDetected) Ur Amphetamines Screen Not Detected (NotDetected) U Methamphetamines Scrn Not Detected (NotDetected) U Benzodiazepines Scrn Not Detected (NotDetected) Urine Cocaine Screen Not Detected (NotDetected) U Marijuana (THC) Screen Not Detected (NotDetected) Serum Alcohol mg/dL - EKG Data -: EKG Interpreted by Me EKG Comments: 12-lead Electrocardiogram Interpretation Note EKG was reviewed and interpreted by myself. 12-lead ECG performed at 2310 is interpreted by me as revealing normal sinus rhythm at a rate of 76 beats per minute. [place] is normal. MA interval is 138 ms, QRS duration is 96 ms, QTc is 364 ms.. There were no ST or T wave abnormalities to suggest myocardial ischemia or injury. R wave progression across the precordium was satisfactory. By my interpretation this EKG is non-diagnostic for acute ischemia. Disposition Clinical Impression: Seizure Disposition: HOME SELF-CARE Condition: Good Instructions (If sedation given, give patient instructions): Epilepsy (ED) Prescriptions: levETIRAcetam [Keppra] 1,500 mg PO Q12HR 30 Days #120 tab lamoTRIgine [LaMICtal] 100 mg PO BID 30 Days #60 tab Lacosamide [Vimpat] 200 mg PO BID 30 Days #60 tab Is patient prescribed a controlled substance at d/c from ED?: Yes When asked, does pt state using other controlled substances?: Yes Referrals: Meagan Alejo MD [Primary Care Provider] - 1-2 days Time of Disposition: 02:30
[2024-04-22 23:51] LABS: ALT 23 U/L (4-49); African American GFR (CKD) >90 (>60 ml/min/1.73 sqM); Albumin 4.4 g/dL (3.5-5.0); Alcohol <10 mg/dL; Anion Gap 8 mmol/L; Blood Urea Nitrogen 16 mg/dL (9-20); Calcium 8.9 mg/dL (8.4-10.2); Carbon Dioxide 24 mmol/L (22-30); Chloride 106 mmol/L (98-107); Glucose 118 mg/dL (74-99); Non-African American GFR(CKD) 83 (>60 ml/min/1.73 sqM); Sodium 138 mmol/L (137-145); Total Bilirubin 0.7 mg/dL (0.2-1.3); Total Protein 7.4 g/dL (6.3-8.2)
[2024-04-23 00:29] LABS: AST 29 U/L (17-59); Alkaline Phosphatase 94 U/L (38-126); Potassium 4.4 mmol/L (3.5-5.1)
--- NOTE | 2024-04-23 00:58 | CT ---
EXAM: CT Head Without Intravenous Contrast CLINICAL HISTORY: ITS.REASON CT Reason: Altered mental status TECHNIQUE: Axial computed tomography images of the head/brain without intravenous contrast. CTDI is 49.1 mGy and DLP is 1169.4 mGy-cm. This CT exam was performed using one or more of the following dose reduction techniques: automated exposure control, adjustment of the mA and/or kV according to patient size, and/or use of iterative reconstruction technique. COMPARISON: No relevant prior studies available. FINDINGS: No acute intracranial hemorrhage. No midline shift or mass effect. The territorial marin-white matter differentiation is maintained throughout. The ventricles and sulci are commensurate with age. The visualized orbits appear grossly unremarkable. The calvarium is intact. The visualized paranasal sinuses and mastoid air cells are grossly clear. IMPRESSION: No acute intracranial hemorrhage, midline shift, or mass effect.
--- NOTE | 2024-04-23 01:48 | XR ---
EXAM: XR Chest, 1 View CLINICAL HISTORY: ITS.REASON XR Reason: altered mental status TECHNIQUE: Frontal view of the chest. COMPARISON: No relevant prior studies available. FINDINGS: Lungs: Unremarkable. No focal consolidation, pleural effusion, or pneumothorax. Pleural space: See above. Heart: Unremarkable. No cardiomegaly. Mediastinum: Unremarkable. Normal mediastinal contour. Bones/joints: Unremarkable. No acute fracture. IMPRESSION: Normal chest x-ray.
[2024-04-23 02:40] VITALS: BP 101/66; PULSE 84
== END 2024-04-23 02:39 | disposition home or self-care (01) ==
LOC: EC 22:42
DX: S09.90XA Unspecified injury of head, initial encounter (principal); G40.909 Epilepsy, unspecified, not intractable, without status epilepticus; F17.210 Nicotine dependence, cigarettes, uncomplicated; X58.XXXA Exposure to other specified factors, initial encounter
CPT/HCPCS: 36415; 93005; 80053; 83605; 85025; 85610; 85730; 81003; 80306; 80320; 71045; 70450; 99285; 96374; 96361; J1953

== ENCOUNTER 2024-04-24 15:35 | Emergency (ER) | payer MEDICARE, OTHER ==
[2024-04-24 15:44] VITALS: BP 128/82; PULSE 94; RESP 18; TEMP 98.3
--- NOTE | 2024-04-24 16:06 | ED ---
Seizure HPI - General Chief Complaint: Seizure Stated Complaint: seizure Time Seen by Provider: 04/24/24 15:42 Source: patient, EMS, RN notes reviewed Mode of arrival: EMS Limitations: no limitations - History of Present Illness Initial Comments: 49-year-old male presents emergency department with chief complaint of possible seizure. Patient has a history EMS reports that he had absent type seizure witnessed by friend who helped him to the ground he has no injury has no complaints states he does not want to be here he states he has not drank he is s yokasta no withdrawal symptoms. Patient offers no complaints. - Related Data Home Medications Medication Instructions Recorded Confirmed Folic Acid 1 mg PO DAILY 11/25/23 12/05/23 Multivitamins, Thera [Multivitamin 1 tab PO DAILY 11/25/23 12/05/23 (formulary)] Previous Rx's Medication Instructions Recorded Pantoprazole [Protonix] 40 mg PO DAILY #30 tab 11/12/23 Tamsulosin [Flomax] 0.4 mg PO HS #30 cap 11/12/23 Lacosamide [Vimpat] 200 mg PO BID 30 Days #60 tablet 12/02/23 lamoTRIgine [LaMICtal] 100 mg PO BID 30 Days #60 tab 12/02/23 levETIRAcetam [Keppra] 1,500 mg PO BID 30 Days #120 tab 12/02/23 Lacosamide [Vimpat] 200 mg PO BID 30 Days #60 tab 04/23/24 lamoTRIgine [LaMICtal] 100 mg PO BID 30 Days #60 tab 04/23/24 levETIRAcetam [Keppra] 1,500 mg PO Q12HR 30 Days #120 tab 04/23/24 Allergies Allergy/AdvReac Type Severity Reaction Status Date / Time No Known Allergies Allergy Verified 04/24/24 15:44 Review of Systems ROS Statement: Those systems with pertinent positive or pertinent negative responses have been documented in the HPI. ROS Other: All systems not noted in ROS Statement are negative. Past Medical History Past Medical History: Seizure Disorder History of Any Multi-Drug Resistant Organisms: None Reported Additional Past Surgical History / Comment(s): MOUTH SURGERY Past Anesthesia/Blood Transfusion Reactions: No Reported Reaction Past Psychological History: Anxiety, Depression Smoking Status: Current every day smoker Past Alcohol Use History: Daily, Heavy Past Drug Use History: None Reported - Past Family History Mother Family Medical History: Unable to Obtain, Cancer Additional Family Medical History / Comment(s): lung cancer Father Family Medical History: No Reported History General Exam Limitations: no limitations General appearance: alert, in no apparent distress Head exam: Present: atraumatic, normocephalic, normal inspection Eye exam: Present: normal appearance, PERRL, EOMI. Absent: scleral icterus, conjunctival injection, periorbital swelling ENT exam: Present: normal exam, mucous membranes moist Neck exam: Present: normal inspection, full ROM. Absent: tenderness, meningismus, lymphadenopathy Respiratory exam: Present: normal lung sounds bilaterally. Absent: respiratory distress, wheezes, rales, rhonchi, stridor Cardiovascular Exam: Present: regular rate, normal rhythm, normal heart sounds. Absent: systolic murmur, diastolic murmur, rubs, gallop, clicks GI/Abdominal exam: Present: soft, normal bowel sounds. Absent: distended, tenderness, guarding, rebound, rigid Neurological exam: Present: alert, oriented X3, CN II-XII intact, reflexes normal. Absent: motor sensory deficit Course Vital Signs 04/24/24 15:40 Temperature 98.3 F Pulse Rate 94 Respiratory 18 Rate Blood Pressure 128/82 O2 Sat by Pulse 98 Oximetry Medical Decision Making - Medical Decision Making Was pt. sent in by a medical professional or institution (MISTY Nicholson, WATER JET OPERATOR, urgent care, hospital, or residential...) When possible be specific @ -No Did you speak to anyone other than the patient for history (EMS, parent, family, police, friend...)? What history was obtained from this source @ -No Did you review nursing and triage notes (agree or disagree)? Why? @ -I reviewed and agree with nursing and triage notes Were old charts reviewed (outside hosp., previous admission, EMS record, old EKG, old radiological studies, urgent care reports/EKG's, residential records)? Report findings @ -No old charts were reviewed Differential Diagnosis (chest pain, altered mental status, abdominal pain women, abdominal pain men, vaginal bleeding, weakness, fever, dyspnea, syncope, headache, dizziness, GI bleed, back pain, seizure, CVA, palpatations, mental health, musculoskeletal)? @ -Differential Seizure: Recurrent seizure disorder, febrile seizure, alcohol withdrawal, stimulants, meningitis, encephalitis, intercranial hemorrhage, intracranial tumor, stroke, eclampsia, thyrotoxicosis, hypocalcemia, hyponatremia, hypernatremia, hypomagnesemia, psychogenic, this is not meant to be an all-inclusive list. EKG interpreted by me (3pts min.). @ -None X-rays interpreted by me (1pt min.). @ -None done CT interpreted by me (1pt min.). @ -None done U/S interpreted by me (1pt. min.). @ -None done What testing was considered but not performed or refused? (CT, X-rays, U/S, labs)? Why? @ -None What meds were considered but not given or refused? Why? @ -None Did you discuss the management of the patient with other professionals (professionals i.e. , PA, WATER JET OPERATOR, lab, RT, psych nurse, clinical social work aide, electronic imager, teacher, planned giving officer, case managers)? Give summary @ -No Was smoking cessation discussed for >3mins.? @ -No Was critical care preformed (if so, how long)? @ -No Were there social determinants of health that impacted care today? How? (Homelessness, low income, unemployed, alcoholism, drug addiction, transportation, low edu. Level, literacy, decrease access to med. care, prison, rehab)? @ -No Was there de-escalation of care discussed even if they declined (Discuss DNR or withdrawal of care, Hospice)? DNR status @ -No What co-morbidities impacted this encounter? (DM, HTN, Smoking, COPD, CAD, Cancer, CVA, ARF, Chemo, Hep., AIDS, mental health diagnosis, sleep apnea, morbid obesity)? @ -Seizure history Was patient admitted / discharged? Hospital course, mention meds given and route, prescriptions, significant lab abnormalities, going to OR and other pertinent info. @ -Discharge patient is awake alert and orientated has no complaints patient is sober with no withdrawal symptoms. Patient refuses all testing will be discharged in stable condition. Understands the risk of leaving. Undiagnosed new problem with uncertain prognosis? @ -No Drug Therapy requiring intensive monitoring for toxicity (Heparin, Nitro, Insulin, Cardizem)? @ -No Were any procedures done? @ -No Diagnosis/symptom? @ -Seizure Acute, or Chronic, or Acute on Chronic? @ -Acute Uncomplicated (without systemic symptoms) or Complicated (systemic symptoms)? @ -Uncomplicated Side effects of treatment? @ -No Exacerbation, Progression, or Severe Exacerbation? @ -No Poses a threat to life or bodily function? How? (Chest pain, [place], [place], pneumonia, PE, COPD, DKA, ARF, appy, cholecystitis, CVA, Diverticulitis, Homicidal, Suicidal, threat to staff... and all critical care pts) @ -No Disposition Clinical Impression: Seizure Disposition: HOME SELF-CARE Condition: Stable Additional Instructions: Please return to the Emergency Department if symptoms worsen or any other concerns. Is patient prescribed a controlled substance at d/c from ED?: No Referrals: Meagan Alejo MD [Primary Care Provider] - 1-2 days Time of Disposition: 16:06
== END 2024-04-24 16:09 | disposition home or self-care (01) ==
LOC: EC 15:35
DX: G40.909 Epilepsy, unspecified, not intractable, without status epilepticus (principal); F17.200 Nicotine dependence, unspecified, uncomplicated
CPT/HCPCS: 99284

== ENCOUNTER 2024-05-03 04:28 | Emergency (ER) | payer MEDICARE, OTHER ==
[2024-05-03 04:37] VITALS: BP 123/85; PULSE 100; RESP 18; TEMP 98.5
--- NOTE | 2024-05-03 04:46 | ED ---
General Adult HPI <MatthewGrayson - Last Filed: 05/03/24 09:57> - General Source: patient Mode of arrival: EMS Limitations: no limitations - History of Present Illness -: days(s) Severity scale (1-10): 0 Consistency: constant Improves with: none Worsens with: none Associated Symptoms: denies other symptoms Treatments Prior to Arrival: none <Vargas Alaniz - Last Filed: 05/17/24 18:12> - General Chief complaint: Recheck/Abnormal Lab/Rx Stated complaint: ETOH - History of Present Illness Initial comments: This patient is a 49-year-old man with history of seizure disorder who presents with concern that he believes he may be at risk of having seizure. He states he is run out of one of his anticonvulsant medicines. Patient also has been drinking approximately 6 to 8 24 ounce beers a day. (Vargas Alaniz) - Related Data Home Medications Medication Instructions Recorded Confirmed Folic Acid 1 mg PO DAILY 11/25/23 12/05/23 Multivitamins, Thera [Multivitamin 1 tab PO DAILY 11/25/23 12/05/23 (formulary)] Previous Rx's Medication Instructions Recorded Pantoprazole [Protonix] 40 mg PO DAILY #30 tab 11/12/23 Tamsulosin [Flomax] 0.4 mg PO HS #30 cap 11/12/23 Lacosamide [Vimpat] 200 mg PO BID 30 Days #60 tablet 12/02/23 lamoTRIgine [LaMICtal] 100 mg PO BID 30 Days #60 tab 12/02/23 levETIRAcetam [Keppra] 1,500 mg PO BID 30 Days #120 tab 12/02/23 Lacosamide [Vimpat] 200 mg PO BID 30 Days #60 tab 04/23/24 lamoTRIgine [LaMICtal] 100 mg PO BID 30 Days #60 tab 04/23/24 levETIRAcetam [Keppra] 1,500 mg PO Q12HR 30 Days #120 tab 04/23/24 Lacosamide [Vimpat] 200 mg PO BID 3 Days #20 tab 05/03/24 lamoTRIgine 100 mg PO Q12H #20 tablet 05/03/24 levETIRAcetam [Keppra] 1,500 mg PO Q12HR #30 tab 05/03/24 Allergies Allergy/AdvReac Type Severity Reaction Status Date / Time No Known Allergies Allergy Verified 05/03/24 04:34 Review of Systems ROS Other: All systems not noted in ROS Statement are negative. <MatthewGrayson - Last Filed: 05/03/24 09:57> ROS Other: All systems not noted in ROS Statement are negative. Constitutional: Denies: fever, chills Eyes: Denies: vision change Respiratory: Denies: cough, dyspnea Cardiovascular: Denies: chest pain, palpitations, syncope Gastrointestinal: Denies: abdominal pain, nausea, vomiting Musculoskeletal: Denies: back pain Skin: Denies: rash Neurological: Denies: headache, weakness Psychiatric: Reports: anxiety. Denies: depression <KattyVargas - Last Filed: 05/17/24 18:12> ROS Statement: Those systems with pertinent positive or pertinent negative responses have been documented in the HPI. Past Medical History Past Medical History: Seizure Disorder History of Any Multi-Drug Resistant Organisms: None Reported Additional Past Surgical History / Comment(s): MOUTH SURGERY Past Anesthesia/Blood Transfusion Reactions: No Reported Reaction Past Psychological History: Anxiety, Depression Smoking Status: Current every day smoker Past Alcohol Use History: Daily, Heavy Past Drug Use History: None Reported - Past Family History Mother Family Medical History: Unable to Obtain, Cancer Additional Family Medical History / Comment(s): lung cancer Father Family Medical History: No Reported History <KattyVargas - Last Filed: 05/17/24 18:12> General Exam Limitations: no limitations General appearance: alert, in no apparent distress Head exam: Present: atraumatic, normocephalic Eye exam: Present: normal appearance. Absent: scleral icterus, conjunctival injection ENT exam: Present: normal oropharynx Neck exam: Present: normal inspection Respiratory exam: Present: normal lung sounds bilaterally. Absent: respiratory distress, wheezes, rales, rhonchi, stridor, accessory muscle use Cardiovascular Exam: Present: regular rate, normal rhythm, normal heart sounds. Absent: systolic murmur, diastolic murmur, rubs, gallop GI/Abdominal exam: Present: soft. Absent: distended, tenderness, guarding, rebound, rigid, mass Extremities exam: Present: normal inspection Neurological exam: Present: alert Skin exam: Present: warm, dry, intact, normal color. Absent: rash <Vargas Alaniz - Last Filed: 05/17/24 18:12> Course Vital Signs 05/03/24 04:29 Temperature 98.5 F Pulse Rate 100 Respiratory 18 Rate Blood Pressure 123/85 O2 Sat by Pulse 95 Oximetry Medical Decision Making <Grayson Castro - Last Filed: 05/03/24 09:57> <Vargas Alaniz - Last Filed: 05/17/24 18:12> - Medical Decision Making Patient was discharged by previous provider however patient is requesting that we send a blood test to evaluate patient's blood levels of his antiepileptic medications. He was informed that we will take days for these results come back but we will draw them and send them he can follow-up with results with the PCP. He was in agreement this plan. Patient already given a refill prescriptions for his meds. He will be given a dose of all of his medications prior to discharge.Patient then refused the lab draw despite already having an IV and wanted his medications and to be discharged. Patient is discharged home at this time. (Grayson Castro) Was pt. sent in by a medical professional or institution (, PA, CORPORATE COMPLIANCE MANAGER, urgent care, hospital, or care home...) When possible be specific @ -[No] Did you speak to anyone other than the patient for history (EMS, parent, family, police, friend...)? What history was obtained from this source @ -[No] Did you review nursing and triage notes (agree or disagree)? Why? @ -[I reviewed and agree with nursing and triage notes] Were old charts reviewed (outside hosp., previous admission, EMS record, old EKG, old radiological studies, urgent care reports/EKG's, care home records)? Report findings @ -[No old charts were reviewed] Differential Diagnosis (chest pain, altered mental status, abdominal pain women, abdominal pain men, vaginal bleeding, weakness, fever, dyspnea, syncope, headache, dizziness, GI bleed, back pain, seizure, CVA, palpatations, mental health, musculoskeletal)? @ -[not applicable] EKG interpreted by me (3pts min.). @ -[As above] X-rays interpreted by me (1pt min.). @ -[None done] CT interpreted by me (1pt min.). @ -[None done] U/S interpreted by me (1pt. min.). @ -[None done] What testing was considered but not performed or refused? (CT, X-rays, U/S, labs)? Why? @ -[None] What meds were considered but not given or refused? Why? @ -[None] Did you discuss the management of the patient with other professionals (professionals i.e. Dr., PA, CORPORATE COMPLIANCE MANAGER, lab, RT, psych nurse, dialysis social worker, lead generation specialist, teacher, president and chief executive officer, briefcase sewer)? Give summary @ -[No] Was smoking cessation discussed for >3mins.? @ -[No] Was critical care preformed (if so, how long)? @ -[No] Were there social determinants of health that impacted care today? How? (Homelessness, low income, unemployed, alcoholism, drug addiction, transportation, low edu. Level, literacy, decrease access to med. care, half-way, rehab)? @ -[Alcohol abuse Was there de-escalation of care discussed even if they declined (Discuss DNR or withdrawal of care, Hospice)? DNR status @ -[No] What co-morbidities impacted this encounter? (DM, HTN, Smoking, COPD, CAD, Cancer, CVA, ARF, Chemo, Hep., AIDS, mental health diagnosis, sleep apnea, morbid obesity)? @ -[Seizure disorder Was patient admitted / discharged? Hospital course, mention meds given and route, prescriptions, significant lab abnormalities, going to OR and other pertinent info. @ -[Patient is 49-year-old man with seizure disorder concerned that he has run out of antiepileptic medication. Medications are refilled and at this point patient stable for discharge with further follow-up as needed Undiagnosed new problem with uncertain prognosis? @ -[No] Drug Therapy requiring intensive monitoring for toxicity (Heparin, Nitro, Insulin, Cardizem)? @ -[No] Were any procedures done? @ -[No] Diagnosis/symptom? @ -[Medication refill Acute, or Chronic, or Acute on Chronic? @ -[default] Uncomplicated (without systemic symptoms) or Complicated (systemic symptoms)? @ -[default] Side effects of treatment? @ -[No] Exacerbation, Progression, or Severe Exacerbation? @ -[No] Poses a threat to life or bodily function? How? (Chest pain, [place], [place], pneumonia, PE, COPD, DKA, ARF, appy, cholecystitis, CVA, Diverticulitis, Homicidal, Suicidal, threat to staff... and all critical care pts) @ -[No] All treatments are based on ideal body weight as in ED triage (Vargas Alaniz) Disposition Is patient prescribed a controlled substance at d/c from ED?: No Time of Disposition: 09:26 <Grayson Castro - Last Filed: 05/03/24 09:57> Is patient prescribed a controlled substance at d/c from ED?: No <Vargas Alaniz - Last Filed: 05/17/24 18:12> Clinical Impression: Encounter for medication refill, Alcoholic intoxication Disposition: HOME SELF-CARE Condition: Good Prescriptions: levETIRAcetam [Keppra] 1,500 mg PO Q12HR #30 tab lamoTRIgine 100 mg PO Q12H #20 tablet Lacosamide [Vimpat] 200 mg PO BID 3 Days #20 tab Referrals: Meagan Alejo MD [Primary Care Provider] - 1-2 days
[2024-05-03] MEDS: levETIRAcetam 500 MG TAB PO STA (09:47)
[2024-05-03] MEDS: lamoTRIgine 100 MG TAB PO STA (09:51)
[2024-05-03] MEDS: LACOSAMIDE 50 MG TABLET PO STA (09:51)
== END 2024-05-03 09:52 | disposition home or self-care (01) ==
LOC: EC 04:28
DX: Z76.0 Encounter for issue of repeat prescription (principal); F10.129 Alcohol abuse with intoxication, unspecified; F17.200 Nicotine dependence, unspecified, uncomplicated
CPT/HCPCS: 99284

== ENCOUNTER 2024-06-02 02:24 | Emergency (ER) | payer MEDICARE ==
[2024-06-02 02:48] VITALS: BP 128/86; PULSE 97; RESP 18; TEMP 97.8
--- NOTE | 2024-06-02 03:07 | ED ---
General Adult HPI - General Chief complaint: Recheck/Abnormal Lab/Rx Stated complaint: med refill Time Seen by Provider: 06/02/24 02:49 Source: patient Mode of arrival: ambulatory Limitations: no limitations - History of Present Illness Initial comments: 49-year-old male presenting for medication refill. Patient was released from senior living earlier this evening. States that he does not have his antiepileptic medications. He is requesting several doses to take home with him. He is having no other complaints today. - Related Data Home Medications Medication Instructions Recorded Confirmed Folic Acid 1 mg PO DAILY 11/25/23 12/05/23 Multivitamins, Thera [Multivitamin 1 tab PO DAILY 11/25/23 12/05/23 (formulary)] Previous Rx's Medication Instructions Recorded Pantoprazole [Protonix] 40 mg PO DAILY #30 tab 11/12/23 Tamsulosin [Flomax] 0.4 mg PO HS #30 cap 11/12/23 Lacosamide [Vimpat] 200 mg PO BID 30 Days #60 tablet 12/02/23 lamoTRIgine [LaMICtal] 100 mg PO BID 30 Days #60 tab 12/02/23 levETIRAcetam [Keppra] 1,500 mg PO BID 30 Days #120 tab 12/02/23 Lacosamide [Vimpat] 200 mg PO BID 30 Days #60 tab 04/23/24 lamoTRIgine [LaMICtal] 100 mg PO BID 30 Days #60 tab 04/23/24 levETIRAcetam [Keppra] 1,500 mg PO Q12HR 30 Days #120 tab 04/23/24 Lacosamide [Vimpat] 200 mg PO BID 3 Days #20 tab 05/03/24 lamoTRIgine 100 mg PO Q12H #20 tablet 05/03/24 levETIRAcetam [Keppra] 1,500 mg PO Q12HR #30 tab 05/03/24 Lacosamide [Vimpat] 200 mg PO BID 30 Days #60 tab 06/02/24 lamoTRIgine [LaMICtal] 100 mg PO BID 30 Days #60 tab 06/02/24 levETIRAcetam [Keppra] 1,500 mg PO BID 30 Days #120 tab 06/02/24 Allergies Allergy/AdvReac Type Severity Reaction Status Date / Time No Known Allergies Allergy Verified 06/02/24 02:49 Review of Systems ROS Statement: Those systems with pertinent positive or pertinent negative responses have been documented in the HPI. ROS Other: All systems not noted in ROS Statement are negative. Past Medical History Past Medical History: Seizure Disorder History of Any Multi-Drug Resistant Organisms: None Reported Additional Past Surgical History / Comment(s): MOUTH SURGERY Past Anesthesia/Blood Transfusion Reactions: No Reported Reaction Past Psychological History: Anxiety, Depression Smoking Status: Current every day smoker Past Alcohol Use History: Daily, Heavy Past Drug Use History: None Reported - Past Family History Mother Family Medical History: Unable to Obtain, Cancer Additional Family Medical History / Comment(s): lung cancer Father Family Medical History: No Reported History General Exam Limitations: no limitations General appearance: alert, in no apparent distress Head exam: Present: atraumatic, normocephalic, normal inspection Eye exam: Present: normal appearance, EOMI Neck exam: Present: normal inspection. Absent: meningismus Respiratory exam: Absent: respiratory distress Cardiovascular Exam: Present: regular rate Neurological exam: Present: alert, oriented X3 Psychiatric exam: Present: normal affect, normal mood Skin exam: Present: warm, dry Course Vital Signs 06/02/24 02:35 Temperature 97.8 F Pulse Rate 97 Respiratory 18 Rate Blood Pressure 128/86 O2 Sat by Pulse 94 L Oximetry Medical Decision Making - Medical Decision Making Was pt. sent in by a medical professional or institution (MISTY Nicholson, METAL COATER OPERATOR, urgent care, hospital, or skilled nursing...) When possible be specific @ -No Did you speak to anyone other than the patient for history (EMS, parent, family, police, friend...)? What history was obtained from this source @ -No Did you review nursing and triage notes (agree or disagree)? Why? @ -I reviewed and agree with nursing and triage notes Were old charts reviewed (outside hosp., previous admission, EMS record, old EKG, old radiological studies, urgent care reports/EKG's, skilled nursing records)? Report findings @ -No old charts were reviewed Differential Diagnosis (chest pain, altered mental status, abdominal pain women, abdominal pain men, vaginal bleeding, weakness, fever, dyspnea, syncope, headache, dizziness, GI bleed, back pain, seizure, CVA, palpatations, mental health, musculoskeletal)? @ -Not applicable EKG interpreted by me (3pts min.). @ -As above X-rays interpreted by me (1pt min.). @ -None done CT interpreted by me (1pt min.). @ -None done U/S interpreted by me (1pt. min.). @ -None done What testing was considered but not performed or refused? (CT, X-rays, U/S, labs)? Why? @ -None What meds were considered but not given or refused? Why? @ -None Did you discuss the management of the patient with other professionals (professionals i.e. , PA, METAL COATER OPERATOR, lab, RT, psych nurse, social human services assistants, egg buyer, teacher, detention officer, case packer)? Give summary @ -No Was smoking cessation discussed for >3mins.? @ -No Was critical care preformed (if so, how long)? @ -No Were there social determinants of health that impacted care today? How? (Homelessness, low income, unemployed, alcoholism, drug addiction, transportation, low edu. Level, literacy, decrease access to med. care, senior living, rehab)? @ -No Was there de-escalation of care discussed even if they declined (Discuss DNR or withdrawal of care, Hospice)? DNR status @ -No What co-morbidities impacted this encounter? (DM, HTN, Smoking, COPD, CAD, Cancer, CVA, ARF, Chemo, Hep., AIDS, mental health diagnosis, sleep apnea, morbid obesity)? @ -None Was patient admitted / discharged? Hospital course, mention meds given and route, prescriptions, significant lab abnormalities, going to OR and other pertinent info. @ -49-year-old male presenting for medication refill. Patient was released from senior living earlier today and needs his antiepileptic medications refilled. He is sent refills of his Vimpat, Lamictal, and Keppra. Provided with 1 dose of each here in the ER. Follow-up with PCP. Report back to ER with any new or worsening symptoms. Discussed return parameters and answered all questions. Patient conveyed verbal understanding and agreed to the plan. I discussed this case in detail with my attending Dr. Guillen Undiagnosed new problem with uncertain prognosis? @ -No Drug Therapy requiring intensive monitoring for toxicity (Heparin, Nitro, Insulin, Cardizem)? @ -No Were any procedures done? @ -No Diagnosis/symptom? @ -Medication refill Acute, or Chronic, or Acute on Chronic? @ -Acute Uncomplicated (without systemic symptoms) or Complicated (systemic symptoms)? @ -Uncomplicated Side effects of treatment? @ -No Exacerbation, Progression, or Severe Exacerbation? @ -No Poses a threat to life or bodily function? How? (Chest pain, [place], [place], pneumonia, PE, COPD, DKA, ARF, appy, cholecystitis, CVA, Diverticulitis, Homicidal, Suicidal, threat to staff... and all critical care pts) @ -No Disposition Clinical Impression: Encounter for medication refill Disposition: HOME SELF-CARE Condition: Good Additional Instructions: Follow-up with your PCP. Prescriptions: levETIRAcetam [Keppra] 1,500 mg PO BID 30 Days #120 tab lamoTRIgine [LaMICtal] 100 mg PO BID 30 Days #60 tab Lacosamide [Vimpat] 200 mg PO BID 30 Days #60 tab Is patient prescribed a controlled substance at d/c from ED?: No Referrals: Kristy Wolff FNPBC [Primary Care Provider] - 1-2 days Time of Disposition: 03:07
[2024-06-02] MEDS: levETIRAcetam 500 MG TAB PO STA (03:15)
[2024-06-02] MEDS: lamoTRIgine 100 MG TAB PO STA (03:15)
[2024-06-02] MEDS: LACOSAMIDE 50 MG TABLET PO STA (03:15)
== END 2024-06-02 03:17 | disposition home or self-care (01) ==
LOC: EC 02:24
DX: Z76.0 Encounter for issue of repeat prescription (principal); F17.200 Nicotine dependence, unspecified, uncomplicated
CPT/HCPCS: 99281

== ENCOUNTER 2024-06-03 10:59 | Observation (INO) | payer MEDICARE ==
[2024-06-03 11:08] VITALS: TEMP 99.1
[2024-06-03] MEDS ORDERED: LORazepam 2 MG/ML INJ IV PRN ×3 (11:12)
[2024-06-03] MEDS ORDERED: LORazepam 0.5 MG TAB PO PRN (11:12)
[2024-06-03] MEDS ORDERED: LORazepam 1 MG TAB PO PRN ×3 (11:12)
--- NOTE | 2024-06-03 11:14 | ED ---
Alcohol HPI - General Chief Complaint: Seizure Stated Complaint: Seizure Time Seen by Provider: 06/03/24 11:12 Source: EMS, RN notes reviewed, old records reviewed Mode of arrival: EMS Limitations: no limitations - History of Present Illness Initial Comments: This is a 49-year-old male to the ER for evaluation of seizure activity, alcohol withdrawal seizures history of the same. 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) Previous Visits for Alcohol Intoxication?: Yes Recent Trauma: Yes Associated Symptoms: nausea Treatments Prior to Arrival: none Chronic Alcohol Use: Yes - Related Data Previous Rx's Medication Instructions Recorded Pantoprazole [Protonix] 40 mg PO DAILY #30 tab 11/12/23 Lacosamide [Vimpat] 200 mg PO BID 30 Days #60 tab 06/02/24 levETIRAcetam [Keppra] 1,500 mg PO BID 30 Days #120 tab 06/02/24 Allergies Allergy/AdvReac Type Severity Reaction Status Date / Time No Known Allergies Allergy Verified 06/03/24 11:29 Review of Systems ROS Statement: Those systems with pertinent positive or pertinent negative responses have been documented in the HPI. ROS Other: All systems not noted in ROS Statement are negative. Past Medical History Past Medical History: Seizure Disorder History of Any Multi-Drug Resistant Organisms: None Reported Additional Past Surgical History / Comment(s): MOUTH SURGERY Past Anesthesia/Blood Transfusion Reactions: No Reported Reaction Past Psychological History: Anxiety, Depression Smoking Status: Current every day smoker Past Alcohol Use History: Daily, Heavy Past Drug Use History: None Reported - Past Family History Mother Family Medical History: Unable to Obtain, Cancer Additional Family Medical History / Comment(s): lung cancer Father Family Medical History: No Reported History General Exam General appearance: alert, in no apparent distress, anxious Head exam: Present: atraumatic, normocephalic, normal inspection Eye exam: Present: normal appearance, PERRL, EOMI. Absent: scleral icterus, conjunctival injection, periorbital swelling ENT exam: Present: normal exam, mucous membranes moist Neck exam: Present: normal inspection. Absent: tenderness, meningismus, lymphadenopathy Respiratory exam: Present: normal lung sounds bilaterally. Absent: respiratory distress, wheezes, rales, rhonchi, stridor Cardiovascular Exam: Present: regular rate, normal rhythm, normal heart sounds. Absent: systolic murmur, diastolic murmur, rubs, gallop, clicks GI/Abdominal exam: Present: soft, normal bowel sounds. Absent: distended, tenderness, guarding, rebound, rigid Extremities exam: Present: normal inspection, full ROM, normal capillary refill. Absent: tenderness, pedal edema, joint swelling, calf tenderness Back exam: Present: normal inspection Neurological exam: Present: alert, oriented X3, CN II-XII intact Psychiatric exam: Present: normal affect, normal mood Skin exam: Present: warm, dry, intact, normal color. Absent: rash Course Vital Signs 06/03/24 06/03/24 11:02 13:59 Temperature 99.1 F Pulse Rate 114 H 101 H Respiratory 18 15 Rate Blood Pressure 130/80 128/74 O2 Sat by Pulse 97 97 Oximetry - Reevaluation(s) Reevaluation #1: 06/03/24 14:14 Medical records reviewed Reevaluation #2: 06/03/24 14:15 Patient symptoms improving Reevaluation #3: 06/03/24 14:15 Patient informed of results questions answered Reevaluation #4: Was pt. sent in by a medical professional or institution (, PA, [employer], urgent care, hospital, or alf...) When possible be specific @ -no Did you speak to anyone other than the patient for history (EMS, parent, family, police, friend...)? What history was obtained from this source @ -no Did you review nursing and triage notes (agree or disagree)? Why? @ -agree Are old charts reviewed (outside hosp., previous admission, EMS record, old EKG, old radiological studies, urgent care reports/EKG's, alf records)? Report findings @ -yes Differential Diagnosis (chest pain, altered mental status, abdominal pain women, abdominal pain men, vaginal bleeding, weakness, fever, dyspnea, syncope, headache, dizziness, GI bleed, back pain, seizure, CVA, palpatations, mental health, musculoskeletal)? @ -prior EKG interpreted by me (3pts min.). @ -yes X-rays interpreted by me (1pt min.). @ -yes negative for acute disease CT interpreted by me (1pt min.). @ -no U/S interpreted by me (1pt. min.). @ -no What testing was considered but not performed or refused? (CT, X-rays, U/S, labs)? Why? @ -none What meds were considered but not given or refused? Why? @ -none Did you discuss the management of the patient with other professionals (professionals i.e. , PA, [employer], lab, RT, psych nurse, social director, joint cutter machine, teacher, classifications officer cc/cm, rn case management)? Give summary @ -no Was smoking cessation discussed for >3mins.? @ -no Was critical care preformed (if so, how long)? @ -no Were there social determinants of health that impacted care today? How? (Luisa elessness, low income, unemployed, alcoholism, drug addiction, transportation, low edu. Level, literacy, decrease access to med. care, longterm, rehab)? @ -none Was there de-escalation of care discussed even if they declined (Discuss DNR or withdrawal of care, Hospice)? DNR status @ -no What co-morbidities impacted this encounter? (DM, HTN, Smoking, COPD, CAD, Cancer, CVA, ARF, Chemo, Hep., AIDS, mental health diagnosis, sleep apnea, morbid obesity)? @ -none Was patient admitted / discharged? Hospital course, mention meds given and route, prescriptions, significant lab abnormalities, going to OR and other pertinent info. @ - Undiagnosed new problem with uncertain prognosis? @ -no Drug Therapy requiring intensive monitoring for toxicity (Heparin, Nitro, Insulin, Cardizem)? @ -no Were any procedures done? @ -no Diagnosis/symptom? @ - Acute, or Chronic, or Acute on Chronic? @ -Acute Uncomplicated (without systemic symptoms) or Complicated (systemic symptoms)? @ -Complicated Side effects of treatment? @ -no Exacerbation, Progression, or Severe Exacerbation? @ -exacerbation Poses a threat to life or bodily function? How? (Chest pain, [place], [place], pneumonia, PE, COPD, DKA, ARF, appy, cholecystitis, CVA, Diverticulitis, Homicidal, Suicidal, threat to staff... and all critical care pts) @ -yes Reevaluation #5: Differential Seizure: Recurrent seizure disorder, febrile seizure, alcohol withdrawal, stimulants, meningitis, encephalitis, intercranial hemorrhage, intracranial tumor, stroke, eclampsia, thyrotoxicosis, hypocalcemia, hyponatremia, hypernatremia, hypomagnesemia, psychogenic, this is not meant to be an all-inclusive list. - Consultations Consultation #1: Spoke with [facility] who agrees to admit this patient Medical Decision Making - Medical Decision Making 49-year-old male will be admitted for acute seizure with alcohol withdrawal seizures and history of seizures - Lab Data Result diagrams: 06/03/24 11:57 06/03/24 13:24 Lab Results 06/03/24 06/03/24 06/03/24 Range/Units 11:57 11:57 13:24 WBC 8.7 (3.8-10.6) k/uL RBC 5.18 (4.30-5.90) m/uL Hgb 16.1 (13.0-17.5) gm/dL Hct 47.0 (39.0-53.0) % MCV 90.7 (80.0-100.0) fL MCH 31.1 (25.0-35.0) pg MCHC 34.3 (31.0-37.0) g/dL RDW 13.4 (11.5-15.5) % Plt Count 138 L (150-450) k/uL MPV 7.6 Neutrophils % 79 % Lymphocytes % 12 % Monocytes % 4 % Eosinophils % 3 % Basophils % 0 % Neutrophils # 6.9 (1.3-7.7) k/uL Lymphocytes # 1.0 (1.0-4.8) k/uL Monocytes # 0.4 (0-1.0) k/uL Eosinophils # 0.3 (0-0.7) k/uL Basophils # 0.0 (0-0.2) k/uL Sodium 138 (137-145) mmol/L Potassium 4.4 (3.5-5.1) mmol/L Chloride 106 (98-107) mmol/L Carbon Dioxide 23 (22-30) mmol/L Anion Gap 9 mmol/L BUN 17 (9-20) mg/dL Creatinine 1.03 (0.66-1.25) mg/dL Est GFR (CKD-EPI)AfAm >90 (>60 ml/min/1.73 sqM) Est GFR (CKD-EPI)NonAf 86 (>60 ml/min/1.73 sqM) Glucose 104 H (74-99) mg/dL Calcium 8.8 (8.4-10.2) mg/dL Phosphorus 2.6 (2.5-4.5) mg/dL Magnesium 2.1 (1.6-2.3) mg/dL Total Bilirubin 0.8 (0.2-1.3) mg/dL AST 32 (17-59) U/L ALT 32 (4-49) U/L Alkaline Phosphatase 126 (38-126) U/L Total Protein 6.7 (6.3-8.2) g/dL Albumin 3.8 (3.5-5.0) g/dL Lipase 46 (23-300) U/L Urine Color Light Yellow Urine Appearance Clear (Clear) Urine pH 5.5 (5.0-8.0) Ur Specific [place] 1.017 (1.001-1.035) Urine Protein Trace H (Negative) Urine Glucose (UA) Negative (Negative) Urine Ketones 1+ H (Negative) Urine Blood Negative (Negative) Urine Nitrite Negative (Negative) Urine Bilirubin Negative (Negative) Urine Urobilinogen <2.0 (<2.0) mg/dL Ur Leukocyte Esterase Negative (Negative) Urine Opiates Screen Not Detected (NotDetected) Ur Oxycodone Screen Not Detected (NotDetected) Urine Methadone Screen Not Detected (NotDetected) Ur Barbiturates Screen Not Detected (NotDetected) U Tricyclic Antidepress Not Detected (NotDetected) Ur Phencyclidine Scrn Not Detected (NotDetected) Ur Amphetamines Screen Not Detected (NotDetected) U Methamphetamines Scrn Not Detected (NotDetected) U Benzodiazepines Scrn Not Detected (NotDetected) Urine Cocaine Screen Not Detected (NotDetected) U Marijuana (THC) Screen Not Detected (NotDetected) Serum Alcohol <10 mg/dL - EKG Data -: EKG Interpreted by Me (EKG is sinus tachycardia 115 ID 137 QRS 103 QTc 392) Disposition Clinical Impression: Alcohol withdrawal seizure, Seizure, Epileptic seizure, generalized Disposition: ADMITTED IP TO THIS HOSP Condition: Fair Instructions (If sedation given, give patient instructions): Seizure/Epilepsy Discharge Instructions & Follow-Up Is patient prescribed a controlled substance at d/c from ED?: No Referrals: Meagan Alejo MD [Primary Care Provider] - 1-2 days Time of Disposition: 14:00
[2024-06-03] MEDS: LORazepam 2 MG/ML INJ IV STA (11:58)
[2024-06-03] MEDS: SODIUM CHLORIDE 0.9% 1,000 ML IV STA ×2 (11:58)
[2024-06-03] MEDS: SODIUM CHLORIDE 0.9% 500 ML 500 ML IV STA (11:58)
[2024-06-03 12:06] LABS: Appearance,Urine Clear (Clear); Bilirubin,Urine Negative (Negative); Blood,Urine Negative (Negative); Color,Urine Light Yellow; Glucose,Urine (UA) Negative (Negative); Ketones,Urine 1+ (Negative); Leukocyte Esterase,Urine Negative (Negative); Nitrite,Urine Negative (Negative); PH, Urine 5.5 (5.0-8.0); Protein,Urine Trace (Negative); Specific Gravity,Urine 1.017 (1.001-1.035); Urobilinogen,Urine <2.0 mg/dL (<2.0)
[2024-06-03 12:14] LABS: Amphetamine Screen,Urine Not Detected (NotDetected); Barbiturate Screen,Urine Not Detected (NotDetected); Benzodiazepines Screen,Urine Not Detected (NotDetected); Cocaine Screen,Urine Not Detected (NotDetected); Methadone Screen, Urine Not Detected (NotDetected); Opiate Screen,Urine Not Detected (NotDetected); Oxycodone Screen, Urine Not Detected (NotDetected); Phencyclidine Screen,Urine Not Detected (NotDetected); Tricyclic Antidepressant,Urine Not Detected (NotDetected); Urn Cannabinoid Scrn Not Detected (NotDetected)
[2024-06-03 12:18] LABS: Basophils % (A) 0 %; Eosinophils # (A) 0.3 k/uL (0-0.7); Eosinophils % (A) 3 %; HGB 16.1 gm/dL (13.0-17.5); Lymphocytes % (A) 12 %; MCH 31.1 pg (25.0-35.0); MCHC 34.3 g/dL (31.0-37.0); MCV 90.7 fL (80.0-100.0); Mean Platelet Volume 7.6; Monocytes # (A) 0.4 k/uL (0-1.0); Monocytes % (A) 4 %; Neutrophils # (A) 6.9 k/uL (1.3-7.7); Neutrophils % (A) 79 %; Platelet Count 138 k/uL (150-450); RBC 5.18 m/uL (4.30-5.90); RDW 13.4 % (11.5-15.5); WBC 8.7 k/uL (3.8-10.6)
[2024-06-03] MEDS: LACOSAMIDE 50 MG TABLET PO STA (12:48)
[2024-06-03] MEDS: levETIRAcetam IV 500 MG/5 ML VIAL IVP STA (12:49)
[2024-06-03 13:56] LABS: ALT 32 U/L (4-49); African American GFR (CKD) >90 (>60 ml/min/1.73 sqM); Albumin 3.8 g/dL (3.5-5.0); Alcohol <10 mg/dL; Anion Gap 9 mmol/L; Blood Urea Nitrogen 17 mg/dL (9-20); Calcium 8.8 mg/dL (8.4-10.2); Carbon Dioxide 23 mmol/L (22-30); Chloride 106 mmol/L (98-107); Glucose 104 mg/dL (74-99); Lipase 46 U/L (23-300); Non-African American GFR(CKD) 86 (>60 ml/min/1.73 sqM); Sodium 138 mmol/L (137-145); Total Bilirubin 0.8 mg/dL (0.2-1.3); Total Protein 6.7 g/dL (6.3-8.2)
[2024-06-03 14:11] LABS: AST 32 U/L (17-59); Alkaline Phosphatase 126 U/L (38-126); Magnesium 2.1 mg/dL (1.6-2.3); Phosphorus 2.6 mg/dL (2.5-4.5); Potassium 4.4 mmol/L (3.5-5.1)
[2024-06-03] MEDS ORDERED: MORPHINE SULFATE 4 MG/ML SYRINGE IV PRN (14:12)
[2024-06-03] MEDS ORDERED: NALOXONE 0.4 MG/ML 1 ML VIAL IV PRN (14:12)
[2024-06-03] MEDS ORDERED: ONDANSETRON 4 MG/2 ML VIAL IVP PRN (14:12)
[2024-06-03] MEDS ORDERED: SODIUM CHLORIDE 0.9% 1,000 ML IV SCH (14:15)
[2024-06-03] MEDS: chlordiazePOXIDE 25 MG CAP PO SCH (16:41)
[2024-06-03 16:59] VITALS: BP 132/78; PULSE 80; RESP 18
--- NOTE | 2024-06-03 21:33 | P.HPIM ---
History of Present Illness H&P Date: 06/03/24 This is a 49 year old male medical history of alcoholism, polysubstance abuse, and seizure disorder. Presents because of witnessed seizure while on public transportation was brought in by EMS. He states he was recently incarcerated and got out on saturday. He had a drink of alcohol yesterday but has not been drinking due to the incarceration. He is maintained on keppra and vimpat and states he has been out of his seizure medication and due to funds he has been unable to obtain them Noted that he was in the ER yesterday and was provided with prescription for medication refills however he had no money to pay for them as they are costly and he is usually on a reduced cost coupon through his neurol ogist. His CBC is essentially unremarkable with platelet count of 138. Electroytes and renal function WNL. Urinalysis not suggestive of infection. His UDS is negative and serum alcohol level less than 10. He is awake alert and oriented. He was given a loading dose of keppra with vimpat in the ER> he was admitted to the hospital under internal medicine for monitoring. He wants to discharge home. He was given a one week supply of his seizure medications and indigent funds were provided to cover the cost. Initially patient was given a 30 day supply but due to the cost of the medications only able to cover a week supply for this patient at no cost. He is agreeable with this plan and does verbalize he is able to afford them on Saturday. He will be discharged. REVIEW OF SYSTEMS: CONSTITUTIONAL: No fever, no malaise, no fatigue. HEENT: No recent visual problems or hearing problems. Denied any sore throat. CARDIOVASCULAR: No chest pain, orthopnea, PND, no palpitations, no syncope. PULMONARY: No shortness of breath, no cough, no hemoptysis. GASTROINTESTINAL: No diarrhea, no nausea, no vomiting, no abdominal pain. NEUROLOGICAL: No headaches, no weakness, no numbness. HEMATOLOGICAL: Denies any bleeding or petechiae. GENITOURINARY: Denies any burning micturition, frequency, or urgency. MUSCULOSKELETAL/RHEUMATOLOGICAL: Denies any joint pain, swelling, or any muscle pain. ENDOCRINE: Denies any polyuria or polydipsia. The rest of the 14-point review of systems is negative. PHYSICAL EXAMINATION: GENERAL: The patient is alert and oriented x3, not in any acute distress. Well d eveloped, well nourished. HEENT: Pupils are round and equally reacting to light. EOMI. No scleral icterus. No conjunctival pallor. Normocephalic, atraumatic. No pharyngeal erythema. No thyromegaly. CARDIOVASCULAR: S1 and S2 present. No murmurs, rubs, or gallops. PULMONARY: Chest is clear to auscultation, no wheezing or crackles. ABDOMEN: Soft, nontender, nondistended, normoactive bowel sounds. No palpable organomegaly. MUSCULOSKELETAL: No joint swelling or deformity. EXTREMITIES: No cyanosis, clubbing, or pedal edema. NEUROLOGICAL: Gross neurological examination did not reveal any focal deficits. SKIN: No rashes. Assessment and plan Seizure due to noncompliance with medication due to cost History of seizure disorder/Epilepsy Anxiety/Depression Chronic alcoholism Chronic and ongoing nicotine use Gi prophylaxis Full Code Plan Patient given loading doses of his seizure medication with 1500 mg of keppra and 200 mg of vimpat. He is provided with one week supply of his medications and instructed to follow up with his neurologist. [place] Law no driving for 6 months or until seizure free, avoid operating heavy machinery, swimming alone, climbing ladders unsupervised. Discharged home. The impression and plan of care has been dictated by Olivia Catalan, Nurse Practitioner as directed. Dr. Redd MD I have performed a history and physical examination and medical decision making of this patient, discussed the same with the dictator, and agree with the dictators assessment and plan as written, documented as a scribe. Based on total visit time, I have performed more than 50% of this visit. Past Medical History Past Medical History: Seizure Disorder History of Any Multi-Drug Resistant Organisms: None Reported Additional Past Surgical History / Comment(s): MOUTH SURGERY Past Anesthesia/Blood Transfusion Reactions: No Reported Reaction Past Psychological History: Anxiety, Depression Smoking Status: Current every day smoker Past Alcohol Use History: Daily, Heavy Past Drug Use History: None Reported - Past Family History Mother Family Medical History: Unable to Obtain, Cancer Additional Family Medical History / Comment(s): lung cancer Father Family Medical History: No Reported History Medications and Allergies Home Medications Medication Instructions Recorded Confirmed Type Pantoprazole [Protonix] 40 mg PO DAILY #30 tab 11/12/23 06/03/24 Rx Lacosamide [Vimpat] 200 mg PO BID 30 Days #60 tab 06/03/24 Rx levETIRAcetam [Keppra] 1,500 mg PO BID 30 Days #120 tab 06/03/24 Rx Allergies Allergy/AdvReac Type Severity Reaction Status Date / Time No Known Allergies Allergy Verified 06/03/24 11:29 Physical Exam Vitals: Vital Signs Temp Pulse Resp BP Pulse Ox 06/03/24 16:58 80 18 132/78 100 06/03/24 13:59 101 H 15 128/74 97 06/03/24 11:02 99.1 F 114 H 18 130/80 97 Intake and Output 06/03/24 06/03/24 06/03/24 06:59 14:59 22:59 Other: Weight 74.843 kg Results CBC & Chem 7: 06/03/24 11:57 06/03/24 13:24 Labs: Abnormal Lab Results - Last 24 Hours (Table) 06/03/24 06/03/24 06/03/24 Range/Units 11:57 11:57 13:24 Plt Count 138 L (150-450) k/uL Glucose 104 H (74-99) mg/dL Urine Protein Trace H (Negative) Urine Ketones 1+ H (Negative) Assessment and Plan Time with Patient: Greater than 30
--- NOTE | 2024-06-03 21:35 | P.DS ---
Providers Date of admission: 06/03/24 14:13 Attending physician: Valeri Daly Primary care physician: [facility] Hospital Course: Final Diagnosis Seizure due to noncompliance with medication due to cost History of seizure disorder/Epilepsy Anxiety/Depression Chronic alcoholism Chronic and ongoing nicotine use Discharge Disposition Discharged home with one week supply of seizure medications. and advised to follow up with his neurologist. Hospital Course This is a 49 year old male medical history of alcoholism, polysubstance abuse, and seizure disorder. Presents because of witnessed seizure while on public transportation was brought in by EMS. He states he was recently incarcerated and got out on saturday. He had a drink of alcohol yesterday but has not been drinking due to the incarceration. He is maintained on keppra and vimpat and states he has been out of his seizure medication and due to funds he has been unable to obtain them Noted that he was in the ER yesterday and was provided with prescription for medication refills however he had no money to pay for them as they are costly and he is usually on a reduced cost coupon through his neurologist. His CBC is essentially unremarkable with platelet count of 138. Electroytes and renal function WNL. Urinalysis not suggestive of infection. His UDS is negative and serum alcohol level less than 10. He is awake alert and oriented. He was given a loading dose of keppra with vimpat in the ER> he was admitted to the hospital under internal medicine for monitoring. He wants to discharge home. He was given a one week supply of his seizure medications and indigent funds were provided to cover the cost. Initially patient was given a 30 day supply but due to the cost of the medications only able to cover a week supply for this patient at no cost. He is agreeable with this plan and does verbalize he is able to afford them on Saturday. He will be discharged. Please see medication reconciliation for a list of current medications. Thank you for allowing us to participate in the care of this patient. The impression and plan of care has been dictated by Olivia Catalan, Nurse Practitioner as directed. Dr. Redd MD I have performed a history and physical examination and medical decision making of this patient, discussed the same with the dictator, and agree with the dictators assessment and plan as written, documented as a scribe. Based on total visit time, I have performed more than 50% of this visit. Patient Condition at Discharge: Fair Plan - Discharge Summary New Discharge Prescriptions: Continue Pantoprazole [Protonix] 40 mg PO DAILY #30 tab levETIRAcetam [Keppra] 1,500 mg PO BID 30 Days #120 tab Lacosamide [Vimpat] 200 mg PO BID 30 Days #60 tab Discharge Medication List Pantoprazole [Protonix] 40 mg PO DAILY #30 tab 11/12/23 [Rx] Lacosamide [Vimpat] 200 mg PO BID 30 Days #60 tab 06/03/24 [Rx] levETIRAcetam [Keppra] 1,500 mg PO BID 30 Days #120 tab 06/03/24 [Rx] Follow up Appointment(s)/Referral(s): [facility] [REFERRING] - 1 Week Meagan Alejo MD [Primary Care Provider] - 1-2 days Patient Instructions/Handouts: Seizure/Epilepsy Discharge Instructions & Follow-Up Activity/Diet/Wound Care/Special Instructions: Avoid alcohol Remain compliant with your seizure medications Follow up with your neurologist on discharge [place] Law no driving for 6 months or until seizure free, avoid operating heavy machinery, swimming alone, climbing ladders unsupervised. Discharge Disposition: HOME SELF-CARE
[2024-06-04] MEDS ORDERED: PANTOPRAZOLE 40 MG/10 ML VIAL IV SCH (09:00)
[2024-06-04] MEDS ORDERED: FOLIC ACID 1 MG TAB PO SCH (09:00)
[2024-06-04] MEDS ORDERED: MULTIVITAMINS, THERA 1 EACH TAB PO SCH (09:00)
== END 2024-06-03 16:58 | disposition home or self-care (01) ==
LOC: EC 10:59 → SUPCPDRO 10:59 → 4SSUR 14:13
PROVIDERS: ADMIT Hospitalist; ATTEND Hospitalist
DX: G40.409 Other generalized epilepsy and epileptic syndromes, not intractable, without status epilepticus (principal); F10.20 Alcohol dependence, uncomplicated; F41.9 Anxiety disorder, unspecified; F32.A Depression, unspecified; F17.200 Nicotine dependence, unspecified, uncomplicated; Y90.0 Blood alcohol level of less than 20 mg/100 ml; Z91.141 Patient's other noncompliance with medication regimen due to financial hardship; Z79.899 Other long term (current) drug therapy
CPT/HCPCS: 96374; 96375; 99285; 36415; 80053; 83690; 83735; 84100; 85025; 81003; 80306; G0378; G0480; J2060; J1953; 80320

== ENCOUNTER 2024-09-10 13:23 | Emergency (ER) | payer MEDICARE ==
[2024-09-10] MEDS: ROCURONIUM 10 MG/ML (5 ML VIAL) IV ONE (13:26)
[2024-09-10] MEDS: ETOMIDATE 2 MG/ML 10 ML VIAL IVP STA (13:26)
[2024-09-10] MEDS ORDERED: fentaNYL (PF) 50 MCG/ML 2 ML AMP IVP PRN (13:48)
[2024-09-10] MEDS ORDERED: IPRATROPIUM-ALBUTEROL 3 ML NEB INHALATION PRN (13:48)
--- NOTE | 2024-09-10 13:54 | ED ---
General Adult HPI - General Chief complaint: Altered Mental Status Stated complaint: fall/trauma Source: EMS Limitations: altered mental status - History of Present Illness Initial comments: Patient is a 49-year-old gentleman unknown past medical history presenting today for altered mental status after witnessed fall last night. Per EMS report patient was witnessed to fall at home by roommate yesterday evening. He was left on the ground and EMS was called this morning. Patient was found obtunded with snoring respirations. He was placed on NRB mask with pulse ox 100%. Blood glucose was approximately 200. Pupils were nonreactive. Pt noted to have dried blood on forehead. Is not known to be on blood thinners. - Related Data Previous Rx's Medication Instructions Recorded Pantoprazole [Protonix] 40 mg PO DAILY #30 tab 11/12/23 Lacosamide [Vimpat] 200 mg PO BID 30 Days #60 tab 06/03/24 levETIRAcetam [Keppra] 1,500 mg PO BID 30 Days #120 tab 06/03/24 Allergies Allergy/AdvReac Type Severity Reaction Status Date / Time No Known Allergies Allergy Verified 09/10/24 13:31 Review of Systems ROS Statement: Those systems with pertinent positive or pertinent negative responses have been documented in the HPI. ROS Other: All systems not noted in ROS Statement are negative. Limitations: ROS unobtainable due to patients medical condition Past Medical History Past Medical History: Seizure Disorder History of Any Multi-Drug Resistant Organisms: None Reported Additional Past Surgical History / Comment(s): MOUTH SURGERY Past Anesthesia/Blood Transfusion Reactions: No Reported Reaction Past Psychological History: Anxiety, Depression Smoking Status: Current every day smoker Past Alcohol Use History: Daily, Heavy Past Drug Use History: None Reported - Past Family History Mother Family Medical History: Unable to Obtain, Cancer Additional Family Medical History / Comment(s): lung cancer Father Family Medical History: No Reported History General Exam - General Exam Comments Initial Comments: PE: CONSTITUTIONAL: In acute distress, ill-appearing, unresponsive SKIN: Cool, dry, abrasion to right forehead EYES: Pupils are 4 mm equal, round, nonreactive, no nystagmus HENT: Hematoma to left evangelical, blood from right TM, unable to visualize left TM, abrasion to right forehead, OPA in place, tongue with mild swelling and abrasions present NECK: C-collar in place PULMONARY: Equal breath sounds bilaterally with assisted respirations CARDIOVASCULAR: Regular rate, rhythm, normal S1 and S2. No appreciated murmurs, rubs or gallops. Extremities appear well-perfused, 2+ radial pulses GASTROINTESTINAL: Soft, active bowel sounds throughout, non-tender, non- distended, no palpable masses, No hepatosplenomegaly MUSCULOSKELETAL: Extremities have no gross deformity, no edema, redness, or swelling. Back examined while maintaining C spine precautions, small abrasion to right shoulder, otherwise no signs of injury to the back NEUROLOGIC:_a/o x 0, G CS of 3, does not withdraw from painful stimuli to any extremities, no spontaneous eye opening, no verbal response PSYCHIATRIC: Unable to assess Limitations: altered mental status Course Vital Signs 09/10/24 09/10/24 09/10/24 13:27 13:30 13:37 Temperature Pulse Rate 99 Respiratory 16 Rate Blood Pressure 139/125 O2 Sat by Pulse 99 Oximetry Fraction of 100 100 Inspired Oxygen (FIO2) 09/10/24 09/10/24 09/10/24 13:40 14:09 14:17 Temperature 81.0 F L 80.1 F L Pulse Rate 78 58 L 56 L Respiratory 16 16 18 Rate Blood Pressure 109/87 112/86 113/86 O2 Sat by Pulse 100 100 Oximetry Fraction of Inspired Oxygen (FIO2) 09/10/24 09/10/24 09/10/24 14:30 14:31 14:43 Temperature 80.8 F L Pulse Rate 57 L 67 Respiratory 16 16 Rate Blood Pressure 128/89 126/97 O2 Sat by Pulse 100 100 Oximetry Fraction of 50 Inspired Oxygen (FIO2) 09/10/24 14:53 Temperature 80.4 F L Pulse Rate 60 Respiratory 18 Rate Blood Pressure 117/83 O2 Sat by Pulse 100 Oximetry Fraction of Inspired Oxygen (FIO2) - Reevaluation(s) Reevaluation #1: Case was discussed with radiology, patient appears to have multiple skull fractures, epidural hematoma, tonsillar herniation. Currently trying to expedite patient's transfer to [facility] for definitive treatment. 09/10/24 14:23 EKG Findings - EKG Comments: EKG Findings:: Sinus rhythm, rate 70 bpm MI interval 180 ms QT/QTc 502/522 ms, Peralta waves present no significant ST elevations or depressions Procedures - Intubation Sedative: Etomidate Paralytic: Rocuronium Laryngoscope: Kelley Size: 3 Assist Device Used: other (glidescope) ET Tube Size: 8 ET Tube Uncuffed: No Tube Secured Depth (cm): 23 Tube Secured Location: lips Tube Placement Confirmation: visualized tube passing through cords, equal breath sounds bilaterally, no breath sounds over epigastrium, confirmation by capnometry Patient Tolerated Procedure: well Intubation Complications: difficult intubation (C spine precautions maintained, pt with tongue abrasions, difficult airway) Medical Decision Making - Medical Decision Making Was pt. sent in by a medical professional or institution (, PA, PAPER PATTERN FOLDER, urgent care, hospital, or group home...) When possible be specific @ -No Did you speak to anyone other than the patient for history (EMS, parent, family, police, friend...)? What history was obtained from this source @ -EMS personnel did history, was found down, fell last night, obtunded Were old charts reviewed (outside hosp., previous admission, EMS record, old EKG, old radiological studies, urgent care reports/EKG's, group home records)? Report findings @ -Medical records reviewed reviewed discharge summary from patient was here on 05/25 and appears patient has a history of alcoholism polysubstance abuse and seizure disorder Differential Diagnosis (chest pain, altered mental status, abdominal pain women, abdominal pain men, vaginal bleeding, weakness, fever, dyspnea, syncope, headache, dizziness, GI bleed, back pain, seizure, CVA, palpatations, mental health, musculoskeletal)? @ -Differential Altered Mental Status: Hypoglycemia, DKA, hypercapnia, ETOH, overdose, CO poisoning, trauma, myxedema coma, HTN encephalopathy, infection, encephalitis, psychosis, intercranial hemorrhage, hepatic encephalopathy, meningitis, CVA, this is not meant to be an all-inclusive list EKG interpreted by me (3pts min.). @ -As above X-rays interpreted by me (1pt min.). @Personally reviewed chest ray, ET tube appears to be appropriate position, no pneumothorax, personally reviewed pelvis x-ray I see no evidence of malalignment or pubic symphysis widening, I agree with radiolgist interpretation CT interpreted by me (1pt min.). @Personally reviewed CT brain, appears to show large epidural hematoma agree with radiologist interpretation, personally reviewed CT c spine I see no evidence of fracture or malalignment, I personally reviewed CT Chest/abdomen/pelvis, I see no evidence of fracture or other acute injury present, I agree with radiologist interpretation U/S interpreted by me (1pt. min.). @ -None done What testing was considered but not performed or refused? (CT, X-rays, U/S, labs)? Why? @ -None What meds were considered but not given or refused? Why? @ -None Did you discuss the management of the patient with other professionals (professionals i.e. DrMarco Antonio, PA, PAPER PATTERN FOLDER, lab, RT, psych nurse, outreach and education social worker, ice cream vault worker, teacher, client sales and service officer, rn case manager hospice)? Give summary @Discussed with Dr Merino, trauma surgery, who kindly came down to evaluate pt, Discussed w/ Dr. Husain, trauma surgery [facility], who spoke with neurosurgeon at his hospital, kindly accepted pt for transfer, Rec'd 1 gram TXA, hypertonic saline. Was smoking cessation discussed for >3mins.? @ -No Was critical care preformed (if so, how long)? @Yes 60 minutes Were there social determinants of health that impacted care today? How? (Homelessness, low income, unemployed, alcoholism, drug addiction, transportation, low edu. Level, literacy, decrease access to med. care, detention, rehab)? @ -No Was there de-escalation of care discussed even if they declined (Discuss DNR or withdrawal of care, Hospice)? @ -No What co-morbidities impacted this encounter? (DM, HTN, Smoking, COPD, CAD, Cancer, CVA, ARF, Chemo, Hep., AIDS, mental health diagnosis, sleep apnea, morbid obesity)? @Alcoholism, seizure disorder Was patient admitted / discharged? Hospital course, mention meds given and route, prescriptions, significant lab abnormalities, going to OR and other pertinent info. @ -Transfer to [facility]- Pt is a 49 y/o male with initially unknown medical hx presenting via EMS w/ altered mental status after fall witnessed by a roommate last night. Seen and assessed on arrival. Notable has blood on his scalp, abrasions to right forehead, blood from right ear, left temporal hematoma, pupils 4 mm and nonreactive. GCS 3. Intubated for airway protection. C-spine precautions maintained. Pt activated as a level 1 trauma due to AMS with visible signs of head injury. Discussed case with Dr. Merino, trauma surgeon. Trauma protocol was followed. Pt noted to be hypothermic with temp 81 degrees, pretty hugger applied. 2L IV fluids ordered, CXR and pelvis XR obtained immediately. Comprehensive labs, CT brain, C spine and chest/abdomen/pelvis or dered. CT brain showed large epidural hematoma with midline shift on my review. Given pt's neurologic exam, low GCS, nonreactive pupils on arrival, suspect poor prognosis. I attempted to contact listed family member (sister) without answer. Patient will require transfer to facility with neurosurgery due to traumatic intracranial hemorrhage. CT brain ultimately was read as significant for a "large epidural hemorrhage along the right inner convexity resulting in subfalcine herniation to the left with marked dilation of the left lateral ventricle and marked edema in the right parietal and occipital lobes, bilateral occipital bone fractures and right temporal bone fractures, small parenchymal and possibly subarachnoid hemorrhage along the left inner convexity of the temporal region". Case was discussed with Dr. Husain, trauma, [facility], kindly accepted patient for transfer after discussion with neurosurgery. Hypertonic saline, TXA ordered, keppra ordered. Head of bed elevated. Pt stabilized for transport to [facility]. Of note, not all labs resulted by the time pt was transferred out of ED. Undiagnosed new problem with uncertain prognosis? @ -No Drug Therapy requiring intensive monitoring for toxicity (Heparin, Nitro, Insulin, Cardizem)? @ -No Were any procedures done? @ -No Diagnosis/symptom? @Fall, traumatic intracranial hemorrhage, epidural hematoma, hypothermia, skull fracture Acute, or Chronic, or Acute on Chronic? @ -Acute Uncomplicated (without systemic symptoms) or Complicated (systemic symptoms)? @Complicated Side effects of treatment? @ -No Exacerbation, Progression, or Severe Exacerbation? @ -No Poses a threat to life or bodily function? How? (Chest pain, [place], [place], pneumonia, PE, COPD, DKA, ARF, appy, cholecystitis, CVA, Diverticulitis, Homicidal, Suicidal, threat to staff... and all critical care pts) @Yes - Lab Data Result diagrams: 09/10/24 13:48 09/10/24 13:48 Lab Results 09/10/24 09/10/24 09/10/24 Range/Units 13:40 13:48 13:48 WBC (4.50-10.00) 10*3/uL RBC (4.40-5.60) 10*6/uL Hgb (13.0-17.0) g/dL Hct (39.6-50.0) % MCV (80.0-97.0) fL MCH (27.0-32.0) pg MCHC (32.0-37.0) g/dL Plt Count (140-440) 10*3/uL MPV (9.5-12.2) fL Immature Gran % (Auto) % Neutrophils % % Lymphocytes % % Monocytes % % Eosinophils % % Basophils % % Immature Gran # (0.00-0.04) 10*3/uL Neutrophils # (1.80-7.70) 10*3/uL Lymphocytes # (0.90-5.00) 10*3/uL Monocytes # (0.20-1.00) 10*3/uL Eosinophils # (0.04-0.35) 10*3/uL Basophils # (0.00-0.10) 10*3/uL PT 13.4 H (10.0-12.5) sec INR 1.3 H (<1.2) APTT 27.7 (22.0-30.0) sec Sample Site ABG pH (7.35-7.45) ABG pCO2 (35-45) mmHg ABG pO2 (83-108) mmHg ABG HCO3 (21-25) mmol/L ABG Total CO2 (19-24) mmol/L ABG O2 Saturation (94-97) % ABG Base Excess mmol/L Isidro Test Hemoglobin (13.0-17.5) gm/dL FiO2 % Sodium 148 H (137-145) mmol/L Potassium 3.7 (3.5-5.1) mmol/L Chloride 107 (98-107) mmol/L Carbon Dioxide 18 L (22-30) mmol/L Anion Gap 23 mmol/L BUN 13 (9-20) mg/dL Creatinine 0.59 L (0.66-1.25) mg/dL Est GFR (CKD-EPI)AfAm >90 (>60 ml/min/1.73 sqM) Est GFR (CKD-EPI)NonAf >90 (>60 ml/min/1.73 sqM) Glucose 170 H (74-99) mg/dL POC Glucose (mg/dL) (70-110) mg/dL POC Glu Ethnic Origins Teacher ID Lactic Ac Sepsis Rflx Plasma Lactic Acid Alex (0.7-2.0) mmol/L Calcium 8.6 (8.4-10.2) mg/dL Total Bilirubin 0.9 (0.2-1.3) mg/dL AST 146 H (17-59) U/L ALT 137 H (4-49) U/L Alkaline Phosphatase 88 (38-126) U/L Creatine Kinase 808 H (55-170) U/L Troponin I (0.000-0.034) ng/mL Total Protein 7.4 (6.3-8.2) g/dL Albumin 4.2 (3.5-5.0) g/dL Urine Opiates Screen (NotDetected) Ur Oxycodone Screen (NotDetected) Urine Methadone Screen (NotDetected) Ur Barbiturates Screen (NotDetected) U Tricyclic Antidepress (NotDetected) Ur Phencyclidine Scrn (NotDetected) Ur Amphetamines Screen (NotDetected) U Methamphetamines Scrn (NotDetected) U Benzodiazepines Scrn (NotDetected) Urine Cocaine Screen (NotDetected) U Marijuana (THC) Screen (NotDetected) Serum Alcohol 154 mg/dL Blood Type O Negative Blood Type Recheck O Neg Bld Type Recheck Status No Antibody Screen NEGATIVE Spec Expiration Date 09/13/2024234509/10/24 09/10/24 09/10/24 Range/Units 13:48 13:48 13:48 WBC 4.49 L (4.50-10.00) 10*3/uL RBC 5.73 H (4.40-5.60) 10*6/uL Hgb 17.7 H (13.0-17.0) g/dL Hct 51.5 H (39.6-50.0) % MCV 89.9 (80.0-97.0) fL MCH 30.9 (27.0-32.0) pg MCHC 34.4 (32.0-37.0) g/dL Plt Count 104 L (140-440) 10*3/uL MPV 9.1 L (9.5-12.2) fL Immature Gran % (Auto) 0.4 % Neutrophils % 86.3 % Lymphocytes % 9.1 % Monocytes % 4.0 % Eosinophils % 0.0 % Basophils % 0.2 % Immature Gran # 0.02 (0.00-0.04) 10*3/uL Neutrophils # 3.87 (1.80-7.70) 10*3/uL Lymphocytes # 0.41 L (0.90-5.00) 10*3/uL Monocytes # 0.18 L (0.20-1.00) 10*3/uL Eosinophils # 0.00 L (0.04-0.35) 10*3/uL Basophils # 0.01 (0.00-0.10) 10*3/uL PT (10.0-12.5) sec INR (<1.2) APTT (22.0-30.0) sec Sample Site ABG pH (7.35-7.45) ABG pCO2 (35-45) mmHg ABG pO2 (83-108) mmHg ABG HCO3 (21-25) mmol/L ABG Total CO2 (19-24) mmol/L ABG O2 Saturation (94-97) % ABG Base Excess mmol/L Isidro Test Hemoglobin (13.0-17.5) gm/dL FiO2 % Sodium (137-145) mmol/L Potassium (3.5-5.1) mmol/L Chloride (98-107) mmol/L Carbon Dioxide (22-30) mmol/L Anion Gap mmol/L BUN (9-20) mg/dL Creatinine (0.66-1.25) mg/dL Est GFR (CKD-EPI)AfAm (>60 ml/min/1.73 sqM) Est GFR (CKD-EPI)NonAf (>60 ml/min/1.73 sqM) Glucose (74-99) mg/dL POC Glucose (mg/dL) (70-110) mg/dL POC Glu Ethnic Origins Teacher ID Lactic Ac Sepsis Rflx Plasma Lactic Acid Alex (0.7-2.0) mmol/L Calcium (8.4-10.2) mg/dL Total Bilirubin (0.2-1.3) mg/dL AST (17-59) U/L ALT (4-49) U/L Alkaline Phosphatase (38-126) U/L Creatine Kinase (55-170) U/L Troponin I <0.012 (0.000-0.034) ng/mL Total Protein (6.3-8.2) g/dL Albumin (3.5-5.0) g/dL Urine Opiates Screen Not Detected (NotDetected) Ur Oxycodone Screen Not Detected (NotDetected) Urine Methadone Screen Not Detected (NotDetected) Ur Barbiturates Screen Not Detected (NotDetected) U Tricyclic Antidepress Not Detected (NotDetected) Ur Phencyclidine Scrn Not Detected (NotDetected) Ur Amphetamines Screen Not Detected (NotDetected) U Methamphetamines Scrn Not Detected (NotDetected) U Benzodiazepines Scrn Not Detected (NotDetected) Urine Cocaine Screen Detected H (NotDetected) U Marijuana (THC) Screen Not Detected (NotDetected) Serum Alcohol mg/dL Blood Type Blood Type Recheck Bld Type Recheck Status Antibody Screen Spec Expiration Date 09/10/24 09/10/24 09/10/24 Range/Units 13:48 14:15 14:20 WBC (4.50-10.00) 10*3/uL RBC (4.40-5.60) 10*6/uL Hgb (13.0-17.0) g/dL Hct (39.6-50.0) % MCV (80.0-97.0) fL MCH (27.0-32.0) pg MCHC (32.0-37.0) g/dL Plt Count (140-440) 10*3/uL MPV (9.5-12.2) fL Immature Gran % (Auto) % Neutrophils % % Lymphocytes % % Monocytes % % Eosinophils % % Basophils % % Immature Gran # (0.00-0.04) 10*3/uL Neutrophils # (1.80-7.70) 10*3/uL Lymphocytes # (0.90-5.00) 10*3/uL Monocytes # (0.20-1.00) 10*3/uL Eosinophils # (0.04-0.35) 10*3/uL Basophils # (0.00-0.10) 10*3/uL PT (10.0-12.5) sec INR (<1.2) APTT (22.0-30.0) sec Sample Site Left Radial ABG pH 7.33 L (7.35-7.45) ABG pCO2 36 (35-45) mmHg ABG pO2 >420 H (83-108) mmHg ABG HCO3 19 L (21-25) mmol/L ABG Total CO2 20 (19-24) mmol/L ABG O2 Saturation >100.0 H (94-97) % ABG Base Excess -6.2 mmol/L Isidro Test Yes Hemoglobin 16.2 (13.0-17.5) gm/dL FiO2 100 % Sodium (137-145) mmol/L Potassium (3.5-5.1) mmol/L Chloride (98-107) mmol/L Carbon Dioxide (22-30) mmol/L Anion Gap mmol/L BUN (9-20) mg/dL Creatinine (0.66-1.25) mg/dL Est GFR (CKD-EPI)AfAm (>60 ml/min/1.73 sqM) Est GFR (CKD-EPI)NonAf (>60 ml/min/1.73 sqM) Glucose (74-99) mg/dL POC Glucose (mg/dL) 168 H (70-110) mg/dL POC Glu Ethnic Orig[employer] Teacher ID Rajeev Mora Lactic Ac Sepsis Rflx Plasma Lactic Acid Alex 2.4 H* (0.7-2.0) mmol/L Calcium (8.4-10.2) mg/dL Total Bilirubin (0.2-1.3) mg/dL AST (17-59) U/L ALT (4-49) U/L Alkaline Phosphatase (38-126) U/L Creatine Kinase (55-170) U/L Troponin I (0.000-0.034) ng/mL Total Protein (6.3-8.2) g/dL Albumin (3.5-5.0) g/dL Urine Opiates Screen (NotDetected) Ur Oxycodone Screen (NotDetected) Urine Methadone Screen (NotDetected) Ur Barbiturates Screen (NotDetected) U Tricyclic Antidepress (NotDetected) Ur Phencyclidine Scrn (NotDetected) Ur Amphetamines Screen (NotDetected) U Methamphetamines Scrn (NotDetected) U Benzodiazepines Scrn (NotDetected) Urine Cocaine Screen (NotDetected) U Marijuana (THC) Screen (NotDetected) Serum Alcohol mg/dL Blood Type Blood Type Recheck Bld Type Recheck Status Antibody Screen Spec Expiration Date 09/10/24 Range/Units 14:32 WBC (4.50-10.00) 10*3/uL RBC (4.40-5.60) 10*6/uL Hgb (13.0-17.0) g/dL Hct (39.6-50.0) % MCV (80.0-97.0) fL MCH (27.0-32.0) pg MCHC (32.0-37.0) g/dL Plt Count (140-440) 10*3/uL MPV (9.5-12.2) fL Immature Gran % (Auto) % Neutrophils % % Lymphocytes % % Monocytes % % Eosinophils % % Basophils % % Immature Gran # (0.00-0.04) 10*3/uL Neutrophils # (1.80-7.70) 10*3/uL Lymphocytes # (0.90-5.00) 10*3/uL Monocytes # (0.20-1.00) 10*3/uL Eosinophils # (0.04-0.35) 10*3/uL Basophils # (0.00-0.10) 10*3/uL PT (10.0-12.5) sec INR (<1.2) APTT (22.0-30.0) sec Sample Site ABG pH (7.35-7.45) ABG pCO2 (35-45) mmHg ABG pO2 (83-108) mmHg ABG HCO3 (21-25) mmol/L ABG Total CO2 (19-24) mmol/L ABG O2 Saturation (94-97) % ABG Base Excess mmol/L Isidro Test Hemoglobin (13.0-17.5) gm/dL FiO2 % Sodium (137-145) mmol/L Potassium (3.5-5.1) mmol/L Chloride (98-107) mmol/L Carbon Dioxide (22-30) mmol/L Anion Gap mmol/L BUN (9-20) mg/dL Creatinine (0.66-1.25) mg/dL Est GFR (CKD-EPI)AfAm (>60 ml/min/1.73 sqM) Est GFR (CKD-EPI)NonAf (>60 ml/min/1.73 sqM) Glucose (74-99) mg/dL POC Glucose (mg/dL) (70-110) mg/dL POC Glu Ethnic Origins Teacher ID Lactic Ac Sepsis Rflx Y Plasma Lactic Acid Alex (0.7-2.0) mmol/L Calcium (8.4-10.2) mg/dL Total Bilirubin (0.2-1.3) mg/dL AST (17-59) U/L ALT (4-49) U/L Alkaline Phosphatase (38-126) U/L Creatine Kinase (55-170) U/L Troponin I (0.000-0.034) ng/mL Total Protein (6.3-8.2) g/dL Albumin (3.5-5.0) g/dL Urine Opiates Screen (NotDetected) Ur Oxycodone Screen (NotDetected) Urine Methadone Screen (NotDetected) Ur Barbiturates Screen (NotDetected) U Tricyclic Antidepress (NotDetected) Ur Phencyclidine Scrn (NotDetected) Ur Amphetamines Screen (NotDetected) U Methamphetamines Scrn (NotDetected) U Benzodiazepines Scrn (NotDetected) Urine Cocaine Screen (NotDetected) U Marijuana (THC) Screen (NotDetected) Serum Alcohol mg/dL Blood Type Blood Type Recheck Bld Type Recheck Status Antibody Screen Spec Expiration Date Disposition Clinical Impression: Traumatic intracranial epidural hematoma, Temporal bone fracture, Occipital bone fracture, Altered mental status, Hypothermia Disposition: OTHER INSTITUTION NOT DEFINED Condition: Critical Referrals: Meagan Alejo MD [Primary Care Provider] - 1-2 days - Out of Hospital Transfer - Req. Specs Out of Hospital Transfer - Requested Specifics: Other Emergency Center ([facility])
--- NOTE | 2024-09-10 13:57 | XR ---
EXAMINATION TYPE: XR pelvis AP view DATE OF EXAM: 09/10/2024 1:53 PM INDICATION: Patient age:Male; 49 years old; Reason for study: Trauma; PHH. pain COMPARISON: Pelvic radiograph 02/02/2022, CT chest abdomen and pelvis 02/02/2022 TECHNIQUE: The pelvis was examined in a single projection. FINDINGS: There is no evidence of fracture or dislocation. There is no soft tissue abnormality. No a bnormal calcifications are present. IMPRESSION: No acute osseous pathology. [facility], , 09/10/2024 1:55 PM
--- NOTE | 2024-09-10 13:59 | XR ---
EXAMINATION TYPE: XR chest 1V portable DATE OF EXAM: 09/10/2024 1:53 PM COMPARISON: Chest radiographs from 12/05/2023 TECHNIQUE: XR chest 1V portable Portable AP radiograph of the chest. CLINICAL INDICATION:Male, 49 years old with history of trauma; pain FINDINGS: Lungs/Pleura: There is no evidence of pleural effusion, focal consolidation, or pneumothorax. Pulmonary vascularity: Unremarkable. Heart/mediastinum: Cardiomediastinal silhouette is unremarkable. Musculoskeletal: No acute osseous pathology. Other findings: Left chest generator device redemonstrated. Lines/Tubes: Endotracheal tube with distal tip 5.4 cm above the steve IMPRESSION: Endotracheal tube in appropriate position. Otherwise no other acute process. [facility], , 09/10/2024 1:57 PM
[2024-09-10 14:05] LABS: Basophils # (A) 0.01 10*3/uL (0.00-0.10); Basophils % (A) 0.2 %; HCT 51.5 % (39.6-50.0); HGB 17.7 g/dL (13.0-17.0); Lymphocytes # (A) 0.41 10*3/uL (0.90-5.00); Lymphocytes % (A) 9.1 %; MCH 30.9 pg (27.0-32.0); MCHC 34.4 g/dL (32.0-37.0); MCV 89.9 fL (80.0-97.0); Mean Platelet Volume 9.1 fL (9.5-12.2); Monocytes # (A) 0.18 10*3/uL (0.20-1.00); Neutrophils # (A) 3.87 10*3/uL (1.80-7.70); Neutrophils % (A) 86.3 %; Platelet Count 104 10*3/uL (140-440); RBC 5.73 10*6/uL (4.40-5.60); RDW 14.3 % (11.5-14.5); WBC 4.49 10*3/uL (4.50-10.00)
[2024-09-10] MEDS: SODIUM CHLORIDE 0.9% 1,000 ML IV STA (14:08)
[2024-09-10 14:17] LABS: Glucose,Whole Blood 168 mg/dL (70-110)
[2024-09-10 14:20] LABS: ALT 137 U/L (4-49); African American GFR (CKD) >90 (>60 ml/min/1.73 sqM); Albumin 4.2 g/dL (3.5-5.0); Anion Gap 23 mmol/L; Blood Urea Nitrogen 13 mg/dL (9-20); Calcium 8.6 mg/dL (8.4-10.2); Carbon Dioxide 18 mmol/L (22-30); Chloride 107 mmol/L (98-107); Creatine Kinase 808 U/L (55-170); Glucose 170 mg/dL (74-99); Non-African American GFR(CKD) >90 (>60 ml/min/1.73 sqM); Sodium 148 mmol/L (137-145); Total Bilirubin 0.9 mg/dL (0.2-1.3); Total Protein 7.4 g/dL (6.3-8.2)
[2024-09-10 14:25] LABS: ABG Base Excess -6.2 mmol/L; ABG HCO3 19 mmol/L (21-25); ABG Oxygen Saturation >100.0 % (94-97); ABG PCO2 36 mmHg (35-45); ABG PH 7.33 (7.35-7.45); ABG TCO2 20 mmol/L (19-24); Allen Test Performed? Yes
[2024-09-10] MEDS: fentaNYL (PF). 1,000 MCG in SODIUM CHLORIDE 0.9% 80 ML IV SCH (14:27)
[2024-09-10] MEDS: DIPH,PERTUS(ACELL)TETVAC-LF 0.5 ML VIAL IM ONE (14:30)
--- NOTE | 2024-09-10 14:32 | CT ---
EXAMINATION TYPE: CT brain cspine wo con DATE OF EXAM: 09/10/2024 COMPARISON: 12/05/2023 CLINICAL INDICATION: Male, 49 years old with history of trauma; PHH, P1 TRAUMA- patient fell yesterda y, AMS today, blown pupil. Patient ventilated. TECHNIQUE: CT scan of the head and cervical spine are performed without contrast. CT DLP: Combined DLP 3013.[address] CTDI: mGy Automated exposure control for dose reduction was used. Findings: Head CT: There is a large 3.8 cm wide right inner convexity epidural hematoma with marked mass effect and shif t 17 to 18 mm shift of midline structures to the left. There is subfalcine brain herniation with mar ked dilatation of the left lateral ventricle. There is marked edema in the right occipital and pariet al lobe adjacent to the large epidural hemorrhage. There are bilateral occipital bone fractures. There is a 18.7 mm parenchymal hemorrhage with a probab le small subdural component of hemorrhage along the left inner convexity in the left temporal occipit al region. There is a transverse fracture right temporal bone involving the right middle ear cavity which is opa cified with fluid/hemorrhage. The right inner ear structures and internal auditory canal are intact. There is a small amount of fluid or blood right mastoid air cells. The intraorbital contents are normal in symmetric there has been prior open reduction internal fixati on of a right inferior orbital rim fracture. IMPRESSION: 1. Large epidural hemorrhage along the right inner convexity resulting in subfalcine brain herniation to the left with marked dilatation of the left lateral ventricle and marked edema in the right parie patrick and occipital lobes 2. Bilateral occipital bone fractures and right temporal bone fractures as described above. 3. Small parenchymal and possibly subarachnoid hemorrhage along the left inner convexity in the left temporal occipital region. The ER physician in care of this patient was immediately notified of these important findings on 2024 at approximately 2:20 PM. [facility], , 09/10/2024 2:30 PM
[2024-09-10 14:33] LABS: INR 1.3 (<1.2); Partial Thromboplastin Time 27.7 sec (22.0-30.0); Prothrombin Time 13.4 sec (10.0-12.5)
[2024-09-10 14:34] LABS: AST 146 U/L (17-59); Alcohol 154 mg/dL; Alkaline Phosphatase 88 U/L (38-126); Potassium 3.7 mmol/L (3.5-5.1)
[2024-09-10 14:37] LABS: Amphetamine Screen,Urine Not Detected (NotDetected); Barbiturate Screen,Urine Not Detected (NotDetected); Benzodiazepines Screen,Urine Not Detected (NotDetected); Cocaine Screen,Urine Detected (NotDetected); Methadone Screen, Urine Not Detected (NotDetected); Opiate Screen,Urine Not Detected (NotDetected); Oxycodone Screen, Urine Not Detected (NotDetected); Phencyclidine Screen,Urine Not Detected (NotDetected); Tricyclic Antidepressant,Urine Not Detected (NotDetected); Urn Cannabinoid Scrn Not Detected (NotDetected)
--- NOTE | 2024-09-10 14:41 | CT ---
EXAMINATION TYPE: CT ChestAbdPelvis w con DATE OF EXAM: 09/10/2024 COMPARISON: 02/02/2022 CLINICAL INDICATION: Male, 49 years old with history of trauma CT DLP: Combined DLP 3013.5 mGycm Automated exposure control for dose reduction was used. CONTRAST: CT scan of the chest, abdomen and pelvis is performed without Oral Contrast and with IV Contrast, pat ient injected with 100ml mL of Isovue 300. FINDINGS: CT chest: There is a tracheostomy tube a few centimeters above the steve There is no suspicious lung mass or n odule. There is mild subpleural parenchymal scarring in the lingula and mild subpleural parenchymal changes in the lung bases possibly mild atelectasis. There is no large airspace consolidation. There is no pl eural effusion or pneumothorax. There are multiple healed lower left rib fractures. There are a few partially healed posterior left third, fourth and fifth rib fractures. The great vessels and chest are normal there is no mediastinal, hilar or axillary adenopathy. CT abdomen and pelvis: Gallbladder is normal without distention, pericholecystic fluid, wall thickening or gallstone. There is no biliary ductal dilatation. There is no focal mass or organomegaly involving the liver, pancreas, spleen or adrenal glands.. Ther e is marked liver steatosis. There is no solid renal mass or hydronephrosis. There is no retroperitoneal adenopathy or hemorrhage in the caliber of the abdominal aorta is normal. The bowel loops are normal in caliber and there is no dilatation or obstruction. No inflammatory rogers ges identified in the bowel wall and mesentery. There is no free intracranial air or fluid. There is no pelvic mass or adenopathy. There is no free fluid within the pelvis. No focal osseous lesions are seen. Soft tissue the abdomen and pelvis are normal. IMPRESSION: There is no definite acute trauma within the chest, abdomen or pelvis. [facility], , 09/10/2024 2:38 PM
[2024-09-10 14:42] LABS: ABG PO2 >420 mmHg (83-108)
--- NOTE | 2024-09-10 14:44 | P.GSCN ---
History of Present Illness Consult date: 09/10/24 Reason for Consult: Closed head injury History of present illness: 49-year-old male came to the ER today as a level 1 trauma. Patient was appa rently found by his roommate to be unresponsive. The roommate thought he heard him fall yesterday evening. Patient was not witnessed after the fall apparently until he was found unresponsive. Patient came to the hospital with a GCS of 3 and was quickly intubated for airway protection. Vital signs were stable with exception of severe hypothermia with initial core temperature of 81. Patient was noted to have some dried blood on his forehead without any large laceration or obvious skull fractures noted. He was sent for CT brain C-spine chest abdomen pelvis. CT brain significant for large right sided epidural hematoma and bilateral occipital fractures right temporal fracture. CT abdomen pelvis pending at this time. Orogastric tube coiled in the oropharynx. Some atelectasis noted. No obvious solid organ injury. Review of Systems ROS unobtainable: due to mental status Past Medical History Past Medical History: Seizure Disorder History of Any Multi-Drug Resistant Organisms: None Reported Additional Past Surgical History / Comment(s): MOUTH SURGERY Past Anesthesia/Blood Transfusion Reactions: No Reported Reaction Past Psychological History: Anxiety, Depression Smoking Status: Current every day smoker Past Alcohol Use History: Daily, Heavy Past Drug Use History: None Reported - Past Family History Mother Family Medical History: Unable to Obtain, Cancer Additional Family Medical History / Comment(s): lung cancer Father Family Medical History: No Reported History Medications and Allergies Home Medications Medication Instructions Recorded Confirmed Type Pantoprazole [Protonix] 40 mg PO DAILY #30 tab 11/12/23 06/03/24 Rx Lacosamide [Vimpat] 200 mg PO BID 30 Days #60 tab 06/03/24 Rx levETIRAcetam [Keppra] 1,500 mg PO BID 30 Days #120 tab 06/03/24 Rx Allergies Allergy/AdvReac Type Severity Reaction Status Date / Time No Known Allergies Allergy Verified 09/10/24 13:31 Surgical - Exam Vital Signs Pulse Resp BP Pulse Ox 99 16 139/125 99 09/10/24 13:27 09/10/24 13:27 09/10/24 13:27 09/10/24 13:27 Physical exam: General: Well-developed, well-nourished HEENT: Small abrasion right forehead, some dried blood across the right side of his scalp, chronic thickening left temporal region, evidence of blood within the auditory canal on right, trachea midline, pupils 3 to 4 mm Chest: Clear breath sounds, superficial abrasion upper back Abdomen: Nontender, nondistended Extremities: No edema Neuro: Intubated Results - Labs 09/10/24 13:48 09/10/24 13:48 Abnormal Lab Results - Last 24 Hours (Table) 09/10/24 09/10/24 09/10/24 Range/Units 13:48 13:48 13:48 WBC 4.49 L (4.50-10.00) 10*3/uL RBC 5.73 H (4.40-5.60) 10*6/uL Hgb 17.7 H (13.0-17.0) g/dL Hct 51.5 H (39.6-50.0) % Plt Count 104 L (140-440) 10*3/uL MPV 9.1 L (9.5-12.2) fL Lymphocytes # 0.41 L (0.90-5.00) 10*3/uL Monocytes # 0.18 L (0.20-1.00) 10*3/uL Eosinophils # 0.00 L (0.04-0.35) 10*3/uL PT 13.4 H (10.0-12.5) sec INR 1.3 H (<1.2) Sodium 148 H (137-145) mmol/L Carbon Dioxide 18 L (22-30) mmol/L Creatinine 0.59 L (0.66-1.25) mg/dL Glucose 170 H (74-99) mg/dL POC Glucose (mg/dL) (70-110) mg/dL Plasma Lactic Acid Alex (0.7-2.0) mmol/L AST 146 H (17-59) U/L ALT 137 H (4-49) U/L Creatine Kinase 808 H (55-170) U/L 09/10/24 09/10/24 Range/Units 13:48 14:15 WBC (4.50-10.00) 10*3/uL RBC (4.40-5.60) 10*6/uL Hgb (13.0-17.0) g/dL Hct (39.6-50.0) % Plt Count (140-440) 10*3/uL MPV (9.5-12.2) fL Lymphocytes # (0.90-5.00) 10*3/uL Monocytes # (0.20-1.00) 10*3/uL Eosinophils # (0.04-0.35) 10*3/uL PT (10.0-12.5) sec INR (<1.2) Sodium (137-145) mmol/L Carbon Dioxide (22-30) mmol/L Creatinine (0.66-1.25) mg/dL Glucose (74-99) mg/dL POC Glucose (mg/dL) 168 H (70-110) mg/dL Plasma Lactic Acid Alex 2.4 H* (0.7-2.0) mmol/L AST (17-59) U/L ALT (4-49) U/L Creatine Kinase (55-170) U/L Diabetes panel 09/10/24 Range/Units 13:48 Sodium 148 H (137-145) mmol/L Potassium 3.7 (3.5-5.1) mmol/L Chloride 107 (98-107) mmol/L Carbon Dioxide 18 L (22-30) mmol/L BUN 13 (9-20) mg/dL Creatinine 0.59 L (0.66-1.25) mg/dL Glucose 170 H (74-99) mg/dL Calcium 8.6 (8.4-10.2) mg/dL AST 146 H (17-59) U/L ALT 137 H (4-49) U/L Alkaline Phosphatase 88 (38-126) U/L Total Protein 7.4 (6.3-8.2) g/dL Albumin 4.2 (3.5-5.0) g/dL Calcium panel 09/10/24 Range/Units 13:48 Calcium 8.6 (8.4-10.2) mg/dL Albumin 4.2 (3.5-5.0) g/dL Pituitary panel 09/10/24 Range/Units 13:48 Sodium 148 H (137-145) mmol/L Potassium 3.7 (3.5-5.1) mmol/L Chloride 107 (98-107) mmol/L Carbon Dioxide 18 L (22-30) mmol/L BUN 13 (9-20) mg/dL Creatinine 0.59 L (0.66-1.25) mg/dL Glucose 170 H (74-99) mg/dL Calcium 8.6 (8.4-10.2) mg/dL Adrenal panel 09/10/24 Range/Units 13:48 Sodium 148 H (137-145) mmol/L Potassium 3.7 (3.5-5.1) mmol/L Chloride 107 (98-107) mmol/L Carbon Dioxide 18 L (22-30) mmol/L BUN 13 (9-20) mg/dL Creatinine 0.59 L (0.66-1.25) mg/dL Glucose 170 H (74-99) mg/dL Calcium 8.6 (8.4-10.2) mg/dL Total Bilirubin 0.9 (0.2-1.3) mg/dL AST 146 H (17-59) U/L ALT 137 H (4-49) U/L Alkaline Phosphatase 88 (38-126) U/L Total Protein 7.4 (6.3-8.2) g/dL Albumin 4.2 (3.5-5.0) g/dL Assessment and Plan (1) Epidural hematoma Narrative/Plan: 49-year-old male with admission after reported fall yesterday evening. Patient's unresponsive on arrival with CAT scan showing significant intracranial injury with shift. Agree with plans for transfer for urgent neurosurgical evaluation. Replace orogastric tube and confirm placement. Continue active warming of severe hypothermia with warmed IV fluids, Judi hugger, and heated mattress pad. Current Visit: Yes Status: Acute Code(s): S06.4XAA - EPIDURAL HEMORRHAGE WI TH LOC STATUS UNKNOWN, INIT SNOMED Code(s): 769336275
[2024-09-10] MEDS: TRANEXAMIC 1,000 MG/100ML-NACL 1,000 MG in SALINE 1 100ML.BAG IVPB ONE (14:52)
[2024-09-10 14:53] VITALS: BP 117/83; PULSE 60; RESP 18; TEMP 80.4
[2024-09-10] MEDS: SODIUM CHLORIDE 3%(HYPERTONIC) 100 ML IV ONE (15:05)
[2024-09-10] MEDS: levETIRAcetam IV 3,000 MG in SODIUM CHLORIDE 0.9% 250 ML IVPB ONE (15:11)
[2024-09-10] MEDS ORDERED: IPRATROPIUM-ALBUTEROL 3 ML NEB INHALATION SCH (16:00)
== END 2024-09-10 15:22 | disposition other institution (70) ==
LOC: EC 13:23
DX: S02.19XA Other fracture of base of skull, initial encounter for closed fracture (principal); S02.119A Unspecified fracture of occiput, initial encounter for closed fracture; S06.4XAA Epidural hemorrhage with loss of consciousness status unknown, initial encounter; S40.211A Abrasion of right shoulder, initial encounter; T68.XXXA Hypothermia, initial encounter; R40.2432 Glasgow coma scale score 3-8, at arrival to emergency department; F17.200 Nicotine dependence, unspecified, uncomplicated; G40.909 Epilepsy, unspecified, not intractable, without status epilepticus; F10.20 Alcohol dependence, uncomplicated; Z23 Encounter for immunization; W19.XXXA Unspecified fall, initial encounter; Y92.009 Unspecified place in unspecified non-institutional (private) residence as the place of occurrence of the external cause
CPT/HCPCS: 31500; 99291; 96365; 96366 ×3; 96368; 96367; 90471; 36415; 36600; 94002; 93005; 86900; 86901; 80053; 82550; 82805; 83605; 84484; 85025; 85610; 85730; 86850; 80306; 72170; 71045; 72125; 70450; 71260; 74177; 90715; G0480; J3010; J1953; Q9967; 80320